=== PATIENT | male | born 1955 | race Caucasian/White ===

== ENCOUNTER 2018-02-17 09:56 | Emergency (ER) | payer MEDICARE, OTHER ==
[2018-02-17 10:10] VITALS: BP 116/62; PULSE 85; TEMP 98.3; BMI 26.7
--- NOTE | 2018-02-17 10:18 | PDOC ---
History of Present Illness - General Chief Complaint: Blurry Vision Stated Complaint: HEADACHE,BLURRY VISION Time Seen by Provider: 02/17/18 10:18 - History of Present Illness Initial Comments: 02/17/18 10:38 Pt is a 62 y/o Gentleman w/ a significant past medical history of CKD, renal transplant (Right,2014), IDDMII, HLD, and HTN who presents to [facility] c/o pain in the occipital region of his head radiating down toward both shoulders. Pt also endorses pain and decreased visual acuity in his right eye. Pt has taken tylenol which has partially mitigated his symptoms. Pt further states he is unable to walk straight as he is always trying to clutch on to his surroundings because he loses balance. Denies chest pain, shortness of breath, fever, chills , nausea, or vomiting. Past History - Past Medical History Allergies/Adverse Reactions: Allergies Allergy/AdvReac Type Severity Reaction Status Date / Time ciprofloxacin [From Cipro] Allergy "STOMACH Verified 04/01/16 07:02 BURNING" ciprofloxacin HCl Allergy Verified 04/01/16 07:02 [From Cipro] Home Medications: Ambulatory Orders Cinacalcet HCl [Sensipar] 60 mg PO DAILY 02/03/13 Amlodipine Besylate [Norvasc -] 5 mg PO DAILY 03/31/16 Fludrocortisone Acetate [Florinef -] 0.1 mg PO DAILY 03/31/16 Metoprolol Tartrate [Lopressor -] 50 mg PO BID 03/31/16 Mycophenolate Sodium [Myfortic -] 360 mg PO BID 03/31/16 Prednisone 5 mg PO DAILY 03/31/16 Tacrolimus [Prograf] 3 mg PO BID 03/31/16 Tamsulosin HCl [Flomax] 0.4 mg PO DAILY 03/31/16 Tramadol HCl [Ultram] 50 mg PO PRN PRN 03/31/16 Insulin Glargine,Hum.rec.anlog [Lantus] 25 unit SQ DAILY 02/17/18 Insulin Lispro [Humalog] 0 units SQ ASDIR 02/17/18 Anemia: No Asthma: No Cancer: No Cardiac Disorders: No CVA: No COPD: No CHF: No DVT: No Dementia: No Diabetes: Yes Dialysis: Yes GI Disorders: No Disorders: No HTN: Yes Hypercholesterolemia: No Liver Disease: No Seizures: No Thyroid Disease: No - Surgical History Abdominal Surgery: No Appendectomy: No Cardiac Surgery: No Cholecystectomy: No Lung Surgery: No Neurologic Surgery: No Orthopedic Surgery: No - Immunization History Immunization Up to Date: Yes - Suicide/Smoking/Psychosocial Hx Smoking Status: No Smoking History: Never smoked Have you smoked in the past 12 months: No Number of Cigarettes Smoked Daily: 0 Information on smoking cessation initiated: No Hx Alcohol Use: No Drug/Substance Use Hx: No Substance Use Type: None Hx Substance Use Treatment: No *Physical Exam - Vital Signs Last Vital Signs Temp Pulse Resp BP Pulse Ox 98.3 F 85 16 116/62 100 02/17/18 10:06 02/17/18 10:06 02/17/18 10:06 02/17/18 10:06 02/17/18 10:06 - Physical Exam Comments: GEN- AAOx3 RS- CTA B/L CVS- RRR, harsh holosystolic murmur heard throughout 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 ABD- NT, ND, No HSM EYES- EOMI, PERRLA . OS: 20/70 (without glasses) OD: 20/100 (without glasses). Pt reports increasing bluriness of the right eye. No tenderness at the temples. EXT- No CCE. Onychomycosis b/l. ED Treatment Course - LABORATORY CBC & Chemistry Diagram: 02/17/18 11:13 02/17/18 12:00 Medical Decision Making - Medical Decision Making 02/17/18 11:[address] W/O contrast, CBC, CMP, Troponin, EKG, Chest X-Ray, Ophth Consult 02/17/18 11:33 DDX- A Fugax, Intracranial lesion, Temporal arteritis, Stroke 02/17/18 13:15 Pt examined again in vertical area, headache resolved w/ I.V Tylenol, still endorses right eye pain and decreased acuity. -CT Head- No acute intracranial pathology. -Pt scheduled for Ophth Appoint later this month. Told to come back to our ED if pain persists or progresses. *DC/Admit/Observation/Transfer Diagnosis at time of Disposition: Eye pain Qualifiers: Laterality: right Qualified Code(s): H57.11 - Ocular pain, right eye - Discharge Dispostion Disposition: HOME Condition at time of disposition: Stable Decision to Admit order: No - Referrals Referrals: Sal Ortega MD [Primary Care Provider] - - Patient Instructions Printed Discharge Instructions: DI for Visual Field Disturbances Print Language: NEPALESE - Post Discharge Activity
[2018-02-17] MEDS ORDERED: ACETAMINOPHEN 325 MG TABLET (FP) PO PRN (10:48)
[2018-02-17] MEDS ORDERED: ACETAMINOPHEN 325 MG TABLET (FP) PO ONE (10:48)
[2018-02-17] MEDS ORDERED: ACETAMINOPHEN WITH CODEINE 300MG/30MG TABLET PO ONE (10:48)
[2018-02-17] MEDS ORDERED: ACETAMINOPHEN 1000 MG/100 ML VIAL (NON FORMULARY) IVPB ONE (11:11)
[2018-02-17] MEDS ORDERED: ACETAMINOPHEN INJECTION 100 ML IVPB ONE (11:27)
[2018-02-17 11:30] LABS: HEMATOCRIT 40.2 % (35.4-49); HEMOGLOBIN 13.3 GM/dL (11.7-16.9); MEAN CELL VOLUME 96.8 fl (80-96); MEAN PLT VOLUME 8.6 fl (7.5-11.1); PLATELET COUNT 104 K/MM3 (134-434); RBC 4.16 M/mm3 (4.00-5.60); WHITE BLOOD COUNT 4.8 K/mm3 (4.0-10.0)
--- NOTE | 2018-02-17 11:31 | PDOC ---
Attending Attestation - Resident Resident Name: Eliseo Ware Huong - ED Attending Attestation I have performed the following: I have examined & evaluated the patient, The case was reviewed & discussed with the resident, I agree w/resident's findings & plan, Exceptions are as noted - HPI HPI: 02/17/18 11:26 62-year-old male patient with history of chronic kidney disease, hyperlipidemia , diabetes, hypertension, kidney transplant on mycophenolate and tacrolimus presents with headache for 3 days. Patient reports of a squeezing like posterior headache that radiates down to his posterior shoulders. Has been also complaining about right ear pain radiating to his right eye. States that he's been endorsing revision of his right eye. Typically wears glasses but even reports with glasses he is unable to differentiate letters in his right eye. Denies prior headache history. Denies complete vision loss. No fevers or chills or neck stiffness. Patient has been endorsing feeling lightheaded and generally weak. Denies chest pain or shortness of breath. Denies pain at the temples. - Physicial Exam PE: 02/17/18 11:26 GENERAL: Awake, alert, and fully oriented, in no acute distress HEAD: No signs of trauma EYES: PERRLA, EOMI, sclera anicteric, conjunctiva clear. No field cut deficit. OS: 20/70 (without glasses) OD: 20/100 (without glasses). Pt reports increasing bluriness of the right eye. No tenderness at the temples. ENT: Auricles normal inspection, hearing grossly normal, nares patent, oropharynx clear without exudates. Moist mucosa. TMs bilaterally clear without erythema or drainage. NECK: Normal ROM, supple, no lymphadenopathy, JVD, or masses LUNGS: Breath sounds equal, clear to auscultation bilaterally. No wheezes, and no crackles HEART: Regular rate and rhythm, normal S1 and S2, no murmurs, rubs or gallops ABDOMEN: Soft, nontender, normoactive bowel sounds. No guarding, no rebound. No masses EXTREMITIES: Normal range of motion, no edema. No clubbing or cyanosis. No cords, erythema, or tenderness NEUROLOGICAL: Cranial nerves II through XII intact. Normal speech, normal gait. 5/5 strength upper and lower extremities. Sensation intact throughout. No pronator drift. SKIN: Warm, Dry, normal turgor, no rashes or lesions noted. - Medical Decision Making 02/17/18 11:31 Vital Signs Temp Pulse Resp BP Pulse Ox 98.3 F 85 16 116/62 100 02/17/18 10:06 02/17/18 10:06 02/17/18 10:06 02/17/18 10:02/17/18 10:06 Patient is having blurry vision in the right eye but no pain in the eye itself. Was initially complaints of right ear pain but no evidence of otitis media or an ear infection. Differential includes amaurosis fugax, tension headache, migraines, intracranial mass or lesion, stroke, less likely glaucoma. We'll obtain labs and CAT scan the head. We'll need to consult neurology and ophthalmology. 02/17/18 12:03 CBC, [facility] 02/17/18 11:13 Plts 104. Chest xray unremarkable. 02/17/18 12:58 CBC, [facility] 02/17/18 11:13 02/17/18 12:00 CT head reviewed. No acute findings. Case discussed with Dr. Corrigan. States that if neuro requests optho consult, she can see patient. Case discussed with Dr. Corrales. Patient's headache is now resolved with tylenol. Could this an ocular migraine? Head CT shows nothing acute. Given that the patient feels better, he will see patient as an outpatient. Will d/c patient home. Heart Score/ECG Review #1 ECG reviewed & interpreted by me at: 10:20 02/17/18 12:12 NSR 61, RBBB, Q wave avF, no std/tono, QTC 420 msec
[2018-02-17 12:17] LABS: ALBUMIN 3.9 g/dl (3.4-5.0); ALK PHOS 130 U/L (45-117); ANION GAP 7 MMOL/L (8-16); BILIRUBIN,TOTAL 0.9 mg/dL (0.2-1.0); BLOOD UREA NITROGEN 35 mg/dL (7-18); CALCIUM 9.9 mg/dL (8.5-10.1); CHLORIDE 102 mmol/L (98-107); CO2 27 mmol/L (21-32); CREATININE 1.3 mg/dL (0.7-1.3); GLUCOSE,RANDOM 123 mg/dL (74-106); POTASSIUM 4.6 mmol/L (3.5-5.1); SGOT/AST 16 U/L (15-37); SGPT/ALT 22 U/L (12-78); SODIUM 136 mmol/L (136-145); TOT PROT 6.9 g/dl (6.4-8.2)
--- NOTE | 2018-02-17 15:07 | CONSULT ---
Consult Consult Specialty:: Intwernal Medicine Referred by:: ED Reason for Consultation:: Rt sided Head ache Evaluation for Hospitalization - History of Present Illness Chief Complaint: Rt sided Head ache History of Present Illness: 62 yrs old man H/O HTN, T2DN, Diabetic Nephropathy CKD stage 5 s/p renal transplant in 2014, patient is doing well also H/O Occasional head ache, today present to Ed with C/O Rt eye blurring of vision with ongoing Rt sided head ache that 8/10 in intensity feels more in retro-ocular, dull, , no associated lacrimation, neck pain, photophobia, or phonophbia denies any aggravating or relieving factor, no c/o fever chills, nauseam, vomiting or Sick contact, on arrival to Ed hemodynamically stable, CBC, BMP are unremarkable , CT Head no acute changes, in the ED Neurology and Ophthalmology consuted. - History Source History Provided By: Patient - Past Medical History Cardio/Vascular: Yes: HTN, Hyperlipdemia Renal/: Yes: Hemodialysis Endocrine: Yes: Diabetes Mellitus (IDDM) Additional Medical History: s/p permacath - Past Surgical History Past Surgical History: Yes: Kidney Transplant - Alcohol/Substance Use Hx Alcohol Use: No - Smoking History Smoking history: Never smoked Have you smoked in the past 12 months: No Aproximately how many cigarettes per day: 0 - Social History Usual Living Arrangement: With Child ADL: Independent History of Recent Travel: No Home Medications - Allergies Allergies/Adverse Reactions: Allergies Allergy/AdvReac Type Severity Reaction Status Date / Time ciprofloxacin [From Cipro] Allergy "STOMACH Verified 04/01/16 07:02 BURNING" ciprofloxacin HCl Allergy Verified 04/01/16 07:02 [From Cipro] - Home Medications Home Medications: Ambulatory Orders Cinacalcet HCl [Sensipar] 60 mg PO DAILY 02/03/13 Amlodipine Besylate [Norvasc -] 5 mg PO DAILY 03/31/16 Fludrocortisone Acetate [Florinef -] 0.1 mg PO DAILY 03/31/16 Metoprolol Tartrate [Lopressor -] 50 mg PO BID 03/31/16 Mycophenolate Sodium [Myfortic -] 360 mg PO BID 03/31/16 Prednisone 5 mg PO DAILY 03/31/16 Tacrolimus [Prograf] 3 mg PO BID 03/31/16 Tamsulosin HCl [Flomax] 0.4 mg PO DAILY 03/31/16 Tramadol HCl [Ultram] 50 mg PO PRN PRN 03/31/16 Insulin Glargine,Hum.rec.anlog [Lantus] 25 unit SQ DAILY 02/17/18 Insulin Lispro [Humalog] 0 units SQ ASDIR 02/17/18 Family Disease History - Family Disease History Family Disease History: Diabetes: Father Review of Systems - Review of Systems Constitutional: reports: Chills, Diaphoresis. denies: Fever, Lethargy Eyes: reports: Blurred Vision, Recent Change in Vision. denies: Blind Spots, Double Vision, Eye Pain, Floaters, Photophobia HENT: denies: Difficult Swallowing, Ear Discharge Neck: denies: Decreased ROM, Lumps, Pain on Movement Cardiovascular: denies: Chest Pain, Edema, Palpitations, Shortness of Breath Respiratory: denies: Cough, Exercise Intolerance, Hemoptysis, Orthopnea Gastrointestinal: denies: Abdominal Pain, Bloating, Constipation, Diarrhea, Dysphagia Genitourinary: denies: Burning, Discharge, Dysuria Musculoskeletal: denies: Back Pain, Crepitus, Decreased ROM Integumentary: denies: Blister, Bruising, Change in Color, Eczema, Erythema Neurological: reports: Headache. denies: Change in LOC, Change in Speech, Confusion, Dizziness, Incoordination, Numbness, Parasthesia, Seizure, Syncope, Tremors, Unsteady Gait, Weakness Hematology/Lymphatic: denies: Easily Bruised, Excessive Bleeding Physical Exam Vital Signs: Vital Signs Temperature 98.3 F 02/17/18 10:06 Pulse Rate 85 02/17/18 10:06 Respiratory Rate 16 02/17/18 10:06 Blood Pressure 116/62 02/17/18 10:06 O2 Sat by Pulse Oximetry (%) 100 02/17/18 10:06 Middle aged man sitting comfortable denies any complaints Head ache resolved after Tylenol HEENT: MM moist no anemia, PEERLA, no conjuctival injection or eye ball tenderness denies any ocular globe tenderness or pain on movement NECK: supple, no JVd, No Bruit CHEST: Thrill radiating from Rt UE, CTA B/L CVS:S1S2 R no m/g/r ABD: No distention, non tender BS EXT: No robin afeet, no calf tenderness TELEPHONE ORDER SUPERVISOR: AOX3 non focal, no facial asymmetry, Speech: normal Cranial N 2-12 grossly normal Motor Exam normal Sensory Exam normal Grossly normal TELEPHONE ORDER SUPERVISOR examination. Labs: CBC, BMP 02/17/18 11:13 02/17/18 12:00 Imaging - Results Cat Scan: Report Reviewed (CT Head no acute intra cranial changes) EKG: Report Reviewed Problem List - Problems (1) Eye pain Assessment/Plan: Patient present with Rt sided reto orbital head ache with blurring of vision, head ache resolved still c/o mild blurring of vision in Rt eye, patient has no clinical sign of inflation , no tenderness or pain in Rt eye globe on movement, normal pupillary reaction, normal ESR and CRP , CT head normal, possibility of migraine or retro-bulbar optic neuritis, needs neurology and ophthalmology input for disposition from ED (discharge home or hospitalization as per ) if recommends Hospitalization will admit the patient for further management. Code(s): H57.10 - OCULAR PAIN, UNSPECIFIED EYE Qualifiers: Laterality: right Qualified Code(s): H57.11 - Ocular pain, right eye (2) HTN (hypertension) Assessment/Plan: Well controlled cont all home meds Code(s): I10 - ESSENTIAL (PRIMARY) HYPERTENSION (3) Renal transplant recipient Assessment/Plan: At present BUN Creat at base line cont all home meds for transplantation Code(s): Z94.0 - KIDNEY TRANSPLANT STATUS (4) Dyslipidemia Assessment/Plan: cont Home meds Code(s): E78.5 - HYPERLIPIDEMIA, UNSPECIFIED (5) T2DM (type 2 diabetes mellitus) Assessment/Plan: On Insulin cont Homwe meds Code(s): E11.9 - TYPE 2 DIABETES MELLITUS WITHOUT COMPLICATIONS Assessment/Plan Ed called back with neurology consult input , Neurology consult recommends out patient F/u for further evaluation. Visit type - Emergency Visit Emergency Visit: Yes Care time: The patient presented to the Emergency Department on the above date and was hospitalized for further evaluation of their emergent condition. - New Patient This patient is new to me today: Yes Date on this admission: 02/17/18 - Critical Care Critical Care patient: No
== END 2018-02-17 13:50 | disposition home or self-care (01) ==
LOC: JER 09:56
DX: H57.11 Ocular pain, right eye (principal); I12.0 Hypertensive chronic kidney disease with stage 5 chronic kidney disease or end stage renal disease; E11.22 Type 2 diabetes mellitus with diabetic chronic kidney disease; N18.5 Chronic kidney disease, stage 5; N17.8 Other acute kidney failure; Z99.2 Dependence on renal dialysis; Z79.4 Long term (current) use of insulin; Z94.0 Kidney transplant status; E78.00 Pure hypercholesterolemia, unspecified; Z88.1 Allergy status to other antibiotic agents
CPT/HCPCS: 36415; 70450-TC; 71045-TC-FY; 80053; 80197; 84484; 85027; 85651; 86140; 99282-25; J0131

== ENCOUNTER 2018-03-29 08:28 | Day surgery (SDC) | payer MEDICARE, OTHER ==
[2018-03-27 09:11] VITALS: BMI 29.7
[~2018-03-29 08:28] MED LIST: ACETAMINOPHEN 325 MG TABLET (FP) PO PRN; BSS (NA/CA/MG/K) BALANCED SALT SOLUTION OPHTH SOLN 15 ML BOTTLE OS ONE; CHONDROITIN SU A/HYALUR SOD 1 KIT IO ONE; CYCLOPENTOLATE HCL 1% OPHTH SOLN 2 ML BOTTLE OP SCH; KETOROLAC TROMETHAMINE 0.5% EYE DROP 1 DROP DROPS OP SCH; LIDOCAINE HCL 1% PRESERVATIVE FREE - 30ML VIAL IO ONE; OFLOXACIN 0.3% OPHTHALMIC SOLUTION 5 ML BOTTLE OP SCH; PHENYLEPHRINE 2.5% OPHTH SOLN 15 ML BOTTLE OP SCH; PHENYLEPHRINE/KETOROLAC 4 ML VIAL IO ONE; POVIDONE-IODINE 5% OPHTHALMIC PREP 30 ML SOLUTION OS ONE; TETRACAINE 0.5% OPHTH SOLN 2 ML BOTTLE OS ONE; TROPICAMIDE 1% OPHTH SOLN 15 ML BOTTLE OP SCH; TRYPAN BLUE 0.5 ML DISP.SYRIN IO ONE
[2018-03-29] MEDS ORDERED: TROPICAMIDE 1% OPHTH SOLN 15 ML BOTTLE ONE (08:41)
[2018-03-29] MEDS ORDERED: CYCLOPENTOLATE HCL 1% OPHTH SOLN 2 ML BOTTLE ONE (08:41)
[2018-03-29] MEDS ORDERED: OFLOXACIN 0.3% OPHTHALMIC SOLUTION 5 ML BOTTLE ONE (08:41)
[2018-03-29] MEDS ORDERED: PHENYLEPHRINE 2.5% OPHTH SOLN 15 ML BOTTLE ONE (08:41)
[2018-03-29] MEDS ORDERED: KETOROLAC TROMETHAMINE 0.5% EYE DROP 1 DROP DROPS ONE (08:41)
[2018-03-29] MEDS ORDERED: PHENYLEPHRINE 2.5% OPHTH SOLN 15 ML BOTTLE OS ONE ×3 (09:00→09:10)
[2018-03-29] MEDS ORDERED: KETOROLAC TROMETHAMINE 0.5% EYE DROP 1 DROP DROPS OS ONE ×3 (09:00→09:10)
[2018-03-29] MEDS ORDERED: TROPICAMIDE 1% OPHTH SOLN 15 ML BOTTLE OS ONE ×3 (09:00→09:10)
[2018-03-29] MEDS ORDERED: PHENYLEPHRINE/KETOROLAC 4 ML VIAL IO ONE ×2 (09:00→09:51)
[2018-03-29] MEDS ORDERED: CYCLOPENTOLATE HCL 1% OPHTH SOLN 2 ML BOTTLE OS ONE ×3 (09:00→09:10)
[2018-03-29] MEDS ORDERED: OFLOXACIN 0.3% OPHTHALMIC SOLUTION 5 ML BOTTLE OS ONE ×3 (09:00→09:10)
[2018-03-29] MEDS ORDERED: TETRACAINE 0.5% OPHTH SOLN 2 ML BOTTLE OS ONE (09:34)
[2018-03-29] MEDS ORDERED: MIDAZOLAM HCL 2 MG/2 ML SINGLE DOSE VIAL ONE (09:34)
[2018-03-29] MEDS ORDERED: POVIDONE-IODINE 5% OPHTHALMIC PREP 30 ML SOLUTION OS ONE (09:36)
[2018-03-29] MEDS ORDERED: TRYPAN BLUE 0.5 ML DISP.SYRIN IO ONE (09:43)
[2018-03-29] MEDS ORDERED: BSS (NA/CA/MG/K) BALANCED SALT SOLUTION OPHTH SOLN 15 ML BOTTLE OS ONE (09:43)
[2018-03-29] MEDS ORDERED: LIDOCAINE HCL 1% PRESERVATIVE FREE - 30ML VIAL IO ONE (09:43)
[2018-03-29] MEDS ORDERED: CHONDROITIN SU A/HYALUR SOD 1 KIT IO ONE (09:43)
[2018-03-29 10:40] VITALS: TEMP 97.9
--- NOTE | 2018-03-29 10:46 | SPEC ---
DATE OF SURGERY: 03/29/2018 OPERATION: Phacoemulsification of left cataract, capsular staining with Trypan blue and intraocular lens implantation, lens used [id number], 21.0 Diopter power, Serial No. [id number]. PREOPERATIVE DIAGNOSIS: Cataract left eye. POSTOPERATIVE DIAGNOSIS: Cataract left eye. SURGEON: Jt Whitaker M.D. ANESTHESIA: Topical MAC. COMPLICATIONS: None. PROCEDURE: The patient was brought to the operating room and correctly identified along with the operative site as well as correct intraocular lens chiu. The patient was then prepped and draped in the usual sterile fashion including 5% Betadine solution in the conjunctival sac and an eyelid drape. An eyelid speculum was then placed into the operative eye. The eye was inspected and a poor red reflex was noted. A paracentesis port was created and .5 mL of intracameral preservative-free Lidocaine 1% was given. Beneath an air bubble, the capsule was then stained with Trypan blue. The Trypan blue was then irrigated from the eye with balanced salt solution (BBS). Viscoelastic was injected to inflate the anterior chamber. A temporal clear corneal would was created. A continuous circular capsulorrhexis was performed. The nucleus was then hydro-dissected and hydro-delineated was BSS and removed with phacoemulsification via [id number] approach. The remaining cortical material was irrigated and aspirated from the eye. Viscoelastic was injected in the anterior chamber to inflate the capsular bag. The intraocular lens was then injected into the bag. The Viscoelastic was irrigated and aspirated from the eye. All wounds were tested and found to be watertight. No suture was placed. The intraocular lens was noted to be well centered and covered by the anterior capsular border. Topical Vancomycin was given. The eye was patched and shielded. The patient was discharged from the operating room in stable condition. Lyssa [id number]
[2018-03-29 11:10] VITALS: BP 149/71; PULSE 71
== END 2018-03-29 11:10 | disposition home or self-care (01) ==
LOC: JASU-SURG 08:28
PROVIDERS: ATTEND Ophthalmology
PROC: 08RK3JZ Replacement of Left Lens with Synthetic Substitute, Percutaneous Approach (ICD-10-PCS; principal; 2018-03-29 10:00)
DX: H26.9 Unspecified cataract (principal)
CPT/HCPCS: 82962; C9447

== ENCOUNTER 2018-07-29 14:13 | Emergency (ER) | payer MEDICARE, OTHER ==
[2018-07-29 14:20] VITALS: BP 150/66; PULSE 69; TEMP 97.5; BMI 26.5
--- NOTE | 2018-07-29 16:06 | PDOC ---
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 States that he has constipation and diarrhea on occasion and has been particularly constipated over the past week with occasional diarrhea once the constipation is relieved after straining over the toilet. Denies rectal bleeding. He saw Dr. Dawn and he gave him rectal hydrocortisone cream which has not helped his symptoms despite 4 days of use. Denies fevers, chills, nausea, vomiting, diarrhea, or other symptoms. 07/29/18 17:03 <Jonas Mendiola - Last Filed: 07/29/18 17:46> <Radha Mccloud - Last Filed: 07/29/18 18:01> - General Chief Complaint: Respiratory Stated Complaint: COLD SYMPTOMS Time Seen by Provider: 07/29/18 16:06 Past History - Past Medical History Anemia: No Asthma: No Cancer: No Cardiac Disorders: No CVA: No COPD: No CHF: No DVT: No Dementia: No Diabetes: Yes Dialysis: Yes GI Disorders: No Disorders: No HTN: Yes Hypercholesterolemia: Yes Liver Disease: No Seizures: No Thyroid Disease: No - Surgical History Abdominal Surgery: No Appendectomy: No Cardiac Surgery: No Cholecystectomy: No Lung Surgery: No Neurologic Surgery: No Orthopedic Surgery: Yes (FOOT SURGERY DARLINE) - Immunization History Immunization Up to Date: Yes - Suicide/Smoking/Psychosocial Hx Smoking Status: No Smoking History: Never smoked Have you smoked in the past 12 months: No Number of Cigarettes Smoked Daily: 0 Hx Alcohol Use: No Drug/Substance Use Hx: No Substance Use Type: None Hx Substance Use Treatment: No <Jonas Mendiola - Last Filed: 07/29/18 17:46> <Radha Mccloud - Last Filed: 07/29/18 18:01> - Past Medical History Allergies/Adverse Reactions: Allergies Allergy/AdvReac Type Severity Reaction Status Date / Time ciprofloxacin [From Cipro] Allergy "STOMACH Verified 07/29/18 14:20 BURNING" ciprofloxacin HCl Allergy Verified 07/29/18 14:20 [From Cipro] latex Allergy Verified 07/29/18 14:20 Home Medications: Ambulatory Orders Cinacalcet HCl [Sensipar] 60 mg PO DAILY 02/03/13 Amlodipine Besylate [Norvasc -] 5 mg PO DAILY 03/31/16 Fludrocortisone Acetate [Florinef -] 0.1 mg PO DAILY 03/31/16 Metoprolol Tartrate [Lopressor -] 50 mg PO BID 03/31/16 Mycophenolate Sodium [Myfortic -] 360 mg PO BID 03/31/16 Prednisone 5 mg PO DAILY 03/31/16 Tacrolimus [Prograf] 3 mg PO BID 03/31/16 Tamsulosin HCl [Flomax] 0.4 mg PO DAILY 03/31/16 Tramadol HCl [Ultram] 50 mg PO PRN PRN 03/31/16 Insulin Glargine,Hum.rec.anlog [Lantus] 25 unit SQ DAILY 02/17/18 Insulin Lispro [Humalog] 0 units SQ ASDIR 02/17/18 Phenylephrine HCl/[place] Butter [Preparation H Suppository] 1 each RC QID 10 Days #40 supp.rect 07/29/18 Review of Systems - Review of Systems Constitutional: No: Chills, Diaphoresis, Fever, Loss of Appetite HEENTM: No: Blurred Vision, Tearing Respiratory: No: Orthopnea, Shortness of Breath Cardiac (ROS): No: Chest Pain, Edema, Chest Tightness ABD/GI: Yes: Constipated, Diarrhea. No: Nausea, Poor Appetite, Rectal Bleeding , Vomiting : No: Dysuria, Discharge, Frequency Musculoskeletal: No: Back Pain, Joint Pain, Joint Swelling Integumentary: No: Bruising, Flushing, Lesions, Lumps Neurological: No: Headache, Numbness, Paresthesia Psychiatric: No: Anxiety, Depression Hematologic/Lymphatic: No: Anemia, Blood Clots, Easy Bleeding <Jonas Mendiola - Last Filed: 07/29/18 17:46> *Physical Exam - Vital Signs Last Vital Signs Temp Pulse Resp BP Pulse Ox 97.5 F L 69 18 150/66 100 07/29/18 14:16 07/29/18 14:16 07/29/18 14:16 07/29/18 14:16 07/29/18 14:16 - Physical Exam General Appearance: Yes: Nourished, Appropriately Dressed. No: Apparent Distress HEENT: positive: EOMI, JENNIFER, Normal ENT Inspection, Normal Voice Neck: positive: Trachea midline, Normal Thyroid, Supple. negative: Tender, Rigid Respiratory/Chest: positive: Lungs Clear, Normal Breath Sounds. negative: Chest Tender, Respiratory Distress, Accessory Muscle Use Cardiovascular: positive: Regular Rhythm, Regular Rate Gastrointestinal/Abdominal: positive: Normal Bowel Sounds, Flat, Soft. negative : Tender Rectal Exam: positive: normal rectal tone, hemorrhoids (large external and interal hemorrhoids (soft, nonthrombosed but slightly tender)). negative: normal exam Musculoskeletal: positive: Normal Inspection. negative: Decreased Range of Motion Extremity: positive: Normal Capillary Refill, Normal Inspection, Normal Range of Motion, Other (right bicep AVF). negative: Tender Integumentary: positive: Normal Color, Dry, Warm Neurologic: positive: Fully Oriented, Alert, Normal Mood/Affect, Normal Response , Motor Strength 5/5 <Jonas Mendiola - Last Filed: 07/29/18 17:46> - Vital Signs Last Vital Signs Temp Pulse Resp BP Pulse Ox 97.5 F L 69 18 150/66 100 07/29/18 14:16 07/29/18 14:16 07/29/18 14:16 07/29/18 14:16 07/29/18 14:16 <Radha Mccloud - Last Filed: 07/29/18 18:01> Moderate Sedation - Procedure Monitoring Vital Signs: Procedure Monitoring Vital Signs Temperature 97.5 F L 07/29/18 14:16 Pulse Rate 69 07/29/18 14:16 Respiratory Rate 18 07/29/18 14:16 Blood Pressure 150/66 07/29/18 14:16 O2 Sat by Pulse Oximetry (%) 100 07/29/18 14:16 <Jonas Mendiola - Last Filed: 07/29/18 17:46> - Procedure Monitoring Vital Signs: Procedure Monitoring Vital Signs Temperature 97.5 F L 07/29/18 14:16 Pulse Rate 69 07/29/18 14:16 Respiratory Rate 18 07/29/18 14:16 Blood Pressure 150/66 07/29/18 14:16 O2 Sat by Pulse Oximetry (%) 100 07/29/18 14:16 <Radha Mccloud - Last Filed: 07/29/18 18:01> Medical Decision Making - Medical Decision Making 62 year old male here for rectal pain with internal and external hemorrhoids. No bleeding on exam, no VS abnormality. No other complaints by the patient. It appears that the reason for his pain is from an external hemorrhoid that extends into the rectum itself but below the dentate line. HE is on hydrocortisone cream but we will give him a suppository and prescribe a high fiber diet along with general surgery follow up in case he no longer has issues. 07/29/18 17:46 <Jonas Mendiola - Last Filed: 07/29/18 17:46> *DC/Admit/Observation/Transfer - Discharge Dispostion Decision to Admit order: No <Jonas Mendiola - Last Filed: 07/29/18 17:46> <AmeRadha - Last Filed: 07/29/18 18:01> Diagnosis at time of Disposition: Hemorrhoidal skin tags, Hemorrhoid - Discharge Dispostion Disposition: HOME Condition at time of disposition: Improved - Prescriptions Prescriptions: Phenylephrine HCl/[place] Butter [Preparation H Suppository] 1 each RC QID 10 Days #40 supp.rect - Referrals Referrals: Wesley Rod MD [Staff Physician] - - Patient Instructions Printed Discharge Instructions: DI for Hemorrhoids Additional Instructions: Por favor, come muchas manzanas y otras frutas. Por favor, beber manuel agua. Evite la pasta, el arroz y el raines. Puedes comer pasta, arroz y raines, fabi no demasiado. Por favor, ponga la pldora en gant trasero 4 veces al da. Consulte al cirujano en esta hoja si gant dolor no mejora maddy la prxima semana. Regrese a la erasto de emergencias si tiene mucho sangrado, fiebre, escalofros u otros sntomas.
--- NOTE | 2018-07-29 18:01 | PDOC ---
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 The patient reports intermittent constipation this past week followed by diarrhea when he is able to have a bowel movement. Denies any rectal bleeding. Denies any hematochezia or melena. Denies fever, chills, chest pain, SOB, palpitation, dizziness, weakness, N, V, abdominal pain, bladder problems, leg swelling, No sick contacts or travel. No new changes in medications. Allergies: ciprofloxacin, ciprofloxacin HCL, latex - Physicial Exam PE: 07/29/18 17:59 agree with resident physical NAD, well appearing. of note, no abdominal tenderness, no rebound/guarding, Rectal exam with external skin tag; no thrombosed hemorrhoids or bleeding. small painful internal hemorrhoid palpated. no stool no bleed. - Medical Decision Making 07/29/18 18:00 hpi as documented VS wnl, reassuring rectal pain likely from internal hemorrhoids trial of anusol suppository for pain control outpatient followup with PMD/surgeon for management and control. stool softeners and high fiber diet. Pt to be discharged in stable condition. Patient and family made aware of impression and plan, return precautions discussed (including but not limited to worsening pain or symptoms), fevers, or signs of infection, chest pain, respiratory distress, inability to tolerate oral intake, dehydration, syncope, or neurologic changes). Follow up with PMD and/or specialist as recommended, follow up information provided, take medications as instructed for duration of time. continue with supportive care, avoid triggers and precipitants. Patient does not suffer from an acute life-threatening medical condition at this time she is safe for outpatient follow-up.
== END 2018-07-29 18:14 | disposition home or self-care (01) ==
LOC: JER 14:13
DX: K64.9 Unspecified hemorrhoids (principal); K64.4 Residual hemorrhoidal skin tags; I12.9 Hypertensive chronic kidney disease with stage 1 through stage 4 chronic kidney disease, or unspecified chronic kidney disease; N18.9 Chronic kidney disease, unspecified; Z94.0 Kidney transplant status; I10 Essential (primary) hypertension; E11.9 Type 2 diabetes mellitus without complications; E78.5 Hyperlipidemia, unspecified
CPT/HCPCS: 99282-25

== ENCOUNTER 2020-03-02 13:08 | Inpatient (IN) | payer OTHER ==
--- OUTSIDE RECORDS SUMMARY | 2020-03-02 13:29 | XMS ---
:1955 Author Organization [facility] Care Team Providers Name Role Phone VELIA GUIDO Unavailable Unavailable ZUNILDA PETER Unavailable Unavailable GONSALO, SEDEJAN Unavailable Unavailable SUSANA,DOROTHY Unavailable Unavailable DEIRDRE, NGUYỄN Unavailable Unavailable ALFREDO PETERDITA Unavailable Unavailable HILDA, ACE Unavailable Unavailable AMBER MORALES Unavailable Unavailable ED STAFF PHYSICIANWHITNEY Unavailable Unavailable Metz, Jia Unavailable Unavailable Metz, Jia Unavailable Unavailable Metz, Jia Unavailable Unavailable Metz, Jia Unavailable Unavailable CESAR CHRISTOPHER Unavailable Unavailable Menla, Sal Unavailable Unavailable Menla, Sal Unavailable Unavailable Menla, Sal Unavailable Unavailable Menla, Sal Unavailable Unavailable Menla, Sal Unavailable Unavailable Menla, Sal Unavailable Unavailable NATALIE BRIGGS Unavailable Unavailable ED STAFF PHYSICIAN Unavailable Unavailable SEAN, SANDHYA Unavailable Unavailable METZ, JIA Unavailable Unavailable JIMTSAERT, JIA Unavailable Unavailable Giorgio Coelho Unavailable [phone] PRISCILLA KUHN Unavailable Unavailable ED STAFF PHYSICIAN, STAFF Unavailable Unavailable JEAN PAUL PEDRAZA Unavailable Unavailable NEIL, MAYKEL Unavailable Unavailable MIRZA, AMMIR Unavailable Unavailable MARTHA LOPEZ Unavailable Unavailable SYNAGOGUE Unavailable Unavailable JOE MELVIN Unavailable Unavailable ELKIN Wyatt Unavailable Unavailable Re-disclosure Warning The records that you are about to access may contain information from federally- assisted alcohol or drug abuse programs. If such information is present, then the following federally mandated warning applies: This information has been disclosed to you from records protected by federal confidentiality rules (42 CFR part 2). The federal rules prohibit you from making any further disclosure of this information unless further disclosure is expressly permitted by the written consent of the person to whom it pertains or as otherwise permitted by 42 CFR part 2. A general authorization for the release of medical or other information is NOT sufficient for this purpose. The Federal rules restrict any use of the information to criminally investigate or prosecute any alcohol or drug abuse patient.The records that you are about to access may contain highly sensitive health information, the redisclosure of which is protected by Article 27-F of the [facility] Public Health law. If you continue you may haveaccess to information: Regarding HIV / AIDS; Provided by facilities licensed or operated by the [facility] Office of Mental Health; or Provided by the [facility] Office for People With Developmental Disabilities. If such information is present, then the following [facility] mandated warning applies: This information has been disclosed to you from confidential records which are protected by state law. State law prohibits you from making any further disclosure of this information without the specific written consent of the person to whom it pertains, or as otherwise permitted by law. Any unauthorized further disclosure in violation of state law may result in a fine or retirement sentence or both. A general authorization for the release of medical or other information is NOT sufficient authorization for further disclosure. Allergies and Adverse Reactions Type Description Substance Reaction Status Data Source(s ) Food allergy No Known Food No Known Food [facility] unruly Allergies Allergies [facility] on Drug allergy Ciprofloxacin Ciprofloxacin [facility] on Drug allergy No Known Drug No Known Drug [place] unruly Allergies Allergies [facility] on Drug allergy No Known Allergies No Known [facility]ergies [facility] Propensity to Propensity to Propensity to NEXTG EN ([facility] adverse adverse reactions adverse reactions [facility] reactions (disorder) (disorder) Center) (disorder) Encounters Encounter Providers Location Date Indications Data Source(s ) Outpatient 03/21/2020 [facility] 04:49:00 PM Medical Cente r EDT Outpatient 03/21/2020 [facility] 12:00:00 AM Medical Cente r EDT Attender: [facility] 02/22/2020 NEXTGEN (S aint [place] 04:01:00 PM [facility] Medic al EDT - Center) 02/22/2020 04:01:00 PM EDT Outpatient Attender: JIA Wyatt 02/22/2020 Psychiatric MEJIAAdmitter: 04:01:00 PM Medical C enter JIA EDT MERENATAAReferrer: JIA METZ Outpatient Attender: 01/28/2020 Z94.0 [facility] bob KUHN, 10:00:00 AM Health Care DANIELAdmitter: EDT Corporati on PRISCILLA KUHNReferrer: PRISCILLA KUHN Z94.0 Outpatient 01/24/2020 [facility] 05:02:00 PM EDT Medical C enter Outpatient Attender: JIA H 01/24/2020 Psychiatric MEJIAAttender: 03:45:00 PM EDT Medic al Center [facility] B[facility] HAdmitter: JIA Salazarferrer: JIA METZ OutpatientOFFICE/O Attender: Sal [facility] 01/24/2020 [place] XTGEN ([facility] VISIT, [place] 03:45:00 PM EDT - [facility] EST 01/24/2020 [place]) 03:45:00 PM EDT Outpatient 01/24/2020 [facility] 12:00:00 AM EDT Medical C enter Outpatient 01/16/2020 [facility] 06:26:00 PM EDT Medical C enter Outpatient Attender: 01/16/2020 Z94.0 [facility] bob PETER, 10:41:00 AM EDT Health Ca re ALFREDODITAAdmitter Corporati on : JOHNNY PETERReferrer : JOHNNY PETER Z94.0 Outpatient 01/16/2020 12:00:00 [facility] EDT Center Outpatient Attender: 01/15/2020 06:00:00 R74.8 [facility] BAM AM EDT Z94.0 Health Care DANIELAdmitter: Corporati on PRISCILLA KUHNReferrer: PRISCILLA KUHN R74.8 Z94.0 Attender: Giorgio Bonilla [facility] 01/10/2020 06:20:00 NEXTGEN ([facility] EDT - 01/10/2020 [facility] 06:20:00 PM EDT Center) Outpatient Attender: 01/09/2020 09:38:00 [facility] ISLAMAdmitter: AM EDT Health Car e ISLAMReferrer: Corporatio n DOROTHY MEZA Emergency Attender: ED STAFF H 01/02/2020 05:13:00 [facility] PHYSICIANAttender: PM EDT - 01/02/2020 Center STAFF ED STAFF 09:34:00 PM EDT PHYSICIANAdmitter: ED STAFF PHYSICIAN Patient discharged. Outpatient 01/02/2020 [facility] 04:11:00 PM EDT Medical C enter Outpatient Attender: JIA Wyatt 01/02/2020 [facility] eph MERENATAAAdmitter: 04:00:00 PM EDT Medic al Center JIA MERENATAAReferrer: JIA METZ OutpatientOFFICE/O Attender: Sal [facility] 01/02/2020 NE VERONICA ([facility] VISIT, [place] 04:00:00 PM EDT - J [facility] Medical EST 01/02/2020 [place]) 04:00:00 PM EDT Outpatient 01/02/2020 [facility] 12:00:00 AM EDT Medical C enter Outpatient Attender: 10/12/2019 [facility] bob LOPEZ, 06:00:00 AM EDT Health Ca re MARTHAAdmitter Corporati on : MARTHA LOPEZ Outpatient Attender: 08/03/2019 [facility] bob LOPEZ, 06:00:00 AM EST Health Sd re MARTHAAttender Corporati on : JIA ORELLANAAdmitter: MARTHA LOPEZ Outpatient Attender: 07/04/2019 [facility] bob LOPEZ, 06:00:00 AM EST Health Sd re MARTHAAdmitter Corporati on : MARTHA LOPEZ Attender: Sal [facility] 06/22/2019 NEXTGEN ([facility] [place] 10:26:00 AM [facility] 06/22/2019 [place]) 10:26:00 AM EST Outpatient Attender: 04/04/[address] [facility] ISLAMAdmitter: 06:00:00 AM EDT [facility] ISLAMReferrer: Corporatio PRISCILLA Cabral Z94.0 Outpatient Attender: NEIL, 03/19/2019 01:55:00 [facility]IL, PM EDT [facility] Outpatient Attender: ZUNILDA PETER 03/12/2019 06:00:00 [facility] KAdmitter: ZUNILDA PETER AM [facility] Outpatient 03/07/2019 10:41:00 [facility] EDT Center Outpatient 03/07/2019 12:00:00 [facility] EDT Center Emergency Attender: VELIA SEWELL H 02/20/2019 04:45:00 [facility] VELIA O PM EDT - 02/22/2019 Cente r 10:26:00 PM EDT Patient discharged. Outpatient Attender: JIA Wyatt 02/20/2019 Psychiatric MEJIAAdmitter: JIA 11:14:00 AM EDT Medical Center MERENATAAReferrer: JIA METZ OutpatientOFFICE/ Attender: [facility], 11:14:00 AM EDT [facility] - 02/20/2019 Center) 11:14:00 AM EDT Outpatient 02/20/2019 [facility] 11:13:00 AM EDT Medical C enter Outpatient 02/20/2019 [facility] 11:11:00 AM EDT Medical C enter Outpatient 02/20/2019 [facility] 12:00:00 AM EDT Medical C enter Attender: Sal Villarreal [facility] 02/14/2019 NEXT GEN ([facility] 11:37:00 AM EDT [facility] - 02/14/2019 [place]) 11:37:00 AM EDT Attender: [facility] 02/08/2019 NEXT GEN ([facility] 11:50:00 AM EDT [facility] - 02/08/2019 [place]) 11:50:00 AM EDT Outpatient 02/06/2019 [facility] 04:49:00 PM EDT Medical C enter Outpatient Attender: AMBARAK H 02/06/2019 Psychiatric RABADIAdmitter: AMMIR 09:27:00 AM EDT [facility] RABADIReferrer: CODY BLUE OutpatientOFFICE/ Attender: Sal Villarreal [facility] 02/06/2019 [facility] ([facility] OUTPATIENT VISIT, 09:27:00 AM EDT [facility] EST - 02/06/2019 Center) 09:27:00 AM EDT Outpatient 02/06/2019 [facility] 12:00:00 AM EDT Medical C enter Outpatient Attender: JOHN, 01/26/2019 [facility] MARTHAAdmitter: 12:00:00 AM EDT [facility] MARTHA LOPEZ [facility] Outpatient Attender: CESAR, 01/25/2019 [place] [facility]: [facility]00 AM EDT [facility] Outpatient Attender: AMBARAK Wyatt 01/22/2019 [facility] ephs RABADIAdmitter: 03:15:00 PM Medical Center AMMIR EDT RABADIReferrer: AMMIR MIRZA OutpatientOFFIC Attender: Sal [facility] 01/22/2019 NEXTG EN (Saint E/OUTPATIENT [place] 03:15:00 PM [facility] ical VISIT, EST EDT - Center) 01/22/2019 03:15:00 PM EDT Outpatient 01/22/2019 [facility] 12:00:00 AM Medical Cente r EDT Inpatient Attender: NATALIE BRIGGS 01/18/2019 [place]HYDRATION [place] GAttender: , 09:36:00 PM Critical access hospitalAAdmitter: EDT - Care [facility] 01/20/2019 [facility] 09:34:00 PM EDT DEHYDRATION Patient admitted. Emergency Attender: , 01/18/2019 01:20:00 [facility] , EDT [facility] KID ISSUE Outpatient Attender: JOHN, 01/17/2019 [facility] MARTHAAdmitter: 06:00:00 AM EDT [facility] MARTHA LOPEZ Corpora tion Outpatient Attender: DEIRDRE 12/18/2018 [facility] VENKATAttender: BRITTANI, 06:00:00 AM EDT [facility] ZUNILDA KAdmitter: Sanjiva NGUYỄN [facility] Outpatient 12/13/2018 [facility] 12:15:00 PM EDT Medical C enter Outpatient 12/13/2018 [facility] 12:00:00 AM EDT Medical C enter Outpatient Attender: CARMEN 12/05/2018 [facility] DEVONAdmitter: CARMEN 06:00:00 AM EDT Health Care DEVONReferrer: Mildred MORALES Outpatient Attender: CARMEN, 12/04/2018 [facility] DEVONAdmitter: CARMEN, 06:00:00 AM EDT Health Care DEVONReferrer: Mildred MORALES Emergency Attender: KEILA, 12/02/2018 [facility] KEILA, 08:51:00 AM EDT [facility] PAIN RIGHT LEG Outpatient Attender: AMBARAK Wyatt 11/29/2018 [facility] RABADIAdmitter: AMMIAbhishek 10:55:00 AM EDT Medical Center RABADIReferrer: CODY BLUE Attender: [facility] 11/29/2018 NEXT GEN ([facility] 10:55:00 AM EDT [facility] - 11/29/2018 [place]) 10:55:00 AM EDT Outpatient 11/29/2018 [facility] 10:52:00 AM EDT Medical C enter Outpatient 11/29/2018 [facility] 12:00:00 AM EDT Medical C enter Outpatient 10/24/2018 [facility] 04:15:00 PM EDT Medical C enter Outpatient 10/24/2018 [facility] 12:00:00 AM EDT Medical C enter Emergency Attender: WHITNEY POSADA H 10/11/2018 [facility] STAFF 10:10:00 AM EDT Medical C enter PHYSICIANAdmitter: WHITNEY ED STAFF PHYSICIAN Attender: [facility] 10/11/2018 NEXT GEN ([facility] 09:55:00 AM EDT [facility] - 10/11/2018 [place]) 09:55:00 AM EDT Outpatient Attender: AMBARAK Wyatt 10/10/2018 [facility] RABADIAdmitter: AMMIR 03:14:00 PM EDT Medical Center RABADIReferrer: CODY BLUE OutpatientOFFICE Attender: [facility] 10/10/2018 [place] ([facility] /OUTPATIENT 03:14:00 PM EDT [facility] Medical VISIT, EST - 10/10/2018 Center) 03:14:00 PM EDT Outpatient 10/10/2018 [facility] 10:25:00 AM EDT Medical C enter Outpatient 10/10/2018 [facility] 12:00:00 AM EDT Medical C enter Outpatient Attender: OLEGARIO 10/04/2018 Z94.0 [facility] HIROSHIAdmitter: 06:00:00 AM EDT [facility] HIROSHIReferrer: JOE MELVIN Z94.0 Outpatient Attender: GONSALO 09/21/2018 06:00:00 Z94.0 [facility] SEIGOAttender: RENALDO STEVENS EDT Health Care ZVIAdmitter: Curtis STEVENS ZVIReferrer: JOHNNY PETER Z94.0 Attender: Sal [address] [place] [address] [facility] [place] 01:39:00 PM EDT [facility] 09/12/2018 Center) 01:39:00 PM EDT Outpatient Attender: CODY Wyatt 08/25/2018 Psychiatric RABADIAdmitter: 11:27:00 AM EDT [facility] AMMIR RABADIReferrer: AMMIAbhishek MIRZA OutpatientOFFICE/OUTPA Attender: [address] 08/25/2018 [facility] (Saint TIENT VISIT, EST [place] 11:27:00 AM EDT - [facility] 08/25/2018 [place]) 11:27:00 AM EDT Outpatient 08/25/2018 [facility] 11:26:00 AM EDT Medical C enter Outpatient 08/25/2018 [facility] 12:00:00 AM EDT Medical C enter OutpatientOFFICE/OUTPA Attender: [address] [facility] TIENT VIS[facility], EST [place] 03:11:00 PM EST [facility] 07/17/2018 [place]) 03:11:00 PM EST OutpatientOFFICE/OUTPA Attender: Sal [address] [place] [address] 06/26/2018 [facility] (Saint TIENT VISIT, EST [place] 03:59:00 PM EST [facility] 06/26/2018 [place]) 03:59:00 PM EST OutpatientOFFICE/OUTPA Attender: Sal [address] [place] [address] 05/12/2018 [facility] TIENT VIS[facility], EST [place] 04:18:00 PM EST [facility] 05/12/2018 [place]) 04:18:00 PM EST OutpatientOFFICE/OUTPA Attender: Sal [address] [place] [address] 04/28/2018 [facility] TIENT VIS[facility], EST [place] 04:03:00 PM EST - [facility] 04/28/2018 [place]) 04:03:00 PM EST OutpatientOFFICE/OUTPA Attender: Jia [address] [facility]14/2018 [facility], EST [place] 10:49:00 AM EDT - [facility] 04/14/2018 [place]) 10:49:00 AM EDT OutpatientOFFICE/OUTPA Attender: Sal [address] [place] [address] 03/15/2018 [facility] TIENT VIS[facility], EST [place] 04:22:00 PM EDT - [facility] 03/15/2018 [place]) 04:22:00 PM EDT OutpatientOFFICE/OUTPA Attender: [address] 02/24/2018 [facility] TIENT VIS[facility], EST [place] 02:46:00 PM EDT [facility] 02/24/2018 [place]) 02:46:00 PM EDT OutpatientOFFICE/OUTPA Attender: [address] 02/15/2018 [facility] TIENT VIS[facility], EST [place] 10:12:00 AM EDT - [facility] 02/15/2018 [place]) 10:12:00 AM EDT OutpatientOFFICE/OUTPA Attender: [address] 01/17/2018 [facility] TIENT VIS[facility], EST [place] 04:30:00 PM EDT [facility] 01/17/2018 [place]) 04:30:00 PM EDT OutpatientOFFICE/OUTPA Attender: [address] 11/29/2017 [facility] TIENT VIS[facility], EST [place] 11:39:00 AM EDT [facility] 11/29/2017 [place]) 11:39:00 AM EDT OutpatientOFFICE/OUTPA Attender: [address] 11/16/2017 [facility] TI[facility], EST [place] 04:29:00 PM EDT [facility] 11/16/2017 [place]) 04:29:00 PM EDT OutpatientWell Visit, Attender: Sal [address] [place] [address] [facility]/10/2017 [facility] Est,40-64years [place] 03:26:00 PM EDT [facility] 11/10/2017 [place]) 03:26:00 PM EDT OutpatientOFFICE/OUTPA Attender: [facility] 10/06/2017 NEXTGEN (Saint TIENT VISIT, EST [place] 05:16:00 PM EDT - [facility] 10/06/2017 Center) 05:16:00 PM EDT OutpatientOFFICE/OUTPA Attender: [facility] 09/22/2017 NEXTGEN (Saint TIENT VISIT, EST [place] 04:08:00 PM EDT [facility] 09/22/2017 [place]) 04:08:00 PM EDT OutpatientOFFICE/OUTPA Attender: [facility]2017 [facility], EST [place] 04:27:00 PM EDT [facility] 08/22/2017 [place]) 04:27:00 PM EDT OutpatientOFFICE/OUTPA Attender: [facility], EST [place] 09:04:00 AM [facility] 07/20/2017 [place]) 09:04:00 AM EST OutpatientOFFICE/OUTPA Attender: Sal Villarreal [facility] 07/07/2017 NEXTGEN (Saint TIENT VISIT, NEW [place] 06:23:00 PM EST [facility] 07/07/2017 [place]) 06:23:00 PM [facility] 06/10/2010 [facility] 12:00:00 AM [facility] enter Immunizations Vaccine Date Status Description Data Source(s) New in 2011. IIV4 02/22/2019 completed [facility] 05:26:00 PM [facility] EDT pneumococcal 04/28/2018 completed Adult Pneumococcal NEXTGEN ( [facility] polysaccharide PPV23 12:00:00 AM [facility]) Source: New Immunization Record New in 2011. 04/01/2017 12:00:00 completed Influenza, injectable , NEXTGEN ([facility] IIV4 AM EDT quadrivalent, Minna [facility] l preservative free, 3 [place]) yrs or older Source: Other Provider Pneumococcal conjugate PCV 04/01/2017 12:00:00 AM completed PCV1 3 NEXTGEN ([facility] 13 [facility]) Source: Other Provider Medications Medication Brand Start Product Dose Route Administrative Pharmacy [facility] Indications Reaction Description Data Name Date Form Instructions Instructions Source(s) Ketoconazol ketoco 02/21/ TOPICA active apply by NEXTGEN e 20 MG/ML nazole 2020 L topical (Sarmad nt Topical 2 % 12:00: route every Lucille sephs Cream topica 00 AM day to the Medic al ketoconazol l EDT affected Cent er) e 2 % cream area(s) topical cream Fluoxetine fluoxe ORAL active take 1 N EXTGEN 20 MG Oral karime 2019 {caps capsule by (S aint Capsule 20 mg 12:00: ule} oral route [facility] ephs fluoxetine capsul 00 AM every day i n Medical 20 mg e EDT the morning Center) capsule Amoxicillin amoxic ORAL active take 1 NEXTGEN 500 MG Oral illin 2019 {caps capsule by (Saint Capsule 500 mg 12:00: ule} oral route Lucille sephs amoxicillin capsul 00 AM every 12 M edical 500 mg e EDT hours Center) capsule Amoxicillin amoxic ORAL complet take 1 NEXTGEN 500 MG Oral illin 2019 {caps ed capsule by (Saint Capsule 500 mg 12:00: ule} oral route Lucille sephs amoxicillin capsul 00 AM every 12 M edical 500 mg e EST hours Center) capsule Lidocaine lidoca 02/06/ active Apply to NEXTGEN 25 MG/ML / ine-pr 2018 affected (Sa int Prilocaine ilocai 12:00: area twice a Minna 25 MG/ML ne 2.5 00 AM day Medical Topical %-2.5 EDT Center) Cream % lidocaine-p topica rilocaine l 2.5 %-2.5 % cream topical cream Chlorthalid chlort ORAL active take 1 NEXTGEN one 25 MG halido 2018 {tabl tablet by (S aint Oral Tablet ne 25 12:00: et} oral route Minna chlorthalid mg 00 AM every day Me dical one 25 mg tablet EDT Center) tablet Hydrocortis Procto 01/22/ complet Hydroc ortiso NEXTGEN one 25 gustavo HC 2019 ed ne 25 MG/ML (Sarmad nt MG/ML 2.5 % 12:00: Topical Minna Topical topica 00 AM Cream Medical Cream l EDT [Proctosol] Center) [Proctosol] cream Proctosol perine HC 2.5 % al topical applic cream ator perineal applicator Magnesium magnes 01/22/ active 1 capsule by NEXTGEN Oxide 400 ium 2019 mouth twice (Sa int MG Oral oxide 12:00: daily Minna Capsule 400 mg 00 AM Medical magnesium capsul EDT Center) oxide 400 e mg capsule Metoprolol Metopr We stcheste Tartrate 50 olol 2019 [place] MG Oral Tartra 12:00: Health Tablet te [50 00 AM Care Metoprolol mg EDT Corporati o Tartrate Tablet n [50 mg ]: 1 Tablet]: 1 Tablet Tablet Oral Oral 2 2 TIMES A TIMES DAY A DAY Magnesium magnes complet 1 capsul e by NEXTGEN Oxide 400 ium 2018 ed mouth twice (Sa int MG Oral oxide 12:00: daily Minna Capsule 400 mg 00 AM Medical magnesium capsul EDT Center) oxide 400 e mg capsule Sodium sodium active 1 tab by NEX TGEN Bicarbonate bicarb 2018 mouth twice (Saint 650 MG Oral felipa 12:00: daily Ishmael phs Tablet 650 mg 00 AM Medical sodium tablet EDT Center) bicarbonate 650 mg tablet Lisinopril lisino ORAL active take 1 N EXTGEN 2.5 MG Oral pril 2018 {tabl tablet by (S aint Tablet 2.5 mg 12:00: et} oral route Damian ephs lisinopril tablet 00 AM every day M edical 2.5 mg EDT Center) tablet atorvastati atorva ORAL active take 1 NEXTGEN n 10 MG statin 2018 {tabl tablet by (Sarmad nt Oral Tablet 10 mg 12:00: et} oral route Minna atorvastati tablet 00 AM every day Medical n 10 mg EDT Center) tablet Aspirin 81 aspiri ORAL active take 1 N EXTGEN MG Delayed n 81 2018 {tabl tablet by (Sa int Release mg 12:00: et} oral route Ishmael phs Oral Tablet tablet 00 AM every day Medical aspirin 81 ,delay EDT Center) mg ed tablet,dena releas yed release e Basaglar 3 ML U SUBCUT active 3 ML insul in NEXTGEN KwikPen Insuli 2018 ANEOUS glargine 100 (Saint U-100 n 12:00: UNT/ML Pen Samuel s Insulin 100 Glargi 00 AM Injector M edical unit/mL (3 ne 100 EDT [Basaglar] C enter) mL) UNT/ML subcutaneou Pen s Inject or Amoxicillin amoxic 10/10/ 1.00 ORAL complet take 1 NEXTGEN 500 MG Oral illin 2019 {caps ed capsule by (Saint Capsule 500 mg 12:00: ule} oral route Lucille sephs amoxicillin capsul 00 AM every 12 M edical 500 mg e EDT hours Center) capsule Diclofenac Voltar 08/25/ active diclofen ac NEXTGEN Sodium 0.01 en 1 % 2019 sodium 0.01 (Saint MG/MG topica 12:00: MG/MG Minna Topical Gel l gel 00 AM Topical Gel Medical [Voltaren] EDT [Voltaren] Pily ter) Voltaren 1 % topical gel Hydrocortis Anusol 07/17/ complet Hydroc ortiso NEXTGEN one 25 -HC 2019 ed ne 25 MG/ML (Saint MG/ML 2.5 % 12:00: Topical Minna Topical topica 00 AM Cream Medical Cream l EST [Anusol HC] Center) [Anusol HC] cream Anusol-HC with 2.5 % perine topical al cream with applic perineal ator applicator Tresiba 3 ML 07/17/ complet 3 ML insulin NEXTGEN FlexTouch insuli 2019 ed degludec 100 (Saint U-100 n 12:00: UNT/ML Pen Samuel s insulin 100 deglud 00 AM Injector M edical unit/mL (3 ec 100 EST [Tresiba] Ce nter) mL) UNT/ML subcutaneou Pen s pen Inject or cinacalcet Sensip ORAL active cinacalc et NEXTGEN 60 MG Oral ar 60 2019 {tabl 60 MG Oral ( [facility] Tablet mg 12:00: et} Tablet [place] [Sensipar] tablet 00 AM [Sensipar] Medical Sensipar 60 EST Center) mg tablet Insulin Lantus 04/28/ active Insulin NEX TGEN Glargine U-100 2018 Glargine 100 (S aint 100 UNT/ML Insuli 12:00: UNT/ML Damian ephs Injectable n 100 00 AM Injectable M edical Solution unit/m EST Solution Cente r) [Lantus] L [Lantus] Lantus subcut U-100 aneous Insulin 100 soluti unit/mL on subcutaneou s solution BD Insulin syring 04/14/ active use twic e NEXTGEN Syringe e and 2018 daily ([facility] needle 12:00: Deuce hs 1 mL 29 ,insul 00 AM Medical gauge x in,1mL EDT Center) 1/2" Insulin Lantus 04/14/ complet Insulin NE XTGEN Glargine U-100 2018 ed Glargine 100 (S aint 100 UNT/ML Insuli 12:00: UNT/ML Damian ephs Injectable n 100 00 AM Injectable M edical Solution unit/m EDT Solution Cente r) [Lantus] L [Lantus] Lantus subcut U-100 aneous Insulin 100 soluti unit/mL on subcutaneou s solution Insulin Humalo 04/14/ active insulin NEX TGEN Lispro 100 g 2018 lispro 100 (Sa int UNT/ML U-100 12:00: UNT/ML [place]na Injectable Insuli 00 AM Injectable Medical Solution n 100 EDT Solution Center ) [Humalog] unit/m [Humalog] Humalog L U-100 subcut Insulin 100 aneous unit/mL soluti subcutaneou on s solution mycophenola mycoph 00 ORAL active take 6 NEXTGEN te mofetil enolat 2017 {caps capsule by (Saint 250 MG Oral e 12:00: ule} oral route 2 [place] Capsule mofeti 00 AM times every Me dical mycophenola l 250 EST day Center) te mofetil mg 250 mg capsul capsule e tramadol tramad ORAL complet take 1 NE XTGEN hydrochlori ol 50 2018 {tbl} ed tablet by ( [facility] de 50 MG mg 12:00: oral route Damian ephs Oral Tablet tablet 00 AM every 6 Me dical tramadol 50 EST hours as Cent er) mg tablet needed Tamsulosin Flomax ORAL active tamsulos in NEXTGEN hydrochlori 0.4 mg 2018 {caps hydrochlor id (Saint de 0.4 MG capsul 12:00: ule} e 0.4 MG Lucille sephs Oral e 00 AM Oral Capsule Medica l Capsule EST [Flomax] Center) [Flomax] Flomax 0.4 mg capsule Colchicine colchi ORAL active take 1 N EXTGEN 0.6 MG Oral cine 2017 {caps capsule by ( [facility] Capsule 0.6 mg 12:00: ule} oral route Lucille sephs colchicine capsul 00 AM every day M edical 0.6 mg e EST Center) capsule gabapentin gabape ORAL active take 1 N EXTGEN 100 MG Oral ntin 2018 {caps capsule by ( [facility] Capsule 100 mg 12:00: ule} oral route Lucille sephs gabapentin capsul 00 AM every day M edical 100 mg e EST Center) capsule Tacrolimus tacrol 07/07/ 0.037 ORAL active take NE XTGEN 1 MG Oral imus 1 2018 5 (0.0375MG/KG ([facility] Capsule mg 12:00: ) by oral Ishmael phs tacrolimus capsul 00 AM route ever y Medical 1 mg e EST 12 hours Center) capsule Prednisone predni ORAL complet take 1 NEXTGEN 5 MG Oral sone 5 2017 {tbl} ed tablet by (S aint Tablet mg 12:00: oral route Deuce hs prednisone tablet 00 AM every day M edical 5 mg tablet EST Center) mycophenola mycoph ORAL active take 3 NEXTGEN te mofetil enolat 2018 {tabl tablet by ( [facility] 500 MG Oral e 12:00: et} oral route 2 [place] Tablet mofeti 00 AM times every Med ical mycophenola l 500 EST day Center) te mofetil mg 500 mg tablet tablet Docusate docusa ORAL complet take 1 NE XTGEN Sodium 100 te 2018 {caps ed capsule by (S aint MG Oral sodium 12:00: ule} oral route Lucille sephs Capsule 100 mg 00 AM every day at M edical docusate capsul EST bedtime as [facility] ter) sodium 100 e needed mg capsule Metoprolol metopr ORAL active take 1 N EXTGEN Tartrate 50 olol 2018 {tabl tablet by (S aint MG Oral tartra 12:00: et} oral route 2 [place] Tablet te 50 00 AM times every Medi [place] metoprolol mg EST day with Cente r) tartrate 50 tablet meals mg tablet cinacalcet Sensip ORAL active cinacalc et NEXTGEN 30 MG Oral ar 30 2017 {tbl} 30 MG Oral ( [facility] Tablet mg 12:00: Tablet [place] [Sensipar] tablet 00 AM [Sensipar] Medical Sensipar 30 EST Center) mg tablet Mycophenoli Myfort complet Del tcheste c Acid 360 ic ed [facility] MG Delayed (Mycop Health Release henola Care Oral Tablet te) Corporat io Myfortic [360 n (Mycophenol mg ate) [[address]]: DR]: 720 MG 720 MG Oral 6A-6P Oral 6A-6P Docusate DOK complet [facility] te Sodium 100 (Docus ed r Count y MG Oral ate Health Capsule DOK Sodium Care (Docusate ) [100 Corporat io Sodium) mg n [100 mg Capsul Capsule]: 1 e]: 1 Capsule Capsul Oral 3 e Oral TIMES A DAY 3 TIMES A DAY Prednisone Predni complet [facility] 5 MG Oral sone ed [facility] Tablet [5 mg Health Prednisone Tablet Care [5 mg ]: 1 Corporatio Tablet]: 1 Tablet n Tablet Oral Oral DAILY DAILY gabapentin Gabape complet [facility] 100 MG Oral ntin ed [facility] Capsule [100 Health Gabapentin mg Care [100 mg Capsul Corporatio Capsule]: 1 e]: 1 n Capsule Capsul Oral 2 e Oral TIMES A DAY 2 TIMES A DAY Chlorthalid Chlort complet [facility] tcheste one 25 MG halido ed [facility] Oral Tablet ne [25 Health Chlorthalid mg Care one [25 mg Tablet Corpora tono Tablet]: 1 ]: 1 n Tablet Oral Tablet DAILY Oral DAILY Colchicine Colchi [facility] Oral cine ed [facility] Capsule [0.6 Health Colchicine mg Care [0.6 mg Capsul Corporatio Capsule]: e]: n 0.6 Capsule 0.6 Oral DAILY Capsul e Oral DAILY Flomax [id number] complet [facility] te (Tamsulosin 546 ed [facility] ) [0.4 mg Health Capsule]: 1 Care Tablet Oral Corporat io BEDTIME n tramadol Tramad complet [facility] yarelis hydrochlori ol [50 ed r Coun ty de 50 MG mg Health Oral Tablet Tablet Care Tramadol ]: 1 Corporatio [50 mg Tablet n Tablet]: 1 Oral Tablet Oral DIRECTED DIRECT PRN ED PRN painComment painCo : for pain mment: for pain Amlodipine Amlodi complet [facility] 10 MG Oral pine ed [facility] Tablet [10 mg Health Amlodipine Tablet Care [10 mg ]: 10 Corporatio Tablet]: 10 MG n MG Oral Oral Q10AM Q10AM cinacalcet [place] complet [place] 30 MG Oral lcet ed [facility] Tablet [30 mg Health Cinacalcet Tablet Care [30 mg ]: 1 Corporatio Tablet]: 1 Tablet n Tablet Oral Oral DAILY DAILY Tacrolimus Tacrol complet [place] 1 MG Oral imus ed r [facility] Capsule [1 mg Health Tacrolimus Capsul Care [1 mg e]: 2 Corporatio Capsule]: 2 Capsul n Capsule e Oral Oral 2 2 TIMES A DAY TIMES A DAY Insurance Providers Payer name Policy type Policy ID Covered Covered democrat's Policy P gabo / Coverage democrat ID relationship to Etienne Inf ormation type etienne KRISTIN [id number] SP [id number] HEALTH NON CAP KRISTIN W [id number] 01 [id number] 300 MEDICAID [id number] KRISTIN [id number] SP [id number] 200 MEDICARE ADV PLAN W [id number] 01 [id number] 300 MEDICARE [id number] SP [id number] T Problems, Conditions, and Diagnoses Code Display Name Description Problem Type Effective Data Sour ce(s) Dates Z94.0 Kidney transplant KIDNEY TRANSPLANT Diagnosis 01/28/2020 [place] status STATUS 10:00:00 AM [facility] 9DIAMOND E11.9 Type 2 diabetes TYPE 2 DIABETES Diagnosis 01/24/2020 Jacki Buitrago mellitus without MELLITUS WITHOUT 03:45:00 PM [facility] complications COMPLICATIONS EDT Z73.3 Stress, not STRESS, NOT Diagnosis 01/24/2020 [facility] elsewhere ELSEWHERE 03:45:00 PM Medical Cente r classified CLASSIFIED EDT F41.9 Anxiety disorder, ANXIETY DISORDER, Diagnosis 01/24/2020 [facility] [place] unspecified UNSPECIFIED 03:45:[address] EDT R74.8 Abnormal levels of ABNORMAL LEVELS OF Diagnosis 0 [place] other serum enzymes OTHER SERUM ENZYMES 06:00:0 0 AM [facility] 9DIAMOND I10 Essential (primary) ESSENTIAL (PRIMARY) Diagnosis 020 [facility] hypertension HYPERTENSION 05:13:00 PM Medical C enter EDT E11.65 Type 2 diabetes TYPE 2 DIABETES Diagnosis 01/02/2020 Jacki Buitrago mellitus with MELLITUS WITH 05:13:00 PM Medical Center hyperglycemia HYPERGLYCEMIA EDT R73.9 Hyperglycemia, HYPERGLYCEMIA, Diagnosis 01/02/2020 [facility] unspecified UNSPECIFIED 05:13:[address] EDT Z71.3 Dietary counseling DIETARY COUNSELING Diagnosis 0 [facility] and surveillance AND SURVEILLANCE 04:00:00 PM [facility] EDT Z68.24 Body mass index BODY MASS INDEX Diagnosis 01/02/2020 Jacki Buitrago (BMI) 24.0-24.9, (BMI) 24.0-24.9, 04:00:00 PM [facility] adult ADULT EDT 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 020 [facility] use of insulin USE OF INSULIN 04:00:00 PM [facility] EDT R53.1 Weakness WEAKNESS Diagnosis 01/02/2020 [facility] 04:00:00 PM Medical Cente r EDT E11.22 Type 2 diabetes TYPE 2 DIABETES Diagnosis 08/03/2019 [place] mellitus with MELLITUS W DIABETIC 06:00:00 AM [facility] diabetic chronic CHRONIC KIDNEY EST Care kidney disease DISEASE Corporatio n E11.40 Type 2 diabetes TYPE 2 DIABETES Diagnosis 08/03/2019 [place] mellitus with MELLITUS WITH 06:00:00 AM [facility] diabetic DIABETIC EST Care neuropathy, NEUROPATHY, UNSP Corpora tion unspecified Z88.3 Allergy status to ALLERGY STATUS TO Diagnosis 07/04/2019 [place] other OTHER 06:00:00 AM [facility] anti-infective ANTI-INFECTIVE EST Care agents status AGENTS STATUS Corporat ion Z79.4 FDC (current) [facility] (CURRENT) Diagnosis [place] use of insulin USE OF INSULIN 06:00:00 AM [facility] EST [place] Y99.8 Other external OTHER EXTERNAL Diagnosis 07/04/2019 [facility] unruly cause status CAUSE STATUS 06:00:00 AM [facility] EST [place] Y92.89 Other specified OTH PLACES THE Diagnosis 07/04/2019 [facility] the [facility] PLACE OF OCCURRENCE 06:00:0 0 AM [facility] of occurrence of OF THE EXTERNAL EST Car e the external cause CAUSE Corpor ation Y83.8 Other surgical OTH SURGICAL Diagnosis 07/04/2019 [facility] procedures as the PROCEDURES CAUSE 06:00:00 AM [facility] cause of abnormal ABN REACT/COMPL, EST C are reaction of the W/O MISADVNT Corpora tion patient, or of later complication, without mention of misadventure at the time of the procedure E89.1 Postprocedural POSTPROCEDURAL Diagnosis 07/04/2019 [place] hypoinsulinemia HYPOINSULINEMIA 06:00:00 AM [facility] EST Care Softricity I10 Essential (primary) ESSENTIAL (PRIMARY) Diagnosis 020 [place] hypertension HYPERTENSION 06:00:00 AM [facility] alth EST Care Softricity E11.65 Type 2 diabetes TYPE 2 DIABETES Diagnosis 07/04/2019 [place] mellitus with MELLITUS WITH 06:00:00 AM [facility] hyperglycemia HYPERGLYCEMIA EST Care Softricity M51.36 Other OTHER Diagnosis 03/19/2019 [place] intervertebral disc INTERVERTEBRAL DISC 01:55:0 0 PM [facility] degeneration, DEGENERATION, EDT Care lumbar region LUMBAR REGION Corporat ion M62.81 Muscle weakness MUSCLE WEAKNESS Diagnosis [facility] ([facility]) 01:55:00 PM [facility] EDT [employer] N40.0 Benign prostatic BENIGN PROSTATIC Diagnosis 02/20/2019 [place] lau[place]rago hyperplasia without HYPERPLASIA WITHOUT 04:45:0 0 PM Medical Center lower urinary tract LOWER URINRY TRACT EDT symptoms SYMP Z97.0 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[facility] artificial eye ARTIFICIAL EYE 04:45:00 PM [facility] al Center EDT E11.21 Type 2 diabetes TYPE 2 DIABETES Diagnosis 02/20/2019 Jacki Buitrago mellitus with MELLITUS WITH 04:45:00 PM Medical Center diabetic DIABETIC EDT nephropathy NEPHROPATHY I16.0 Hypertensive HYPERTENSIVE Diagnosis 02/20/2019 [facility] urgency URGENCY 04:45:00 PM Medical Cente r EDT E87.5 Hyperkalemia HYPERKALEMIA Diagnosis 02/20/2019 [facility] 04:45:00 PM Medical Cente r EDT Z71.82 Exercise counseling EXERCISE COUNSELING Diagnosis 019 [place] 11:14:00 AM Medical Cente r EDT Z68.25 Body mass index BODY MASS INDEX Diagnosis 02/20/2019 Jacki Buitrago (BMI) 25.0-25.9, (BMI) 25.0-25.9, 11:14:00 [facility] EDT J40 Bronchitis, not BRONCHITIS, NOT Diagnosis 02/20/2019 Jacki Buitrago specified as acute SPECIFIED ACUTE 11:14:00 AM Medical Center or chronic OR CHRONIC EDT M79.651 Pain in right thigh PAIN IN RIGHT THIGH Diagnosis 019 [facility] 09:27:00 AM Medical Cente r EDT Z94.0 Kidney transplant KIDNEY TRANSPLANT Diagnosis 01/22/2019 [facility] status STATUS 03:15:00 PM Medical Cente r EDT R19.7 Diarrhea, DIARRHEA, Diagnosis 01/22/2019 [facility] unspecified UNSPECIFIED 03:15:[address] EDT Z88.1 Allergy status to ALLERGY STATUS TO Diagnosis 01/20/2019 [place] other antibiotic OTHER ANTIBIOTIC 09:34:00 PM [employer] agents status AGENTS STATUS BIBA ApparelsT Care Softricity Z87.891 Personal history of PERSONAL HISTORY OF Diagnosis [place] nicotine dependence NICOTINE DEPENDENCE 09:34:0 0 PM [facility] BIBA ApparelsT Care Softricity 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 01/20/2019 [place] simone (current) drug (CURRENT) DRUG 09:34:00 PM [facility] therapy THERAPY EDT Care [employer] R33.8 Other retention of OTHER RETENTION OF Diagnosis [address] [place] [address] urine URINE 09:34:00 PM [facility] BIBA ApparelsT Care Softricity E87.1 Hypo-osmolality and HYPO-OSMOLALITY AND Diagnosis [address] [place] [address] hyponatremia HYPONATREMIA 09:34:00 PM [facility] EDT Care Softricity A04.4 Other intestinal OTHER INTESTINAL Diagnosis 01/20/2019 [facility] Escherichia coli ESCHERICHIA COLI 09:34:00 PM [employer] infections INFECTIONS EDT Care Softricity N17.9 Acute kidney ACUTE KIDNEY Diagnosis [facility]20[facility] failure, FAILURE, 09:34:00 PM [facility] unspecified UNSPECIFIED BIBA ApparelsT Care [employer] T86.19 Other complication OTHER COMPLICATION Diagnosis [address] [place] [address] of kidney OF KIDNEY 09:36:00 PM [facility] transplant TRANSPLANT EDT Care Softricity R20.0 Anesthesia of skin ANESTHESIA OF SKIN Diagnosis 9 [place] 06:00:00 AM [facility] BIBA ApparelsT Care Softricity H53.8 Other visual OTHER VISUAL Diagnosis 01/17/2019 [place] r disturbances DISTURBANCES 06:00:00 AM [facility] BIBA ApparelsT Care Softricity H35.00 Unspecified UNSPECIFIED Diagnosis 01/17/2019 [place] background BACKGROUND 06:00:00 AM [facility] retinopathy RETINOPATHY EDT [facility] R53.1 Weakness WEAKNESS Diagnosis 12/18/2018 [place] 06:00:00 AM [facility] EDT [facility] [employer] G57.21 Lesion of femoral LESION OF FEMORAL Diagnosis 12/18/2018 [place] nerve, right lower NERVE, RIGHT LOWER 06:00:00 AM [facility] limb LIMB EDT [facility] M79.651 Pain in right thigh PAIN IN RIGHT THIGH Diagnosis 019 [place] 08:51:00 AM [facility] EDT [employer] M79.604 Pain in right leg PAIN IN RIGHT LEG Diagnosis 12/02/2018 [place] 08:51:00 AM [facility] EDT [employer] R42 Dizziness and DIZZINESS AND Diagnosis 11/29/2018 [facility] sephs giddiness GIDDINESS 10:55:00 AM Medical Cente r EDT R51 Headache HEADACHE Diagnosis 11/29/2018 [facility] 10:55:00 AM Medical Cente r EDT H54.50 Low vision, one LOW VISION, ONE Diagnosis 08/25/2018 Jacki Buitrago eye, unspecified EYE, UNSPECIFIED 11:27:00 AM [facility] eye EYE EDT M54.5 Low back pain LOW BACK PAIN Diagnosis 08/25/2018 [facility] sephs 11:27:00 AM Medical Cente r EDT Diagnosis NEXTGEN ([facility]) Diagnosis NEXTGEN ([facility]) Diagnosis NEXTGEN ([facility]) Diagnosis NEXTGEN ([facility]) Diagnosis NEXTGEN ([facility] Diagnosis NEXTGEN ([facility] Diagnosis NEXTGEN ([facility] Diagnosis NEXTGEN ([facility]) Diagnosis NEXTGEN ([facility]) Diagnosis NEXTGEN ([facility]) Surgeries/Procedures Procedure Description Date Indications Data Source(s) OFFICE/OUTPATIENT VISIT, 01/24/2020 NEX TGEN ([facility] EST 12:00:00 AM EDT [facility] - 01/24/2020 [place]) 12:00:00 AM EDT OFFICE/OUTPATIENT VISIT, 01/02/2020 NEX TGEN ([facility] EST 12:00:00 AM EDT [facility] - 01/02/2020 [place]) 12:00:00 AM EDT OFFICE/OUTPATIENT VISIT, 02/20/2019 NEX TGEN ([facility] EST 12:00:00 AM EDT [facility] 02/20/2019 Center) 12:00:00 AM EDT OFFICE/OUTPATIENT VISIT, 02/06/2019 NEX TGEN ([facility] 12:00:00 AM EDT OFFICE/OUTPATIENT VISIT, 01/22/2019 NEX TGEN ([facility] 12:00:00 AM EDT OFFICE/OUTPATIENT VISIT, 10/10/2018 NEX TGEN ([facility] EST 12:00:00 AM EDT [facility] - 10/10/2018 Center) 12:00:00 AM EDT OFFICE/OUTPATIENT VISIT, 08/25/2018 NEX TGEN ([facility] 12:00:00 AM EDT OFFICE/OUTPATIENT VISIT, 07/17/2018 NEX TGEN ([facility] EST 12:00:00 AM EST [facility] - 07/17/2018 Center) 12:00:00 AM EST OFFICE/OUTPATIENT VISIT, 06/26/2018 NEX TGEN ([facility] EST 12:00:00 AM EST [facility] - 06/26/2018 Center) 12:00:00 AM EST OFFICE/OUTPATIENT VISIT, 05/12/2018 NEX TGEN ([facility] EST 12:00:00 AM EST [facility] - 05/12/2018 Center) 12:00:00 AM EST Pneumonia Vaccine 04/28/2018 NEXTGEN (S aint 12:00:00 AM EST [facility] - 04/28/2018 Center) 12:00:00 AM EST Immunization 04/28/2018 NEXTGEN ([facility] Administration 12:00:00 AM EST [facility] dical - 04/28/2018 Center) 12:00:00 AM EST OFFICE/OUTPATIENT VISIT, 04/28/2018 NEX TGEN ([facility] EST 12:00:00 AM EST [facility] - 04/28/2018 Center) 12:00:00 AM EST OFFICE/OUTPATIENT VISIT, 04/14/2018 NEX TGEN ([facility] 12:00:00 AM EDT OFFICE/OUTPATIENT VISIT, 03/15/2018 NEX TGEN ([facility] EST 12:00:00 AM EDT [facility] - 03/15/2018 Center) 12:00:00 AM EDT OFFICE/OUTPATIENT VISIT, 02/24/2018 NEX TGEN ([facility] EST 12:00:00 AM EDT [facility] - 02/24/2018 Center) 12:00:00 AM EDT OFFICE/OUTPATIENT VISIT, 02/15/2018 NEX TGEN ([facility] EST 12:00:00 AM EDT [facility] - 02/15/2018 Center) 12:00:00 AM EDT OFFICE/OUTPATIENT VISIT, 01/17/2018 NEX TGEN ([facility] EST 12:00:00 AM EDT [facility] - 01/17/2018 Center) 12:00:00 AM EDT OFFICE/OUTPATIENT VISIT, 11/29/2017 NEX TGEN ([facility] EST 12:00:00 AM EDT [facility] - 11/29/2017 Center) 12:00:00 AM EDT OFFICE/OUTPATIENT VISIT, 11/16/2017 NEX TGEN ([facility] EST 12:00:00 AM EDT [facility] - 11/16/2017 Center) 12:00:00 AM EDT Well Visit, Est,40-64years 11/10/2017 N EXTGEN (Saint 12:00:00 AM EDT [facility] - 11/10/2017 Center) 12:00:00 AM EDT OFFICE/OUTPATIENT VISIT, 10/06/2017 NEX TGEN ([facility] EST 12:00:00 AM EDT [facility] - 10/06/2017 Center) 12:00:00 AM EDT OFFICE/OUTPATIENT VISIT, 09/22/2017 NEX TGEN ([facility] EST 12:00:00 AM EDT [facility] - 09/22/2017 Center) 12:00:00 AM EDT OFFICE/OUTPATIENT VISIT, 08/22/2017 NEX TGEN ([facility] EST 12:00:00 AM EDT [facility] - 08/22/2017 Center) 12:00:00 AM EDT OFFICE/OUTPATIENT VISIT, 07/20/2017 NEX TGEN ([facility] EST 12:00:00 AM EST [facility] - 07/20/2017 Center) 12:00:00 AM EST OFFICE/OUTPATIENT VISIT, 07/07/2017 NEX TGEN (Saint NEW 12:00:00 AM EST [facility] - 07/07/2017 Center) 12:00:00 AM EST Results ID Date Data Source [id number] 01/02/2020 06:51:00 PM EDT [facility] 0 Name Value Range Interpretation Description Data Sup porting Code Source(s) Document(s ) Color of Urine YELLOW <content Saint styleCode="Marlo [place] d">Color, Medical Urine Center </content>YELL OW <content styleCode="Nata lics"> (YELLOW )</content> UNK CLEAR <content Saint styleCode="[place] d">Urine Medical Clarity Center </content>SRIRAM R <content styleCode="Nata lics"> (CLEAR )</content> Ketones NEGATIVE <content Saint [Mass/volume] styleCode="[place]lo [place] in Urine by d">Urine Medical Test strip Ketone Center </content>NEGA TIVE MG/DL<content styleCode="Nata lics"> (NEGATIVE MG/DL)</conten t> UNK NEGATIVE <content Saint styleCode="[place] d">Urine Medical Bilirubin Center </content>NEGA TIVE <content styleCode="Nata lics"> (NEGATIVE )</content> Glucose NEGATIVE <content Saint [Mass/volume] styleCode="[place] in Urine by d">Urine Medical Test strip Glucose Center </content>>=10 00 MG/DL<content styleCode="Nata lics"> (NEGATIVE MG/DL)</conten t> pH of Urine by 4.5-8.0 <content Saint Test strip styleCode="Marlo [place] d">Urine pH Medical </content>6.0 Center <content styleCode="Nata lics"> (4.5-8.0 )</content> Specific 1.015-1.02 <content Saint gravity of 5 styleCode="[place] Urine by Test d">Urine Medical strip Specific Center Hector </content>1.02 0 <content styleCode="Nata lics"> (1.015-1.025 )</content> Protein NEGATIVE <content Saint [Mass/volume] styleCode="[place] in Urine by d">Urine Medical Test strip Protein Center </content>TRAC E MG/DL<content styleCode="Nata lics"> (NEGATIVE MG/DL)</conten t> Hemoglobin NEGATIVE <content Saint [Presence] in styleCode="[place]lo [place] Urine by Test d">Urine Blood Medical strip </content>NEGA Center TIVE <content styleCode="Nata lics"> (NEGATIVE )</content> Leukocyte NEGATIVE <content Saint esterase styleCode="[place]lo [place] [Presence] in d">Urine Medical Urine by Test Leukocyte Center strip </content>NEGA TIVE <content styleCode="Nata lics"> (NEGATIVE )</content> Nitrite NEGATIVE <content Saint [Presence] in styleCode="[place] Urine by Test d">Urine Medical strip Nitrite Center </content>NEGA TIVE <content styleCode="Nata lics"> (NEGATIVE )</content> UNK NONE SEEN <content Saint styleCode="[place] d">Epithelial Medical Cell Center </content>5 - 10 HPF<content styleCode="Nata lics"> (NONE SEEN HPF)</content> Urobilinogen 0.2-1.0 <content Saint [Units/volume] styleCode="Marlo [place] in Urine by d">Urine Medical Test strip Urobilinogen Center </content>0.2 MG/DL<content styleCode="Nata lics"> (0.2-1.0 MG/DL)</conten t> ID Date Data Source [id number] 01/02/2020 06:45:00 PM EDT [facility] 0400 Name Value Range Interpretation Description Data Sup porting Code Source(s) Document(s ) Leukocytes 4.4-11.0 <content Saint [#/volume] in styleCode="Jatinder [facility] Blood by ">White Blood Medical Automated count Cell Count Center </content>5.47 KCUMM<content styleCode="Ital ics"> (4.4-11.0 KCUMM)</content > Hemoglobin 13.5-17. Below low normal <content Saint [Mass/volume] in 5 styleCode="Bold [place] Blood ">Hemoglobin Medical </content>12.7 Center G/DL L<content styleCode="Ital ics"> (13.5-17.5 G/DL)</content> Hematocrit 41.0-53. Below low normal <content Saint [Volume 0 styleCode="[place]old [place] Fraction] of ">Hematocrit Medical Blood by </content>38.7 Center Automated count % L<content styleCode="Ital ics"> (41.0-53.0 %)</content> Erythrocyte mean 80.0-100 <content Saint corpuscular .0 styleCode="Bold [place] volume [Entitic ">Mean Medical volume] by Corpuscular Center Automated count Volume </content>97.2 FL<content styleCode="Ital ics"> (80.0-100.0 FL)</content> Erythrocyte mean 26.0-34. <content Saint corpuscular 0 styleCode="Bold [place] hemoglobin ">Mean Medical [Entitic mass] Corposcular Center by Automated Hemoglobin count </content>31.9 PG<content styleCode="Ital ics"> (26.0-34.0 PG)</content> Erythrocytes 4.4-5.9 Below low normal <content [facility] [#/volume] in styleCode="Bold [place] Blood by ">Red Blood Medical Automated count Cell Count Center </content>3.98 MCUMM L<content styleCode="Ital ics"> (4.4-5.9 MCUMM)</content > Erythrocyte 11.5-14. <content [facility] distribution 5 styleCode="Bold [place] width [Ratio] by ">Red Cell Medical Automated count Distribution Center Width </content>12.1 %<content styleCode="Ital ics"> (11.5-14.5 %)</content> Erythrocyte mean 32.0-37. <content [facility] corpuscular 0 styleCode="Bold [place] hemoglobin ">Mean Corpus. Medical concentration Hgb Center [Mass/volume] by Concentration Automated count (MCHC) </content>32.8 G/DL<content styleCode="Ital ics"> (32.0-37.0 G/DL)</content> Platelets 130-400 Below low normal <content [facility] [#/volume] in styleCode="Bold [place] Blood by ">Platelet Medical Automated count Count Center </content>103 KCUMM L<content styleCode="Ital ics"> (130-400 KCUMM)</content > Platelet mean 8.0-11.0 Above high <content [facility] volume [Entitic normal styleCode="Bold [place] volume] in Blood ">Mean Platelet Medical by Automated Volume Center count </content>11.8 FL H<content styleCode="Ital ics"> (8.0-11.0 FL)</content> UNK 1.6-7.1 <content [facility] styleCode="Bold [place] ">Immature Medical Platelet Center Fraction </content>5.1 %<content styleCode="Ital ics"> (1.6-7.1 %)</content> UNK 0 <content [facility] styleCode="Bold [place] ">Nucleated Red Medical Blood Cell Center </content>0.0 /100<content styleCode="Ital ics"> (0 /100)</content> UNK 0.0 <content [facility] styleCode="[facility]old [place] ">Nucleated Red Medical Blood Cell Center Count </content>0.00 KCUMM<content styleCode="Ital ics"> (0.0 KCUMM)</content > ID Date Data Source GFR(Creatinine).[id number] 01/02/2020 06:45:00 PM EDT [facility] 0-0400 Name Value Range Interpretation Code Description Data Maral rce(s) Supporting Document(s ) UNK > 60 Below low normal <content [facility] styleCode="Bold"> Medical Cent er EGFR </content>54 GFR L<content styleCode="Italic s"> (> 60 GFR)</content> ID Date Data Source CHMROUTINECCDA.[id number] 01/02/2020 06:45:00 PM EDT [facility] -0400 Name Value Range Interpretation Code Description Data Maral rce(s) Supporting Document(s ) UNK NEGATIVE <content [facility] styleCode="Bold" Medical Cente r >Acetone </content>NEGATI VE <content styleCode="Itali cs"> (NEGATIVE )</content> ID Date Data Source [facility].[id number] 01/02/2020 06:45:00 PM EDT [facility] Name Value Range Interpretation Description Data Sup porting Code Source(s) Document(s ) Potassium 3.5-5.3 <content [facility] [Moles/volume] styleCode="Marlo [place] in Serum or d">Potassium Medical Plasma </content>5.3 Center MEQ/L<content styleCode="Nata lics"> (3.5-5.3 MEQ/L)</conten t> Sodium 137-145 Below low normal <content [facility] [Moles/volume] styleCode="Marlo [place] in Serum or d">Sodium Medical Plasma </content>132 Center MEQ/L L<content styleCode="Nata lics"> (137-145 MEQ/L)</conten t> UNK 9-20 Above high normal <content [facility] styleCode="Mar[place] d">BUN Medical </content>55 Center MG/DL H<content styleCode="Nata lics"> (9-20 MG/DL)</conten t> Carbon 22-30 Below low normal <content [facility] dioxide, total styleCode="Marlo [place] [Moles/volume] d">Carbon Medical in Serum or Dioxide Center Plasma </content>20 MEQ/L L<content styleCode="Nata lics"> (22-30 MEQ/L)</conten t> Creatinine 0.5-1.3 Above high normal <content [facility] [Mass/volume] styleCode="Marlo [place] in Serum or d">Creatinine Medical Plasma </content>1.4 Center MG/DL H<content styleCode="Nata lics"> (0.5-1.3 MG/DL)</conten t> Glucose 74-106 Above high normal <content [facility] [Mass/volume] styleCode="Marlo [place] in Serum or d">Glucose Medical Plasma </content>233 Center MG/DL H<content styleCode="Nata lics"> (74-106 MG/DL)</conten t> Chloride 98-107 <content [facility] [Moles/volume] styleCode="Marlo Bakers in Serum or d">Chloride Medical Plasma </content>104 Center MEQ/L<content styleCode="Nata lics"> (98-107 MEQ/L)</conten t> Calcium 8.4-10.2 Above high normal <content [facility] [Mass/volume] styleCode="Marlo Bakers in Serum or d">Calcium Medical Plasma </content>11.6 Center MG/DL H<content styleCode="Nata lics"> (8.4-10.2 MG/DL)</conten t> UNK > 60 Below low normal <content [facility] styleCode="Marlo Bakers d">EGFR Medical </content>54 Center GFR L<content styleCode="Nata lics"> (> 60 GFR)</content> ID Date Data Source Urinalysis.[id number] 02/22/2019 12:30:00 PM EDT [facility] 0 Name Value Range Interpretation Description Data Sup porting Code Source(s) Document(s ) UNK CLEAR <content [facility] styleCode="Marlo Bakers d">Urine Medical Clarity Center </content>SRIRAM R <content styleCode="Nata lics"> (CLEAR )</content> Glucose <content [facility] [Mass/volume] styleCode="Marlo Buitrago in Urine by d">Urine Medical Test strip Glucose Center </content>>= 1000 MG/DL (Reference Range: not available)<br/ > Color of Urine YELLOW <content [facility] styleCode="Marlo Minan d">Color, Medical Urine Center </content>YELL OW <content styleCode="Nata lics"> (YELLOW )</content> UNK NEGATIVE <content [facility] styleCode="Marlo [place] d">Urine Medical Bilirubin Center </content>NEGA TIVE <content styleCode="Nata lics"> (NEGATIVE )</content> Ketones NEGATIVE <content [facility] [Mass/volume] styleCode="Marlo Bakers in Urine by d">Urine Medical Test strip Ketone Center </content>TRAC E MG/DL<content styleCode="Nata lics"> (NEGATIVE MG/DL)</conten t> Specific 1.015-1.02 Below low normal <content [facility] gravity of 5 styleCode="Mar[place] Urine by Test d">Urine Medical strip Specific Center Hector </content>1.01 0 L<content styleCode="Nata lics"> (1.015-1.025 )</content> pH of Urine by 4.5-8.0 <content [facility] Test strip styleCode="Marlo [place]na d">Urine pH Medical </content>7.5 Center <content styleCode="Nata lics"> (4.5-8.0 )</content> Hemoglobin NEGATIVE <content [facility] [Presence] in styleCode="Mar[place] Urine by Test d">Urine Blood Medical strip </content>NEGA Center TIVE <content styleCode="Nata lics"> (NEGATIVE )</content> Protein <content [facility] [Mass/volume] styleCode="[place] in Urine by d">Urine Medical Test strip Protein Center </content>30 MG/DL (Reference Range: not available)<br/ > Urobilinogen 0.2-1.0 <content [facility] [Units/volume] styleCode="[place] in Urine by d">Urine Medical Test strip Urobilinogen Center </content>1.0 MG/DL<content styleCode="Nata lics"> (0.2-1.0 MG/DL)</conten t> Leukocyte NEGATIVE <content [facility] esterase styleCode="[place] [Presence] in d">Urine Medical Urine by Test Leukocyte Center strip </content>NEGA TIVE <content styleCode="Nata lics"> (NEGATIVE )</content> Nitrite NEGATIVE <content [facility] [Presence] in styleCode="[place] Urine by Test d">Urine Medical strip Nitrite Center </content>NEGA TIVE <content styleCode="Nata lics"> (NEGATIVE )</content> UNK 0-3 <content [facility] styleCode="Marlo [place] d">Urine White Medical Blood Cell Center </content>0-3 HPF<content styleCode="Nata lics"> (0-3 HPF)</content> UNK NEGATIVE <content styleCode="Marlo [place]na d">Urine Medical Bacteria Center </content>FEW HPF<content styleCode="Nata lics"> (NEGATIVE HPF)</content> UNK <content [facility] styleCode="Marlo [place]na d">Amorphous Medical Crystal Center </content>MODE RATE LPF (Reference Range: not available)<br/ > UNK 0-3 <content styleCode="Marlo [place]na d">Urine Red Medical Blood Cell Center </content>0-3 HPF<content styleCode="Nata lics"> (0-3 HPF)</content> UNK <content styleCode="Marlo Bakers d">Epithelial Medical Cell Center </content>10 - 20 LPF (Reference Range: not available)<br/ > ID Date Data Source GFR(Creatinine).[id number] 02/22/2019 11:50:00 AM EDT [facility] 0-0400 Name Value Range Interpretation Code Description Data Maral rce(s) Supporting Document(s ) UNK > 60 <content [facility] styleCode="Bold"> Medical Cent er EGFR </content>80 GFR<content styleCode="Italic s"> (> 60 GFR)</content> ID Date Data Source [facility].[id number] 02/22/2019 11:50:00 AM EDT [facility] Name Value Range Interpretation Description Data Sup porting Code Source(s) Document(s ) Potassium 3.5-5.3 <content [facility] [Moles/volume] styleCode="Marlo [place] in Serum or d">Potassium Medical Plasma </content>4.7 Center MEQ/L<content styleCode="Nata lics"> (3.5-5.3 MEQ/L)</conten t> Sodium 137-145 Below low normal <content [facility] [Moles/volume] styleCode="Marlo [place] in Serum or d">Sodium Medical Plasma </content>134 Center MEQ/L L<content styleCode="Nata lics"> (137-145 MEQ/L)</conten t> Creatinine 0.5-1.3 <content [facility] [Mass/volume] styleCode="Marlo [place] in Serum or d">Creatinine Medical Plasma </content>1.0 Center MG/DL<content styleCode="Nata lics"> (0.5-1.3 MG/DL)</conten t> UNK 9-20 Above high normal <content [facility] styleCode="Marlo [place] d">BUN Medical </content>30 Center MG/DL H<content styleCode="Nata lics"> (9-20 MG/DL)</conten t> Carbon 22-30 <content [facility] dioxide, total styleCode="Marlo [place] [Moles/volume] d">Carbon Medical in Serum or Dioxide Center Plasma </content>30 MEQ/L<content styleCode="Nata lics"> (22-30 MEQ/L)</conten t> Chloride 98-107 Below low normal <content [facility] [Moles/volume] styleCode="Marlo [place] in Serum or d">Chloride Medical Plasma </content>95 Center MEQ/L L<content styleCode="Nata lics"> (98-107 MEQ/L)</conten t> Calcium 8.4-10.2 <content [facility] [Mass/volume] styleCode="Marlo [place] in Serum or d">Calcium Medical Plasma </content>9.9 Center MG/DL<content styleCode="Nata lics"> (8.4-10.2 MG/DL)</conten t> Glucose 74-106 Above high normal <content [facility] [Mass/volume] styleCode="Marlo [place] in Serum or d">Glucose Medical Plasma </content>310 Center MG/DL H<content styleCode="Nata lics"> (74-106 MG/DL)</conten t> UNK > 60 <content [facility] styleCode="Marlo [place] d">EGFR Medical </content>80 Center GFR<content styleCode="Nata lics"> (> 60 GFR)</content> ID Date Data Source [facility].[id number] 02/21/2019 01:00:00 PM EDT [facility] Name Value Range Interpretation Description Data Sup porting Code Source(s) Document(s ) Potassium 3.5-5.3 <content [facility] [Moles/volume styleCode="Marlo Minna ] in Serum or d">Potassium Medical Plasma </content>5.2 Center MEQ/L<content styleCode="Nata lics"> (3.5-5.3 MEQ/L)</conten t> ID Date Data Source Liver 02/21/2019 05:20:[address] [facility] [place] Profile.[id number] Name Value Range Interpretation Description Data Sup porting Code Source(s) Document(s ) Aspartate 17-59 <content [facility] aminotransferase styleCode="Bold"> Deuce hs [Enzymatic Aspartate Medical activity/volume] Aminotransferase Center in Serum or Plasma (AST) </content>17 IU/L<content styleCode="Italic s"> (17-59 IU/L)</content> Bilirubin.total 0.2-1.3 <content [facility] [Mass/volume] in styleCode="Bold"> Deuce hs Serum or Plasma Bilirubin Total Medical </content>0.8 Center MG/DL<content styleCode="Italic s"> (0.2-1.3 MG/DL)</content> Albumin 3.5-5.0 <content [facility] [Mass/volume] in styleCode="Bold"> Deuce hs Serum or Plasma Albumin Medical </content>3.9 Center G/DL<content styleCode="Italic s"> (3.5-5.0 G/DL)</content> Alkaline 38-126 Above high <content [facility] phosphatase normal styleCode="Bold"> [place] [Enzymatic Alkaline Medical activity/volume] Phosphatase (ALP) Cente r in Serum or Plasma </content>151 IU/L H<content styleCode="Italic s"> (38-126 IU/L)</content> Alanine 7-50 <content [facility] aminotransferase styleCode="Bold"> Deuce hs [Enzymatic Alanine Medical activity/volume] Aminotransferase Center in Serum or Plasma (ALT) </content>17 IU/L<content styleCode="Italic s"> (7-50 IU/L)</content> ID Date Data Source HematologyRou.[id number] 02/21/2019 05:20:00 AM [facility] Name Value Range Interpretation Description Data Sup porting Code Source(s) Document(s ) Erythrocytes 4.4-5.9 Below low normal <content [facility] [#/volume] in styleCode="Bold [place] Blood by ">Red Blood Medical Automated count Cell Count Center </content>3.83 MCUMM L<content styleCode="Ital ics"> (4.4-5.9 MCUMM)</content > Leukocytes 4.4-11.0 <content [facility] [#/volume] in styleCode="Bold [place] Blood by ">White Blood Medical Automated count Cell Count Center </content>7.61 KCUMM<content styleCode="Ital ics"> (4.4-11.0 KCUMM)</content > Hemoglobin 13.5-17. Below low normal <content [facility] [Mass/volume] in 5 styleCode="Bold [place] Blood ">Hemoglobin Medical </content>12.2 Center G/DL L<content styleCode="Ital ics"> (13.5-17.5 G/DL)</content> Erythrocyte mean 26.0-34. <content [facility] corpuscular 0 styleCode="Bold [place] hemoglobin ">Mean Medical [Entitic mass] Corposcular Center by Automated Hemoglobin count </content>31.9 PG<content styleCode="Ital ics"> (26.0-34.0 PG)</content> Hematocrit 41.0-53. Below low normal <content [facility] [Volume 0 styleCode="Bold [place]na Fraction] of ">Hematocrit Medical Blood by </content>36.6 Center Automated count % L<content styleCode="Ital ics"> (41.0-53.0 %)</content> Erythrocyte mean 80.0-100 <content [facility] corpuscular .0 styleCode="Bold [place] volume [Entitic ">Mean Medical volume] by Corpuscular Center Automated count Volume </content>95.6 FL<content styleCode="Ital ics"> (80.0-100.0 FL)</content> Erythrocyte 11.5-14. <content [facility] distribution 5 styleCode="Jatinder Buitrago width [Ratio] by ">Red Cell Medical Automated count Distribution Center Width </content>12.6 %<content styleCode="Ital ics"> (11.5-14.5 %)</content> Platelet mean 8.0-11.0 Above high <content [facility] volume [Entitic normal styleCode="Bold Minna volume] in Blood ">Mean Platelet Medical by Automated Volume Center count </content>11.2 FL H<content styleCode="Ital ics"> (8.0-11.0 FL)</content> UNK 0 <content [facility] styleCode="Bold [place] ">Nucleated Red Medical Blood Cell Center </content>0.0 /100<content styleCode="Ital ics"> (0 /100)</content> Erythrocyte mean 32.0-37. <content [facility] corpuscular 0 styleCode="Jatinder [facility] hemoglobin ">Mean Corpus. Medical concentration Hgb Center [Mass/volume] by Concentration Automated count (MCHC) </content>33.3 G/DL<content styleCode="Ital ics"> (32.0-37.0 G/DL)</content> Platelets 130-400 Below low normal <content [facility] [#/volume] in styleCode="Bold [place] Blood by ">Platelet Medical Automated count Count Center </content>112 KCUMM L<content styleCode="Ital ics"> (130-400 KCUMM)</content > UNK 0.0 <content [facility] styleCode="Bold [place] ">Nucleated Red Medical Blood Cell Center Count </content>0.00 KCUMM<content styleCode="Ital ics"> (0.0 KCUMM)</content > ID Date Data Source GFR(Creatinine).[id number] 02/21/2019 05:20:00 AM EDT [facility] 0-0400 Name Value Range Interpretation Code Description Data Maral rce(s) Supporting Document(s ) UNK > 60 <content [facility] styleCode="Bold"> Medical Cent er EGFR </content>91 GFR<content styleCode="Italic s"> (> 60 GFR)</content> ID Date Data Source CHMROUTINECCDA.[id number] 02/21/2019 05:20:00 AM EDT [facility] -0400 Name Value Range Interpretation Description Data Sup porting Code Source(s) Document(s ) UNK >= 1.0 <content [facility] styleCode="Marlo [place] d">AG Ratio Medical </content>1.7 Center <content styleCode="Nata lics"> (>= 1.0 )</content> UNK 2.3-3.5 <content [facility] styleCode="Marlo [place]na d">Globulin Medical </content>2.3 Center G/DL<content styleCode="Nata lics"> (2.3-3.5 G/DL)</content > Magnesium 1.6-2.3 <content [facility] [Mass/volume] styleCode="Marlo [place] in Serum or d">Magnesium Medical Plasma </content>1.7 Center MG/DL<content styleCode="Nata lics"> (1.6-2.3 MG/DL)</conten t> Phosphate 2.5-4.5 <content [facility] [Mass/volume] styleCode="Marlo [place] in Serum or d">Phosphorus Medical Plasma </content>3.0 Center MG/DL<content styleCode="Nata lics"> (2.5-4.5 MG/DL)</conten t> Protein 6.3-8.2 Below low normal <content [facility] [Mass/volume] styleCode="Marlo [place] in Serum or d">Total Medical Plasma Protein Center </content>6.2 G/DL L<content styleCode="Nata lics"> (6.3-8.2 G/DL)</content > ID Date Data Source [facility].[id number] 02/21/2019 05:20:00 AM EDT [facility] Name Value Range Interpretation Description Data Sup porting Code Source(s) Document(s ) Sodium 137-145 Below low <content [facility] [Moles/volume] in normal styleCode="Bold"> [facility] phs Serum or Plasma Sodium Medical </content>134 Center MEQ/L L<content styleCode="Italic s"> (137-145 MEQ/L)</content> Chloride 98-107 <content [facility] [Moles/volume] in styleCode="Bold"> [facility]el phs Serum or Plasma Chloride Medical </content>99 Center MEQ/L<content styleCode="Italic s"> (98-107 MEQ/L)</content> Potassium 3.5-5.3 <content [facility] [Moles/volume] in styleCode="Bold"> [facility]el phs Serum or Plasma Potassium Medical </content>5.1 Center MEQ/L<content styleCode="Italic s"> (3.5-5.3 MEQ/L)</content> Creatinine 0.5-1.3 <content [facility] [Mass/volume] in styleCode="Bold"> Deuce hs Serum or Plasma Creatinine Medical </content>0.9 Center MG/DL<content styleCode="Italic s"> (0.5-1.3 MG/DL)</content> Carbon dioxide, 22-30 <content [facility] total styleCode="Bold"> [place] [Moles/volume] in Carbon Dioxide Medical Serum or Plasma </content>30 Center MEQ/L<content styleCode="Italic s"> (22-30 MEQ/L)</content> UNK 9-20 Above high <content [facility] normal styleCode="Bold"> [place] BUN </content>25 Medical MG/DL H<content Center styleCode="Italic s"> (9-20 MG/DL)</content> Glucose 74-106 Above high <content Saint [Mass/volume] in normal styleCode="Bold"> Deuce hs Serum or Plasma Glucose Medical </content>319 Center MG/DL H<content styleCode="Italic s"> (74-106 MG/DL)</content> Calcium 8.4-10. <content [facility] [Mass/volume] in 2 styleCode="Bold"> Deuce hs Serum or Plasma Calcium Medical </content>10.1 Center MG/DL<content styleCode="Italic s"> (8.4-10.2 MG/DL)</content> Alanine 7-50 <content [facility] aminotransferase styleCode="Bold"> Deuce hs [Enzymatic Alanine Medical activity/volume] Aminotransferase Center in Serum or Plasma (ALT) </content>17 IU/L<content styleCode="Italic s"> (7-50 IU/L)</content> Aspartate 17-59 <content [facility] aminotransferase styleCode="Bold"> Deuce hs [Enzymatic Aspartate Medical activity/volume] Aminotransferase Center in Serum or Plasma (AST) </content>17 IU/L<content styleCode="Italic s"> (17-59 IU/L)</content> UNK > 60 <content [facility] styleCode="Bold"> [place] EGFR </content>91 Medical GFR<content Center styleCode="Italic s"> (> 60 GFR)</content> Alkaline 38-126 Above high <content [facility] phosphatase normal styleCode="Bold"> [facility] [Enzymatic Alkaline Medical activity/volume] Phosphatase (ALP) Cente r in Serum or Plasma </content>151 IU/L H<content styleCode="Italic s"> (38-126 IU/L)</content> Bilirubin.total 0.2-1.3 <content [facility] [Mass/volume] in styleCode="Bold"> Deuce hs Serum or Plasma Bilirubin Total Medical </content>0.8 Center MG/DL<content styleCode="Italic s"> (0.2-1.3 MG/DL)</content> Albumin 3.5-5.0 <content [facility] [Mass/volume] in styleCode="Bold"> Deuce hs Serum or Plasma Albumin Medical </content>3.9 Center G/DL<content styleCode="Italic s"> (3.5-5.0 G/DL)</content> ID Date Data Source CHMROUTINECCDA.[id number] 02/21/2019 01:35:00 AM EDT [facility] -0400 Name Value Range Interpretation Code Description Data Maral rce(s) Supporting Document(s ) UNK 0.7-2.0 <content [facility] styleCode="Bold" Medical Cente r >Lactic Acid 4hr </content>0.7 MMOLL<content styleCode="Itali cs"> (0.7-2.0 MMOLL)</content> ID Date Data Source CHMROUTINECCDA.[id number] 02/20/2019 09:25:00 PM EDT [facility] -0400 Name Value Range Interpretation Description Data Sup porting Code Source(s) Document(s ) Lactate 0.7-2.0 <content [facility] [place] [Mass/volum styleCode="Bold Medical e] in Serum ">Lactic Acid Center or Plasma </content>1.0 MMOLL<content styleCode="Ital ics"> (0.7-2.0 MMOLL)</content > UNK 4.2-5.8 Above high normal <content [facility] styleCode="Bold Medical ">Hemoglobin Center A1C </content>10.1 % H<content styleCode="Ital ics"> (4.2-5.8 %)</content> ID Date Data Source Liver 02/20/2019 06:00:[address] [facility] [place] Profile.[id number] Name Value Range Interpretation Description Data Sup porting Code Source(s) Document(s ) Alkaline 38-126 Above high <content [facility] phosphatase normal styleCode="Bold"> [place] [Enzymatic Alkaline Medical activity/volume] Phosphatase (ALP) Cente r in Serum or Plasma </content>184 IU/L H<content styleCode="Italic s"> (38-126 IU/L)</content> Bilirubin.total 0.2-1.3 <content [facility] [Mass/volume] in styleCode="Bold"> Deuce hs Serum or Plasma Bilirubin Total Medical </content>0.4 Center MG/DL<content styleCode="Italic s"> (0.2-1.3 MG/DL)</content> Aspartate 17-59 <content [facility] aminotransferase styleCode="Bold"> Deuce hs [Enzymatic Aspartate Medical activity/volume] Aminotransferase Center in Serum or Plasma (AST) </content>18 IU/L<content styleCode="Italic s"> (17-59 IU/L)</content> Alanine 7-50 <content [facility] aminotransferase styleCode="Bold"> Deuce hs [Enzymatic Alanine Medical activity/volume] Aminotransferase Center in Serum or Plasma (ALT) </content>17 IU/L<content styleCode="Italic s"> (7-50 IU/L)</content> UNK 0.0-0.3 <content [facility] styleCode="Bold"> [place] Bilirubin, Direct Medical </content>< 0.2 Center MG/DL<content styleCode="Italic s"> (0.0-0.3 MG/DL)</content> Albumin 3.5-5.0 <content [facility] [Mass/volume] in styleCode="Bold"> Deuce hs Serum or Plasma Albumin Medical </content>3.9 Center G/DL<content styleCode="Italic s"> (3.5-5.0 G/DL)</content> ID Date Data Source HematologyRou.[id number] 02/20/2019 06:00:00 PM EDT [facility] 0400 Name Value Range Interpretation Description Data Sup porting Code Source(s) Document(s ) Hemoglobin 13.5-17. Below low normal <content [facility] [Mass/volume] in 5 styleCode="Bold [place] Blood ">Hemoglobin Medical </content>11.6 Center G/DL L<content styleCode="Ital ics"> (13.5-17.5 G/DL)</content> Leukocytes 4.4-11.0 <content [facility] [#/volume] in styleCode="Bold [place] Blood by ">White Blood Medical Automated count Cell Count Center </content>6.95 KCUMM<content styleCode="Ital ics"> (4.4-11.0 KCUMM)</content > Erythrocytes 4.4-5.9 Below low normal <content [facility] [#/volume] in styleCode="Bold [place] Blood by ">Red Blood Medical Automated count Cell Count Center </content>3.68 MCUMM L<content styleCode="Ital ics"> (4.4-5.9 MCUMM)</content > Erythrocyte mean 32.0-37. <content [facility] corpuscular 0 styleCode="Bold [place] hemoglobin ">Mean Corpus. Medical concentration Hgb Center [Mass/volume] by Concentration Automated count (MCHC) </content>33.1 G/DL<content styleCode="Ital ics"> (32.0-37.0 G/DL)</content> Erythrocyte mean 26.0-34. <content [facility] corpuscular 0 styleCode="Bold [place] hemoglobin ">Mean Medical [Entitic mass] Corposcular Center by Automated Hemoglobin count </content>31.5 PG<content styleCode="Ital ics"> (26.0-34.0 PG)</content> Hematocrit 41.0-53. Below low normal <content [facility] [Volume 0 styleCode="Bold [place] Fraction] of ">Hematocrit Medical Blood by </content>35.0 Center Automated count % L<content styleCode="Ital ics"> (41.0-53.0 %)</content> Erythrocyte mean 80.0-100 <content [facility] corpuscular .0 styleCode="Bold [place] volume [Entitic ">Mean Medical volume] by Corpuscular Center Automated count Volume </content>95.1 FL<content styleCode="Ital ics"> (80.0-100.0 FL)</content> Erythrocyte 11.5-14. <content [facility] distribution 5 styleCode="Bold [place] width [Ratio] by ">Red Cell Medical Automated count Distribution Center Width </content>12.7 %<content styleCode="Ital ics"> (11.5-14.5 %)</content> Platelet mean 8.0-11.0 Above high <content [facility] volume [Entitic normal styleCode="Bold [place] volume] in Blood ">Mean Platelet Medical by Automated Volume Center count </content>11.4 FL H<content styleCode="Ital ics"> (8.0-11.0 FL)</content> Platelets 130-400 Below low normal <content [facility] [#/volume] in styleCode="Bold [facility] Blood by ">Platelet Medical Automated count Count Center </content>109 KCUMM L<content styleCode="Ital ics"> (130-400 KCUMM)</content > UNK 0.0 <content [facility] styleCode="Bold [place] ">Nucleated Red Medical Blood Cell Center Count </content>0.00 KCUMM<content styleCode="Ital ics"> (0.0 KCUMM)</content > UNK 0 <content [facility] styleCode="Bold [place] ">Nucleated Red Medical Blood Cell Center </content>0.0 /100<content styleCode="Ital ics"> (0 /100)</content> ID Date Data Source GFR(Creatinine).[id number] 02/20/2019 06:00:00 PM EDT [facility] 0-0400 Name Value Range Interpretation Code Description Data Maral rce(s) Supporting Document(s ) UNK > 60 <content [facility] styleCode="Bold"> Medical Cent er EGFR </content>80 GFR<content styleCode="Italic s"> (> 60 GFR)</content> ID Date Data Source Coagulation 02/20/2019 06:00:00 PM [facility] Rout.[id number] EDT Name Value Range Interpretation Description Data Sup porting Code Source(s) Document(s ) UNK 9.0-13.0 <content [facility] styleCode="Bold" [place] >Protime Medical </content>11.6 Center SEC<content styleCode="Itali cs"> (9.0-13.0 SEC)</content> aPTT in 25.1-36. <content [facility] Platelet poor 5 styleCode="Bold" [place] plasma by >Partial Medical Coagulation Thromboplastin Center assay Time </content>32.0 SEC<content styleCode="Itali cs"> (25.1-36.5 SEC)</content> INR in 0.80-1.2 <content [facility] Platelet poor 0 styleCode="Bold" [place] plasma by >INR Medical Coagulation </content>1.05 Center assay #<content styleCode="Itali cs"> (0.80-1.20 #)</content> ID Date Data Source CHMROUTINECCDA.[id number] 02/20/2019 06:00:00 PM EDT [facility] -0400 Name Value Range Interpretation Description Data Sup porting Code Source(s) Document(s ) Natriuretic < 125 Above high normal <content [facility] peptide.B styleCode="Marlo [place] prohormone d">NT Pro BNP Medical N-Terminal </content>2150 Center [Mass/volume] PG/ML in Serum or H<content Plasma styleCode="Nata lics"> (< 125 PG/ML)</conten t> ID Date Data Source CardiacMarkers.[id number] 02/20/2019 06:00:00 PM EDT [facility] -0400 Name Value Range Interpretation Description Data Sup porting Code Source(s) Document(s ) Troponin < 0.034 <content [facility] I.cardiac styleCode="Bold [place] [Mass/volume ">Troponin I Medical ] in Serum </content>< Center or Plasma 0.012 NG/ML<content styleCode="Ital ics"> (< 0.034 NG/ML)</content > ID Date Data Source BloodBank.[id number] 02/20/2019 06:00:00 PM EDT [facility] Name Value Range Interpretation Code Description Data Maral rce(s) Supporting Document(s ) UNK <content [facility] styleCode="Bold"> Medical Cent er Antibody Screen </content>TNP (Reference Range: not available)
UNK <content [facility] styleCode="Bold"> Medical Cent er Blood Type </content>TNP (Reference Range: not available)
UNK <content [facility] styleCode="Bold"> Medical Cent er RH Type </content>TNP (Reference Range: not available)
ID Date Data Source [facility].[id number] 02/20/2019 06:00:00 PM EDT [facility] Name Value Range Interpretation Description Data Sup porting Code Source(s) Document(s ) Sodium 137-145 Below low <content [facility] [Moles/volume] in normal styleCode="Bold"> Ishmael phs Serum or Plasma Sodium Medical </content>131 Center MEQ/L L<content styleCode="Italic s"> (137-145 MEQ/L)</content> Potassium 3.5-5.3 Above upper <content [facility] [Moles/volume] in panic limits styleCode="Bold"> J osephs Serum or Plasma Potassium Medical </content><conten Center t styleCode="Bold"> 6.2 MEQ/L HH</content><cont ent styleCode="Italic s"> (3.5-5.3 MEQ/L)</content> Chloride 98-107 Below low <content [facility] [Moles/volume] in normal styleCode="Bold"> Ishmael phs Serum or Plasma Chloride Medical </content>97 Center MEQ/L L<content styleCode="Italic s"> (98-107 MEQ/L)</content> Carbon dioxide, 22-30 <content [facility] total styleCode="Bold"> [place] [Moles/volume] in Carbon Dioxide Medical Serum or Plasma </content>23 Center MEQ/L<content styleCode="Italic s"> (22-30 MEQ/L)</content> Creatinine 0.5-1.3 <content [facility] [Mass/volume] in styleCode="Bold"> Deuce hs Serum or Plasma Creatinine Medical </content>1.0 Center MG/DL<content styleCode="Italic s"> (0.5-1.3 MG/DL)</content> UNK 9-20 Above high <content [facility] normal styleCode="Bold"> [place] BUN </content>31 Medical MG/DL H<content Center styleCode="Italic s"> (9-20 MG/DL)</content> Calcium 8.4-10. <content [facility] [Mass/volume] in 2 styleCode="Bold"> Deuce hs Serum or Plasma Calcium Medical </content>9.4 Center MG/DL<content styleCode="Italic s"> (8.4-10.2 MG/DL)</content> Glucose 74-106 Above upper <content [facility] [Mass/volume] in panic limits styleCode="Bold"> Lucille sephs Serum or Plasma Glucose Medical </content><conten Center t styleCode="Bold"> 530 MG/DL HH</content><cont ent styleCode="Italic s"> (74-106 MG/DL)</content> Aspartate 17-59 <content [facility] aminotransferase styleCode="Bold"> Deuce hs [Enzymatic Aspartate Medical activity/volume] Aminotransferase Center in Serum or Plasma (AST) </content>18 IU/L<content styleCode="Italic s"> (17-59 IU/L)</content> UNK > 60 <content [facility] styleCode="Bold"> [place] EGFR </content>80 Medical GFR<content Center styleCode="Italic s"> (> 60 GFR)</content> Alanine 7-50 <content [facility] aminotransferase styleCode="Bold"> Deuce hs [Enzymatic Alanine Medical activity/volume] Aminotransferase Center in Serum or Plasma (ALT) </content>17 IU/L<content styleCode="Italic s"> (7-50 IU/L)</content> Albumin 3.5-5.0 <content [facility] [Mass/volume] in styleCode="Bold"> Deuce hs Serum or Plasma Albumin Medical </content>3.9 Center G/DL<content styleCode="Italic s"> (3.5-5.0 G/DL)</content> Bilirubin.total 0.2-1.3 <content [facility] [Mass/volume] in styleCode="Bold"> Deuce hs Serum or Plasma Bilirubin Total Medical </content>0.4 Center MG/DL<content styleCode="Italic s"> (0.2-1.3 MG/DL)</content> Alkaline 38-126 Above high <content [facility] phosphatase normal styleCode="Bold"> [place] [Enzymatic Alkaline Medical activity/volume] Phosphatase (ALP) Cente r in Serum or Plasma </content>184 IU/L H<content styleCode="Italic s"> (38-126 IU/L)</content> ID Date Data Source Liver 02/20/2019 12:42:[address] [facility] [place] Profile.[id number] Name Value Range Interpretation Description Data Sup porting Code Source(s) Document(s ) Aspartate 17-59 <content [facility] aminotransferase styleCode="Bold"> Deuce hs [Enzymatic Aspartate Medical activity/volume] Aminotransferase Center in Serum or Plasma (AST) </content>19 IU/L<content styleCode="Italic s"> (17-59 IU/L)</content> Alanine 7-50 <content [facility] aminotransferase styleCode="Bold"> Deuce hs [Enzymatic Alanine Medical activity/volume] Aminotransferase Center in Serum or Plasma (ALT) </content>18 IU/L<content styleCode="Italic s"> (7-50 IU/L)</content> Albumin 3.5-5.0 <content [facility] [Mass/volume] in styleCode="Bold"> Deuce hs Serum or Plasma Albumin Medical </content>4.2 Center G/DL<content styleCode="Italic s"> (3.5-5.0 G/DL)</content> Bilirubin.total 0.2-1.3 <content [facility] [Mass/volume] in styleCode="Bold"> Deuce hs Serum or Plasma Bilirubin Total Medical </content>0.5 Center MG/DL<content styleCode="Italic s"> (0.2-1.3 MG/DL)</content> Alkaline 38-126 Above high <content [facility] phosphatase normal styleCode="Bold"> [place] [Enzymatic Alkaline Medical activity/volume] Phosphatase (ALP) Cente r in Serum or Plasma </content>157 IU/L H<content styleCode="Italic s"> (38-126 IU/L)</content> ID Date Data Source GFR(Creatinine).[id number] 02/20/2019 12:42:00 PM EDT [facility] 0-0400 Name Value Range Interpretation Code Description Data Maral rce(s) Supporting Document(s ) UNK > 60 <content [facility] styleCode="Bold"> Medical Cent er EGFR </content>80 GFR<content styleCode="Italic s"> (> 60 GFR)</content> ID Date Data Source CHMROUTINECCDA.[id number] 02/20/2019 12:42:00 PM EDT [facility] -0400 Name Value Range Interpretation Description Data Sup porting Code Source(s) Document(s ) UNK 2.3-3.5 <content [facility] styleCode="Marlo [place] d">Globulin Medical </content>2.6 Center G/DL<content styleCode="Nata lics"> (2.3-3.5 G/DL)</content > UNK >= 1.0 <content [facility] styleCode="Marlo [place] d">AG Ratio Medical </content>1.6 Center <content styleCode="Nata lics"> (>= 1.0 )</content> Magnesium 1.6-2.3 Below low normal <content [facility] [Mass/volume] styleCode="Marlo [place] in Serum or d">Magnesium Medical Plasma </content>1.5 Center MG/DL L<content styleCode="Nata lics"> (1.6-2.3 MG/DL)</conten t> Protein 6.3-8.2 <content [facility] [Mass/volume] styleCode="Marlo [place] in Serum or d">Total Medical Plasma Protein Center </content>6.8 G/DL<content styleCode="Nata lics"> (6.3-8.2 G/DL)</content > ID Date Data Source [facility].[id number] 02/20/2019 12:42:00 PM EDT [facility] Name Value Range Interpretation Description Data Sup porting Code Source(s) Document(s ) Sodium 137-145 Below low <content [facility] [Moles/volume] in normal styleCode="Bold"> Ishmael [facility] Serum or Plasma Sodium Medical </content>133 Center MEQ/L L<content styleCode="Italic s"> (137-145 MEQ/L)</content> Carbon dioxide, 22-30 <content [facility] total styleCode="Bold"> [place] [Moles/volume] in Carbon Dioxide Medical Serum or Plasma </content>28 Center MEQ/L<content styleCode="Italic s"> (22-30 MEQ/L)</content> Potassium 3.5-5.3 Above upper <content [facility] [Moles/volume] in panic limits styleCode="Bold"> J osephs Serum or Plasma Potassium Medical </content><conten Center t styleCode="Bold"> 6.6 MEQ/L HH</content><cont ent styleCode="Italic s"> (3.5-5.3 MEQ/L)</content> Chloride 98-107 Below low <content [facility] [Moles/volume] in normal styleCode="Bold"> Ishmael phs Serum or Plasma Chloride Medical </content>97 Center MEQ/L L<content styleCode="Italic s"> (98-107 MEQ/L)</content> Creatinine 0.5-1.3 <content [facility] [Mass/volume] in styleCode="Bold"> Deuce hs Serum or Plasma Creatinine Medical </content>1.0 Center MG/DL<content styleCode="Italic s"> (0.5-1.3 MG/DL)</content> Glucose 74-106 Above high <content [facility] [Mass/volume] in normal styleCode="Bold"> Deuce hs Serum or Plasma Glucose Medical </content>198 Center MG/DL H<content styleCode="Italic s"> (74-106 MG/DL)</content> UNK 9-20 Above high <content [facility] normal styleCode="Bold"> [place] BUN </content>28 Medical MG/DL H<content Center styleCode="Italic s"> (9-20 MG/DL)</content> Calcium 8.4-10. <content [facility] [Mass/volume] in 2 styleCode="Bold"> Deuce hs Serum or Plasma Calcium Medical </content>9.6 Center MG/DL<content styleCode="Italic s"> (8.4-10.2 MG/DL)</content> Alkaline 38-126 Above high <content [facility] phosphatase normal styleCode="Bold"> [place] [Enzymatic Alkaline Medical activity/volume] Phosphatase (ALP) Cente r in Serum or Plasma </content>157 IU/L H<content styleCode="Italic s"> (38-126 IU/L)</content> Alanine 7-50 <content [facility] aminotransferase styleCode="Bold"> Deuce hs [Enzymatic Alanine Medical activity/volume] Aminotransferase Center in Serum or Plasma (ALT) </content>18 IU/L<content styleCode="Italic s"> (7-50 IU/L)</content> Aspartate 17-59 <content [facility] aminotransferase styleCode="Bold"> Deuce hs [Enzymatic Aspartate Medical activity/volume] Aminotransferase Center in Serum or Plasma (AST) </content>19 IU/L<content styleCode="Italic s"> (17-59 IU/L)</content> UNK > 60 <content [facility] styleCode="Bold"> [place] EGFR </content>80 Medical GFR<content Center styleCode="Italic s"> (> 60 GFR)</content> Albumin 3.5-5.0 <content [facility] [Mass/volume] in styleCode="Bold"> Deuce hs Serum or Plasma Albumin Medical </content>4.2 Center G/DL<content styleCode="Italic s"> (3.5-5.0 G/DL)</content> Bilirubin.total 0.2-1.3 <content [facility] [Mass/volume] in styleCode="Bold"> Deuce hs Serum or Plasma Bilirubin Total Medical </content>0.5 Center MG/DL<content styleCode="Italic s"> (0.2-1.3 MG/DL)</content> ID Date Data Source Liver 02/14/2019 11:45:[address] [facility] [place] Profile.[id number] Name Value Range Interpretation Description Data Sup porting Code Source(s) Document(s ) Alanine 7-50 <content [facility] aminotransferase styleCode="Bold"> Deuce hs [Enzymatic Alanine Medical activity/volume] Aminotransferase Center in Serum or Plasma (ALT) </content>17 IU/L<content styleCode="Italic s"> (7-50 IU/L)</content> Aspartate 17-59 <content [facility] aminotransferase styleCode="Bold"> Deuce hs [Enzymatic Aspartate Medical activity/volume] Aminotransferase Center in Serum or Plasma (AST) </content>17 IU/L<content styleCode="Italic s"> (17-59 IU/L)</content> Alkaline 38-126 Above high <content [facility] phosphatase normal styleCode="Bold"> [place] [Enzymatic Alkaline Medical activity/volume] Phosphatase (ALP) Cente r in Serum or Plasma </content>159 IU/L H<content styleCode="Italic s"> (38-126 IU/L)</content> Bilirubin.total 0.2-1.3 <content [facility] [Mass/volume] in styleCode="Bold"> Deuce hs Serum or Plasma Bilirubin Total Medical </content>0.8 Center MG/DL<content styleCode="Italic s"> (0.2-1.3 MG/DL)</content> Albumin 3.5-5.0 <content [facility] [Mass/volume] in styleCode="Bold"> Deuce hs Serum or Plasma Albumin Medical </content>4.1 Center G/DL<content styleCode="Italic s"> (3.5-5.0 G/DL)</content> ID Date Data Source GFR(Creatinine).[id number] 02/14/2019 11:45:00 AM EDT [facility] 0-0400 Name Value Range Interpretation Code Description Data Maral rce(s) Supporting Document(s ) UNK > 60 <content [facility] styleCode="Bold"> Medical Cent er EGFR </content>65 GFR<content styleCode="Italic s"> (> 60 GFR)</content> ID Date Data Source CHMROUTINECCDA.[id number] 02/14/2019 11:45:00 AM EDT [facility] -0400 Name Value Range Interpretation Description Data Sup porting Code Source(s) Document(s ) Protein 6.3-8.2 <content [facility] [Mass/volum styleCode="Bold Medical e] in Serum ">Total Protein Center or Plasma </content>6.6 G/DL<content styleCode="Ital ics"> (6.3-8.2 G/DL)</content> UNK >= 1.0 <content [facility] styleCode="Bold Medical ">AG Ratio Center </content>1.6 <content styleCode="Ital ics"> (>= 1.0 )</content> UNK 2.3-3.5 <content [facility] styleCode="Bold Medical ">Globulin Center </content>2.5 G/DL<content styleCode="Ital ics"> (2.3-3.5 G/DL)</content> ID Date Data Source [facility].[id number] 02/14/2019 11:45:00 AM EDT [facility] Name Value Range Interpretation Description Data Sup porting Code Source(s) Document(s ) Sodium 137-145 Below low <content [facility] [Moles/volume] in normal styleCode="Bold"> Ishmael phs Serum or Plasma Sodium Medical </content>132 Center MEQ/L L<content styleCode="Italic s"> (137-145 MEQ/L)</content> Potassium 3.5-5.3 Above upper <content [facility] [Moles/volume] in panic limits styleCode="Bold"> J osephs Serum or Plasma Potassium Medical </content><conten Center t styleCode="Bold"> 6.1 MEQ/L HH</content><cont ent styleCode="Italic s"> (3.5-5.3 MEQ/L)</content> Chloride 98-107 Below low <content [facility] [Moles/volume] in normal styleCode="Bold"> Ishmael phs Serum or Plasma Chloride Medical </content>97 Center MEQ/L L<content styleCode="Italic s"> (98-107 MEQ/L)</content> Creatinine 0.5-1.3 <content [facility] [Mass/volume] in styleCode="Bold"> Deuce hs Serum or Plasma Creatinine Medical </content>1.2 Center MG/DL<content styleCode="Italic s"> (0.5-1.3 MG/DL)</content> Carbon dioxide, 22-30 <content [facility] total styleCode="Bold"> [place] [Moles/volume] in Carbon Dioxide Medical Serum or Plasma </content>27 Center MEQ/L<content styleCode="Italic s"> (22-30 MEQ/L)</content> UNK 9-20 Above high <content [facility] normal styleCode="Bold"> [place] BUN </content>35 Medical MG/DL H<content Center styleCode="Italic s"> (9-20 MG/DL)</content> UNK > 60 <content [facility] styleCode="Bold"> [place] EGFR </content>65 Medical GFR<content Center styleCode="Italic s"> (> 60 GFR)</content> Alanine 7-50 <content [facility] aminotransferase styleCode="Bold"> Deuce hs [Enzymatic Alanine Medical activity/volume] Aminotransferase Center in Serum or Plasma (ALT) </content>17 IU/L<content styleCode="Italic s"> (7-50 IU/L)</content> Calcium 8.4-10. <content [facility] [Mass/volume] in 2 styleCode="Bold"> Deuce hs Serum or Plasma Calcium Medical </content>9.7 Center MG/DL<content styleCode="Italic s"> (8.4-10.2 MG/DL)</content> Aspartate 17-59 <content [facility] aminotransferase styleCode="Bold"> Deuce hs [Enzymatic Aspartate Medical activity/volume] Aminotransferase Center in Serum or Plasma (AST) </content>17 IU/L<content styleCode="Italic s"> (17-59 IU/L)</content> Glucose 74-106 Above high <content [facility] [Mass/volume] in normal styleCode="Bold"> Deuce hs Serum or Plasma Glucose Medical </content>240 Center MG/DL H<content styleCode="Italic s"> (74-106 MG/DL)</content> Alkaline 38-126 Above high <content [facility] phosphatase normal styleCode="Bold"> [place] [Enzymatic Alkaline Medical activity/volume] Phosphatase (ALP) Cente r in Serum or Plasma </content>159 IU/L H<content styleCode="Italic s"> (38-126 IU/L)</content> Albumin 3.5-5.0 <content [facility] [Mass/volume] in styleCode="Bold"> Deuce hs Serum or Plasma Albumin Medical </content>4.1 Center G/DL<content styleCode="Italic s"> (3.5-5.0 G/DL)</content> Bilirubin.total 0.2-1.3 <content [facility] [Mass/volume] in styleCode="Bold"> Deuce hs Serum or Plasma Bilirubin Total Medical </content>0.8 Center MG/DL<content styleCode="Italic s"> (0.2-1.3 MG/DL)</content> ID Date Data Source Liver 02/13/2019 09:47:[address] [facility] [place] Profile.[id number] Name Value Range Interpretation Description Data Sup porting Code Source(s) Document(s ) Aspartate 17-59 <content [facility] aminotransferase styleCode="Bold"> Deuce hs [Enzymatic Aspartate Medical activity/volume] Aminotransferase Center in Serum or Plasma (AST) </content>17 IU/L<content styleCode="Italic s"> (17-59 IU/L)</content> Alanine 7-50 <content [facility] aminotransferase styleCode="Bold"> Deuce hs [Enzymatic Alanine Medical activity/volume] Aminotransferase Center in Serum or Plasma (ALT) </content>17 IU/L<content styleCode="Italic s"> (7-50 IU/L)</content> Bilirubin.total 0.2-1.3 <content [facility] [Mass/volume] in styleCode="Bold"> Deuce hs Serum or Plasma Bilirubin Total Medical </content>0.9 Center MG/DL<content styleCode="Italic s"> (0.2-1.3 MG/DL)</content> Alkaline 38-126 Above high <content [facility] phosphatase normal styleCode="Bold"> [place] [Enzymatic Alkaline Medical activity/volume] Phosphatase (ALP) Cente r in Serum or Plasma </content>131 IU/L H<content styleCode="Italic s"> (38-126 IU/L)</content> Albumin 3.5-5.0 <content [facility] [Mass/volume] in styleCode="Bold"> Deuce hs Serum or Plasma Albumin Medical </content>4.0 Center G/DL<content styleCode="Italic s"> (3.5-5.0 G/DL)</content> ID Date Data Source HematologyRou.[id number] 02/13/2019 09:47:00 AM [facility] Name Value Range Interpretation Description Data Sup porting Code Source(s) Document(s ) Leukocytes 4.4-11.0 <content [facility] [#/volume] in styleCode="Bold [place] Blood by ">White Blood Medical Automated count Cell Count Center </content>4.98 KCUMM<content styleCode="Ital ics"> (4.4-11.0 KCUMM)</content > Hematocrit 41.0-53. Below low normal <content [facility] [Volume 0 styleCode="Bold [place] Fraction] of ">Hematocrit Medical Blood by </content>36.8 Center Automated count % L<content styleCode="Ital ics"> (41.0-53.0 %)</content> Erythrocytes 4.4-5.9 Below low normal <content [facility] [#/volume] in styleCode="Bold [place] Blood by ">Red Blood Medical Automated count Cell Count Center </content>3.93 MCUMM L<content styleCode="Ital ics"> (4.4-5.9 MCUMM)</content > Hemoglobin 13.5-17. Below low normal <content [facility] [Mass/volume] in 5 styleCode="Bold [place] Blood ">Hemoglobin Medical </content>12.6 Center G/DL L<content styleCode="Ital ics"> (13.5-17.5 G/DL)</content> Erythrocyte mean 80.0-100 <content [facility] corpuscular .0 styleCode="Bold [place] volume [Entitic ">Mean Medical volume] by Corpuscular Center Automated count Volume </content>93.6 FL<content styleCode="Ital ics"> (80.0-100.0 FL)</content> Erythrocyte mean 26.0-34. <content [facility] corpuscular 0 styleCode="Bold [place] hemoglobin ">Mean Medical [Entitic mass] Corposcular Center by Automated Hemoglobin count </content>32.1 PG<content styleCode="Ital ics"> (26.0-34.0 PG)</content> Erythrocyte mean 32.0-37. <content [facility] corpuscular 0 styleCode="Bold [place] hemoglobin ">Mean Corpus. Medical concentration Hgb Center [Mass/volume] by Concentration Automated count (MCHC) </content>34.2 G/DL<content styleCode="Ital ics"> (32.0-37.0 G/DL)</content> Erythrocyte 11.5-14. <content [facility] distribution 5 styleCode="Bold [place] width [Ratio] by ">Red Cell Medical Automated count Distribution Center Width </content>12.4 %<content styleCode="Ital ics"> (11.5-14.5 %)</content> Platelets 130-400 Below low normal <content [facility] [#/volume] in styleCode="Bold [place] Blood by ">Platelet Medical Automated count Count Center </content>127 KCUMM L<content styleCode="Ital ics"> (130-400 KCUMM)</content > Platelet mean 8.0-11.0 <content [facility] volume [Entitic styleCode="Bold [place] volume] in Blood ">Mean Platelet Medical by Automated Volume Center count </content>11.0 FL<content styleCode="Ital ics"> (8.0-11.0 FL)</content> Neutrophils 36-66 Above high <content [facility] [#/volume] in normal styleCode="Bold [place] Blood by ">Neutrophil Medical Automated count </content>70.5 Center % H<content styleCode="Ital ics"> (36-66 %)</content> Lymphocytes 24.0-44. Below low normal <content [facility] [#/volume] in 0 styleCode="Bold [place] Blood by ">Lymphocyte Medical Automated count </content>15.1 Center % L<content styleCode="Ital ics"> (24.0-44.0 %)</content> UNK 1.6-7.3 <content [facility] styleCode="Bold [place] ">Neutrophil Medical Count Center </content>3.51 KCUMM<content styleCode="Ital ics"> (1.6-7.3 KCUMM)</content > Monocytes 3.0-10.0 <content [facility] [#/volume] in styleCode="Bold [place] Blood by ">Monocyte Medical Automated count </content>8.6 Center %<content styleCode="Ital ics"> (3.0-10.0 %)</content> Eosinophils 0-5.0 <content [facility] [#/volume] in styleCode="Bold [place] Blood by ">Eosinophil Medical Automated count </content>4.6 Center %<content styleCode="Ital ics"> (0-5.0 %)</content> UNK 1.0-4.8 Below low normal <content [facility] styleCode="Bold [place] ">Lymphocyte Medical Count Center </content>0.75 KCUMM L<content styleCode="Ital ics"> (1.0-4.8 KCUMM)</content > UNK 0.2-0.9 <content [facility] styleCode="Bold [place] ">Monocyte Medical Count Center </content>0.43 KCUMM<content styleCode="Ital ics"> (0.2-0.9 KCUMM)</content > UNK 0.0-0.6 <content [facility] styleCode="Bold [place] ">Eosinophil Medical Count Center </content>0.23 KCUMM<content styleCode="Ital ics"> (0.0-0.6 KCUMM)</content > Basophils 0.0-1.0 <content [facility] [#/volume] in styleCode="Bold [place] Blood by ">Basophil Medical Automated count </content>0.4 Center %<content styleCode="Ital ics"> (0.0-1.0 %)</content> UNK 0.0-0.3 <content [facility] styleCode="Bold [place] ">Basophil Medical Count Center </content>0.02 KCUMM<content styleCode="Ital ics"> (0.0-0.3 KCUMM)</content > UNK 0 <content [facility] styleCode="Bold [place] ">Nucleated Red Medical Blood Cell Center </content>0.0 /100<content styleCode="Ital ics"> (0 /100)</content> UNK 0.0 <content [facility] styleCode="Bold [place] ">Nucleated Red Medical Blood Cell Center Count </content>0.00 KCUMM<content styleCode="Ital ics"> (0.0 KCUMM)</content > UNK 0-0.1 <content [facility] styleCode="Bold [place] ">Immature Medical Granulocyte Center Count </content>0.04 KCUMM<content styleCode="Ital ics"> (0-0.1 KCUMM)</content > UNK NONE <content Saint SEEN styleCode="Bold [place] ">Platelet Medical Clumping Center </content>NONE SEEN <content styleCode="Ital ics"> (NONE SEEN )</content> UNK < 1 <content [facility] styleCode="Bold [place] ">Immature Medical Granulocyte Center Ratio </content>0.8 %<content styleCode="Ital ics"> (< 1 %)</content> ID Date Data Source Coagulation 02/13/2019 09:47:00 AM [facility] Rout.[id number] EDT Name Value Range Interpretation Description Data Sup porting Code Source(s) Document(s ) UNK 9.0-13.0 <content [facility] styleCode="Bold" [place] >Protime Medical </content>12.1 Center SEC<content styleCode="Itali cs"> (9.0-13.0 SEC)</content> INR in 0.80-1.2 <content [facility] Platelet poor 0 styleCode="Bold" [place] plasma by >INR Medical Coagulation </content>1.09 Center assay #<content styleCode="Itali cs"> (0.80-1.20 #)</content> aPTT in 25.1-36. <content [facility] Platelet poor 5 styleCode="Bold" [place]na plasma by >Partial Medical Coagulation Thromboplastin Center assay Time </content>33.2 SEC<content styleCode="Itali cs"> (25.1-36.5 SEC)</content> ID Date Data Source BloodBank.[id number] 02/13/2019 09:47:00 AM EDT [facility] Name Value Range Interpretation Code Description Data Maral rce(s) Supporting Document(s ) UNK NEGATIVE <content [facility] styleCode="Bold" Medical Cente r >Antibody Screen </content>NEGATI VE <content styleCode="Itali cs"> (NEGATIVE )</content> UNK <content [facility] styleCode="Bold" Medical Cente r >RH Type </content>POSITI VE (Reference Range: not available)
UNK <content [facility] styleCode="Bold" Medical Cente r >Blood Type </content>GROUP O (Reference Range: not available)
ID Date Data Source GFR(Creatinine).[id number] 02/13/2019 09:47:00 AM EDT [facility] 0-0400 Name Value Range Interpretation Code Description Data Maral rce(s) Supporting Document(s ) UNK > 60 <content [facility] styleCode="Bold"> Medical Cent er EGFR </content>72 GFR<content styleCode="Italic s"> (> 60 GFR)</content> ID Date Data Source CHMROUTINECCDA.[id number] 02/13/2019 09:47:00 AM EDT [facility] -0400 Name Value Range Interpretation Description Data Sup porting Code Source(s) Document(s ) UNK >= 1.0 <content [facility] styleCode="Bold Medical ">AG Ratio Center </content>1.6 <content styleCode="Ital ics"> (>= 1.0 )</content> UNK 2.3-3.5 <content [facility] styleCode="Bold Medical ">Globulin Center </content>2.5 G/DL<content styleCode="Ital ics"> (2.3-3.5 G/DL)</content> Protein 6.3-8.2 <content [facility] [Mass/volum styleCode="Bold Medical e] in Serum ">Total Protein Center or Plasma </content>6.5 G/DL<content styleCode="Ital ics"> (6.3-8.2 G/DL)</content> ID Date Data Source [id number] 02/13/2019 09:47:00 AM EDT [facility] Name Value Range Interpretation Description Data Sup porting Code Source(s) Document(s ) Sodium 137-145 Below low <content [facility] [Moles/volume] in normal styleCode="Bold"> Ishmael phs Serum or Plasma Sodium Medical </content>133 Center MEQ/L L<content styleCode="Italic s"> (137-145 MEQ/L)</content> UNK 9-20 Above high <content [facility] normal styleCode="Bold"> [place] BUN </content>27 Medical MG/DL H<content Center styleCode="Italic s"> (9-20 MG/DL)</content> Carbon dioxide, 22-30 <content [facility] total styleCode="Bold"> [place] [Moles/volume] in Carbon Dioxide Medical Serum or Plasma </content>28 Center MEQ/L<content styleCode="Italic s"> (22-30 MEQ/L)</content> Potassium 3.5-5.3 Above high <content [facility] [Moles/volume] in normal styleCode="Bold"> Ishmael phs Serum or Plasma Potassium Medical </content>5.8 Center MEQ/L H<content styleCode="Italic s"> (3.5-5.3 MEQ/L)</content> Chloride 98-107 Below low <content [facility] [Moles/volume] in normal styleCode="Bold"> [facility] Serum or Plasma Chloride Medical </content>96 Center MEQ/L L<content styleCode="Italic s"> (98-107 MEQ/L)</content> Creatinine 0.5-1.3 <content [facility] [Mass/volume] in styleCode="Bold"> Deuce hs Serum or Plasma Creatinine Medical </content>1.1 Center MG/DL<content styleCode="Italic s"> (0.5-1.3 MG/DL)</content> Calcium 8.4-10. <content [facility] [Mass/volume] in 2 styleCode="Bold"> Deuce hs Serum or Plasma Calcium Medical </content>10.0 Center MG/DL<content styleCode="Italic s"> (8.4-10.2 MG/DL)</content> UNK > 60 <content [facility] styleCode="Bold"> [place] EGFR </content>72 Medical GFR<content Center styleCode="Italic s"> (> 60 GFR)</content> Glucose 74-106 Above high <content [facility] [Mass/volume] in normal styleCode="Bold"> Deuce hs Serum or Plasma Glucose Medical </content>128 Center MG/DL H<content styleCode="Italic s"> (74-106 MG/DL)</content> Aspartate 17-59 <content [facility] aminotransferase styleCode="Bold"> Deuce hs [Enzymatic Aspartate Medical activity/volume] Aminotransferase Center in Serum or Plasma (AST) </content>17 IU/L<content styleCode="Italic s"> (17-59 IU/L)</content> Alkaline 38-126 Above high <content [facility] phosphatase normal styleCode="Bold"> [place] [Enzymatic Alkaline Medical activity/volume] Phosphatase (ALP) Cente r in Serum or Plasma </content>131 IU/L H<content styleCode="Italic s"> (38-126 IU/L)</content> Alanine 7-50 <content [facility] aminotransferase styleCode="Bold"> Deuce hs [Enzymatic Alanine Medical activity/volume] Aminotransferase Center in Serum or Plasma (ALT) </content>17 IU/L<content styleCode="Italic s"> (7-50 IU/L)</content> Bilirubin.total 0.2-1.3 <content [facility] [Mass/volume] in styleCode="Bold"> Deuce hs Serum or Plasma Bilirubin Total Medical </content>0.9 Center MG/DL<content styleCode="Italic s"> (0.2-1.3 MG/DL)</content> Albumin 3.5-5.0 <content [facility] [Mass/volume] in styleCode="Bold"> Deuce hs Serum or Plasma Albumin Medical </content>4.0 Center G/DL<content styleCode="Italic s"> (3.5-5.0 G/DL)</content> ID Date Data Source [id number] 01/20/2019 09:39:50 PM EDT [facility] [id number] Corporation Name Value Range Interpretation Description Data Sup porting Code Source(s) Document(s ) [address] [id number] [facility] <td> 01/19/2019 [facility] M-Mode [id number] 12:00</td><td> [facility] [id number] Echo 2D M-Mode [facility] (TTE) Non-Invasive Complete (TTE) [facility] Cardiology </td><td> Laboratory [id number] Advanced
Physician [facility] Services,
[address] [id number] [place]
[address] Phone [phone] Non-Invasive Adult
Echocardiogram Cardiology Report Name:
Merlin SCOTT
Advanced Study Date:
01/19/2019 Physician 12:00 PM [facility],
BP: 147/65 [address] : [address] 1955
[place], [place] Gender:
Male Age: 63 [phone] yrs
Phone [phone] Height: 63 in
Account [phone] Fax Number:
[id number] Weight: 145 lb
BSA: 1.7 m2 Adult Patient Echocardiogram Location: 4SE Report Reason For
Study: Name: TYLER BALAJI POMPA Ordering Physician: ADORE, Study Date: 01/19/2019 Performed By: 12:00 PM Shabbir Lanza
Interpretation Summary The left ventricle BP: is normal in 147/65 mmHg size. There
is normal left : ventricular 1955 wall thickness. Left Gender: ventricular Male ejection
Age: fraction is 63 yrs 65%. The left ventricular Height: 63 wall motion is in normal. The
right Account Number: ventricular [id number] systolic function is Weight: 145 lb normal.
Indexed left BSA: 1.7 m2 atrial volume is mildly
increased. Patient Normal right Location: 4SE atrial size.
There is no Reason For atrial septal Study: defect or CARDIOMYOPATHY patent foramen ovale by color

Doppler. Ordering There is no Physician: CHO, aortic EUNNA, stenosis.
Trivial mitral Performed By: valve Li, Xiaobin regurgitation. Trivial

tricuspid valve Interpretation regurgitation. Summary The aortic
root is normal The left in size. ventricle is Estimated normal in size. pulmonary artery systolic
There pressure is 23 is normal left mmHg, within ventricular normal wall thickness. limits. The inferior vena
Left cava is normal ventricular in size and ejection collapses fraction is normally with 65%. respiration,
The suggestive of left normal right ventricular atrial pressure wall motion is (3 mmHg). normal. There is no
pericardial The right effusion. ventricular ICD-10 systolic CARDIOMYOPATHY function is - I42.8. normal. Procedure A
complete Indexed left two-dimensional atrial volume transthoracic is mildly echocardiogram increased. was performed
(2D, M-mode, Normal right spectral and atrial size. color flow
Doppler). There is no ([id number]). Study atrial septal quality is defect or good. Left patent foramen Ventricle The ovale by color left ventricle Doppler. is normal in
size. There is There is no normal left aortic ventricular stenosis. wall
thickness. The Trivial mitral left valve ventricular regurgitation. ejection
fraction is Trivial normal. Left tricuspid valve ventricular regurgitation. ejection
fraction is The aortic 65%. The left root is normal ventricular in size. wall motion is
normal. Grade Estimated I diastolic pulmonary dysfunction, artery systolic consistent with pressure is 23 abnormal LV mmHg, within relaxation. normal Right
Ventricle The limits. right ventricle
is normal in The inferior size. The right vena cava is ventricular normal in size systolic and collapses function is normally with normal.
Left Atrium respiration, Indexed left suggestive of atrial volume normal right is mildly atrial pressure increased. (3 mmHg). Right Atrium
Normal right There is no atrial size. pericardial Atrial Septum effusion. There is no

atrial septal ICD-10 defect or
patent foramen CARDIOMYOPATHY ovale by color - I42.8. Doppler.

Aortic Valve Procedure The aortic
valve is A complete trileaflet. two-dimensional There is mild transthoracic aortic valve echocardiogram calcification. was performed There is no (2D, aortic
stenosis. No M-mode, aortic spectral and regurgitation. color flow Mitral Doppler). Valve ([id number]). Study Structurally quality is normal mitral good. valve. There is

no mitral valve Left Ventricle stenosis.
Trivial mitral The left valve ventricle is regurgitation. normal in size. There is normal Tricuspid Valve left Structurally ventricular normal wall tricuspid
valve. There is thickness. The no tricuspid left stenosis. ventricular Trivial ejection tricuspid valve fraction is regurgitation. normal. Left Pulmonic
Valve ventricular Structurally ejection normal pulmonic fraction is valve. There is 65%. The left no pulmonic ventricular valve stenosis. wall motion is No pulmonic
valve normal. regurgitation. Grade I Aorta The diastolic aortic root is dysfunction, normal in size. consistent with The visualized abnormal LV area of
ascending aorta relaxation. is normal in size. The

visualized area Right of aortic arch Ventricle is normal in
size. The right Pulmonary ventricle is Artery normal in size. Estimated The right pulmonary ventricular artery systolic systolic pressure is 23
mmHg, within function is normal normal. limits.

Venous The Left Atrium inferior vena
cava is normal Indexed left in size and atrial volume collapses is mildly normally with increased. respiration, suggestive of

normal right Right Atrium atrial pressure
(3 mmHg). Normal right Pericardium atrial size. There is no pericardial

effusion. Atrial Septum MMode/2D
Measurements & There is no Calculations atrial septal IVSd: 1.1 cm defect or LVIDd: 5.1 cm patent foramen ovale by color Ao root diam: Doppler. 3.3 cm LVIDs:

3.0 cm Aortic Valve LA dimension: 4.4
The cm LVPWd: 1.2 aortic valve is cm trileaflet. There is mild aortic valve calcification.
_ Asc There is no Aorta diam: aortic LVOT diam: 2.0 stenosis. No cm aortic Left atrial regurgitation. volume (2c): 3.3 cm

LVOT area: 3.0 Mitral Valve cm2
60.6 ml Ao Structurally arch diam: normal mitral valve. There is Left no mitral valve atrial volume stenosis. (4c): 2.9 cm
Trivial mitral valve 59.2 ml regurgitation.

Tricuspid Valve _ TAPSE:
2.9 cm Left Structurally atrial volume normal index Left tricuspid atrial volume valve. There is index (2c): no tricuspid 35.9 ml/m2 stenosis. (4c):
35.1 ml/m2 Trivial Doppler tricuspid valve Measurements & regurgitation. Calculations MV E max martin:

MV dec Pulmonic Valve time: 0.38 sec
Lat E' martin: 84.2 Structurally cm/sec normal pulmonic valve. There is no pulmonic 4.8 cm/sec MV valve stenosis. A max martin: No 122.0 cm/sec
MV E/A: 0.69 pulmonic valve regurgitation.

Aorta
The _ Med E' martin: aortic root is E/E' normal in size. Lateral: 17.5 The visualized AV v area of max: 5.5 ascending aorta cm/sec E/E' Medial:
is 15.3 normal in size. 227.3 cm/sec The visualized AV max PG: area of aortic 20.7 mmHg AV arch is normal v mean: 135.2 in size. cm/sec AV

mean P.6 Pulmonary mmHg AV VTI: Artery 46.2 cm AV
area (VTI): Estimated 2.0 cm2 pulmonary artery systolic pressure is 23 mmHg, within normal _ LVOT max
P.6 mmHg limits. Stroke volume:

92.6 ml Venous PA v max:
LVOT mean PG: The inferior vena cava is normal in size 142.5 and collapses cm/sec 3.2 normally with mmHg
Stroke volume respiration, index: 54.9 suggestive of ml/m2PA max PG: normal right 8.1 mmHg LVOT atrial pressure v max: 146.1 (3 mmHg). cm/sec LVOT v mean: 79.9

cm/sec LVOT Pericardium VTI: 30.9 cm
There is no pericardial effusion.

_ TR v max: MMode/2D Right Measurements & atrial Calculations pressure: 3.0
mmHgRV A' martin: IVSd: 1.1 cm 221.3 cm/sec LVIDd: 5.1 cm Ao root diam: 18.0 3.3 cm cm/sec RV E'
martin: 12.1 LVIDs: 3.0 cm cm/sec RV S martin: 14.8 LA dimension: cm/sec 4.4 cm
LVPWd: 1.2 cm
_ E/E' Average: 16.4 Pulmonary Artery sys pressure: TR _ max gradient:

22.6 mmHg Asc Aorta diam: LVOT diam: 2.0 19.6 mmHg cm Left atrial volume (2c):
3.3 cm LVOT area: 3.0 cm2 _ 60.6 ml Reading
Physician: Eb rivera diam: Chelsea Rand MD 01/19/2019 01:12 PM Left atrial volume (4c):
2.9 cm 59.2 ml
_

TAPSE: 2.9 cm Left atrial volume index Left atrial volume index
(2c): 35.9 ml/m2 (4c): 35.1 ml/m2

Doppler Measurements & Calculations
MV E max martin: MV dec time: 0.38 sec Lat E' martin:
84.2 cm/sec 4.8 cm/sec
MV A max martin:
122.0 cm/sec
MV E/A: 0.69

_
Med E' martin: E/E' Lateral: 17.5 AV v max:
5.5 cm/sec E/E' Medial: 15.3 227.3 cm/sec
AV max P.7 mmHg
AV v mean:
135.2 cm/sec
AV mean P.6 mmHg
AV VTI: 46.2 cm
AV area (VTI):
2.0 cm2

_
LVOT max P.6 mmHg Stroke volume: 92.6 ml PA v max:
LVOT mean P.5 cm/sec
3.2 mmHg Stroke volume index: 54.9 ml/m2PA max P.1 mmHg
LVOT v max:
146.1 cm/sec
LVOT v mean:
79.9 cm/sec
LVOT VTI: 30.9 cm

_
TR v max: Right atrial pressure: 3.0 mmHgRV A' martin:
221.3 cm/sec 18.0 cm/sec
RV E' martin:
12.1 cm/sec
RV S martin: 14.8 cm/sec

_
E/E' Average: 16.4 Pulmonary Artery sys pressure: TR max gradient:
22.6 mmHg 19.6 mmHg

_

Reading Physician:
Chelsea Rand MD 01/19/2019 01:12 PM

</td> ID Date Data Source [id number] 01/20/2019 09:39:50 PM EDT [facility] [id number] Corporation Name Value Range Interpretation Description Data Sup porting Code Source(s) Document(s ) Dplx (PACSIMAGE <td> 01/18/2019 [place] Renal Txp 15:10</td><td> [facility] ) Final Dplx Renal [facility] w/Tim- Result [facility] RT w/[facility] Corporation Name: TYLER </td><td>jeremy partida styleCode="Itali Sex: M : cs">(PACSIMAGE 1955 Location: M Admitting )</paragraph><br Physician: />
Final EMERGENCY Result SERVICE

Requesting Name: TYLER Physician: PEÑA SHEARER
RANDA Exam: US DPLX Sex: M RENAL TXP KIDN
: RT W/BLAD 1955 01/18/2019 Location: M 15:48
INDICATION: Admitting Pain Physician: TECHNIQUE: EMERGENCY Duplex sonogram SERVICE of the right
quadrant renal Requesting allograft was Physician: performed JANKI utilizing RANDA grayscale,

color Doppler Exam: US DPLX and spectral RENAL TXP KIDN display. RT W/BLAD COMPARISON: 01/18/2019 15:48 09/21/2018 Findings:

Renal INDICATION: allograft: Pain The right lower

quadrant renal TECHNIQUE: allograft is Duplex sonogram sonographically of the right normal. The quadrant renal allograft allograft measures 12.6
cm. No was performed perinephric utilizing collections, grayscale, color collecting Doppler and system spectral dilatation or
shadowing display. calculi.

Urinary bladder COMPARISON: is minimally 09/21/2018 dilated. Mild

wall thickening Findings: of the

urinary bladder Renal measuring up to allograft: 5.4 mm.
Renal vessels: The right lower Iliac quadrant renal artery Inflow = allograft is 153 cm/sec sonographically Anastomosis = normal. 87.8 cm/sec
The Renal artery allograft post measures 12.6 anastomosis cm. No (proximal perinephric portion) = 63.1 collections, cm/ss Renal collecting artery post
anastomosis system (mid portion) = dilatation or 68.1 cm/sec shadowing Renal artery calculi. post

anastomosis Urinary bladder (distal is minimally portion) = 50.6 dilated. Mild cm/secc wall thickening Decreased of diastolic low
the in the renal urinary bladder artery measuring up to Resistive 5.4 mm. Indices Range =

0.89 Renal vessels: Intrarenal flow velocities

range between Iliac artery 70.8cm/s to Inflow = 153 25.5cm/s cm/sec resistive index

is between Anastomosis = 0.79 to 0.85. 87.8 cm/sec Renal Vein =

35.4 cm/sec Renal artery External iliac post anastomosis vein = 71.3 (proximal cm/sec portion) = 63.1 IMPRESSION: cm/ss Elevated
Renal resistive index artery post and decreased anastomosis (mid diastolic flow portion) = 68.1 suggest cm/sec delayed renal
Renal graft function, artery post correlate anastomosis clinically (distal portion) Resident = 50.6 cm/secc Radiologist:
Mekhi Mcclain MD Decreased Resident diastolic low in Radiologist the renal artery Attending
Radiologist: Resistive Elsy Marshall MD Indices Range = Finalizing 0.89 Radiologist:
Elsy Marshall MD Intrarenal flow Transcribed velocities range Date: between 70.8cm/s 01/18/2019 to 25.5cm/s 15:57
Finalized Date: resistive index 01/18/2019 is between 16:23
0.79 to 0.85.

Renal Vein = 35.4 cm/sec

External iliac vein = 71.3 cm/sec

< br/> IMPRESSION:

Elevated resistive index and decreased diastolic flow suggest
delayed renal graft function, correlate clinically

< br/> Resident Radiologist: Mekhi Mcclain MD Resident Radiologist
Attending Radiologist: Elsy Marshall MD
Finalizing Radiologist: Elsy Marshall MD
Transcribed Date: 01/18/2019 15:57
Finalized Date: 01/18/2019 16:23

</td> Chest (PACSIMAGE <td> 01/18/2019 [place] Portable 22:37</td><td> [facility] ) Final Chest Portable Health Care Result </td><td>[employer] Name: roberto carlos SCOTTTO styleCode="Eddi cs">(PACSIMAGE Sex: M : 1955 Location: )</paragraph><br Admitting />
Final Physician: Result SANDHYA CRUZHU

Requesting Name: TYLER, Physician: PEÑA AVITIA
Exam: CHEST PORTABLE Sex: M 01/18/2019
: 22:51 1955 Portable chest Location: M January 18, 2019
CLINICAL Admitting HISTORY: Renal Physician: transplant SANDHYA Comparison is
made with the Requesting previous Physician: NORMAN AVITIA showing the

heart and Exam: CHEST mediastinum are PORTABLE distorted on 01/18/2019 22:51 the portable AP projection

however stable Portable in appearance chest January 18, since prior 2019 study. The

costophrenic CLINICAL angles appear HISTORY: Renal clear. There is transplant calcification

and uncoiling Comparison is of the aorta made with the noted. There is previous a right-sided examination vascular stent showing the again noted
ejecting over heart and the region of mediastinum are the right distorted on the axillar as was portable AP seen on the projection prior study.
There is no however stable discernible in appearance pneumothorax since prior noted.. study. The IMPRESSION: No costophrenic new focal
consolidation angles appear or pleural clear. There is effusion is calcification noted. and uncoiling of Calcified
uncoiled aorta. the aorta noted. There is Resident a right-sided Radiologist: vascular stent Attending again Radiologist:
noted Seamus Jackson MD ejecting over Finalizing the region of Radiologist: the right Seamus Jackson MD axillar as was Transcribed seen Date:
on the 01/19/2019 prior study. 06:19 There is no Finalized Date: discernible 01/19/2019 pneumothorax 06:20 noted..

IMPRESSION: No new focal consolidation or pleural effusion is
noted. Calcified uncoiled aorta.

< br/> Resident Radiologist:
Attending Radiologist: Seamus Jackson MD
Finalizing Radiologist: Seamus Jackson MD
Transcribed Date: 01/19/2019 06:19
Finalized Date: 01/19/2019 06:20

</td> Carotid/V (PACSIMAGE <td> 01/19/2019 [place] ertebr 08:42</td><td> [facility] ) Final Carotid/Vertebrl [facility] Dpl-US Result Arteries [facility] Corporation Name: TYLER, </td><td><paragr PEÑA aph styleCode="Itali Sex: M : cs">(PACSIMAGE 1955 Location: Admitting )</paragraph><br Physician: />
Final SANDHYA ESTRADA Result Requesting

Physician: Name: NORMAN SCOTT Exam: US DPLX
CAROTID/VERT ART 01/19/2019 Sex: M 09:01
: CLINICAL 1955 INFORMATION: Location: Syncope
TECHNIQUE: Admitting Duplex sonogram Physician: of bilateral SANDHYA ESTRADA carotid
arteries was Requesting performed Physician: NORMAN utilizing CHO grayscale,

color Doppler Exam: US DPLX and spectral CAROTID/VERT ART display.. 01/19/2019 09:01 COMPARISON: None available

FINDINGS: CLINICAL Right: There INFORMATION: is scattered Syncope intimal

thickening and TECHNIQUE: heterogeneous Duplex sonogram plaque of bilateral formation carotid arteries within the was carotid artery.
Peak systolic performed velocities on utilizing the right: grayscale, color Right common Doppler and carotid artery: spectral proximal 139 display.. cm/s, mid 89

cm/s, distal COMPARISON: 102 cm/s. None available Right internal carotid artery:

proximal 65 FINDINGS: cm/s, mid 87

cm/s, distal Right: There 95 cm/s. is scattered Right external intimal carotid artery: thickening and 116 cm/s. heterogeneous Right ICA /CCA
ratio: 0.93 . plaque Right vertebral formation within artery: normal the carotid cephalad flow. artery. Left :
Peak There is systolic scattered velocities on intimal the right: thickening and
heterogeneous Right common plaque carotid artery: formation proximal 139 within the cm/s, mid 89 carotid artery. cm/s, Peak systolic
distal velocities on 102 cm/s. the left:
Left common Right internal carotid artery: carotid artery: proximal 123 proximal 65 cm/s, mid 102 cm/s, mid 87 cm/s, distal cm/s, 101 cm/s.
distal Left internal 95 cm/s. carotid artery:
proximal 78 Right external cm/s, mid 89 carotid artery: cm/s, distal 116 cm/s. 108 cm/s.
Left external Right ICA /CCA carotid artery: ratio: 0.93 . 130 cm/s.
Left ICA /CCA Right vertebral ratio: 1.07 . artery: normal Left vertebral cephalad flow. artery: normal cephalad flow.

IMPRESSION: Left : There is No scattered sonographic intimal evidence of thickening and hemodynamically heterogeneous significant
narrowing of plaque the above formation within arteries as per the carotid NASCET artery. criteria.
Peak Resident systolic Radiologist: velocities on Mekhi Mcclain MD the left: Resident
Radiologist Left common Attending carotid artery: Radiologist: proximal 123 Sonny Grimes cm/s, mid 102 Finalizing cm/s, Radiologist:
distal Sonny Grimes 101 cm/s. MD
Transcribed Left internal Date: carotid artery: 01/19/2019 proximal 78 09:24 cm/s, mid 89 Finalized Date: cm/s, 01/19/2019
distal 09:43 108 cm/s.
Left external carotid artery: 130 cm/s.
Left ICA /CCA ratio: 1.07 .
Left vertebral artery: normal cephalad flow.

IMPRESSION:

No sonographic evidence of hemodynamically significant narrowing
of the above arteries as per NASCET criteria.

< br/> Resident Radiologist: Mekhi Mcclain MD Resident Radiologist
Attending Radiologist: Sonny Grimes MD
Finalizing Radiologist: Sonny Grimes MD
Transcribed Date: 01/19/2019 09:24
Finalized Date: 01/19/2019 09:43

</td> ID Date Data Source [id number] 01/20/2019 09:39:50 PM EDT [facility] [id number] Corporation Name Value Range Interpretation Description Data Sup porting Code Source(s) Document(s ) Leukocytes 3.8 k/mm3 4.8-10 <td> 01/20/2019 [place] [#/volume] in .8 07:03</td><td> [facility] Blood by k/mm3 [facility] Automated </td><td><Fluther count ph styleCode="Bold"> 3.8 L </paragraph>
(4.8-10.8) k/mm3 </td> Erythrocytes 3.67 m/mm3 4.70-6 <td> 01/20/2019 [facility] r [#/volume] in .10 07:03</td><td> [facility] Blood m/mm3 [facility] </td><td><Fluther ph styleCode="Bold"> 3.67 L </paragraph>
(4.70-6.10) m/mm3 </td> Erythrocyte 95.9 fL 80.0-9 <td> 01/20/2019 [place] mean 4.0 fL 07:03</td><td> [facility] corpuscular [facility] volume </td><td><Fluther [Entitic ph volume] by styleCode="Bold"> Automated 95.9 count H </paragraph>
(80.0-94.0) fL </td> Hemoglobin 11.6 g/dL 14.0-1 <td> 01/20/2019 [place] [Mass/volume] 8.0 07:03</td><td> [facility] in Blood g/dL HGB [facility] </td><td><Fluther ph styleCode="Bold"> 11.6 L </paragraph>
(14.0-18.0) g/dL </td> Erythrocyte 31.6 pg 27.0-3 <td> 01/20/2019 [place] mean 1.5 pg 07:03</td><td> [facility] corpuscular [facility] hemoglobin </td><td><[employer] [Entitic ph mass] by styleCode="Bold"> Automated 31.6 count H </paragraph>
(27.0-31.5) pg </td> Hematocrit 35.2 % 40.8-4 <td> 01/20/2019 [place] [Volume 6.9 % 07:03</td><td> [facility] Fraction] of HCT Health Care Blood by </td><td><Fluther Automated ph count styleCode="Bold"> 35.2 L </paragraph>
(40.8-46.9) % </td> Erythrocyte 33.0 % 32.0-3 <td> 01/20/2019 [place] mean 6.0 % 07:03</td><td> [facility] corpuscular MCHC </td><td> Health Care hemoglobin Corporation concentration 33.0 [Mass/volume]
in Blood from (32.0-36.0) % Fetus by </td> Automated count Platelet mean 11.4 fL 9.8-12 <td> 01/20/2019 [facility] r volume .8 fL 07:03</td><td> County [Entitic MPV </td><td> Health Care volume] in Corporation Blood by 11.4 Automated
count (9.8-12.8) fL </td> Erythrocyte 12.2 % 11.5-1 <td> 01/20/2019 [place] distribution 4.5 % 07:03</td><td> County width RDW </td><td> Health Care [Entitic Corporation volume] by 12.2 Automated
count (11.5-14.5) % </td> Lymphocytes 7.0 % 16.0-5 <td> 01/18/2019 [place] [#/volume] in 0.0 % 14:33</td><td> [facility] Blood by Lymphocytes Health Care Automated </td><td><[employer] count ph styleCode="Bold"> 7.0 L </paragraph>
(16.0-50.0) % </td> Platelets 100 k/mm3 160-41 <td> 01/20/2019 [place] [#/volume] in 0 07:03</td><td> [facility] Blood by k/mm3 Platelet Count Health Care Automated </td><td><[employer] count ph styleCode="Bold"> 100 L </paragraph>
(160-410) k/mm3 </td> Monocytes/Shavon 6.5 % 0.0-11 <td> 01/18/2019 [facility] r kocytes [Pure .0 % 14:33</td><td> [facility] number Monocytes. Health Care fraction] in </td><td> [facility] Blood by Automated 6.5 count
(0.0-11.0) % </td> Basophils 0.2 % 0.0-2. <td> 01/18/2019 [place] [#/volume] in 0 % 14:33</td><td> [facility] Blood by Basophils Health Care Automated </td><td> Corporation count 0.2
(0.0-2.0) % </td> Basophils+Eos 0.8 % 0.0-5. <td> 01/18/2019 [facility] r inophils+Mercer 0 % 14:33</td><td> [facility] cytes Eosinophils Health Care [#/volume] in </td><td> [facility] Blood by Automated 0.8 count
(0.0-5.0) % </td> Neutrophils 85.0 % 34.0-7 <td> 01/18/2019 [place] [#] in Body 6.0 % 14:33</td><td> [facility] fluid by Neutrophils Health Care Manual count </td><td><[employer] ph styleCode="Bold"> 85.0 H </paragraph>
(34.0-76.0) % </td> Immature 0.5 % 0.0-0. <td> 01/18/2019 [facility] granulocytes/ 5 % 14:33</td><td> [facility] 100 IG% </td><td> Health Care leukocytes in [facility] Blood by 0.5 Automated
count (0.0-0.5) %
The IG fraction represents metamyelocytes, myelocytes and/or
promyelocytes and is only reported as part of the automated
differential when found at a percentage of less than 6.
If higher than 6%, a manual differential will be performed.

(0.0-0.5) % </td> Chloride 101 mEq/L 98-107 <td> 01/20/2019 [place] [Moles/volume mEq/L 17:43</td><td> [facility] ] in Serum or Chloride Health Care Plasma </td><td> [facility] 101
(98-107) mEq/L </td> Glucose 162 mg/dL 70-105 <td> 01/20/2019 [place] [Mass/volume] mg/dL 17:43</td><td> [facility] in Blood Glucose-Serum Health Care </td><td><Fluther ph styleCode="Bold"> 162 H </paragraph>
(70-105) mg/dL </td> Potassium 5.5 mEq/L 3.5-5. <td> 01/20/2019 [place] [Moles/volume 1 17:43</td><td> [facility] ] in Serum or mEq/L Potassium-Serum Health Car e Plasma </td><td><Fluther ph styleCode="Bold"> 5.5 H </paragraph>
(3.5-5.1) mEq/L </td> Sodium 133 mEq/L 135-14 <td> 01/20/2019 [place] [Moles/volume 5 17:43</td><td> [facility] ] in Serum or mEq/L Sodium-Serum Health Care Plasma </td><td><Fluther ph styleCode="Bold"> 133 L </paragraph>
(135-145) mEq/L </td> Creatinine 1.05 mg/dL 0.72-1 <td> 01/20/2019 [place] [Moles/volume .25 17:43</td><td> County ] in Serum or mg/dL Creatinine. Health Care Plasma </td><td> Softricity 1.05
(0.72-1.25) mg/dL </td> Urea nitrogen 23 mg/dL 6-22 <td> 01/20/2019 [facility] r [Mass/volume] mg/dL 17:43</td><td> [facility] in Blood BUN Health Care </td><td><Fluther ph styleCode="Bold"> 23 H </paragraph>
(6-22) mg/dL </td> Aspartate 12 U/L 4-35 <td> 01/18/2019 [facility] aminotransfer U/L 14:33</td><td> [facility] ase AST (SGOT) Health Care [Enzymatic </td><td> Softricity activity/volu 12 me] in Serum or Plasma
(4-35) U/L </td> Carbon 23 mEq/L 22-30 <td> 01/20/2019 [place] dioxide, mEq/L 17:43</td><td> [facility] total CO2 </td><td> Health Care [Moles/volume Corporation ] in Serum or 23 Plasma
(22-30) mEq/L </td> Bilirubin.tot 0.6 mg/dL 0.2-1. <td> 01/18/2019 [facility] r al 3 14:33</td><td> [facility] [Mass/volume] mg/dL Bilirubin - Total Health C are in Blood </td><td> Softricity 0.6
(0.2-1.3) mg/dL </td> Calcium 10.8 mg/dL 8.6-10 <td> 01/20/2019 [facility] [Mass/volume] .2 17:43</td><td> [facility] in Blood mg/dL Calcium Health Care </td><td><Fluther ph styleCode="Bold"> 10.8 H </paragraph>
(8.6-10.2) mg/dL </td> Albumin 3.8 g/dL 3.4-4. <td> 01/18/2019 [place] [Mass/volume] 8 g/dL 14:33</td><td> [facility] in Serum or Albumin Health Care Plasma </td><td> Softricity 3.8
(3.4-4.8) g/dL </td> Alanine 11 U/L 6-55 <td> 01/18/2019 [place] aminotransfer U/L 14:33</td><td> [facility] ase ALT (SGPT) Health Care [Enzymatic </td><td> Softricity activity/volu 11 me] in Serum or Plasma
(6-55) U/L </td> Proteins - 5.9 g/dL 6.4-8. <td> 01/18/2019 [place] Total 3 g/dL 14:33</td><td> [facility] Proteins - Total Health Care </td><td><Fluther ph styleCode="Bold"> 5.9 L </paragraph>
(6.4-8.3) g/dL </td> Hemolysis No <td> 01/20/2019 [facility] index of Hemolysis 17:43</td><td> [facility] Serum or Hemolysis Index Health Care Plasma </td><td> Softricity No Hemolysis
</td> Anion gap in 9 mEq/L 7-13 <td> 01/20/2019 [place] Serum or mEq/L 17:43</td><td> [facility] Plasma Anion Gap Health Care </td><td> Softricity 9
(7-13) mEq/L </td> Icteric index Not <td> 01/20/2019 [facility] r of Serum or Icteric 17:43</td><td> [facility] Plasma Icteric Index Health Care </td><td> Softricity Not Icteric
</td> Globulin 2.1 gm/dL 2.9-4. <td> 01/18/2019 [facility] [Mass/volume] 0 14:33</td><td> County in Serum gm/dL Globulin Health Care </td><td><[employer]agra Softricity ph styleCode="Bold"> 2.1 L </paragraph>
(2.9-4.0) gm/dL </td> Lipemic index No Lipemia <td> 01/20/2019 [facility] er of Serum or 17:43</td><td> [facility] Plasma Lipemia Index Health Care </td><td> Softricity No Lipemia
</td> aPTT panel - 27.1 secs 25.0-3 <td> 01/18/2019 [place] Platelet poor 2.0 14:33</td><td> [facility] plasma secs Partial [facility] Thromboplastin [facility] Time </td><td> 27.1
(25.0-32.0) secs </td> Phosphate 2.5 mg/dL 2.3-4. <td> 01/20/2019 [place] [Mass/volume] 7 07:03</td><td> County in Serum or mg/dL Inorganic [facility] Plasma Phosphorus [facility] </td><td> 2.5
(2.3-4.7) mg/dL </td> Prothrombin 10.5 secs 9.8-12 <td> 01/18/2019 [place] time (PT) .0 14:33</td><td> [facility] secs Prothrombin Time. Health [facility] </td><td> Softricity 10.5
(9.8-12.0) secs </td> Appearance of Clear <td> 01/19/2019 [facility] r Urine 09:50</td><td> [facility] Appearance [facility] Care </td><td> Softricity Clear
(CLEAR) </td> Glucose 1+ (50 <td> 01/19/2019 [place] [Presence] in MG/DL) 09:50</td><td> [facility] Urine by Test Glucose_ Health Care strip </td><td> Softricity 1+ (50 MG/DL)
(NEGATIVE) </td> Urobilinogen 0.2 mg/dL 0.0-2. <td> 01/19/2019 [place] [Presence] in 0 09:50</td><td> [facility] Urine by mg/dL Urobilinogen Health Care Automated </td><td> Softricity test strip 0.2
(0.0-2.0) mg/dL </td> Specific 1.008 {} 1.000- <td> 01/19/2019 [place] gravity of 1.035 09:50</td><td> [facility] Urine by Test Specific [facility] re strip </td><td> Corporation 1.008
(1.000-1.035) </td> Nitrite Negative <td> 01/19/2019 [place] [Presence] in 09:50</td><td> [facility] Urine by Test Nitrites Health Care strip </td><td> Corporation Negative
(NEGATIVE) </td> Protein Negative <td> 01/19/2019 [place] [Presence] in 09:50</td><td> [facility] Urine by Protein Health Care Automated [employer] Corporation test strip </td><td> Negative
(NEGATIVE) </td> Bacteria NONE SEEN <td> 01/19/2019 [place] [#/area] in 09:50</td><td> [facility] Urine Bacteria Health Care sediment by </td><td> Softricity Microscopy high power NONE SEEN field
(NONE SEEN) /HPF </td> Erythrocytes 1 /HPF 0-2 <td> 01/19/2019 [place] [#/area] in /HPF 09:50</td><td> [facility] Urine RBC </td><td> Health Care sediment by Softricity Automated 1 count
(0-2) /HPF </td> Leukocytes 1 /HPF 0-5 <td> 01/19/2019 [place] [Presence] in /HPF 09:50</td><td> [facility] Urine by WBC </td><td> Health Care Automated Softricity 1
(0-5) /HPF </td> Leukocyte Negative <td> 01/19/2019 [place] esterase 09:50</td><td> County [Presence] in Leukocytes Health Care Urine by Test Esterase Softricity strip </td><td> Negative
(NEGATIVE) </td> Magnesium 1.5 mg/dL 1.6-2. <td> 01/20/2019 [place] [Mass/volume] 6 07:03</td><td> County in Serum or mg/dL Magnesium Level Health Care Plasma </td><td><Fluther ph styleCode="Bold"> 1.5 L </paragraph>
(1.6-2.6) mg/dL </td> Epithelial RARE <td> 01/19/2019 [facility] cells FEW 09:50</td><td> County [#/area] in Epithelial Cells Health [facility] Urine </td><td> [facility] sediment by Automated RARE count
/LPF
FEW

/LPF </td> Glucose 126 mg/dL 70-105 <td> 01/20/2019 [place] [Mass/volume] mg/dL 15:54</td><td> County in Capillary Glucose - [facility] e blood by Stick Softricity Glucometer </td><td><[employer] styleCode="Bold"> 126 H </paragraph>
(70-105) mg/dL </td> Hemoglobin 10.8 % 4.0-5. <td> 01/19/2019 [place] A1C 6 % 01:29</td><td> [facility] Hemoglobin A1C Health Care </td><td><Fluther ph styleCode="Bold"> 10.8 H </paragraph>
(4.0-5.6) %
Increased risk for diabetes mellitus is seen in patients with HgA1C values
between 5.7-6.4%. Values > or = 6.5% are considered diagnostic of diabetes
mellitus.
Hemolytic anemias, hemoglobinopathie s, or recent transfusion may impact
HbA1c results. Clinical correlation is recommended.

ESTIMATED AVERAGE GLUCOSE (eAG)

RELATIONSHIP BETWEEN A1C AND eAG

A1C(%) eAG(mg/dL)
6 126
7 154
8 183
9 212
10 24 0
11 26 9
12 29 8
Source: Adapted from [place] [employer]. Standards of medical
care in diabetes-2014. Diabetes Care.2014;37(Supp 1):S14-S80, table 8.
===

(4.0-5.6) % </td> Tacrolimus 14.8 ng/mL ng/mL <td> 01/20/2019 [place] [Mass/volume] 07:03</td><td> [facility] in Serum or Tacrolimus Level Health Care Plasma </td><td> Corporation 14.8
ng/mL

THERAPEUTIC RANGES FOR TACROLIMUS

Kidney Transplant.....5- 15 ng/mL
Liver Transplant.....10 -20 ng/mL

*TESTING IS PERFORMED ON WHOLE BLOOD EDTA BY UAB FIMA I SYSTEM USING
CHEMILUMINESCENT MICROPARTICLE IMMUNOASSAY (CMIA). VALUES OBTAINED WITH
DIFFERENT ASSAY METHODS OR KITS CANNOT BE USED INTERCHANGEABLY.

ng/mL </td> ID Date Data Source LIPID.[id number] 11/29/2018 12:09:00 PM EDT [facility] Name Value Range Interpretation Description Data Sup porting Code Source(s) Document(s ) Triglyceride < 150 Above high normal <content [facility] [Mass/volume] in styleCode="Marlo Minna Serum or Plasma d">Triglycerid [facility] </content>151 MG/DL H<content styleCode="Nata lics"> (< 150 MG/DL)</conten t> UNK < 100 <content [facility] styleCode="Marlo Minna d">LDL-[facility] </content>76 MG/DL<content styleCode="Nata lics"> (< 100 MG/DL)</conten t> UNK > 60 Below low normal <content Saint styleCode="Marlo Minna d">HDL- Medical Cholesterol Center </content>38 MG/DL L<content styleCode="Nata lics"> (> 60 MG/DL)</conten t> Cholesterol -<200 <content [facility] [Mass/volume] in styleCode="Marlo Bakers Serum or Plasma d">Cholesterol Medical </content>144 Center MG/DL<content styleCode="Nata lics"> (-<200 MG/DL)</conten t> ID Date Data Source [id number] 11/29/2018 12:09:00 PM EDT [facility] Name Value Range Interpretation Description Data Sup porting Code Source(s) Document(s ) Thyrotropin 0.465-4. <content [facility] [Units/volume] 68 styleCode="Marlo Bakers in Serum or d">Thyroid Medical Plasma by Stimulating Center Detection Hormone limit <= 0.05 </content>2.79 mIU/L MIU/L<content styleCode="Nata lics"> (0.465-4.68 MIU/L)</conten t> Thyroxine (T4) 0.78-2.1 <content [facility] free 9 styleCode="Marlo Minna [Mass/volume] d">T4 Free Medical in Serum or </content>1.40 Center Plasma NG/DL<content styleCode="Nata lics"> (0.78-2.19 NG/DL)</conten t> ID Date Data Source HematologySpeci.[id number] 11/29/2018 12:09:00 PM EDT [facility] 0-0400 Name Value Range Interpretation Description Data Sup porting Code Source(s) Document(s ) Erythrocyte < 20 <content [facility] sedimentation styleCode="Bold" Minna rate by >Erythrocyte Medical [facility] method Rate (ESR) </content>5 MM/hr<content styleCode="Itali cs"> (< 20 MM/hr)</content> ID Date Data Source HematologyRou.[id number] 11/29/2018 12:09:00 PM EDT [facility] 0400 Name Value Range Interpretation Description Data Sup porting Code Source(s) Document(s ) Leukocytes 4.4-11.0 <content [facility] [#/volume] in styleCode="Bold Minna Blood by ">White Blood Medical Automated count Cell Count Center </content>5.27 KCUMM<content styleCode="Ital ics"> (4.4-11.0 KCUMM)</content > Erythrocytes 4.4-5.9 Below low normal <content [facility] [#/volume] in styleCode="Bold Minna Blood by ">Red Blood Medical Automated count Cell Count Center </content>3.88 MCUMM L<content styleCode="Ital ics"> (4.4-5.9 MCUMM)</content > Erythrocyte mean 80.0-100 <content [facility] corpuscular .0 styleCode="Bold Minna volume [Entitic ">Mean Medical volume] by Corpuscular Center Automated count Volume </content>96.6 FL<content styleCode="Ital ics"> (80.0-100.0 FL)</content> Hemoglobin 13.5-17. Below low normal <content [facility] [Mass/volume] in 5 styleCode="Bold Minna Blood ">Hemoglobin Medical </content>12.2 Center G/DL L<content styleCode="Ital ics"> (13.5-17.5 G/DL)</content> Hematocrit 41.0-53. Below low normal <content [facility] [Volume 0 styleCode="Bold Minna Fraction] of ">Hematocrit Medical Blood by </content>37.5 Center Automated count % L<content styleCode="Ital ics"> (41.0-53.0 %)</content> Erythrocyte mean 26.0-34. <content [facility] corpuscular 0 styleCode="Bold Minna hemoglobin ">Mean Medical [Entitic mass] Corposcular Center by Automated Hemoglobin count </content>31.4 PG<content styleCode="Ital ics"> (26.0-34.0 PG)</content> Erythrocyte mean 32.0-37. <content [facility] corpuscular 0 styleCode="Bold Minna hemoglobin ">Mean Corpus. Medical concentration Hgb Center [Mass/volume] by Concentration Automated count (MCHC) </content>32.5 G/DL<content styleCode="Ital ics"> (32.0-37.0 G/DL)</content> Erythrocyte 11.5-14. <content [facility] distribution 5 styleCode="Bold Minna width [Ratio] by ">Red Cell Medical Automated count Distribution Center Width </content>12.5 %<content styleCode="Ital ics"> (11.5-14.5 %)</content> Platelet mean 8.0-11.0 Above high <content [facility] volume [Entitic normal styleCode="Bold Minna volume] in Blood ">Mean Platelet Medical by Automated Volume Center count </content>12.0 FL H<content styleCode="Ital ics"> (8.0-11.0 FL)</content> Platelets 130-400 Below low normal <content [facility] [#/volume] in styleCode="Bold Minna Blood by ">Platelet Medical Automated count Count Center </content>112 KCUMM L<content styleCode="Ital ics"> (130-400 KCUMM)</content > UNK 1.6-7.3 <content [facility] styleCode="Bold Minna ">Neutrophil Medical Count Center </content>4.07 KCUMM<content styleCode="Ital ics"> (1.6-7.3 KCUMM)</content > Lymphocytes 24.0-44. Below low normal <content [facility] [#/volume] in 0 styleCode="Bold Minna Blood by ">Lymphocyte Medical Automated count </content>12.0 Center % L<content styleCode="Ital ics"> (24.0-44.0 %)</content> UNK 1.0-4.8 Below low normal <content Saint styleCode="Bold Minna ">Lymphocyte Medical Count Center </content>0.63 KCUMM L<content styleCode="Ital ics"> (1.0-4.8 KCUMM)</content > Neutrophils 36-66 Above high <content [facility] [#/volume] in normal styleCode="Bold Min[place] Blood by ">Neutrophil Medical Automated count </content>77.2 Center % H<content styleCode="Ital ics"> (36-66 %)</content> UNK 0.2-0.9 <content [facility] styleCode="Bold Minna ">Monocyte Medical Count Center </content>0.36 KCUMM<content styleCode="Ital ics"> (0.2-0.9 KCUMM)</content > Eosinophils 0-5.0 <content Saint [#/volume] in styleCode="Bold Minna Blood by ">Eosinophil Medical Automated count </content>3.4 Center %<content styleCode="Ital ics"> (0-5.0 %)</content> Monocytes 3.0-10.0 <content [facility] [#/volume] in styleCode="Bold Minna Blood by ">Monocyte Medical Automated count </content>6.8 Center %<content styleCode="Ital ics"> (3.0-10.0 %)</content> UNK 0.0-0.3 <content Saint styleCode="Bold Minna ">Basophil Medical Count Center </content>0.01 KCUMM<content styleCode="Ital ics"> (0.0-0.3 KCUMM)</content > Basophils 0.0-1.0 <content [facility] [#/volume] in styleCode="Bold Minna Blood by ">Basophil Medical Automated count </content>0.2 Center %<content styleCode="Ital ics"> (0.0-1.0 %)</content> UNK 0.0-0.6 <content Saint styleCode="Bold Minna ">Eosinophil Medical Count Center </content>0.18 KCUMM<content styleCode="Ital ics"> (0.0-0.6 KCUMM)</content > UNK 0 <content Saint styleCode="Bold Minna ">Nucleated Red Medical Blood Cell Center </content>0.0 /100<content styleCode="Ital ics"> (0 /100)</content> UNK 0.0 <content [facility] styleCode="Bold Minna ">Nucleated Red Medical Blood Cell Center Count </content>0.00 KCUMM<content styleCode="Ital ics"> (0.0 KCUMM)</content > UNK 0-0.1 <content Saint styleCode="Bold Minna ">Immature Medical Granulocyte Center Count </content>0.02 KCUMM<content styleCode="Ital ics"> (0-0.1 KCUMM)</content > UNK < 1 <content Saint styleCode="Bold Minna ">Immature Medical Granulocyte Center Ratio </content>0.4 %<content styleCode="Ital ics"> (< 1 %)</content> ID Date Data Source Liver 11/29/2018 12:09:[address] [facility] Profile.[id number] Name Value Range Interpretation Description Data Sup porting Code Source(s) Document(s ) Aspartate 17-59 <content [facility] aminotransferase styleCode="Bold"> Deuce hs [Enzymatic Aspartate Medical activity/volume] Aminotransferase Center in Serum or Plasma (AST) </content>19 IU/L<content styleCode="Italic s"> (17-59 IU/L)</content> Alanine 7-50 <content [facility] aminotransferase styleCode="Bold"> Deuce hs [Enzymatic Alanine Medical activity/volume] Aminotransferase Center in Serum or Plasma (ALT) </content>19 IU/L<content styleCode="Italic s"> (7-50 IU/L)</content> Alkaline 38-126 Above high <content [facility] phosphatase normal styleCode="Bold"> Minna [Enzymatic Alkaline Medical activity/volume] Phosphatase (ALP) Cente r in Serum or Plasma </content>141 IU/L H<content styleCode="Italic s"> (38-126 IU/L)</content> Bilirubin.total 0.2-1.3 <content [facility] [Mass/volume] in styleCode="Bold"> Deuce hs Serum or Plasma Bilirubin Total Medical </content>0.8 Center MG/DL<content styleCode="Italic s"> (0.2-1.3 MG/DL)</content> Albumin 3.5-5.0 <content [facility] [Mass/volume] in styleCode="Bold"> Deuce hs Serum or Plasma Albumin Medical </content>4.0 Center G/DL<content styleCode="Italic s"> (3.5-5.0 G/DL)</content> ID Date Data Source GFR(Creatinine).[id number] 11/29/2018 12:09:00 PM EDT [facility] 0-0400 Name Value Range Interpretation Code Description Data Maral rce(s) Supporting Document(s ) UNK > 60 <content [facility] styleCode="Bold"> Medical Cent er EGFR </content>72 GFR<content styleCode="Italic s"> (> 60 GFR)</content> ID Date Data Source KELSYOUTSHEA.[id number] 11/29/2018 12:09:00 PM EDT [facility] -0400 Name Value Range Interpretation Description Data Sup porting Code Source(s) Document(s ) UNK >= 1.0 <content [facility] styleCode="Marlo Minna d">AG Ratio Medical </content>1.8 Center <content styleCode="Nata lics"> (>= 1.0 )</content> UNK Not <content [facility] Established styleCode="Marlo Minna d">[facility] </content>8.8 mg/dL<content styleCode="Nata lics"> (Not Established mg/dL)</conten t> UNK 4.2-5.8 Above high normal <content Saint styleCode="Marlo Minna d">Hemoglobin Medical A1C Center </content>10.2 % H<content styleCode="Nata lics"> (4.2-5.8 %)</content> UNK 2.3-3.5 Below low normal <content [facility] styleCode="Marlo Minna d">Globulin Medical </content>2.2 Center G/DL L<content styleCode="Nata lics"> (2.3-3.5 G/DL)</content > Protein 6.3-8.2 Below low normal <content [facility] [Mass/volu styleCode="Marlo Minna me] in d">Total Medical Serum or Protein Center Plasma </content>6.2 G/DL L<content styleCode="Nata lics"> (6.3-8.2 G/DL)</content > ID Date Data Source [facility].[id number] 11/29/2018 12:09:00 PM EDT [facility] Name Value Range Interpretation Description Data Sup porting Code Source(s) Document(s ) UNK 9-20 Above high <content [facility] normal styleCode="Bold"> Minna BUN </content>40 Medical MG/DL H<content Center styleCode="Italic s"> (9-20 MG/DL)</content> Chloride 98-107 <content [facility] [Moles/volume] in styleCode="Bold"> Ishmael phs Serum or Plasma Chloride Medical </content>103 Center MEQ/L<content styleCode="Italic s"> (98-107 MEQ/L)</content> Potassium 3.5-5.3 Above high <content [facility] [Moles/volume] in normal styleCode="Bold"> Ishmael phs Serum or Plasma Potassium Medical </content>5.6 Center MEQ/L H<content styleCode="Italic s"> (3.5-5.3 MEQ/L)</content> Sodium 137-145 Below low <content [facility] [Moles/volume] in normal styleCode="Bold"> Ishmael phs Serum or Plasma Sodium Medical </content>136 Center MEQ/L L<content styleCode="Italic s"> (137-145 MEQ/L)</content> Carbon dioxide, 22-30 <content [facility] total styleCode="Bold"> [place] [Moles/volume] in Carbon Dioxide Medical Serum or Plasma </content>25 Center MEQ/L<content styleCode="Italic s"> (22-30 MEQ/L)</content> UNK > 60 <content [facility] styleCode="Bold"> [place] EGFR </content>72 Medical GFR<content Center styleCode="Italic s"> (> 60 GFR)</content> Calcium 8.4-10. <content [facility] [Mass/volume] in 2 styleCode="Bold"> Deuce hs Serum or Plasma Calcium Medical </content>9.9 Center MG/DL<content styleCode="Italic s"> (8.4-10.2 MG/DL)</content> Creatinine 0.5-1.3 <content [facility] [Mass/volume] in styleCode="Bold"> Deuce hs Serum or Plasma Creatinine Medical </content>1.1 Center MG/DL<content styleCode="Italic s"> (0.5-1.3 MG/DL)</content> Glucose 74-106 Above high <content [facility] [Mass/volume] in normal styleCode="Bold"> Deuce hs Serum or Plasma Glucose Medical </content>169 Center MG/DL H<content styleCode="Italic s"> (74-106 MG/DL)</content> Aspartate 17-59 <content [facility] aminotransferase styleCode="Bold"> Deuce hs [Enzymatic Aspartate Medical activity/volume] Aminotransferase Center in Serum or Plasma (AST) </content>19 IU/L<content styleCode="Italic s"> (17-59 IU/L)</content> Alkaline 38-126 Above high <content [facility] phosphatase normal styleCode="Bold"> [place] [Enzymatic Alkaline Medical activity/volume] Phosphatase (ALP) Cente r in Serum or Plasma </content>141 IU/L H<content styleCode="Italic s"> (38-126 IU/L)</content> Bilirubin.total 0.2-1.3 <content [facility] [Mass/volume] in styleCode="Bold"> Deuce hs Serum or Plasma Bilirubin Total Medical </content>0.8 Center MG/DL<content styleCode="Italic s"> (0.2-1.3 MG/DL)</content> Alanine 7-50 <content [facility] aminotransferase styleCode="Bold"> Deuce hs [Enzymatic Alanine Medical activity/volume] Aminotransferase Center in Serum or Plasma (ALT) </content>19 IU/L<content styleCode="Italic s"> (7-50 IU/L)</content> Albumin 3.5-5.0 <content [facility] [Mass/volume] in styleCode="Bold"> Deuce hs Serum or Plasma Albumin Medical </content>4.0 Center G/DL<content styleCode="Italic s"> (3.5-5.0 G/DL)</content> ID Date Data Source HematologyRou.[id number] 10/11/2018 11:30:00 AM EDT [facility] 0400 Name Value Range Interpretation Description Data Sup porting Code Source(s) Document(s ) Hemoglobin 13.5-17. Below low normal <content [facility] [Mass/volume] in 5 styleCode="Bold [place] Blood ">Hemoglobin Medical </content>12.9 Center G/DL L<content styleCode="Ital ics"> (13.5-17.5 G/DL)</content> Leukocytes 4.4-11.0 <content [facility] [#/volume] in styleCode="Bold [place] Blood by ">White Blood Medical Automated count Cell Count Center </content>6.19 KCUMM<content styleCode="Ital ics"> (4.4-11.0 KCUMM)</content > Erythrocytes 4.4-5.9 Below low normal <content [facility] [#/volume] in styleCode="Bold [place] Blood by ">Red Blood Medical Automated count Cell Count Center </content>4.07 MCUMM L<content styleCode="Ital ics"> (4.4-5.9 MCUMM)</content > Erythrocyte mean 26.0-34. <content [facility] corpuscular 0 styleCode="Bold [place] hemoglobin ">Mean Medical [Entitic mass] Corposcular Center by Automated Hemoglobin count </content>31.7 PG<content styleCode="Ital ics"> (26.0-34.0 PG)</content> Erythrocyte mean 80.0-100 <content [facility] corpuscular .0 styleCode="Bold [place] volume [Entitic ">Mean Medical volume] by Corpuscular Center Automated count Volume </content>94.6 FL<content styleCode="Ital ics"> (80.0-100.0 FL)</content> Hematocrit 41.0-53. Below low normal <content [facility] [Volume 0 styleCode="Bold [place] Fraction] of ">Hematocrit Medical Blood by </content>38.5 Center Automated count % L<content styleCode="Ital ics"> (41.0-53.0 %)</content> Platelets 130-400 Below low normal <content [facility] [#/volume] in styleCode="Bold [place] Blood by ">Platelet Medical Automated count Count Center </content>107 KCUMM L<content styleCode="Ital ics"> (130-400 KCUMM)</content > Erythrocyte 11.5-14. <content [facility] distribution 5 styleCode="Bold [place] width [Ratio] by ">Red Cell Medical Automated count Distribution Center Width </content>12.4 %<content styleCode="Ital ics"> (11.5-14.5 %)</content> Erythrocyte mean 32.0-37. <content [facility] corpuscular 0 styleCode="Bold [place] hemoglobin ">Mean Corpus. Medical concentration Hgb Center [Mass/volume] by Concentration Automated count (MCHC) </content>33.5 G/DL<content styleCode="Ital ics"> (32.0-37.0 G/DL)</content> Platelet mean 8.0-11.0 Above high <content [facility] volume [Entitic normal styleCode="Bold [place] volume] in Blood ">Mean Platelet Medical by Automated Volume Center count </content>11.4 FL H<content styleCode="Ital ics"> (8.0-11.0 FL)</content> Lymphocytes 24.0-44. Below low normal <content [facility] [#/volume] in 0 styleCode="Bold [place] Blood by ">Lymphocyte Medical Automated count </content>10.5 Center % L<content styleCode="Ital ics"> (24.0-44.0 %)</content> Neutrophils 36-66 Above high <content [facility] [#/volume] in normal styleCode="Bold [place] Blood by ">Neutrophil Medical Automated count </content>81.0 Center % H<content styleCode="Ital ics"> (36-66 %)</content> UNK 1.6-7.3 <content [facility] styleCode="Bold [place] ">Neutrophil Medical Count Center </content>5.02 KCUMM<content styleCode="Ital ics"> (1.6-7.3 KCUMM)</content > Eosinophils 0-5.0 <content [facility] [#/volume] in styleCode="Bold [place] Blood by ">Eosinophil Medical Automated count </content>2.4 Center %<content styleCode="Ital ics"> (0-5.0 %)</content> Monocytes 3.0-10.0 <content [facility] [#/volume] in styleCode="Bold [place] Blood by ">Monocyte Medical Automated count </content>5.7 Center %<content styleCode="Ital ics"> (3.0-10.0 %)</content> UNK 0.2-0.9 <content [facility] styleCode="Bold [place] ">Monocyte Medical Count Center </content>0.35 KCUMM<content styleCode="Ital ics"> (0.2-0.9 KCUMM)</content > UNK 1.0-4.8 Below low normal <content [facility] styleCode="Bold [place] ">Lymphocyte Medical Count Center </content>0.65 KCUMM L<content styleCode="Ital ics"> (1.0-4.8 KCUMM)</content > UNK 0.0-0.6 <content [facility] styleCode="Bold [place] ">Eosinophil Medical Count Center </content>0.15 KCUMM<content styleCode="Ital ics"> (0.0-0.6 KCUMM)</content > Basophils 0.0-1.0 <content [facility] [#/volume] in styleCode="Bold [place] Blood by ">Basophil Medical Automated count </content>0.2 Center %<content styleCode="Ital ics"> (0.0-1.0 %)</content> UNK 0 <content [facility] styleCode="Bold [place] ">Nucleated Red Medical Blood Cell Center </content>0.0 /100<content styleCode="Ital ics"> (0 /100)</content> UNK 0.0-0.3 <content [facility] styleCode="Bold [place] ">Basophil Medical Count Center </content>0.01 KCUMM<content styleCode="Ital ics"> (0.0-0.3 KCUMM)</content > UNK 0-0.1 <content [facility] styleCode="Bold [place] ">Immature Medical Granulocyte Center Count </content>0.01 KCUMM<content styleCode="Ital ics"> (0-0.1 KCUMM)</content > UNK < 1 <content [facility] styleCode="Bold [place] ">Immature Medical Granulocyte Center Ratio </content>0.2 %<content styleCode="Ital ics"> (< 1 %)</content> UNK 0.0 <content [facility] styleCode="Bold [place] ">Nucleated Red Medical Blood Cell Center Count </content>0.00 KCUMM<content styleCode="Ital ics"> (0.0 KCUMM)</content > ID Date Data Source Coagulation 10/11/2018 11:30:00 AM [facility] Rout.[id number] EDT Name Value Range Interpretation Description Data Sup porting Code Source(s) Document(s ) INR in 0.80-1.2 <content [facility] Platelet poor 0 styleCode="Bold" [place] plasma by >INR Medical Coagulation </content>1.06 Center assay #<content styleCode="Itali cs"> (0.80-1.20 #)</content> aPTT in 25.1-36. <content [facility] Platelet poor 5 styleCode="Bold" [place] plasma by >Partial Medical Coagulation Thromboplastin Center assay Time </content>32.7 SEC<content styleCode="Itali cs"> (25.1-36.5 SEC)</content> UNK 9.0-13.0 <content [facility] styleCode="Bold" [place] >Protime Medical </content>12.0 Center SEC<content styleCode="Itali cs"> (9.0-13.0 SEC)</content> ID Date Data Source [employer]iacMarkers.[id number] 10/11/2018 11:30:00 AM EDT [facility] -0400 Name Value Range Interpretation Description Data Sup porting Code Source(s) Document(s ) Troponin < 0.034 <content [facility] I.cardiac styleCode="Bold [place] [Mass/volume ">Troponin I Medical ] in Serum </content>< Center or Plasma 0.012 NG/ML<content styleCode="Ital ics"> (< 0.034 NG/ML)</content > ID Date Data Source Liver 10/11/2018 11:30:[address] [facility] [place] Profile.[id number] Name Value Range Interpretation Description Data Sup porting Code Source(s) Document(s ) Aspartate 17-59 Below low <content [facility] aminotransferase normal styleCode="Bold"> Deuce hs [Enzymatic Aspartate Medical activity/volume] Aminotransferase Center in Serum or Plasma (AST) </content>15 IU/L L<content styleCode="Italic s"> (17-59 IU/L)</content> Alanine 7-50 <content [facility] aminotransferase styleCode="Bold"> Deuce hs [Enzymatic Alanine Medical activity/volume] Aminotransferase Center in Serum or Plasma (ALT) </content>15 IU/L<content styleCode="Italic s"> (7-50 IU/L)</content> Alkaline 38-126 <content [facility] phosphatase styleCode="Bold"> [place] [Enzymatic Alkaline Medical activity/volume] Phosphatase (ALP) Cente r in Serum or Plasma </content>125 IU/L<content styleCode="Italic s"> (38-126 IU/L)</content> Bilirubin.total 0.2-1.3 <content [facility] [Mass/volume] in styleCode="Bold"> Deuce hs Serum or Plasma Bilirubin Total Medical </content>0.9 Center MG/DL<content styleCode="Italic s"> (0.2-1.3 MG/DL)</content> Albumin 3.5-5.0 <content [facility] [Mass/volume] in styleCode="Bold"> Deuce hs Serum or Plasma Albumin Medical </content>4.0 Center G/DL<content styleCode="Italic s"> (3.5-5.0 G/DL)</content> ID Date Data Source GFR(Creatinine).[id number] 10/11/2018 11:30:00 AM EDT [facility] 0-0400 Name Value Range Interpretation Code Description Data Maral rce(s) Supporting Document(s ) UNK > 60 <content [facility] styleCode="Bold"> Medical Cent er EGFR </content>81 GFR<content styleCode="Italic s"> (> 60 GFR)</content> ID Date Data Source [id number] 10/11/2018 11:30:00 AM EDT [facility] -0400 Name Value Range Interpretation Description Data Sup porting Code Source(s) Document(s ) Magnesium 1.6-2.3 Below low normal <content [facility] [Mass/volume] styleCode="Marlo Bakers in Serum or d">Magnesium Medical Plasma </content>1.3 Center MG/DL L<content styleCode="Nata lics"> (1.6-2.3 MG/DL)</conten t> UNK 2.3-3.5 <content [facility] styleCode="Marlo Bakers d">Globulin Medical </content>2.4 Center G/DL<content styleCode="Nata lics"> (2.3-3.5 G/DL)</content > UNK >= 1.0 <content [facility] styleCode="Marlo Bakers d">AG Ratio Medical </content>1.7 Center <content styleCode="Nata lics"> (>= 1.0 )</content> UNK NEGATIVE <content [facility] styleCode="Marlo Bakers d">Acetone Medical </content>NEGA Center TIVE <content styleCode="Nata lics"> (NEGATIVE )</content> Protein 6.3-8.2 <content [facility] [Mass/volume] styleCode="Marlo Bakers in Serum or d">Total Medical Plasma Protein Center </content>6.4 G/DL<content styleCode="Nata lics"> (6.3-8.2 G/DL)</content > Natriuretic < 125 Above high normal <content [facility] peptide.B styleCode="Marlo Bakers prohormone d">NT Pro BNP Medical N-Terminal </content>2210 Center [Mass/volume] PG/ML in Serum or H<content Plasma styleCode="Nata lics"> (< 125 PG/ML)</conten t> ID Date Data Source [facility].[id number] 10/11/2018 11:30:00 AM EDT [facility] Name Value Range Interpretation Description Data Sup porting Code Source(s) Document(s ) Chloride 98-107 Below low <content [facility] [Moles/volume] in normal styleCode="Bold"> Ishmael phs Serum or Plasma Chloride Medical </content>94 Center MEQ/L L<content styleCode="Italic s"> (98-107 MEQ/L)</content> Sodium 137-145 Below low <content [facility] [Moles/volume] in normal styleCode="Bold"> Ishmael phs Serum or Plasma Sodium Medical </content>131 Center MEQ/L L<content styleCode="Italic s"> (137-145 MEQ/L)</content> Carbon dioxide, 22-30 <content [facility] total styleCode="Bold"> [place] [Moles/volume] in Carbon Dioxide Medical Serum or Plasma </content>26 Center MEQ/L<content styleCode="Italic s"> (22-30 MEQ/L)</content> Potassium 3.5-5.3 Above high <content [facility] [Moles/volume] in normal styleCode="Bold"> Ishmael phs Serum or Plasma Potassium Medical </content>5.6 Center MEQ/L H<content styleCode="Italic s"> (3.5-5.3 MEQ/L)</content> Creatinine 0.5-1.3 <content [facility] [Mass/volume] in styleCode="Bold"> Deuce hs Serum or Plasma Creatinine Medical </content>1.0 Center MG/DL<content styleCode="Italic s"> (0.5-1.3 MG/DL)</content> UNK 9-20 Above high <content [facility] normal styleCode="Bold"> [place] BUN </content>25 Medical MG/DL H<content Center styleCode="Italic s"> (9-20 MG/DL)</content> Calcium 8.4-10. <content [facility] [Mass/volume] in 2 styleCode="Bold"> Deuce hs Serum or Plasma Calcium Medical </content>9.8 Center MG/DL<content styleCode="Italic s"> (8.4-10.2 MG/DL)</content> Glucose 74-106 Above high <content [facility] [Mass/volume] in normal styleCode="Bold"> Deuce hs Serum or Plasma Glucose Medical </content>378 Center MG/DL H<content styleCode="Italic s"> (74-106 MG/DL)</content> Bilirubin.total 0.2-1.3 <content [facility] [Mass/volume] in styleCode="Bold"> Deuce hs Serum or Plasma Bilirubin Total Medical </content>0.9 Center MG/DL<content styleCode="Italic s"> (0.2-1.3 MG/DL)</content> Alanine 7-50 <content [facility] aminotransferase styleCode="Bold"> Deuce hs [Enzymatic Alanine Medical activity/volume] Aminotransferase Center in Serum or Plasma (ALT) </content>15 IU/L<content styleCode="Italic s"> (7-50 IU/L)</content> Alkaline 38-126 <content [facility] phosphatase styleCode="Bold"> [place] [Enzymatic Alkaline Medical activity/volume] Phosphatase (ALP) Cente r in Serum or Plasma </content>125 IU/L<content styleCode="Italic s"> (38-126 IU/L)</content> UNK > 60 <content [facility] styleCode="Bold"> [place] EGFR </content>81 Medical GFR<content Center styleCode="Italic s"> (> 60 GFR)</content> Aspartate 17-59 Below low <content [facility] aminotransferase normal styleCode="Bold"> Deuce hs [Enzymatic Aspartate Medical activity/volume] Aminotransferase Center in Serum or Plasma (AST) </content>15 IU/L L<content styleCode="Italic s"> (17-59 IU/L)</content> Albumin 3.5-5.0 <content [facility] [Mass/volume] in styleCode="Bold"> Deuce hs Serum or Plasma Albumin Medical </content>4.0 Center G/DL<content styleCode="Italic s"> (3.5-5.0 G/DL)</content> ID Date Data Source Liver Profile 10/11/2018 11:30:[address] [facility] [place] Name Value Range Interpretation Description Data Sup porting Code Source(s) Document(s ) Alkaline 38-126 <content [facility] phosphatase styleCode="Bold"> [place] [Enzymatic Alkaline Medical activity/volume] Phosphatase (ALP) Cente r in Serum or Plasma </content>125 IU/L<content styleCode="Italic s"> (38-126 IU/L)</content> Bilirubin.total 0.2-1.3 <content [facility] [Mass/volume] in styleCode="Bold"> Deuce hs Serum or Plasma Bilirubin Total Medical </content>0.9 Center MG/DL<content styleCode="Italic s"> (0.2-1.3 MG/DL)</content> Alanine 7-50 <content [facility] aminotransferase styleCode="Bold"> Deuce hs [Enzymatic Alanine Medical activity/volume] Aminotransferase Center in Serum or Plasma (ALT) </content>15 IU/L<content styleCode="Italic s"> (7-50 IU/L)</content> Aspartate 17-59 Below low <content [facility] aminotransferase normal styleCode="Bold"> Deuce hs [Enzymatic Aspartate Medical activity/volume] Aminotransferase Center in Serum or Plasma (AST) </content>15 IU/L L<content styleCode="Italic s"> (17-59 IU/L)</content> Albumin 3.5-5.0 <content [facility] [Mass/volume] in styleCode="Bold"> Deuce hs Serum or Plasma Albumin Medical </content>4.0 Center G/DL<content styleCode="Italic s"> (3.5-5.0 G/DL)</content> ID Date Data Source HematologyRou 10/11/2018 11:30:[address] [facility] [place] Name Value Range Interpretation Description Data Sup porting Code Source(s) Document(s ) Hemoglobin 13.5-17. Below low normal <content [facility] [Mass/volume] in 5 styleCode="Bold [place] Blood ">Hemoglobin Medical </content>12.9 Center G/DL L<content styleCode="Ital ics"> (13.5-17.5 G/DL)</content> Leukocytes 4.4-11.0 <content [facility] [#/volume] in styleCode="Bold [place] Blood by ">White Blood Medical Automated count Cell Count Center </content>6.19 KCUMM<content styleCode="Ital ics"> (4.4-11.0 KCUMM)</content > Erythrocytes 4.4-5.9 Below low normal <content [facility] [#/volume] in styleCode="Bold [place] Blood by ">Red Blood Medical Automated count Cell Count Center </content>4.07 MCUMM L<content styleCode="Ital ics"> (4.4-5.9 MCUMM)</content > Erythrocyte mean 80.0-100 <content [facility] corpuscular .0 styleCode="Bold [place] volume [Entitic ">Mean Medical volume] by Corpuscular Center Automated count Volume </content>94.6 FL<content styleCode="Ital ics"> (80.0-100.0 FL)</content> Erythrocyte mean 32.0-37. <content [facility] corpuscular 0 styleCode="Bold [place] hemoglobin ">Mean Corpus. Medical concentration Hgb Center [Mass/volume] by Concentration Automated count (MCHC) </content>33.5 G/DL<content styleCode="Ital ics"> (32.0-37.0 G/DL)</content> Erythrocyte 11.5-14. <content [facility] distribution 5 styleCode="Bold [place] width [Ratio] by ">Red Cell Medical Automated count Distribution Center Width </content>12.4 %<content styleCode="Ital ics"> (11.5-14.5 %)</content> Hematocrit 41.0-53. Below low normal <content [facility] [Volume 0 styleCode="Bold [place] Fraction] of ">Hematocrit Medical Blood by </content>38.5 Center Automated count % L<content styleCode="Ital ics"> (41.0-53.0 %)</content> Erythrocyte mean 26.0-34. <content [facility] corpuscular 0 styleCode="Bold [place] hemoglobin ">Mean Medical [Entitic mass] Corposcular Center by Automated Hemoglobin count </content>31.7 PG<content styleCode="Ital ics"> (26.0-34.0 PG)</content> Neutrophils 36-66 Above high <content [facility] [#/volume] in normal styleCode="Bold [place] Blood by ">Neutrophil Medical Automated count </content>81.0 Center % H<content styleCode="Ital ics"> (36-66 %)</content> Lymphocytes 24.0-44. Below low normal <content [facility] [#/volume] in 0 styleCode="Bold [place] Blood by ">Lymphocyte Medical Automated count </content>10.5 Center % L<content styleCode="Ital ics"> (24.0-44.0 %)</content> Platelet mean 8.0-11.0 Above high <content [facility] volume [Entitic normal styleCode="Bold [place] volume] in Blood ">Mean Platelet Medical by Automated Volume Center count </content>11.4 FL H<content styleCode="Ital ics"> (8.0-11.0 FL)</content> UNK 1.6-7.3 <content [facility] styleCode="Bold [place] ">Neutrophil Medical Count Center </content>5.02 KCUMM<content styleCode="Ital ics"> (1.6-7.3 KCUMM)</content > Platelets 130-400 Below low normal <content [facility] [#/volume] in styleCode="Bold [place] Blood by ">Platelet Medical Automated count Count Center </content>107 KCUMM L<content styleCode="Ital ics"> (130-400 KCUMM)</content > UNK 1.0-4.8 Below low normal <content [facility] styleCode="Bold [place] ">Lymphocyte Medical Count Center </content>0.65 KCUMM L<content styleCode="Ital ics"> (1.0-4.8 KCUMM)</content > Eosinophils 0-5.0 <content [facility] [#/volume] in styleCode="Bold [place] Blood by ">Eosinophil Medical Automated count </content>2.4 Center %<content styleCode="Ital ics"> (0-5.0 %)</content> UNK 0.0-0.6 <content [facility] styleCode="Bold [place] ">Eosinophil Medical Count Center </content>0.15 KCUMM<content styleCode="Ital ics"> (0.0-0.6 KCUMM)</content > UNK 0.2-0.9 <content [facility] styleCode="Bold [place] ">Monocyte Medical Count Center </content>0.35 KCUMM<content styleCode="Ital ics"> (0.2-0.9 KCUMM)</content > Monocytes 3.0-10.0 <content [facility] [#/volume] in styleCode="Bold [place] Blood by ">Monocyte Medical Automated count </content>5.7 Center %<content styleCode="Ital ics"> (3.0-10.0 %)</content> UNK 0 <content [facility] styleCode="Bold [place] ">Nucleated Red Medical Blood Cell Center </content>0.0 /100<content styleCode="Ital ics"> (0 /100)</content> UNK 0.0-0.3 <content [facility] styleCode="Bold [place] ">Basophil Medical Count Center </content>0.01 KCUMM<content styleCode="Ital ics"> (0.0-0.3 KCUMM)</content > Basophils 0.0-1.0 <content [facility] [#/volume] in styleCode="Bold [place] Blood by ">Basophil Medical Automated count </content>0.2 Center %<content styleCode="Ital ics"> (0.0-1.0 %)</content> UNK < 1 <content [facility] styleCode="Bold [place] ">Immature Medical Granulocyte Center Ratio </content>0.2 %<content styleCode="Ital ics"> (< 1 %)</content> UNK 0-0.1 <content [facility] styleCode="Bold [place] ">Immature Medical Granulocyte Center Count </content>0.01 KCUMM<content styleCode="Ital ics"> (0-0.1 KCUMM)</content > UNK 0.0 <content [facility] styleCode="Bold [place] ">Nucleated Red Medical Blood Cell Center Count </content>0.00 KCUMM<content styleCode="Ital ics"> (0.0 KCUMM)</content > ID Date Data Source GFR(Creatinine) 10/11/2018 11:30:[address] [facility] [place] Name Value Range Interpretation Code Description Data Maral rce(s) Supporting Document(s ) UNK > 60 <content [facility] styleCode="Bold"> Medical Cent er EGFR </content>81 GFR<content styleCode="Italic s"> (> 60 GFR)</content> ID Date Data Source Coagulation Rout 10/11/2018 11:30:[address] [facility] [place] Name Value Range Interpretation Description Data Sup porting Code Source(s) Document(s ) aPTT in 25.1-36. <content [facility] Platelet poor 5 styleCode="Bold" [place] plasma by >Partial Medical Coagulation Thromboplastin Center assay Time </content>32.7 SEC<content styleCode="Itali cs"> (25.1-36.5 SEC)</content> UNK 9.0-13.0 <content [facility] styleCode="Bold" [place] >Protime Medical </content>12.0 Center SEC<content styleCode="Itali cs"> (9.0-13.0 SEC)</content> INR in 0.80-1.2 <content [facility] Platelet poor 0 styleCode="Bold" [place] plasma by >INR Medical Coagulation </content>1.06 Center assay #<content styleCode="Itali cs"> (0.80-1.20 #)</content> ID Date Data Source CHMROUTINECCDA 10/11/2018 11:30:[address] [facility] [place] Name Value Range Interpretation Description Data Sup porting Code Source(s) Document(s ) Natriuretic < 125 Above high normal <content [facility] peptide.B styleCode="Marlo Minna prohormone d">NT Pro BNP Medical N-Terminal </content>2210 Center [Mass/volume] PG/ML in Serum or H<content Plasma styleCode="Nata lics"> (< 125 PG/ML)</conten t> UNK 2.3-3.5 <content [facility] styleCode="Marlo [place]na d">Globulin Medical </content>2.4 Center G/DL<content styleCode="Nata lics"> (2.3-3.5 G/DL)</content > Magnesium 1.6-2.3 Below low normal <content [facility] [Mass/volume] styleCode="Marlo Minna in Serum or d">Magnesium Medical Plasma </content>1.3 Center MG/DL L<content styleCode="Nata lics"> (1.6-2.3 MG/DL)</conten t> UNK >= 1.0 <content [facility] styleCode="Marlo Minna d">AG Ratio Medical </content>1.7 Center <content styleCode="Nata lics"> (>= 1.0 )</content> UNK NEGATIVE <content [facility] styleCode="Marlo Minna d">Acetone Medical </content>NEGA Center TIVE <content styleCode="Nata lics"> (NEGATIVE )</content> Protein 6.3-8.2 <content [facility] [Mass/volume] styleCode="Marlo Minna in Serum or d">Total Medical Plasma Protein Center </content>6.4 G/DL<content styleCode="Nata lics"> (6.3-8.2 G/DL)</content > ID Date Data Source [employer] 10/11/2018 11:30:[address] [facility] [place] Name Value Range Interpretation Description Data Sup porting Code Source(s) Document(s ) Troponin < 0.034 <content [facility] I.cardiac styleCode="Bold Minna [Mass/volume ">Troponin I Medical ] in Serum </content>< Center or Plasma 0.012 NG/ML<content styleCode="Ital ics"> (< 0.034 NG/ML)</content > ID Date Data Source BMP 10/11/2018 11:30:00 AM [facility] Name Value Range Interpretation Description Data Sup porting Code Source(s) Document(s ) Sodium 137-145 Below low <content [facility] [Moles/volume] in normal styleCode="Bold"> Ishmael phs Serum or Plasma Sodium Medical </content>131 Center MEQ/L L<content styleCode="Italic s"> (137-145 MEQ/L)</content> Chloride 98-107 Below low <content [facility] [Moles/volume] in normal styleCode="Bold"> Ishmael phs Serum or Plasma Chloride Medical </content>94 Center MEQ/L L<content styleCode="Italic s"> (98-107 MEQ/L)</content> Potassium 3.5-5.3 Above high <content [facility] [Moles/volume] in normal styleCode="Bold"> Ishmael phs Serum or Plasma Potassium Medical </content>5.6 Center MEQ/L H<content styleCode="Italic s"> (3.5-5.3 MEQ/L)</content> Glucose 74-106 Above high <content [facility] [Mass/volume] in normal styleCode="Bold"> Deuce hs Serum or Plasma Glucose Medical </content>378 Center MG/DL H<content styleCode="Italic s"> (74-106 MG/DL)</content> Creatinine 0.5-1.3 <content [facility] [Mass/volume] in styleCode="Bold"> Deuce hs Serum or Plasma Creatinine Medical </content>1.0 Center MG/DL<content styleCode="Italic s"> (0.5-1.3 MG/DL)</content> UNK 9-20 Above high <content [facility] normal styleCode="Bold"> [place] BUN </content>25 Medical MG/DL H<content Center styleCode="Italic s"> (9-20 MG/DL)</content> Calcium 8.4-10. <content [facility] [Mass/volume] in 2 styleCode="Bold"> Deuce hs Serum or Plasma Calcium Medical </content>9.8 Center MG/DL<content styleCode="Italic s"> (8.4-10.2 MG/DL)</content> Carbon dioxide, 22-30 <content [facility] total styleCode="Bold"> [place] [Moles/volume] in Carbon Dioxide Medical Serum or Plasma </content>26 Center MEQ/L<content styleCode="Italic s"> (22-30 MEQ/L)</content> Alanine 7-50 <content [facility] aminotransferase styleCode="Bold"> Deuce hs [Enzymatic Alanine Medical activity/volume] Aminotransferase Center in Serum or Plasma (ALT) </content>15 IU/L<content styleCode="Italic s"> (7-50 IU/L)</content> Alkaline 38-126 <content [facility] phosphatase styleCode="Bold"> [place] [Enzymatic Alkaline Medical activity/volume] Phosphatase (ALP) Cente r in Serum or Plasma </content>125 IU/L<content styleCode="Italic s"> (38-126 IU/L)</content> UNK > 60 <content [facility] styleCode="Bold"> [place] EGFR </content>81 Medical GFR<content Center styleCode="Italic s"> (> 60 GFR)</content> Albumin 3.5-5.0 <content [facility] [Mass/volume] in styleCode="Bold"> Deuce hs Serum or Plasma Albumin Medical </content>4.0 Center G/DL<content styleCode="Italic s"> (3.5-5.0 G/DL)</content> Bilirubin.total 0.2-1.3 <content [facility] [Mass/volume] in styleCode="Bold"> Deuce hs Serum or Plasma Bilirubin Total Medical </content>0.9 Center MG/DL<content styleCode="Italic s"> (0.2-1.3 MG/DL)</content> Aspartate 17-59 Below low <content [facility] aminotransferase normal styleCode="Bold"> Deuce hs [Enzymatic Aspartate Medical activity/volume] Aminotransferase Center in Serum or Plasma (AST) </content>15 IU/L L<content styleCode="Italic s"> (17-59 IU/L)</content> ID Date Data Source Liver 10/10/2018 04:09:[address] [facility] [place] Profile.[id number] Name Value Range Interpretation Description Data Sup porting Code Source(s) Document(s ) Aspartate 17-59 Below low <content [facility] aminotransferase normal styleCode="Bold"> Deuce hs [Enzymatic Aspartate Medical activity/volume] Aminotransferase Center in Serum or Plasma (AST) </content>15 IU/L L<content styleCode="Italic s"> (17-59 IU/L)</content> Alkaline 38-126 Above high <content [facility] phosphatase normal styleCode="Bold"> [place] [Enzymatic Alkaline Medical activity/volume] Phosphatase (ALP) Cente r in Serum or Plasma </content>190 IU/L H<content styleCode="Italic s"> (38-126 IU/L)</content> Alanine 7-50 <content [facility] aminotransferase styleCode="Bold"> Deuce hs [Enzymatic Alanine Medical activity/volume] Aminotransferase Center in Serum or Plasma (ALT) </content>15 IU/L<content styleCode="Italic s"> (7-50 IU/L)</content> Albumin 3.5-5.0 <content [facility] [Mass/volume] in styleCode="Bold"> Deuce hs Serum or Plasma Albumin Medical </content>3.7 Center G/DL<content styleCode="Italic s"> (3.5-5.0 G/DL)</content> Bilirubin.total 0.2-1.3 <content [facility] [Mass/volume] in styleCode="Bold"> Deuce hs Serum or Plasma Bilirubin Total Medical </content>0.6 Center MG/DL<content styleCode="Italic s"> (0.2-1.3 MG/DL)</content> ID Date Data Source HematologyRou.[id number] 10/10/2018 04:09:00 PM EDT [facility] 0400 Name Value Range Interpretation Description Data Sup porting Code Source(s) Document(s ) Erythrocytes 4.4-5.9 Below low normal <content [facility] [#/volume] in styleCode="Bold [place] Blood by ">Red Blood Medical Automated count Cell Count Center </content>3.92 MCUMM L<content styleCode="Ital ics"> (4.4-5.9 MCUMM)</content > Leukocytes 4.4-11.0 <content [facility] [#/volume] in styleCode="Bold [place] Blood by ">White Blood Medical Automated count Cell Count Center </content>6.28 KCUMM<content styleCode="Ital ics"> (4.4-11.0 KCUMM)</content > Hematocrit 41.0-53. Below low normal <content [facility] [Volume 0 styleCode="Bold [place] Fraction] of ">Hematocrit Medical Blood by </content>37.2 Center Automated count % L<content styleCode="Ital ics"> (41.0-53.0 %)</content> Hemoglobin 13.5-17. Below low normal <content [facility] [Mass/volume] in 5 styleCode="Bold [place] Blood ">Hemoglobin Medical </content>12.3 Center G/DL L<content styleCode="Ital ics"> (13.5-17.5 G/DL)</content> Erythrocyte mean 26.0-34. <content [facility] corpuscular 0 styleCode="Bold [place] hemoglobin ">Mean Medical [Entitic mass] Corposcular Center by Automated Hemoglobin count </content>31.4 PG<content styleCode="Ital ics"> (26.0-34.0 PG)</content> Erythrocyte mean 80.0-100 <content [facility] corpuscular .0 styleCode="Bold [place] volume [Entitic ">Mean Medical volume] by Corpuscular Center Automated count Volume </content>94.9 FL<content styleCode="Ital ics"> (80.0-100.0 FL)</content> Erythrocyte mean 32.0-37. <content [facility] corpuscular 0 styleCode="Bold [place] hemoglobin ">Mean Corpus. Medical concentration Hgb Center [Mass/volume] by Concentration Automated count (MCHC) </content>33.1 G/DL<content styleCode="Ital ics"> (32.0-37.0 G/DL)</content> Erythrocyte 11.5-14. <content [facility] distribution 5 styleCode="Bold [place] width [Ratio] by ">Red Cell Medical Automated count Distribution Center Width </content>12.5 %<content styleCode="Ital ics"> (11.5-14.5 %)</content> Platelets 130-400 Below low normal <content Saint [#/volume] in styleCode="Bold [place] Blood by ">Platelet Medical Automated count Count Center </content>118 KCUMM L<content styleCode="Ital ics"> (130-400 KCUMM)</content > Platelet mean 8.0-11.0 Above high <content [facility] volume [Entitic normal styleCode="Bold [place] volume] in Blood ">Mean Platelet Medical by Automated Volume Center count </content>12.1 FL H<content styleCode="Ital ics"> (8.0-11.0 FL)</content> Neutrophils 36-66 Above high <content [facility] [#/volume] in normal styleCode="Bold [place] Blood by ">Neutrophil Medical Automated count </content>81.6 Center % H<content styleCode="Ital ics"> (36-66 %)</content> UNK 1.6-7.3 <content [facility] styleCode="Bold [place] ">Neutrophil Medical Count Center </content>5.13 KCUMM<content styleCode="Ital ics"> (1.6-7.3 KCUMM)</content > Lymphocytes 24.0-44. Below low normal <content Saint [#/volume] in 0 styleCode="Bold [place] Blood by ">Lymphocyte Medical Automated count </content>9.6 % Center L<content styleCode="Ital ics"> (24.0-44.0 %)</content> UNK 1.0-4.8 Below low normal <content [facility] styleCode="Bold [place] ">Lymphocyte Medical Count Center </content>0.60 KCUMM L<content styleCode="Ital ics"> (1.0-4.8 KCUMM)</content > UNK 0.2-0.9 <content [facility] styleCode="Bold [place] ">Monocyte Medical Count Center </content>0.37 KCUMM<content styleCode="Ital ics"> (0.2-0.9 KCUMM)</content > Monocytes 3.0-10.0 <content Saint [#/volume] in styleCode="Bold [place] Blood by ">Monocyte Medical Automated count </content>5.9 Center %<content styleCode="Ital ics"> (3.0-10.0 %)</content> UNK 0.0-0.6 <content [facility] styleCode="Bold [place] ">Eosinophil Medical Count Center </content>0.13 KCUMM<content styleCode="Ital ics"> (0.0-0.6 KCUMM)</content > Basophils 0.0-1.0 <content Saint [#/volume] in styleCode="Bold [place] Blood by ">Basophil Medical Automated count </content>0.3 Center %<content styleCode="Ital ics"> (0.0-1.0 %)</content> Eosinophils 0-5.0 <content Saint [#/volume] in styleCode="Bold [place] Blood by ">Eosinophil Medical Automated count </content>2.1 Center %<content styleCode="Ital ics"> (0-5.0 %)</content> UNK 0 <content Saint styleCode="Bold [place] ">Nucleated Red Medical Blood Cell Center </content>0.0 /100<content styleCode="Ital ics"> (0 /100)</content> UNK 0.0 <content Saint styleCode="Bold [place] ">Nucleated Red Medical Blood Cell Center Count </content>0.00 KCUMM<content styleCode="Ital ics"> (0.0 KCUMM)</content > UNK 0.0-0.3 <content Saint styleCode="Bold [place] ">Basophil Medical Count Center </content>0.02 KCUMM<content styleCode="Ital ics"> (0.0-0.3 KCUMM)</content > UNK < 1 <content Saint styleCode="Bold [place] ">Immature Medical Granulocyte Center Ratio </content>0.5 %<content styleCode="Ital ics"> (< 1 %)</content> UNK 0-0.1 <content Saint styleCode="Bold [place] ">Immature Medical Granulocyte Center Count </content>0.03 KCUMM<content styleCode="Ital ics"> (0-0.1 KCUMM)</content > ID Date Data Source GFR(Creatinine).[id number] 10/10/2018 04:09:00 PM EDT [facility] 0-0400 Name Value Range Interpretation Code Description Data Maral rce(s) Supporting Document(s ) UNK > 60 <content [facility] styleCode="Bold"> Medical Cent er EGFR </content>65 GFR<content styleCode="Italic s"> (> 60 GFR)</content> ID Date Data Source BOBBI.[id number] 10/10/2018 04:09:00 PM EDT [facility] -0400 Name Value Range Interpretation Description Data Sup porting Code Source(s) Document(s ) UNK 2.3-3.5 <content [facility] styleCode="Bold Medical ">Globulin Center </content>2.4 G/DL<content styleCode="Ital ics"> (2.3-3.5 G/DL)</content> UNK >= 1.0 <content [facility] styleCode="Bold Medical ">AG Ratio Center </content>1.5 <content styleCode="Ital ics"> (>= 1.0 )</content> Protein 6.3-8.2 Below low normal <content [facility] [Mass/volum styleCode="Bold Medical e] in Serum ">Total Protein Center or Plasma </content>6.1 G/DL L<content styleCode="Ital ics"> (6.3-8.2 G/DL)</content> UNK 4.2-5.8 Above high normal <content [facility] styleCode="Bold Medical ">Hemoglobin Center A1C </content>11.2 % H<content styleCode="Ital ics"> (4.2-5.8 %)</content> ID Date Data Source [facility].[id number] 10/10/2018 04:09:00 PM EDT [facility] Name Value Range Interpretation Description Data Sup porting Code Source(s) Document(s ) Potassium 3.5-5.3 Above upper <content [facility] [Moles/volume] in panic limits styleCode="Bold"> J osep Serum or Plasma Potassium Medical </content><conten Center t styleCode="Bold"> 7.3 MEQ/L HH</content><cont ent styleCode="Italic s"> (3.5-5.3 MEQ/L)</content> Sodium 137-145 Below low <content [facility] [Moles/volume] in normal styleCode="Bold"> Ishmael phs Serum or Plasma Sodium Medical </content>128 Center MEQ/L L<content styleCode="Italic s"> (137-145 MEQ/L)</content> Carbon dioxide, 22-30 <content [facility] total styleCode="Bold"> [place] [Moles/volume] in Carbon Dioxide Medical Serum or Plasma </content>25 Center MEQ/L<content styleCode="Italic s"> (22-30 MEQ/L)</content> Glucose 74-106 Above upper <content [facility] [Mass/volume] in panic limits styleCode="Bold"> Lucille sephs Serum or Plasma Glucose Medical </content><[facility] t styleCode="Bold"> 545 MG/DL HH</content><cont ent styleCode="Italic s"> (74-106 MG/DL)</content> Chloride 98-107 Below low <content [facility] [Moles/volume] in normal styleCode="Bold"> Ishmael phs Serum or Plasma Chloride Medical </content>93 Center MEQ/L L<content styleCode="Italic s"> (98-107 MEQ/L)</content> Creatinine 0.5-1.3 <content [facility] [Mass/volume] in styleCode="Bold"> Deuce hs Serum or Plasma Creatinine Medical </content>1.2 Center MG/DL<content styleCode="Italic s"> (0.5-1.3 MG/DL)</content> UNK 9-20 Above high <content [facility] normal styleCode="Bold"> [place] BUN </content>26 Medical MG/DL H<content Center styleCode="Italic s"> (9-20 MG/DL)</content> UNK > 60 <content [facility] styleCode="Bold"> [place] EGFR </content>65 Medical GFR<content Center styleCode="Italic s"> (> 60 GFR)</content> Calcium 8.4-10. <content [facility] [Mass/volume] in 2 styleCode="Bold"> Deuce hs Serum or Plasma Calcium Medical </content>9.2 Center MG/DL<content styleCode="Italic s"> (8.4-10.2 MG/DL)</content> Alanine 7-50 <content [facility] aminotransferase styleCode="Bold"> Deuce hs [Enzymatic Alanine Medical activity/volume] Aminotransferase Center in Serum or Plasma (ALT) </content>15 IU/L<content styleCode="Italic s"> (7-50 IU/L)</content> Aspartate 17-59 Below low <content [facility] aminotransferase normal styleCode="Bold"> Deuce hs [Enzymatic Aspartate Medical activity/volume] Aminotransferase Center in Serum or Plasma (AST) </content>15 IU/L L<content styleCode="Italic s"> (17-59 IU/L)</content> Alkaline 38-126 Above high <content [facility] phosphatase normal styleCode="Bold"> [facility] [Enzymatic Alkaline Medical activity/volume] Phosphatase (ALP) Cente r in Serum or Plasma </content>190 IU/L H<content styleCode="Italic s"> (38-126 IU/L)</content> Albumin 3.5-5.0 <content [facility] [Mass/volume] in styleCode="Bold"> Deuce hs Serum or Plasma Albumin Medical </content>3.7 Center G/DL<content styleCode="Italic s"> (3.5-5.0 G/DL)</content> Bilirubin.total 0.2-1.3 <content [facility] [Mass/volume] in styleCode="Bold"> Deuce hs Serum or Plasma Bilirubin Total Medical </content>0.6 Center MG/DL<content styleCode="Italic s"> (0.2-1.3 MG/DL)</content> ID Date Data Source Urinalysis.[id number] 08/25/2018 12:10:00 PM EDT [facility] 0 Name Value Range Interpretation Description Data Sup porting Code Source(s) Document(s ) Color of Urine YELLOW <content Saint styleCode="Marlo Bakers d">Color, Medical Urine Center </content>YELL OW <content styleCode="Nata lics"> (YELLOW )</content> UNK CLEAR <content Saint styleCode="Marlo [place] d">Urine Medical Clarity Center </content>SRIRAM R <content styleCode="Nata lics"> (CLEAR )</content> Glucose NEGATIVE <content [facility] [Mass/volume] styleCode="Marlo Buitrago in Urine by d">Urine Medical Test strip Glucose Center </content>100 MG/DL<content styleCode="Nata lics"> (NEGATIVE MG/DL)</conten t> UNK NEGATIVE <content Saint styleCode="Marlo Bakers d">Urine Medical Bilirubin Center </content>NEGA TIVE <content styleCode="Nata lics"> (NEGATIVE )</content> Ketones NEGATIVE <content [facility] [Mass/volume] styleCode="Marlo Bakers in Urine by d">Urine Medical Test strip Ketone Center </content>NEGA TIVE MG/DL<content styleCode="Nata lics"> (NEGATIVE MG/DL)</conten t> Specific 1.015-1.02 <content [facility] gravity of 5 styleCode="Marlo Buitrago Urine by Test d">Urine Medical strip Specific Center Hector </content>1.01 5 <content styleCode="Nata lics"> (1.015-1.025 )</content> Hemoglobin NEGATIVE <content [facility] [Presence] in styleCode="Marlo Buitrago Urine by Test d">Urine Blood Medical strip </content>NEGA Center TIVE <content styleCode="Nata lics"> (NEGATIVE )</content> pH of Urine by 4.5-8.0 <content [facility] Test strip styleCode="Marlo Bakers d">Urine pH Medical </content>6.0 Center <content styleCode="Nata lics"> (4.5-8.0 )</content> Protein NEGATIVE <content [facility] [Mass/volume] styleCode="Marlo Bakers in Urine by d">Urine Medical Test strip Protein Center </content>NEGA TIVE MG/DL<content styleCode="Nata lics"> (NEGATIVE MG/DL)</conten t> Urobilinogen 0.2-1.0 <content [facility] [Units/volume] styleCode="Marlo Buitrago in Urine by d">Urine Medical Test strip Urobilinogen Center </content>0.2 MG/DL<content styleCode="Nata lics"> (0.2-1.0 MG/DL)</conten t> Leukocyte NEGATIVE <content [facility] esterase styleCode="Marlo Bakers [Presence] in d">Urine Medical Urine by Test Leukocyte Center strip </content>NEGA TIVE <content styleCode="Nata lics"> (NEGATIVE )</content> Nitrite NEGATIVE <content [facility] [Presence] in styleCode="Marlo Buitargo Urine by Test d">Urine Medical strip Nitrite Center </content>NEGA TIVE <content styleCode="Nata lics"> (NEGATIVE )</content> ID Date Data Source Microbiology.[id number] 08/25/2018 12:10:00 PM EDT [facility] 400 Name Value Range Interpretation Code Description Data Maral rce(s) Supporting Document(s ) UNK <item><content [facility] B[place]ago styleCode="Bold"> Medical Cent er Culture Report </content>
<t able><tbody><tr>< td>Specimen Number:</td><td>[id number]</td></tr ><tr><td>Sample Collection Date/Time: </td><td> 9 12:10 PM</td></tr><tr>< td>Specimen Source:</td><td>U RINE BLADDER</td></tr> <tr><td>Urine Culture:</td><td> Collection Plate Date: 08/25/2018 14:51 </td></tr><tr><td >Culture Status:</td><td>F inal </td></tr><tr><td >Culture Report:</td><td>N O GROWTH </td></tr></tbody ></table></item> UNK <item><content [facility] styleCode="Bold"> Medical Cent er Culture Status </content>
<t able><tbody><tr>< td>Specimen Number:</td><td>[id number]</td></tr ><tr><td>Sample Collection Date/Time: </td><td> 12:10 PM</td></tr><tr>< td>Specimen Source:</td><td>U RINE BLADDER</td></tr> <tr><td>Culture Status:</td><td>F inal </td></tr><tr><td >Culture Report:</td><td>N O GROWTH </td></tr><tr><td >Urine Culture:</td><td> Collection Plate Date: 08/25/2018 14:51 </td></tr></tbody ></table></item> ID Date Data Source Urinalysis 08/25/2018 12:10:[address] [facility] [place] Name Value Range Interpretation Description Data Sup porting Code Source(s) Document(s ) Color of Urine YELLOW <content Saint styleCode="Marlo [place] d">Color, Medical Urine Center </content>YELL OW <content styleCode="Nata lics"> (YELLOW )</content> Glucose NEGATIVE <content [facility] [Mass/volume] styleCode="Marlo Buitrago in Urine by d">Urine Medical Test strip Glucose Center </content>100 MG/DL<content styleCode="Nata lics"> (NEGATIVE MG/DL)</conten t> UNK CLEAR <content Saint styleCode="Marlo [place] d">Urine Medical Clarity Center </content>SRIRAM R <content styleCode="Nata lics"> (CLEAR )</content> UNK NEGATIVE <content Saint styleCode="Marlo [place] d">Urine Medical Bilirubin Center </content>NEGA TIVE <content styleCode="Nata lics"> (NEGATIVE )</content> Ketones NEGATIVE <content [facility] [Mass/volume] styleCode="Marlo [place] in Urine by d">Urine Medical Test strip Ketone Center </content>NEGA TIVE MG/DL<content styleCode="Nata lics"> (NEGATIVE MG/DL)</conten t> Specific 1.015-1.02 <content [facility] gravity of 5 styleCode="Marlo [place] Urine by Test d">Urine Medical strip Specific Center Hector </content>1.01 5 <content styleCode="Nata lics"> (1.015-1.025 )</content> Hemoglobin NEGATIVE <content [facility] [Presence] in styleCode="Marlo [place] Urine by Test d">Urine Blood Medical strip </content>NEGA Center TIVE <content styleCode="Nata lics"> (NEGATIVE )</content> pH of Urine by 4.5-8.0 <content Saint Test strip styleCode="Marlo [place] d">Urine pH Medical </content>6.0 Center <content styleCode="Nata lics"> (4.5-8.0 )</content> Protein NEGATIVE <content [facility] [Mass/volume] styleCode="Marlo [place] in Urine by d">Urine Medical Test strip Protein Center </content>NEGA TIVE MG/DL<content styleCode="Nata lics"> (NEGATIVE MG/DL)</conten t> Urobilinogen 0.2-1.0 <content [facility] [Units/volume] styleCode="Marlo [place] in Urine by d">Urine Medical Test strip Urobilinogen Center </content>0.2 MG/DL<content styleCode="Nata lics"> (0.2-1.0 MG/DL)</conten t> Leukocyte NEGATIVE <content [facility] esterase styleCode="Marlo [place] [Presence] in d">Urine Medical Urine by Test Leukocyte Center strip </content>NEGA TIVE <content styleCode="Nata lics"> (NEGATIVE )</content> Nitrite NEGATIVE <content [facility] [Presence] in styleCode="Marlo [place] Urine by Test d">Urine Medical strip Nitrite Center </content>NEGA TIVE <content styleCode="Nata lics"> (NEGATIVE )</content> ID Date Data Source Microbiology 08/25/2018 12:10:[address] [facility] [place] Name Value Range Interpretation Code Description Data Maral rce(s) Supporting Document(s ) UNK <item><content [facility] styleCode="Bold"> Medical [facility] er Culture Report </content>
<t able><tbody><tr>< td>Specimen Number:</td><td>[id number]</td></tr ><tr><td>Sample Collection Date/Time: </td><td> 9 12:10 PM</td></tr><tr>< td>Specimen Source:</td><td>U RINE BLADDER</td></tr> <tr><td>Urine Culture:</td><td> Collection Plate Date: 08/25/2018 14:51 </td></tr><tr><td >Culture Status:</td><td>P reliminary </td></tr><tr><td >Culture Report:</td><td>C ulture in progress </td></tr></tbody ></table></item> UNK <item><content [facility] styleCode="Bold"> Medical [facility] er Culture Status </content>
<t able><tbody><tr>< td>Specimen Number:</td><td>[id number]</td></tr ><tr><td>Sample Collection Date/Time: </td><td> 9 12:10 PM</td></tr><tr>< td>Specimen Source:</td><td>U RINE BLADDER</td></tr> <tr><td>Culture Status:</td><td>P reliminary </td></tr><tr><td >Culture Report:</td><td>C ulture in progress </td></tr><tr><td >Urine Culture:</td><td> Collection Plate Date: 08/25/2018 14:51 </td></tr></tbody ></table></item> ID Date Data Source LIPID.[id number] 06/27/2018 09:29:00 AM EST [facility] Name Value Range Interpretation Description Data Sup porting Code Source(s) Document(s ) Triglyceride < 150 <content [facility] [Mass/volume] in styleCode="Marlo [facility] Serum or Plasma d">Triglycerid [facility] </content>112 MG/DL<content styleCode="Nata lics"> (< 150 MG/DL)</conten t> Cholesterol -<200 <content [facility] [Mass/volume] in styleCode="Marlo [place] Serum or Plasma d">Cholesterol Medical </content>141 Center MG/DL<content styleCode="Nata lics"> (-<200 MG/DL)</conten t> UNK > 60 Below low normal <content [facility] styleCode="Marlo [place] d">HDL- Medical Cholesterol Center </content>40 MG/DL L<content styleCode="Nata lics"> (> 60 MG/DL)</conten t> UNK < 100 <content Saint styleCode="Marlo [place]na d">LDL-Cholest [facility] [place] </content>79 MG/DL<content styleCode="Nata lics"> (< 100 MG/DL)</conten t> ID Date Data Source HematologySpeci.[id number] 06/27/2018 09:29:00 AM EST [facility] 0-0500 Name Value Range Interpretation Description Data Sup porting Code Source(s) Document(s ) Erythrocyte < 20 <content [facility] sedimentation styleCode="Bold" [place] rate by >Erythrocyte [facility] method Rate (ESR) </content>5 MM/hr<content styleCode="Itali cs"> (< 20 MM/hr)</content> ID Date Data Source HematologyRou.[id number] 06/27/2018 09:29:00 AM CHARISSE Ba[facility]uel[facility] 0500 Name Value Range Interpretation Description Data Sup porting Code Source(s) Document(s ) Leukocytes 4.4-11.0 <content [facility] [#/volume] in styleCode="Bold [place] Blood by ">White Blood Medical Automated count Cell Count Center </content>4.71 KCUMM<content styleCode="Ital ics"> (4.4-11.0 KCUMM)</content > Erythrocytes 4.4-5.9 Below low normal <content [facility] [#/volume] in styleCode="Bold [place] Blood by ">Red Blood Medical Automated count Cell Count Center </content>4.06 MCUMM L<content styleCode="Ital ics"> (4.4-5.9 MCUMM)</content > Hematocrit 41.0-53. Below low normal <content [facility] [Volume 0 styleCode="Bold [facility] Fraction] of ">Hematocrit Medical Blood by </content>38.8 Center Automated count % L<content styleCode="Ital ics"> (41.0-53.0 %)</content> Hemoglobin 13.5-17. Below low normal <content [facility] [Mass/volume] in 5 styleCode="Bold [place] Blood ">Hemoglobin Medical </content>12.8 Center G/DL L<content styleCode="Ital ics"> (13.5-17.5 G/DL)</content> Erythrocyte mean 80.0-100 <content [facility] corpuscular .0 styleCode="Bold [place] volume [Entitic ">Mean Medical volume] by Corpuscular Center Automated count Volume </content>95.6 FL<content styleCode="Ital ics"> (80.0-100.0 FL)</content> Erythrocyte mean 32.0-37. <content [facility] corpuscular 0 styleCode="Bold [place] hemoglobin ">Mean Corpus. Medical concentration Hgb Center [Mass/volume] by Concentration Automated count (MCHC) </content>33.0 G/DL<content styleCode="Ital ics"> (32.0-37.0 G/DL)</content> Erythrocyte 11.5-14. <content [facility] distribution 5 styleCode="Jatinder Buitrago width [Ratio] by ">Red Cell Medical Automated count Distribution Center Width </content>12.3 %<content styleCode="Ital ics"> (11.5-14.5 %)</content> Erythrocyte mean 26.0-34. <content [facility] corpuscular 0 styleCode="Bold [place] hemoglobin ">Mean Medical [Entitic mass] Corposcular Center by Automated Hemoglobin count </content>31.5 PG<content styleCode="Ital ics"> (26.0-34.0 PG)</content> UNK 0 <content [facility] styleCode="Bold [place] ">Nucleated Red Medical Blood Cell Center </content>0.0 /100<content styleCode="Ital ics"> (0 /100)</content> Platelet mean 8.0-11.0 Above high <content Saint volume [Entitic normal styleCode="Bold Min[place] volume] in Blood ">Mean Platelet Medical by Automated Volume Center count </content>11.4 FL H<content styleCode="Ital ics"> (8.0-11.0 FL)</content> Platelets 130-400 <content [facility] [#/volume] in styleCode="Bold [place] Blood by ">Platelet Medical Automated count Count Center </content>153 KCUMM<content styleCode="Ital ics"> (130-400 KCUMM)</content > UNK 0.0 <content [facility] styleCode="Bold [place] ">Nucleated Red Medical Blood Cell Center Count </content>0.00 KCUMM<content styleCode="Ital ics"> (0.0 KCUMM)</content > ID Date Data Source Liver 06/27/2018 09:29:[address] [facility] [place] Profile.[id number] Name Value Range Interpretation Description Data Sup porting Code Source(s) Document(s ) Aspartate 17-59 Below low <content [facility] aminotransferase normal styleCode="Bold"> Deuce hs [Enzymatic Aspartate Medical activity/volume] Aminotransferase Center in Serum or Plasma (AST) </content>16 IU/L L<content styleCode="Italic s"> (17-59 IU/L)</content> Alanine 7-50 <content [facility] aminotransferase styleCode="Bold"> Deuce hs [Enzymatic Alanine Medical activity/volume] Aminotransferase Center in Serum or Plasma (ALT) </content>12 IU/L<content styleCode="Italic s"> (7-50 IU/L)</content> Albumin 3.5-5.0 <content [facility] [Mass/volume] in styleCode="Bold"> Deuce hs Serum or Plasma Albumin Medical </content>3.8 Center G/DL<content styleCode="Italic s"> (3.5-5.0 G/DL)</content> Bilirubin.total 0.2-1.3 <content [facility] [Mass/volume] in styleCode="Bold"> Deuce hs Serum or Plasma Bilirubin Total Medical </content>0.7 Center MG/DL<content styleCode="Italic s"> (0.2-1.3 MG/DL)</content> Alkaline 38-126 Above high <content [facility] phosphatase normal styleCode="Bold"> [place] [Enzymatic Alkaline Medical activity/volume] Phosphatase (ALP) Cente r in Serum or Plasma </content>131 IU/L H<content styleCode="Italic s"> (38-126 IU/L)</content> ID Date Data Source GFR(Creatinine).[id number] 06/27/2018 09:29:00 AM [facility] 0-0500 Name Value Range Interpretation Code Description Data Maral rce(s) Supporting Document(s ) UNK > 60 <content [facility] styleCode="Bold"> Medical Cent er EGFR </content>72 GFR<content styleCode="Italic s"> (> 60 GFR)</content> ID Date Data Source CHMROUTINECCDA.[id number] 06/27/2018 09:29:00 AM [facility] -0500 Name Value Range Interpretation Description Data Sup porting Code Source(s) Document(s ) UNK >= 1.0 <content [facility] styleCode="Marlo Buitrago d">AG Ratio Medical </content>1.8 Center NM<content styleCode="Nata lics"> (>= 1.0 NM)</content> UNK 2.3-3.5 Below low normal <content [facility] styleCode="Marlo Minna d">Globulin Medical </content>2.1 Center G/DL L<content styleCode="Nata lics"> (2.3-3.5 G/DL)</content > Phosphate 2.5-4.5 <content [facility] [Mass/volume] styleCode="Marlo Minna in Serum or d">Phosphorus Medical Plasma </content>3.0 Center MG/DL<content styleCode="Nata lics"> (2.5-4.5 MG/DL)</conten t> UNK 4.2-5.8 Above high normal <content [facility] styleCode="Marlo Minna d">Hemoglobin Medical A1C Center </content>12.6 % H<content styleCode="Nata lics"> (4.2-5.8 %)</content> Protein 6.3-8.2 Below low normal <content [facility] [Mass/volume] styleCode="Marlo Minna in Serum or d">Total Medical Plasma Protein Center </content>5.9 G/DL L<content styleCode="Nata lics"> (6.3-8.2 G/DL)</content > Magnesium 1.6-2.3 Below low normal <content [facility] [Mass/volume] styleCode="Marlo Minna in Serum or d">Magnesium Medical Plasma </content>1.5 Center MG/DL L<content styleCode="Nata lics"> (1.6-2.3 MG/DL)</conten t> ID Date Data Source [facility].[id number] 06/27/2018 09:29:00 AM EST [facility] Name Value Range Interpretation Description Data Sup porting Code Source(s) Document(s ) Potassium 3.5-5.3 <content [facility] [Moles/volume] in styleCode="Bold"> Ishmael phs Serum or Plasma Potassium Medical </content>4.9 Center MEQ/L<content styleCode="Italic s"> (3.5-5.3 MEQ/L)</content> Sodium 137-145 Below low <content [facility] [Moles/volume] in normal styleCode="Bold"> Ishmael phs Serum or Plasma Sodium Medical </content>133 Center MEQ/L L<content styleCode="Italic s"> (137-145 MEQ/L)</content> Chloride 98-107 <content [facility] [Moles/volume] in styleCode="Bold"> Ishmael phs Serum or Plasma Chloride Medical </content>100 Center MEQ/L<content styleCode="Italic s"> (98-107 MEQ/L)</content> Carbon dioxide, 22-30 <content [facility] total styleCode="Bold"> [place] [Moles/volume] in Carbon Dioxide Medical Serum or Plasma </content>26 Center MEQ/L<content styleCode="Italic s"> (22-30 MEQ/L)</content> Creatinine 0.5-1.3 <content [facility] [Mass/volume] in styleCode="Bold"> Deuce hs Serum or Plasma Creatinine Medical </content>1.1 Center MG/DL<content styleCode="Italic s"> (0.5-1.3 MG/DL)</content> Glucose 74-106 Above high <content [facility] [Mass/volume] in normal styleCode="Bold"> Deuce hs Serum or Plasma Glucose Medical </content>132 Center MG/DL H<content styleCode="Italic s"> (74-106 MG/DL)</content> UNK 9-20 Above high <content [facility] normal styleCode="Bold"> [place] BUN </content>27 Medical MG/DL H<content Center styleCode="Italic s"> (9-20 MG/DL)</content> Aspartate 17-59 Below low <content [facility] aminotransferase normal styleCode="Bold"> Deuce hs [Enzymatic Aspartate Medical activity/volume] Aminotransferase Center in Serum or Plasma (AST) </content>16 IU/L L<content styleCode="Italic s"> (17-59 IU/L)</content> Calcium 8.4-10. <content [facility] [Mass/volume] in 2 styleCode="Bold"> Deuce hs Serum or Plasma Calcium Medical </content>10.1 Center MG/DL<content styleCode="Italic s"> (8.4-10.2 MG/DL)</content> UNK > 60 <content [facility] styleCode="Bold"> [place] EGFR </content>72 Medical GFR<content Center styleCode="Italic s"> (> 60 GFR)</content> Alanine 7-50 <content [facility] aminotransferase styleCode="Bold"> Deuce hs [Enzymatic Alanine Medical activity/volume] Aminotransferase Center in Serum or Plasma (ALT) </content>12 IU/L<content styleCode="Italic s"> (7-50 IU/L)</content> Albumin 3.5-5.0 <content [facility] [Mass/volume] in styleCode="Bold"> Deuce hs Serum or Plasma Albumin Medical </content>3.8 Center G/DL<content styleCode="Italic s"> (3.5-5.0 G/DL)</content> Alkaline 38-126 Above high <content [facility] phosphatase normal styleCode="Bold"> [facility] [Enzymatic Alkaline Medical activity/volume] Phosphatase (ALP) Cente r in Serum or Plasma </content>131 IU/L H<content styleCode="Italic s"> (38-126 IU/L)</content> Bilirubin.total 0.2-1.3 <content [facility] [Mass/volume] in styleCode="Bold"> Deuce hs Serum or Plasma Bilirubin Total Medical </content>0.7 Center MG/DL<content styleCode="Italic s"> (0.2-1.3 MG/DL)</content> ID Date Data Source Hormones.[id number] 04/14/2018 01:05:00 PM EDT Jacki chavira [facility] Name Value Range Interpretation Code Description Data Maral rce(s) Supporting Document(s ) UNK 14-64 <content [facility] styleCode="Bold"> Medical Cent er PTH </content>43 pg/mL<content styleCode="Italic s"> (14-64 pg/mL)</content> ID Date Data Source Liver 03/21/2018 02:35:[address] [facility] [place] Profile.[id number] Name Value Range Interpretation Description Data Sup porting Code Source(s) Document(s ) Alanine 7-50 <content [facility] aminotransferase styleCode="Bold"> Deuce hs [Enzymatic Alanine Medical activity/volume] Aminotransferase Center in Serum or Plasma (ALT) </content>15 IU/L<content styleCode="Italic s"> (7-50 IU/L)</content> Aspartate 17-59 <content [facility] aminotransferase styleCode="Bold"> Deuce hs [Enzymatic Aspartate Medical activity/volume] Aminotransferase Center in Serum or Plasma (AST) </content>24 IU/L<content styleCode="Italic s"> (17-59 IU/L)</content> Alkaline 38-126 <content [facility] phosphatase styleCode="Bold"> [facility] [Enzymatic Alkaline Medical activity/volume] Phosphatase (ALP) Cente r in Serum or Plasma </content>95 IU/L<content styleCode="Italic s"> (38-126 IU/L)</content> Albumin 3.5-5.0 <content [facility] [Mass/volume] in styleCode="Bold"> Deuce hs Serum or Plasma Albumin Medical </content>4.0 Center G/DL<content styleCode="Italic s"> (3.5-5.0 G/DL)</content> Bilirubin.total 0.2-1.3 <content [facility] [Mass/volume] in styleCode="Bold"> Deuce hs Serum or Plasma Bilirubin Total Medical </content>0.9 Center MG/DL<content styleCode="Italic s"> (0.2-1.3 MG/DL)</content> ID Date Data Source GFR(Creatinine).[id number] 03/21/2018 02:35:00 PM EDT [facility] 0-0400 Name Value Range Interpretation Code Description Data Maral rce(s) Supporting Document(s ) UNK > 60 <content [facility] styleCode="Bold"> Medical Cent er EGFR </content>72 GFR<content styleCode="Italic s"> (> 60 GFR)</content> ID Date Data Source CHMROUTINECCDA.[id number] 03/21/2018 02:35:00 PM EDT [facility] -0400 Name Value Range Interpretation Description Data Sup porting Code Source(s) Document(s ) UNK >= 1.0 <content [facility] styleCode="Marlo Minna d">AG Ratio Medical </content>1.7 Center NM<content styleCode="Nata lics"> (>= 1.0 NM)</content> UNK 2.3-3.5 <content [facility] styleCode="Marlo Minna d">Globulin Medical </content>2.4 Center G/DL<content styleCode="Nata lics"> (2.3-3.5 G/DL)</content > Phosphate 2.5-4.5 <content [facility] [Mass/volume] styleCode="Marlo Bakers in Serum or d">Phosphorus Medical Plasma </content>3.1 Center MG/DL<content styleCode="Nata lics"> (2.5-4.5 MG/DL)</conten t> Protein 6.3-8.2 <content [facility] [Mass/volume] styleCode="Marlo Bakers in Serum or d">Total Medical Plasma Protein Center </content>6.4 G/DL<content styleCode="Nata lics"> (6.3-8.2 G/DL)</content > ID Date Data Source [facility].[id number] 03/21/2018 02:35:00 PM EDT [facility] Name Value Range Interpretation Description Data Sup porting Code Source(s) Document(s ) Potassium 3.5-5.3 <content [facility] [Moles/volume] in styleCode="Bold"> Ishmael phs Serum or Plasma Potassium Medical </content>5.1 Center MEQ/L<content styleCode="Italic s"> (3.5-5.3 MEQ/L)</content> Sodium 137-145 Below low <content [facility] [Moles/volume] in normal styleCode="Bold"> Ishmael phs Serum or Plasma Sodium Medical </content>132 Center MEQ/L L<content styleCode="Italic s"> (137-145 MEQ/L)</content> Chloride 98-107 <content [facility] [Moles/volume] in styleCode="Bold"> Ishmael phs Serum or Plasma Chloride Medical </content>101 Center MEQ/L<content styleCode="Italic s"> (98-107 MEQ/L)</content> Carbon dioxide, 22-30 <content [facility] total styleCode="Bold"> [place] [Moles/volume] in Carbon Dioxide Medical Serum or Plasma </content>23 Center MEQ/L<content styleCode="Italic s"> (22-30 MEQ/L)</content> UNK 9-20 Above high <content [facility] normal styleCode="Bold"> [place] BUN </content>26 Medical MG/DL H<content Center styleCode="Italic s"> (9-20 MG/DL)</content> Creatinine 0.5-1.3 <content [facility] [Mass/volume] in styleCode="Bold"> Deuce hs Serum or Plasma Creatinine Medical </content>1.1 Center MG/DL<content styleCode="Italic s"> (0.5-1.3 MG/DL)</content> Glucose 74-106 Above high <content [facility] [Mass/volume] in normal styleCode="Bold"> Deuce hs Serum or Plasma Glucose Medical </content>118 Center MG/DL H<content styleCode="Italic s"> (74-106 MG/DL)</content> Calcium 8.4-10. <content [facility] [Mass/volume] in 2 styleCode="Bold"> Deuce hs Serum or Plasma Calcium Medical </content>10.2 Center MG/DL<content styleCode="Italic s"> (8.4-10.2 MG/DL)</content> Aspartate 17-59 <content [facility] aminotransferase styleCode="Bold"> Deuce hs [Enzymatic Aspartate Medical activity/volume] Aminotransferase Center in Serum or Plasma (AST) </content>24 IU/L<content styleCode="Italic s"> (17-59 IU/L)</content> Alanine 7-50 <content [facility] aminotransferase styleCode="Bold"> Deuce hs [Enzymatic Alanine Medical activity/volume] Aminotransferase Center in Serum or Plasma (ALT) </content>15 IU/L<content styleCode="Italic s"> (7-50 IU/L)</content> UNK > 60 <content [facility] styleCode="Bold"> [place] EGFR </content>72 Medical GFR<content Center styleCode="Italic s"> (> 60 GFR)</content> Alkaline 38-126 <content [facility] phosphatase styleCode="Bold"> [facility] [Enzymatic Alkaline Medical activity/volume] Phosphatase (ALP) Cente r in Serum or Plasma </content>95 IU/L<content styleCode="Italic s"> (38-126 IU/L)</content> Bilirubin.total 0.2-1.3 <content [facility] [Mass/volume] in styleCode="Bold"> Deuce hs Serum or Plasma Bilirubin Total Medical </content>0.9 Center MG/DL<content styleCode="Italic s"> (0.2-1.3 MG/DL)</content> Albumin 3.5-5.0 <content [facility] [Mass/volume] in styleCode="Bold"> Deuce hs Serum or Plasma Albumin Medical </content>4.0 Center G/DL<content styleCode="Italic s"> (3.5-5.0 G/DL)</content> ID Date Data Source HematologyRou.[id number] 03/15/2018 05:20:00 PM EDT [facility] 0400 Name Value Range Interpretation Description Data Sup porting Code Source(s) Document(s ) Leukocytes 4.4-11.0 Below low normal <content Saint [#/volume] in styleCode="Bold [facility] Blood by ">White Blood Medical Automated count Cell Count Center </content>4.10 KCUMM L<content styleCode="Ital ics"> (4.4-11.0 KCUMM)</content > Erythrocytes 4.4-5.9 Below low normal <content Saint [#/volume] in styleCode="Bold [facility] Blood by ">Red Blood Medical Automated count Cell Count Center </content>3.80 MCUMM L<content styleCode="Ital ics"> (4.4-5.9 MCUMM)</content > Erythrocyte mean 80.0-100 <content [facility] corpuscular .0 styleCode="Bold [place] volume [Entitic ">Mean Medical volume] by Corpuscular Center Automated count Volume </content>93.9 FL<content styleCode="Ital ics"> (80.0-100.0 FL)</content> Hematocrit 41.0-53. Below low normal <content Saint [Volume 0 styleCode="Bold [place] Fraction] of ">Hematocrit Medical Blood by </content>35.7 Center Automated count % L<content styleCode="Ital ics"> (41.0-53.0 %)</content> Hemoglobin 13.5-17. Below low normal <content [facility] [Mass/volume] in 5 styleCode="Bold [place] Blood ">Hemoglobin Medical </content>12.2 Center G/DL L<content styleCode="Ital ics"> (13.5-17.5 G/DL)</content> Erythrocyte mean 26.0-34. <content [facility] corpuscular 0 styleCode="Bold [place] hemoglobin ">Mean Medical [Entitic mass] Corposcular Center by Automated Hemoglobin count </content>32.1 PG<content styleCode="Ital ics"> (26.0-34.0 PG)</content> Platelets 130-400 Below low normal <content [facility] [#/volume] in styleCode="Bold [place] Blood by ">Platelet Medical Automated count Count Center </content>122 KCUMM L<content styleCode="Ital ics"> (130-400 KCUMM)</content > Erythrocyte 11.5-14. <content [facility] distribution 5 styleCode="Bold [place] width [Ratio] by ">Red Cell Medical Automated count Distribution Center Width </content>12.1 %<content styleCode="Ital ics"> (11.5-14.5 %)</content> Erythrocyte mean 32.0-37. <content [facility] corpuscular 0 styleCode="Bold [place] hemoglobin ">Mean Corpus. Medical concentration Hgb Center [Mass/volume] by Concentration Automated count (MCHC) </content>34.2 G/DL<content styleCode="Ital ics"> (32.0-37.0 G/DL)</content> UNK 0.0 <content Saint styleCode="Bold [place] ">Nucleated Red Medical Blood Cell Center Count </content>0.00 KCUMM<content styleCode="Ital ics"> (0.0 KCUMM)</content > UNK 0 <content [facility] styleCode="Bold [place]na ">Nucleated Red Medical Blood Cell Center </content>0.0 /100<content styleCode="Ital ics"> (0 /100)</content> Platelet mean 8.0-11.0 <content [facility] volume [Entitic styleCode="Bold Minna volume] in Blood ">Mean Platelet Medical by Automated Volume Center count </content>10.7 FL<content styleCode="Ital ics"> (8.0-11.0 FL)</content> ID Date Data Source Liver 03/15/2018 05:20:[address] [facility] [place] Profile.[id number] Name Value Range Interpretation Description Data Sup porting Code Source(s) Document(s ) Aspartate 17-59 Below low <content [facility] aminotransferase normal styleCode="Bold"> Deuce hs [Enzymatic Aspartate Medical activity/volume] Aminotransferase Center in Serum or Plasma (AST) </content>16 IU/L L<content styleCode="Italic s"> (17-59 IU/L)</content> Alanine 7-50 <content [facility] aminotransferase styleCode="Bold"> Deuce hs [Enzymatic Alanine Medical activity/volume] Aminotransferase Center in Serum or Plasma (ALT) </content>13 IU/L<content styleCode="Italic s"> (7-50 IU/L)</content> Bilirubin.total 0.2-1.3 <content [facility] [Mass/volume] in styleCode="Bold"> Deuce hs Serum or Plasma Bilirubin Total Medical </content>0.6 Center MG/DL<content styleCode="Italic s"> (0.2-1.3 MG/DL)</content> Alkaline 38-126 Above high <content [facility] phosphatase normal styleCode="Bold"> [place] [Enzymatic Alkaline Medical activity/volume] Phosphatase (ALP) Cente r in Serum or Plasma </content>131 IU/L H<content styleCode="Italic s"> (38-126 IU/L)</content> Albumin 3.5-5.0 <content [facility] [Mass/volume] in styleCode="Bold"> Deuce hs Serum or Plasma Albumin Medical </content>4.0 Center G/DL<content styleCode="Italic s"> (3.5-5.0 G/DL)</content> ID Date Data Source GFR(Creatinine).[id number] 03/15/2018 05:20:00 PM EDT [facility] 0-0400 Name Value Range Interpretation Code Description Data Maral rce(s) Supporting Document(s ) UNK > 60 <content [facility] B[facility] styleCode="Bold"> Medical Cent er EGFR </content>72 GFR<content styleCode="Italic s"> (> 60 GFR)</content> ID Date Data Source CHMROUTINECCDA.[id number] 03/15/2018 05:20:00 PM EDT [facility] -0400 Name Value Range Interpretation Description Data Sup porting Code Source(s) Document(s ) UNK >= 1.0 <content Saint styleCode="Marlo Minna d">AG Ratio Medical </content>1.7 Center NM<content styleCode="Nata lics"> (>= 1.0 NM)</content> UNK 2.3-3.5 <content Saint styleCode="Marlo Minna d">Globulin Medical </content>2.4 Center G/DL<content styleCode="Nata lics"> (2.3-3.5 G/DL)</content > Phosphate 2.5-4.5 <content [facility] [Mass/volume] styleCode="Marlo Minna in Serum or d">Phosphorus Medical Plasma </content>3.2 Center MG/DL<content styleCode="Nata lics"> (2.5-4.5 MG/DL)</conten t> Protein 6.3-8.2 <content [facility] [Mass/volume] styleCode="Marlo Minna in Serum or d">Total Medical Plasma Protein Center </content>6.4 G/DL<content styleCode="Nata lics"> (6.3-8.2 G/DL)</content > ID Date Data Source [facility].[id number] 03/15/2018 05:20:00 PM EDT [facility] Name Value Range Interpretation Description Data Sup porting Code Source(s) Document(s ) Potassium 3.5-5.3 Above high <content Saint [Moles/volume] in normal styleCode="Bold"> Ishmael phs Serum or Plasma Potassium Medical </content>5.5 Center MEQ/L H<content styleCode="Italic s"> (3.5-5.3 MEQ/L)</content> Sodium 137-145 Below low <content Saint [Moles/volume] in normal styleCode="Bold"> Ishmael [facility] Serum or Plasma Sodium Medical </content>130 Center MEQ/L L<content styleCode="Italic s"> (137-145 MEQ/L)</content> Chloride 98-107 <content [facility] [Moles/volume] in styleCode="Bold"> Ishmael [facility] Serum or Plasma Chloride Medical </content>98 Center MEQ/L<content styleCode="Italic s"> (98-107 MEQ/L)</content> Glucose 74-106 Above high <content [facility] [Mass/volume] in normal styleCode="Bold"> Deuce hs Serum or Plasma Glucose Medical </content>374 Center MG/DL H<content styleCode="Italic s"> (74-106 MG/DL)</content> Carbon dioxide, 22-30 <content [facility] total styleCode="Bold"> [place] [Moles/volume] in Carbon Dioxide Medical Serum or Plasma </content>26 Center MEQ/L<content styleCode="Italic s"> (22-30 MEQ/L)</content> Creatinine 0.5-1.3 <content [facility] [Mass/volume] in styleCode="Bold"> Deuce hs Serum or Plasma Creatinine Medical </content>1.1 Center MG/DL<content styleCode="Italic s"> (0.5-1.3 MG/DL)</content> UNK 9-20 Above high <content [facility] normal styleCode="Bold"> [place] BUN </content>23 Medical MG/DL H<content Center styleCode="Italic s"> (9-20 MG/DL)</content> Aspartate 17-59 Below low <content [facility] aminotransferase normal styleCode="Bold"> Deuce hs [Enzymatic Aspartate Medical activity/volume] Aminotransferase Center in Serum or Plasma (AST) </content>16 IU/L L<content styleCode="Italic s"> (17-59 IU/L)</content> Alanine 7-50 <content [facility] aminotransferase styleCode="Bold"> Deuce hs [Enzymatic Alanine Medical activity/volume] Aminotransferase Center in Serum or Plasma (ALT) </content>13 IU/L<content styleCode="Italic s"> (7-50 IU/L)</content> Alkaline 38-126 Above high <content [facility] phosphatase normal styleCode="Bold"> [place] [Enzymatic Alkaline Medical activity/volume] Phosphatase (ALP) Cente r in Serum or Plasma </content>131 IU/L H<content styleCode="Italic s"> (38-126 IU/L)</content> UNK > 60 <content Saint styleCode="Bold"> [place] EGFR </content>72 Medical GFR<content Center styleCode="Italic s"> (> 60 GFR)</content> Calcium 8.4-10. Above high <content Saint [Mass/volume] in 2 normal styleCode="Bold"> Deuce hs Serum or Plasma Calcium Medical </content>10.4 Center MG/DL H<content styleCode="Italic s"> (8.4-10.2 MG/DL)</content> Bilirubin.total 0.2-1.3 <content [facility] [Mass/volume] in styleCode="Bold"> Deuce hs Serum or Plasma Bilirubin Total Medical </content>0.6 Center MG/DL<content styleCode="Italic s"> (0.2-1.3 MG/DL)</content> Albumin 3.5-5.0 <content [facility] [Mass/volume] in styleCode="Bold"> Deuce hs Serum or Plasma Albumin Medical </content>4.0 Center G/DL<content styleCode="Italic s"> (3.5-5.0 G/DL)</content> ID Date Data Source LIPID.[id number] 02/24/2018 04:15:00 PM EDT [facility] Name Value Range Interpretation Description Data Sup porting Code Source(s) Document(s ) Triglyceride < 150 Above high normal <content Saint [Mass/volume] in styleCode="Marlo Minna Serum or Plasma d">Triglycerid Medical es Center </content>193 MG/DL H<content styleCode="Nata lics"> (< 150 MG/DL)</conten t> UNK < 100 <content Saint styleCode="Malro Bakers d">LDL-Cholest Medical jeff Center </content>59 MG/DL<content styleCode="Nata lics"> (< 100 MG/DL)</conten t> Cholesterol -<200 <content Saint [Mass/volume] in styleCode="Marlo Bakers Serum or Plasma d">Cholesterol Medical </content>139 Center MG/DL<content styleCode="Nata lics"> (-<200 MG/DL)</conten t> UNK > 60 Below low normal <content Saint styleCode="Marlo Minna d">HDL- Medical Cholesterol Center </content>41 MG/DL L<content styleCode="Nata lics"> (> 60 MG/DL)</conten t> ID Date Data Source Hormones.[id number] 02/24/2018 04:15:00 PM EDT [facility] Name Value Range Interpretation Code Description Data Maral rce(s) Supporting Document(s ) UNK 14-64 Above high normal <content [facility] styleCode="Bold"> Medical Cent er PTH </content>182 pg/mL H<content styleCode="Italic s"> (14-64 pg/mL)</content> ID Date Data Source Urinalysis.[id number] 02/15/2018 11:28:00 AM EDT [facility] 0 Name Value Range Interpretation Description Data Sup porting Code Source(s) Document(s ) Color of Urine YELLOW <content Saint styleCode="Marlo Bakers d">Color, Medical Urine Center </content>YELL OW <content styleCode="Nata lics"> (YELLOW )</content> UNK CLEAR <content Saint styleCode="[facility] d">Urine Medical Clarity Center </content>SRIRAM R <content styleCode="Nata lics"> (CLEAR )</content> Glucose NEGATIVE <content Saint [Mass/volume] styleCode="Marlo Buitrago in Urine by d">Urine Medical Test strip Glucose Center </content>>=10 00 MG/DL<content styleCode="Nata lics"> (NEGATIVE MG/DL)</conten t> Ketones NEGATIVE <content Saint [Mass/volume] styleCode="Marlo Bakers in Urine by d">Urine Medical Test strip Ketone Center </content>NEGA TIVE MG/DL<content styleCode="Nata lics"> (NEGATIVE MG/DL)</conten t> UNK NEGATIVE <content Saint styleCode="[facility] d">Urine Medical Bilirubin Center </content>NEGA TIVE <content styleCode="Nata lics"> (NEGATIVE )</content> pH of Urine by 4.5-8.0 <content Saint Test strip styleCode="[facility] d">Urine pH Medical </content>5.5 Center NM<content styleCode="Nata lics"> (4.5-8.0 NM)</content> Hemoglobin NEGATIVE <content Saint [Presence] in styleCode="Marlo Bakers Urine by Test d">Urine Blood Medical strip </content>NEGA Center TIVE <content styleCode="Nata lics"> (NEGATIVE )</content> Specific 1.015-1.02 <content Saint gravity of 5 styleCode="Marlo Buitrago Urine by Test d">Urine Medical strip Specific Center Hector </content>1.02 0 NM<content styleCode="Nata lics"> (1.015-1.025 NM)</content> Nitrite NEGATIVE <content Saint [Presence] in styleCode="Marlo Buitrago Urine by Test d">Urine Medical strip Nitrite Center </content>NEGA TIVE <content styleCode="Nata lics"> (NEGATIVE )</content> Protein NEGATIVE <content Saint [Mass/volume] styleCode="Marlo Buitrago in Urine by d">Urine Medical Test strip Protein Center </content>TRAC E MG/DL<content styleCode="Nata lics"> (NEGATIVE MG/DL)</conten t> Urobilinogen 0.2-1.0 <content [facility] [Units/volume] styleCode="Marlo Buitrago in Urine by d">Urine Medical Test strip Urobilinogen Center </content>0.2 MG/DL<content styleCode="Nata lics"> (0.2-1.0 MG/DL)</conten t> Leukocyte NEGATIVE <content Saint esterase styleCode="Marlo Buitrago [Presence] in d">Urine Medical Urine by Test Leukocyte Center strip </content>NEGA TIVE <content styleCode="Nata lics"> (NEGATIVE )</content> UNK <content Saint styleCode="Marlo Buitrago d">Epithelial Medical Cell Center </content>0-2 LPF (Reference Range: not available)<br/ > ID Date Data Source [id number] 02/15/2018 11:28:00 AM EDT [facility] 400 Name Value Range Interpretation Code Description Data Maral rce(s) Supporting Document(s ) UNK <item><content [facility] styleCode="Bold"> Medical Cent er Culture Status </content>
<t able><tbody><tr>< td>Specimen Number:</td><td>[id number]</td></tr ><tr><td>Sample Collection Date/Time: </td><td>02/15/2018 11:28 AM</td></tr><tr>< td>Specimen Source:</td><td>U RINE BLADDER</td></tr> <tr><td>Culture Status:</td><td>F inal </td></tr><tr><td >Culture Report:</td><td>N O GROWTH </td></tr><tr><td >Urine Culture:</td><td> Collection Plate Date: 02/15/2018 15:36 </td></tr></tbody ></table></item> UNK <item><content [facility] styleCode="Bold"> Medical [facility] er Culture Report </content>
<t able><tbody><tr>< td>Specimen Number:</td><td>[id number]</td></tr ><tr><td>Sample Collection Date/Time: </td><td>02/15/2018 11:28 AM</td></tr><tr>< td>Specimen Source:</td><td>U RINE BLADDER</td></tr> <tr><td>Culture Report:</td><td>N O GROWTH </td></tr><tr><td >Urine Culture:</td><td> Collection Plate Date: 02/15/2018 15:36 </td></tr><tr><td >Culture Status:</td><td>F inal </td></tr></tbody ></table></item> ID Date Data Source [id number] 02/15/2018 11:28:00 AM EDT [facility] Name Value Range Interpretation Description Data Sup porting Code Source(s) Document(s ) Thyrotropin 0.465-4. <content Saint [Units/volume] 68 styleCode="Marlo Minna in Serum or d">Thyroid Medical Plasma by Stimulating Center Detection Hormone limit <= 0.05 </content>2.95 mIU/L MIU/L<content styleCode="Nata lics"> (0.465-4.68 MIU/L)</conten t> ID Date Data Source HematologySpeci.[id number] 02/15/2018 11:28:00 AM EDT [facility] 0-0400 Name Value Range Interpretation Description Data Sup porting Code Source(s) Document(s ) Erythrocyte < 20 <content Saint sedimentation styleCode="Bold" Minna rate by >Erythrocyte Medical [facility] method Rate (ESR) </content>4 MM/hr<content styleCode="Itali cs"> (< 20 MM/hr)</content> ID Date Data Source HematologyRou.[id number] 02/15/2018 11:28:00 AM EDT [facility] 0400 Name Value Range Interpretation Description Data Sup porting Code Source(s) Document(s ) Leukocytes 4.4-11.0 <content Saint [#/volume] in styleCode="Bold Minna Blood by ">White Blood Medical Automated count Cell Count Center </content>4.80 KCUMM<content styleCode="Ital ics"> (4.4-11.0 KCUMM)</content > Erythrocytes 4.4-5.9 Below low normal <content Saint [#/volume] in styleCode="Bold Minna Blood by ">Red Blood Medical Automated count Cell Count Center </content>4.03 MCUMM L<content styleCode="Ital ics"> (4.4-5.9 MCUMM)</content > Hematocrit 41.0-53. Below low normal <content Saint [Volume 0 styleCode="Bold Minna Fraction] of ">Hematocrit Medical Blood by </content>38.8 Center Automated count % L<content styleCode="Ital ics"> (41.0-53.0 %)</content> Hemoglobin 13.5-17. Below low normal <content Saint [Mass/volume] in 5 styleCode="Bold Minna Blood ">Hemoglobin Medical </content>13.0 Center G/DL L<content styleCode="Ital ics"> (13.5-17.5 G/DL)</content> Erythrocyte mean 80.0-100 <content Saint corpuscular .0 styleCode="Bold Minna volume [Entitic ">Mean Medical volume] by Corpuscular Center Automated count Volume </content>96.3 FL<content styleCode="Ital ics"> (80.0-100.0 FL)</content> Erythrocyte 11.5-14. <content Saint distribution 5 styleCode="Bold Minna width [Ratio] by ">Red Cell Medical Automated count Distribution Center Width </content>12.4 %<content styleCode="Ital ics"> (11.5-14.5 %)</content> Erythrocyte mean 26.0-34. <content [facility] corpuscular 0 styleCode="Bold Minna hemoglobin ">Mean Medical [Entitic mass] Corposcular Center by Automated Hemoglobin count </content>32.3 PG<content styleCode="Ital ics"> (26.0-34.0 PG)</content> Erythrocyte mean 32.0-37. <content [facility] corpuscular 0 styleCode="Bold Minna hemoglobin ">Mean Corpus. Medical concentration Hgb Center [Mass/volume] by Concentration Automated count (MCHC) </content>33.5 G/DL<content styleCode="Ital ics"> (32.0-37.0 G/DL)</content> UNK 0 <content Saint styleCode="Bold Minna ">Nucleated Red Medical Blood Cell Center </content>0.0 /100<content styleCode="Ital ics"> (0 /100)</content> Platelets 130-400 Below low normal <content Saint [#/volume] in styleCode="Bold Minna Blood by ">Platelet Medical Automated count Count Center </content>105 KCUMM L<content styleCode="Ital ics"> (130-400 KCUMM)</content > Platelet mean 8.0-11.0 Above high <content Saint volume [Entitic normal styleCode="Bold Minna volume] in Blood ">Mean Platelet Medical by Automated Volume Center count </content>11.7 FL H<content styleCode="Ital ics"> (8.0-11.0 FL)</content> UNK 0.0 <content Saint styleCode="Bold Minna ">Nucleated Red Medical Blood Cell Center Count </content>0.00 KCUMM<content styleCode="Ital ics"> (0.0 KCUMM)</content > ID Date Data Source [id number] 11/29/2017 12:18:00 PM EDT [facility] Name Value Range Interpretation Description Data Sup porting Code Source(s) Document(s ) Thyrotropin 0.465-4. <content Saint [Units/volume] 68 styleCode="Marlo Minna in Serum or d">Thyroid Medical Plasma by Stimulating Center Detection Hormone limit <= 0.05 </content>2.37 mIU/L MIU/L<content styleCode="Nata lics"> (0.465-4.68 MIU/L)</conten t> ID Date Data Source [id number].[id number] 11/10/2017 05:07:00 PM EDT [facility] 0 Name Value Range Interpretation Description Data Sup porting Code Source(s) Document(s ) UNK CLEAR <content Saint styleCode="Marlo Minna d">Urine Medical Clarity Center </content>SRIRAM R <content styleCode="Nata lics"> (CLEAR )</content> Color of Urine YELLOW <content Saint styleCode="Marlo Minna d">Color, Medical Urine Center </content>YELL OW <content styleCode="Nata lics"> (YELLOW )</content> Glucose NEGATIVE <content Saint [Mass/volume] styleCode="Marlo Minna in Urine by d">Urine Medical Test strip Glucose Center </content>250 MG/DL<content styleCode="Nata lics"> (NEGATIVE MG/DL)</conten t> Ketones NEGATIVE <content Saint [Mass/volume] styleCode="Marlo Minna in Urine by d">Urine Medical Test strip Ketone Center </content>NEGA TIVE MG/DL<content styleCode="Nata lics"> (NEGATIVE MG/DL)</conten t> UNK NEGATIVE <content Saint styleCode="Marlo Minna d">Urine Medical Bilirubin Center </content>NEGA TIVE <content styleCode="Nata lics"> (NEGATIVE )</content> Specific 1.015-1.02 <content Saint gravity of 5 styleCode="Marlo Minna Urine by Test d">Urine Medical strip Specific Center Hector </content>1.02 5 NM<content styleCode="Nata lics"> (1.015-1.025 NM)</content> Hemoglobin NEGATIVE <content Saint [Presence] in styleCode="Marlo Bakers Urine by Test d">Urine Blood Medical strip </content>NEGA Center TIVE <content styleCode="Nata lics"> (NEGATIVE )</content> Protein NEGATIVE <content Saint [Mass/volume] styleCode="Marlo Bakers in Urine by d">Urine Medical Test strip Protein Center </content>TRAC E MG/DL<content styleCode="Nata lics"> (NEGATIVE MG/DL)</conten t> pH of Urine by 4.5-8.0 <content Saint Test strip styleCode="Marlo Minna d">Urine pH Medical </content>5.5 Center NM<content styleCode="Nata lics"> (4.5-8.0 NM)</content> Nitrite NEGATIVE <content Saint [Presence] in styleCode="Marlo Buitrago Urine by Test d">Urine Medical strip Nitrite Center </content>NEGA TIVE <content styleCode="Nata lics"> (NEGATIVE )</content> Leukocyte NEGATIVE <content Saint esterase styleCode="Marlo Bakers [Presence] in d">Urine Medical Urine by Test Leukocyte Center strip </content>NEGA TIVE <content styleCode="Nata lics"> (NEGATIVE )</content> Urobilinogen 0.2-1.0 <content Saint [Units/volume] styleCode="Marlo Bakers in Urine by d">Urine Medical Test strip Urobilinogen Center </content>0.2 MG/DL<content styleCode="Nata lics"> (0.2-1.0 MG/DL)</conten t> ID Date Data Source [id number].[id number] 11/10/2017 05:07:00 PM EDT [facility] 400 Name Value Range Interpretation Code Description Data Maral rce(s) Supporting Document(s ) UNK <item><content [facility] styleCode="Bold"> Medical [facility] er Culture Report </content>
<t able><tbody><tr>< td>Specimen Number:</td><td>[id number]</td></tr ><tr><td>Sample Collection Date/Time: </td><td> 8 5:07 PM</td></tr><tr>< td>Specimen Source:</td><td>U RINE BLADDER</td></tr> <tr><td>Culture Report:</td><td>N O GROWTH </td></tr><tr><td >Urine Culture:</td><td> Collection Plate Date: 11/10/2017 19:14 </td></tr><tr><td >Culture Status:</td><td>F inal </td></tr></tbody ></table></item> UNK <item><content [facility] styleCode="Bold"> Medical [facility] er Culture Status </content>
<t able><tbody><tr>< td>Specimen Number:</td><td>[id number]</td></tr ><tr><td>Sample Collection Date/Time: </td><td> 8 5:07 PM</td></tr><tr>< td>Specimen Source:</td><td>U RINE BLADDER</td></tr> <tr><td>Culture Status:</td><td>F inal </td></tr><tr><td >Culture Report:</td><td>N O GROWTH </td></tr><tr><td >Urine Culture:</td><td> Collection Plate Date: 11/10/2017 19:14 </td></tr></tbody ></table></item> Procedure Social History Code Duration Value Status Description Data Source(s ) Caffeine Use 02/22/2020 completed NEXTGEN ([facility] Details 12:00:00 AM [facility] EDT [place]) 02/22/2020 Current completed Current NEXTGEN ([facility] 12:00:00 AM non-smoker non-smoker [facility] EDT [place]) Smoking 02/22/2020 Unknown if completed Unknown if ever NEXTGEN ( [facility] 12:00:00 AM ever smoked smoked [facility] EDT [place]) Caffeine Use 01/10/2020 completed NEXTGEN ([facility] nt Details 12:00:00 AM [facility] EDT [place]) Smoking 01/02/2020 Denies Ever completed Denies Ever [facility] 07:[facility]:00 PM [facility] Smoking 01/02/2020 Denies Ever completed Denies Ever [facility] 05:49:00 PM Smoked Smoked [facility] EDT Smoking 01/02/2020 Denies Ever completed Denies Ever [facility] 05:24:00 PM Smoked Smoked [facility] EDT Smoking 02/21/2019 Denies Ever completed Denies Ever [facility] 01:55:00 AM Smoked Smoked [facility] EDT Smoking 02/21/2019 Denies Ever completed Denies Ever [facility] 12:27:00 AM Smoked Smoked [facility] EDT Smoking 02/20/2019 Denies Ever completed Denies Ever [facility] 06:09:00 PM Smoked Smoked [facility] EDT Smoking 02/20/2019 Denies Ever completed Denies Ever [facility] 05:19:00 PM Smoked Smoked [facility] EDT Smoking 02/20/2019 Denies Ever completed Denies Ever [facility] 04:45:00 PM Smoked Smoked [facility] EDT Smoking 10/11/2018 Denies Ever completed Denies Ever [facility] 11:18:00 AM Smoked Smoked [facility] EDT Smoking 10/11/2018 Denies Ever completed Denies Ever [facility] 10:50:00 AM Smoked Smoked [facility] EDT Smoking 10/11/2018 Denies Ever completed Denies Ever [facility] 10:43:00 AM Smoked Smoked [facility] Cent[facility] EDT Alcohol Use completed NEXTGEN ([facility]) Smoking Unknown if completed Unknown if ever [facility] ever smoked smoked Medical Cent[facility] r Smoking Former smoker completed Former smoker [facility] on Vital Signs ID Date Data Source UNK Name Value Range Interpretation Code Description Data Source(s) Diastolic blood 74 mm[Hg] 74 mm[Hg] NEXTGEN ( [facility] pressure [facility]) Systolic blood 154 mm[Hg] 154 mm[Hg] [facility] (S aint pressure [facility]) Oxygen saturation 100 % 100 % [facility] ([facility] in Arterial [facility] by Pulse oximetry Center) Body mass index 24.80 kg/m2 24.80 [facility] (BMI) [Ratio] [facility]) Respiratory rate 20 /min 20 /min [facility] ([facility]) Body temperature 36.67 Collette 36.67 Collette [facility] ([facility]) Heart rate 61 /min 61 /min [facility] ([facility]) Diastolic blood 65 mm[Hg] 65 mm[Hg] [facility] ( [facility] pressure [facility]) Systolic blood 171 mm[Hg] 171 mm[Hg] [facility] Body weight 63.503 kg 63.503 kg [facility] ([facility]) Body height 160.02 cm 160.02 cm [facility] ([facility]) Body temperature 36.135684 36.886239 Collette [facility] Respiratory rate 17 /min 17 /min [facility] Oxygen saturation 98 % 98 % [facility] in [facility] by Pulse oximetry Heart rate 65 /min 65 /min [facility] Diastolic blood 67 mm[Hg] 67 mm[Hg] [facility] Systolic blood 134 mm[Hg] 134 mm[Hg] [facility] Body weight 68.166367 68.032427 kg [facility] Measured kg Medical [place] Body temperature 36.770352 36.034852 Collette [facility] Respiratory rate 19 /min 19 /min [facility] Oxygen saturation 97 % 97 % [facility] J osephs in [facility] by Pulse oximetry Heart rate 68 /min 68 /min [facility] Body height 160.410698 160.703928 cm [facility] Diastolic blood 66 mm[Hg] 66 mm[Hg] [facility] Systolic blood 146 mm[Hg] 146 mm[Hg] [facility] Body mass index 26.5 kg/m2 26.5 kg/m2 Psychiatric (BMI) [Ratio] Medical [address] Oxygen saturation 98 % 98 % NEXTGEN ([facility] in Arterial blood [facility] by Pulse oximetry Center) Body mass index 24.84 kg/m2 24.84 kg/m2 NEXTGEN ([facility] (BMI) [Ratio] [facility]) Respiratory rate 18 /min 18 /min [facility] Body temperature 36.89 Collette 36.89 Collette [facility] ([facility]) Heart rate 69 /min 69 /min [facility] ([facility]) Diastolic blood 61 mm[Hg] 61 mm[Hg] [facility] ( [facility]) Systolic blood 130 mm[Hg] 130 mm[Hg] [facility] ([facility]) Body weight 63.594 kg 63.594 kg [facility] ([facility]) Body height 160.02 cm 160.02 cm [facility] ([facility]) Body temperature 36.907517 36.094742 Collette [facility] Respiratory rate 20 /min 20 /min [facility] Heart rate 75 /min 75 /min [facility] Diastolic blood 70 mm[Hg] 70 mm[Hg] [facility] Systolic blood 177 mm[Hg] 177 mm[Hg] [facility] Body temperature 36.675674 36.973008 Collette [facility] Respiratory rate 20 /min 20 /min [facility] Heart rate 77 /min 77 /min [facility] Diastolic blood 70 mm[Hg] 70 mm[Hg] [facility] Systolic blood 163 mm[Hg] 163 mm[Hg] [facility] Body weight 65.283385 65.433914 kg [facility] Measured kg [facility] Body temperature 37.062966 37.220862 Collette [facility] Respiratory rate 19 /min 19 /min [facility] Heart rate 73 /min 73 /min [facility] Diastolic blood 62 mm[Hg] 62 mm[Hg] [facility] Systolic blood 170 mm[Hg] 170 mm[Hg] [facility] Body temperature 36.711995 36.015901 Collette [facility] Respiratory rate 17 /min 17 /min [facility] Oxygen saturation 98 % 98 % [facility] in [facility] blood [facility] by Pulse oximetry Heart rate 64 /min 64 /min [facility] Diastolic blood 89 mm[Hg] 89 mm[Hg] [facility] Systolic blood 161 mm[Hg] 161 mm[Hg] [facility] Body temperature 36.066087 36.729599 Collette [facility] Respiratory rate 18 /min 18 /min [facility] Oxygen saturation 97 % 97 % [facility] in [facility] blood [facility] by Pulse oximetry Heart rate 74 /min 74 /min [facility] Diastolic blood 89 mm[Hg] 89 mm[Hg] [facility] Systolic blood 193 mm[Hg] 193 mm[Hg] [facility] Oxygen saturation 98 % 98 % [facility] in [facility] blood [facility] by Pulse oximetry Oxygen saturation 98 % 98 % NEXTGEN ([facility] in Arterial blood [facility] by Pulse oximetry Center) Body mass index 25.86 kg/m2 Overweight 25.86 kg/m2 NEXTGEN ([facility] (BMI) [Ratio] [facility]) Respiratory rate 17 /min 17 /min [facility] Body temperature 36.78 Collette 36.78 Collette [facility] Heart rate 62 /min 62 /min [facility]) Diastolic blood 60 mm[Hg] 60 mm[Hg] [facility] ( [facility]) Systolic blood 107 mm[Hg] 107 mm[Hg] [facility] ([facility] pressure [facility]) Body weight 66.224 kg 66.224 kg [facility] Body height 160.02 cm 160.02 cm [facility] ([facility]) Oxygen saturation 100 % 100 % NEXTGEN ([facility] in Arterial blood [facility] by Pulse oximetry Center) Body mass index 25.33 kg/m2 Overweight 25.33 kg/m2 NEXTGEN (Saint (BMI) [Ratio] [facility]) Respiratory rate 16 /min 16 /min [facility] Body temperature 36.61 Collette 36.61 Collette [facility]) Heart rate 57 /min 57 /min [facility] ([facility]) Diastolic blood 57 mm[Hg] 57 mm[Hg] NEXTGEN ( [facility]) Systolic blood 130 mm[Hg] 130 mm[Hg] [facility] pressure [facility]) Body weight 64.864 kg 64.864 kg [facility] Body height 160.02 cm 160.02 cm [facility] ([facility]) Body mass index 24.98 kg/m2 24.98 kg/m2 [facility] ([facility] (BMI) [Ratio] [facility]) Body temperature 36.67 Collette 36.67 Collette [facility]) Heart rate 62 /min 62 /min [facility] ([facility]) Diastolic blood 66 mm[Hg] 66 mm[Hg] NEXTGEN ( [facility]) Systolic blood 128 mm[Hg] 128 mm[Hg] [facility] pressure [facility]) Body weight 63.957 kg 63.957 kg [facility] ([facility]) Body height 160.02 cm 160.02 cm [facility] ([facility]) Diastolic blood 68 {} Normal (applies to 68 {} [place] pressure non-numeric results) [facility] Systolic blood 154 {} Normal (applies to 154 {} [place] pressure non-numeric results) [facility] ty [facility] First Respiration 18.0000 {} Normal (applies to 18.0000 {} [place] rate Set non-numeric results) [facility] ty [facility] Heart rate 69.0000 {} Normal (applies to 69.0000 {} [place] unruly non-numeric results) Coun ty [facility] Body temperature 97.6000 {} Normal (applies to 97.6000 {} [place] non-numeric results) Coun ty [facility] wt - obtain Normal (applies to {} [facility] jane non-numeric results) Coun [facility] Corpor[facility] on weight - kg 66.9000 {} Normal (applies to 66.9000 {} [facility] non-numeric results) Coun [facility] on Oxygen saturation 98 % 98 % [facility] ([facility] in Arterial blood [facility] by Pulse oximetry Center) Body mass index 25.51 kg/m2 Overweight 25.51 kg/m2 [facility] (BMI) [Ratio] [facility]) Respiratory rate 17 /min 17 /min [facility] ([facility]) Body temperature 36.67 Collette 36.67 Collette [facility] ([facility]) Heart rate 63 /min 63 /min [facility] ([facility]) Diastolic blood 62 mm[Hg] 62 mm[Hg] [facility] ( [facility] pressure [facility]) Systolic blood 116 mm[Hg] 116 mm[Hg] [facility] Body weight 65.317 kg 65.317 kg [facility] ([facility]) Body height 160.02 cm 160.02 cm [facility] ([facility]) Body temperature 36.295120 36.151838 Collette [facility] Respiratory rate 16 /min 16 /min [facility] Oxygen saturation 97 % 97 % [facility] in [facility] by Pulse oximetry Heart rate 65 /min 65 /min [facility] Diastolic blood 65 mm[Hg] 65 mm[Hg] [facility] Systolic blood 145 mm[Hg] 145 mm[Hg] [facility] Body temperature 36.259294 36.866436 Collette [facility] Respiratory rate 18 /min 18 /min [facility] Oxygen saturation 99 % 99 % [facility] J osephs in [facility] blood [facility] by Pulse oximetry Heart rate 62 /min 62 /min [facility] Diastolic blood 67 mm[Hg] 67 mm[Hg] [facility] Systolic blood 148 mm[Hg] 148 mm[Hg] [facility] Body weight 65.084629 65.879961 kg [facility] Measured kg Medical Center Body temperature 35.934271 35.069810 Collette [facility] Respiratory rate 16 /min 16 /min [facility] Oxygen saturation 98 % 98 % Saint [facility]ong tripathi in Arterial blood [facility] by Pulse oximetry Heart rate 59 /min 59 /min [facility] Body height 152.111677 152.505490 cm [facility] Medical Center Diastolic blood 63 mm[Hg] 63 mm[Hg] Psychiatric pressure Medical Center Systolic blood 134 mm[Hg] 134 mm[Hg] [facility] Body mass index 28.0 kg/m2 28.0 kg/m2 Psychiatric (BMI) [Ratio] Medical [facility] ter Oxygen saturation 99 % 99 % NEXTGEN ([facility] in [facility]ter[facility] Pulse [facility]) Body mass index 25.69 kg/m2 Overweight 25.69 kg/m2 NEXTGEN ([facility] (BMI) [Ratio] [facility]) [facility] rate 16 /min 16 /[facility] Body temperature 36.50 Collette 36.50 Collette [facility] ([facility]) Heart rate 67 /min 67 /min [facility] ([facility]) Diastolic blood 54 mm[Hg] 54 mm[Hg] [facility] ( [facility]) Systolic blood 114 mm[Hg] 114 mm[Hg] [facility] ([facility]) Body weight 65.771 kg 65.771 [facility] Body height 160.02 cm 160.02 cm [facility] ([facility]) Oxygen saturation 98 % 98 % NEXTGEN ([facility]ial [facility]ulse [facility]) Body mass index 25.69 kg/m2 Overweight 25.69 kg/m2 NEXTGEN ([facility] (BMI) [Ratio] [facility]) Respiratory rate 18 /min 18 /min [facility] ([facility]) Body temperature 36.39 Collette 36.39 Collette [facility] ([facility]) Heart rate 67 /min 67 /min [facility] ([facility]) Diastolic blood 73 mm[Hg] 73 mm[Hg] [facility] Systolic blood 135 mm[Hg] 135 mm[Hg] [facility]EXT[facility] ([facility]) Body weight 65.771 kg 65.771 [facility] Body height 160.02 cm 160.02 cm [facility] ([facility]) Oxygen saturation 98 % 98 % NEXTGEN ([facility] in [facility]) Body mass index 26.61 kg/m2 Overweight 26.61 kg/m2 NEXTGEN ([facility] (BMI) [Ratio] [facility]) Respiratory rate 18 /min 18 /min [facility] ([facility]) Body temperature 37.22 Collette 37.22 Collette [facility] Heart rate 75 /min 75 /min [facility] Diastolic blood 70 mm[Hg] 70 mm[Hg] [facility] Systolic blood 149 mm[Hg] 149 mm[Hg] [facility] Body weight 68.130 kg 68.130 kg [facility] Body height 160.02 cm 160.02 cm [facility] Oxygen saturation 99 % 99 % NEXTGEN ([facility] in [facility]) Body mass index 25.54 kg/m2 Overweight 25.54 kg/m2 [facility]EXT[facility] ([facility] (BMI) [Ratio] [facility]) Respiratory rate 16 /min 16 /min [facility] ([facility]) Body temperature 36.28 Collette 36.28 Collette [facility] Heart rate 63 /min 63 /min [facility] ([facility]) Diastolic blood 66 mm[Hg] 66 mm[Hg] [facility]EXT[facility] ( [facility]) Systolic blood 153 mm[Hg] 153 mm[Hg] [facility] Body weight 65.408 kg 65.408 kg [facility] Body height 160.02 cm 160.02 cm [facility] Oxygen saturation 95 % 95 % [facility]) Body mass index 25.97 kg/m2 Overweight 25.97 kg/m2 [facility]EXT[facility] ([facility] (BMI) [Ratio] [facility]) Respiratory rate 16 /min 16 /min [facility] ([facility]) Body temperature 36.28 Collette 36.28 Collette [facility] Heart rate 63 /min 63 /min [facility] Diastolic blood 64 mm[Hg] 64 mm[Hg] NEXTGEN ( [facility]) Systolic blood 129 mm[Hg] 129 mm[Hg] [facility] Body weight 66.497 kg 66.497 kg [facility] ([facility]) Body height 160.02 cm 160.02 cm [facility] ([facility]) Oxygen saturation 100 % 100 % [facility]) Body mass index 26.04 kg/m2 Overweight 26.04 kg/m2 [facility] (BMI) [Ratio] [facility]) Respiratory rate 18 /min 18 /min [facility] ([facility]) Body temperature 36.44 Collette 36.44 Collette [facility] ([facility]) Heart rate 60 /min 60 /min [facility] ([facility]) Diastolic blood 66 mm[Hg] 66 mm[Hg] [facility] ( [facility]) Systolic blood 169 mm[Hg] 169 mm[Hg] [facility] Body weight 66.678 kg 66.678 kg [facility] ([facility]) Body height 160.02 cm 160.02 cm [facility] ([facility]) Patient Treatment Plan of Care Planned Activity Planned Date Details Description Data Source (s) Ketoconazole 20 MG/ML 02/22/2020 12:00:00 NEXTGEN ([facility] Topical Cream [facility]) Amoxicillin 500 MG Oral 01/24/2020 12:00:00 NEXTGEN ([facility] Capsule [facility]) Fluoxetine 20 MG Oral 01/24/2020 12:00:00 NEXTGEN ([facility] Capsule [facility]) Amoxicillin 500 MG Oral 06/22/2019 12:00:00 NEXTGEN ([facility] Capsule [facility]) Lidocaine 25 MG/ML / 02/06/2019 12:00:00 NEXTGEN ([facility] Prilocaine 25 MG/ML [facility] Topical Cream [place]) Chlorthalidone 25 MG Oral 01/22/2019 12:00:00 NEXTGEN ([facility] Tablet [facility]) Magnesium Oxide 400 MG 01/22/2019 12:00:00 NEXTGEN ([facility] Oral Capsule [facility]) Hydrocortisone 25 MG/ML 01/22/2019 12:00:00 NEXTGEN ([facility] Topical Cream [Proctosol] [facility]) Sodium Bicarbonate 650 MG 11/29/2018 [facility] Oral Tablet [facility]) Magnesium Oxide 400 MG 11/29/2018 12:00:00 NEXTGEN ([facility] Oral Capsule [facility]) Basaglar KwikPen U-100 10/11/2018 12:00:00 NEXTGEN ([facility] Insulin 100 unit/mL (3 mL) [facility]) Lisinopril 2.5 MG Oral 10/11/2018 12:00:00 NEXTGEN ([facility] Tablet [facility]) atorvastatin 10 MG Oral 10/11/2018 12:00:00 [facility] ([facility] Tablet [facility]) Aspirin 81 MG Delayed 10/11/2018 12:00:00 NEXTGEN ([facility] Release Oral Tablet [facility]) Amoxicillin 500 MG Oral 10/10/2018 12:00:00 NEXTGEN ([facility] Capsule [facility]) Diclofenac Sodium 0.01 08/25/2018 12:00:00 NEXTGEN ([facility] MG/MG Topical Gel [facility] dical [Voltaren] [place]) Tresiba FlexTouch U-100 07/17/2018 12:00:00 NEXTGEN ([facility] insulin 100 unit/mL (3 mL) [facility] subcutaneous pen [place]) Hydrocortisone 25 MG/ML 07/17/2018 12:00:00 NEXTGEN ([facility] Topical Cream [Anusol HC] [facility]) cinacalcet 60 MG Oral 06/26/2018 12:00:00 NEXTGEN ([facility] Tablet [Sensipar] [facility] dical [place]) Insulin Glargine 100 04/28/2018 12:00:00 NEXTGEN ([facility] UNT/ML Injectable Solution [facility] [Lantus] [place]) BD Insulin Syringe 04/14/2018 12:00:00 NE XTGEN ([facility] Safety-[place]alia 1 mL 29 gauge x [facility] 06/14" Center) Insulin Lispro 100 UNT/ML 04/14/2018 12:00:00 NEXTGEN ([facility] Injectable Solution [facility] [Humalog] [place]) Insulin Glargine 100 04/14/2018 12:00:00 NEXTGEN ([facility] UNT/ML Injectable Solution [facility] [Lantus] [place]) Tamsulosin hydrochloride 07/07/2017 12:00:00 NEXTGEN ([facility] 0.[address] [facility] [Flomax] [place]) Tacrolimus 1 MG Oral 07/07/2017 12:00:00 NEXTGEN ([facility] Capsule [facility]) mycophenolate mofetil 250 07/07/2017 12:00:00 NEXTGEN ([facility] MG Oral Capsule [facility]) mycophenolate mofetil 500 07/07/2017 12:00:00 NEXTGEN ([facility] MG Oral Tablet [facility]) Metoprolol Tartrate 50 MG 07/07/2017 12:00:00 NEXTGEN ([facility] Oral Tablet [facility]) gabapentin 100 MG Oral 07/07/2017 12:00:00 NEXTGEN ([facility] Capsule [facility]) Colchicine 0.6 MG Oral 07/07/2017 12:00:00 NEXTGEN ([facility] Capsule [facility]) tramadol hydrochloride 50 07/07/2017 12:00:00 NEXTGEN ([facility] MG Oral Tablet [facility]) Docusate Sodium 100 MG 07/07/2017 12:00:00 NEXTGEN ([facility] Oral Capsule [facility]) Prednisone 5 MG Oral 07/07/2017 12:00:00 NEXTGEN ([facility] Tablet [facility]) cinacalcet 30 MG Oral 07/07/2017 12:00:00 CIERA ([facility] [place] [Sensipar] [facility])
--- NOTE | 2020-03-02 14:11 | PDOC ---
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 Here with at bedside. Patient has had chronic PIP joint ulcers 2/2 DM in his left foot at toes 2-4, sees podiatry at a [facility] at [address] [place] [address] but has been unable to get better care 2/2 coronavirus pandemic. Was trialled on cremes, one of which he put on today, wound has been worsening and growing in size. Able to walk with pain, pain present at baseline and says 03/22, has trialled Tylenol with limited success. Denies weakness or numbness, but pain radiates up the left leg. R foot no wounds but also has pain in the midsole with walking. Denies fever, chills, N/V, chest pain, SOB, coughing, urinary sx, abd pain. Allergy to cipro is abdominal pain. Denies alcohol/drugs/tobacco. Urologist is Dr. Martin at [facility] Meds: neurontin 100mg QD, Lantus 25U QAM, Humulog 4U Qmeal, mycophenolate 360mg BID, prednisone 2.5mg QD, tacrolimus 2mg BID Past History - Medical History Allergies/Adverse Reactions: Allergies Allergy/AdvReac Type Severity Reaction Status Date / Time ciprofloxacin [From Cipro] Allergy "STOMACH Verified 07/29/18 14:20 BURNING" ciprofloxacin HCl Allergy Verified 07/29/18 14:20 [From Cipro] latex Allergy Verified 07/29/18 14:20 Home Medications: Ambulatory Orders Cinacalcet HCl [Sensipar] 60 mg PO DAILY 02/03/13 Amlodipine Besylate [Norvasc -] 5 mg PO DAILY 03/31/16 Fludrocortisone Acetate [Florinef -] 0.1 mg PO DAILY 03/31/16 Metoprolol Tartrate [Lopressor -] 50 mg PO BID 03/31/16 Mycophenolate Sodium [Myfortic -] 360 mg PO BID 03/31/16 Prednisone 5 mg PO DAILY 03/31/16 Tacrolimus [Prograf] 3 mg PO BID 03/31/16 Tamsulosin HCl [Flomax] 0.4 mg PO DAILY 03/31/16 Tramadol HCl [Ultram] 50 mg PO PRN PRN 03/31/16 Insulin Glargine,Hum.rec.anlog [Lantus] 25 unit SQ DAILY 02/17/18 Insulin Lispro [Humalog] 0 units SQ ASDIR 02/17/18 Phenylephrine HCl/[place] [Preparation H Suppository] 1 each RC QID 10 Days #40 supp.rect 07/29/18 Anemia: No Asthma: No Cancer: No Cardiac Disorders: No CVA: No COPD: No CHF: No DVT: No Dementia: No Diabetes: Yes Dialysis: Yes GI Disorders: No Disorders: No HTN: Yes Hypercholesterolemia: Yes Liver Disease: No Seizures: No Thyroid Disease: No Other medical history: kidney transplant 2014 - Surgical History Abdominal Surgery: No Appendectomy: No Cardiac Surgery: No Cholecystectomy: No Lung Surgery: No Neurologic Surgery: No Orthopedic Surgery: Yes (FOOT SURGERY DARLINE) - Immunization History Immunization Up to Date: Yes - Psycho-Social/Smoking History Smoking Status: No Smoking History: Never smoked Have you smoked in the past 12 months: No Number of Cigarettes Smoked Daily: 0 - Substance Abuse Hx (Audit-C & DAST Scrn) How often the patient has a drink containing alcohol: Never Score: In Men: 4 or > Positive; In Women: 3 or > Positive: 0 Screen Result (Pos requires Nsg. Audit-10AR): Negative Review of Systems - Review of Systems Able to Perform ROS?: Yes Constitutional: No: Symptoms Reported HEENTM: No: Symptoms Reported Respiratory: No: Symptoms reported Cardiac (ROS): No: Symptoms Reported ABD/GI: No: Symptoms Reported : No: Symptoms Reported Musculoskeletal: Yes: Joint Pain Integumentary: Yes: Lesions Neurological: No: Symptoms reported Endocrine: No: Symptoms Reported Hematologic/Lymphatic: No: Symptoms Reported All Other Systems: Reviewed and Negative *Physical Exam - Vital Signs Last Vital Signs Temp Pulse Resp BP Pulse Ox 98.3 F 88 20 104/78 99 03/02/20 13:10 03/02/20 13:10 03/02/20 13:10 03/02/20 13:10 03/02/20 13:10 - Physical Exam General Appearance: Yes: Nourished, Appropriately Dressed, Other (resting in bed, in NAD, stoic). No: Apparent Distress HEENT: positive: EOMI, JENNIFER, Normal Voice, Symmetrical, Pharynx Normal, Hearing Grossly Normal. negative: Scleral Icterus (R), Scleral Icterus (L), Pharyngeal Erythema, Tonsillar Exudate, Tonsillar Erythema Neck: positive: Trachea midline, Normal Thyroid, Supple. negative: Tender, Rigid, Lymphadenopathy (R), Lymphadenopathy (L) Respiratory/Chest: positive: Lungs Clear, Normal Breath Sounds. negative: Chest Tender, Respiratory Distress, Accessory Muscle Use, Crackles, Rales, Rhonchi, Stridor, Wheezing Cardiovascular: positive: Regular Rhythm, Regular Rate. negative: Murmur Gastrointestinal/Abdominal: positive: Normal Bowel Sounds, Flat, Soft, Other (well-healed RLQ surgical incision, non-tender, palpable kidney). negative: Tender, Organomegaly, Pulsatile Mass, Guarding, Rebound Musculoskeletal: positive: Normal Inspection, Decreased Range of Motion. negative: CVA Tenderness Extremity: positive: Normal Capillary Refill, Normal Range of Motion, Tender, Pelvis Stable, Other (has bruises to BLE, streaks of pink skin discoloration said to be medicine creme). negative: Normal Inspection, Pedal Edema, Swelling, Calf Tenderness Integumentary: positive: Normal Color, Dry, Warm, Other (4mm non-bloody non- erythematous wounds in the creases of the PIP joints of the L toes 2-4. Healed surgical scars to big toe left foot and 5th toe of right foot.). negative: Cold, Clammy Neurologic: positive: Fully Oriented, Alert, Normal Mood/Affect, Normal Response, Motor Strength 5/5, Other (sensation intact to LT equally both BLE) ED Treatment Course - LABORATORY CBC & Chemistry Diagram: 03/02/20 14:59 03/02/20 14:59 Medical Decision Making - Medical Decision Making 03/02/20 14:10 Patient presents with worsening ulcers to the skin folds to the left toes, known history of renal transplant and ESRD/DM, no systemic sx including fevers, N/V, diarrhea, abd pain. Takes all transplant meds. Concern for osteo of the feet. CBC/CMP/CP/ECG/CXR/BC/WC/ESR/CRP with XR both feet. Starting on Ofirmev for pain, vanc/Zosyn for infection feet. Merits admission for worsening foot ulcers and podiatric care. 03/02/20 15:28 ECG has significant motion artifact, needs repeat. Sinus rhythm, RBBB, HR 99, Qtc 490, artifact prevents evaluation of true EMERITA/D or TWI. 03/02/20 15:46 Labs notable for: - Na 130 - K 5.7, elevated, ECG unclear, correcting with insulin and IVF - Cr 1.4, WNL for patient - trop WNL - CRP 1.4 - CBC WNL, no anemia or evidence of systemic infection 03/02/20 17:09 CXR unremarkable. L foot XR shows no free air. R foot XR degeneration to 4th metatarsal and calcification to vessel in foot, unclear what this is Will admit for eval wound and IV Abx. Discharge - Discharge Information Problems reviewed: Yes Clinical Impression/Diagnosis: Toe ulcer due to DM Qualifiers: Diabetes mellitus type: type 2 Laterality: left Non-pressure ulcer stage: unspecified non-pressure ulcer stage Qualified Code(s): E11.621 - Type 2 diabetes mellitus with foot ulcer Condition: Stable - Admission Yes - Follow up/Referral - Patient Discharge Instructions - Post Discharge Activity
[2020-03-02] MEDS ORDERED: PIPERACILLIN/TAZOB 3.375 GM 3.375 GM in DEXTROSE 5%-WATER - 50 ML IVPB ONE (14:34)
[2020-03-02] MEDS ORDERED: VANCOMYCIN 1 GM in D5W (PRE-DOCKED) 1,000 MG/250 ML IVPB ONE (14:34)
[2020-03-02] MEDS ORDERED: ACETAMINOPHEN 1000 MG/100 ML VIAL (NON FORMULARY) IVPB ONE (14:38)
--- NOTE | 2020-03-02 14:55 | PDOC ---
Documentation entered by Lexi Delgado SCRIBE, acting as scribe for Wesley Zuñiga MD. Wesley Zuñiga MD: This documentation has been prepared by the Danny william Ana, SCRIBE, under my direction and personally reviewed by me in its entirety. I confirm that the documentation accurately reflects all work, treatment, procedures, and medical decision making performed by me. Attending Attestation - Resident Resident Name: Thanh Murphy - ED Attending Attestation I have performed the following: I have examined & evaluated the patient, The case was reviewed & discussed with the resident, I agree w/resident's findings & plan, Exceptions are as noted - HPI HPI: 03/02/20 14:02 Patient is a 64 year old male with a significant past medical history of hypertension, hyperlipidemia, ESRD, diabetes, and renal transplant (2014), who presents to the ED with a worsening chronic left toe ulcer. Patient stated his pain level is a 10/10 and that it radiates up his left leg. Patient reports that he has attempted to self medicate with Tylenol and multiple creams but has experienced no relief. Patient disclosed that due to the Covid pandemic he has not been compliant with podiatry care. Patient endorses: pain in both feet when walking. Patient denies: weakness, numbness, fever, chills, nausea, vomiting, SOB, coughing, chest pain, abdominal pain, any urinary issues, or any other related symptoms. Allergies: see nurse's note - Physicial Exam PE: 03/02/20 14:03 See resident exam. - Medical Decision Making 03/02/20 14:55 64 M with infected toe ulcer. - labs, cultures - XR - IV abx - Admit Discharge - Discharge Information Problems reviewed: Yes Clinical Impression/Diagnosis: Toe ulcer due to DM Qualifiers: Diabetes mellitus type: type 2 Laterality: left Non-pressure ulcer stage: unspe cified non-pressure ulcer stage Qualified Code(s): E11.621 - Type 2 diabetes mellitus with foot ulcer Condition: Stable - Follow up/Referral - Patient Discharge Instructions - Post Discharge Activity
[2020-03-02] MEDS ORDERED: ACETAMINOPHEN INJECTION 100 ML IVPB ONE (15:11)
[2020-03-02] MEDS ORDERED: PIPERACILLIN/TAZOB 3.375 GM 3.375 GM/50 ML BAG IVPB ONE ×2 (15:11→22:47)
[2020-03-02] MEDS ORDERED: VANCOMYCIN 1 GRAM (PRE-DOCKED) 1,000 MG/250 ML BAG IVPB ONE (15:11)
[2020-03-02 15:32] LABS: BASO % 0.9 % (0-2.0); EOS % 0.8 % (0-4.5); HEMATOCRIT 40.3 % (35.4-49); HEMOGLOBIN 13.3 GM/dL (11.7-16.9); LYMPH % 5.5 % (8-40); MCH 32.3 pg (25.7-33.7); MCHC 33.1 g/dl (32.0-35.9); MEAN CELL VOLUME 97.5 fl (80-96); MEAN PLT VOLUME 9.1 fl (7.5-11.1); MONO % 4.9 % (3.8-10.2); NEUT % 87.9 % (42.8-82.8); PLATELET COUNT 118 K/MM3 (134-434); RBC 4.14 M/mm3 (4.00-5.60); RDW 13.3 % (11.9-15.9); WHITE BLOOD COUNT 9.3 K/mm3 (4.0-10.0)
[2020-03-02 15:35] LABS: ALBUMIN 4.1 g/dl (3.4-5.0); ANION GAP 5 MMOL/L (8-16); BLOOD UREA NITROGEN 24.6 mg/dL (7-18); CALCIUM 9.5 mg/dL (8.5-10.1); CHLORIDE 96 mmol/L (98-107); CO2 29 mmol/L (21-32); GLUCOSE,RANDOM 320 mg/dL (74-106); POTASSIUM 5.7 mmol/L (3.5-5.1); SODIUM 130 mmol/L (136-145)
[2020-03-02 15:36] LABS: CREATININE 1.4 mg/dL (0.55-1.3); SGOT/AST 8 U/L (15-37); SGPT/ALT 17 U/L (13-61)
[2020-03-02 15:40] LABS: ALK PHOS 169 U/L (45-117); BILIRUBIN,TOTAL 0.8 mg/dL (0.2-1); TOT PROT 7.3 g/dl (6.4-8.2)
[2020-03-02 16:34] LABS: INR 1.04 (0.83-1.09); PROTHROMBIN TIME (PATIENT) 12.3 SEC (9.7-13.0)
[2020-03-02 16:36] LABS: ACTIVATED PTT 31.7 SECONDS (25.2-36.5)
[2020-03-02 16:42] LABS: ERYTHROCYTE SEDIMENTATION RATE 15 mm/hr (0-20)
[2020-03-02] MEDS ORDERED: SODIUM CHLORIDE 0.9% 500 ML INFUS.BAG IV ONE (17:08)
[2020-03-02] MEDS ORDERED: INSULIN REGULAR HUMAN 100 UNITS/ML *VIAL IVPUSH ONE (17:08)
--- OUTSIDE RECORDS SUMMARY | 2020-03-02 17:43 | XMS ---
:1955 [facility] Organization [facility] Care Team Providers Name Role Phone VELIA GUIDO Unavailable Unavailable ZUNILDA PETER Unavailable Unavailable GONSALO SEDEJAN Unavailable Unavailable SUSANA,DOROTHY Unavailable Unavailable DEIRDRE, NGUYỄN Unavailable Unavailable ESPERANZA PETERTA Unavailable Unavailable HILDA, ACE Unavailable Unavailable AMBER MORALES Unavailable Unavailable ED STAFF PHYSICIANWHITNEY Unavailable Unavailable Metz, Jia Unavailable Unavailable Metz, Jia Unavailable Unavailable Metz, Jia Unavailable Unavailable Metz, Jia Unavailable Unavailable CESAR, CHRISTOPHER Unavailable Unavailable Menla, Sal Unavailable Unavailable Menla, Sal Unavailable Unavailable Menla, Sal Unavailable Unavailable Menla, Sal Unavailable Unavailable Menla, Sal Unavailable Unavailable Menla, Sal Unavailable Unavailable NATALIE BRIGGS Unavailable Unavailable ED STAFF PHYSICIAN Unavailable Unavailable SEAN, SANDHYA Unavailable Unavailable METZ, JIA Unavailable Unavailable JIMTSAERT, JIA Unavailable Unavailable Giorgio Coelho Unavailable [phone] PRISCILLA KUHN Unavailable Unavailable ED STAFF PHYSICIAN, STAFF Unavailable Unavailable JEAN PAUL PEDRAZA Unavailable Unavailable NEIL, MAYKEL Unavailable Unavailable MIRZA, AMMIR Unavailable Unavailable MARTHA LOPEZ Unavailable Unavailable RELIGIOUS Unavailable Unavailable JOE MELVIN Unavailable Unavailable ELKIN [...] is protected by Article 27-F of the [facility] Public Health law. If you continue you may haveaccess to information: Regarding HIV / AIDS; Provided by facilities licensed or operated by the [facility] Office of Mental Health; or Provided by the [facility] Office for People With Developmental Disabilities. If such information is present, then the following [facility] mandated warning applies: This information has been [...] law may result in a fine or snf sentence or both. A general authorization for the release of medical or other information is NOT sufficient authorization for further disclosure. Allergies and Adverse Reactions Type Description Substance Reaction Status Data Source(s ) Food allergy No Known Food No Known Food [place] unruly Allergies Allergies [facility] on Drug allergy Ciprofloxacin Ciprofloxacin [facility] on Drug allergy No Known Drug No Known Drug [place] unruly Allergies Allergies [facility] on Drug allergy No Known Allergies No Known [facility] Prop[facility] to Propensity to Propensity to NEXTG EN ([facility] adverse adverse reactions adverse reactions [facility] Medical reactions (disorder) (disorder) Center) (disorder) Encounters Encounter Providers Location Date Indications Data Source(s ) Outpatient 03/21/2020 [facility] 04:49:00 PM Medical Cente r EDT Outpatient 03/21/2020 [facility] 12:00:00 AM Medical Cente r EDT Attender[facility] 02/22/2020 [facility] ([facility] [place] 04:01:00 PM [facility] Medic al EDT - Center) 02/22/2020 04:01:00 PM EDT Outpatient Attender: JIA H 02/22/2020 [facility] MEJIAAdmitter: 04:01:00 PM Medical C enter JIA EDT LACEYAReferrer: JIA METZ Outpatient Attender: 01/28/2020 Z94.0 [facility] bob KUHN, 10:00:00 AM Health Care DANIELAdmitter: EDT Corporati on PRISCILLA KUHNReferrer: PRISCILLA KUHN Z94.0 Outpatient 01/24/2020 [facility] 05:02:00 PM EDT Medical C enter Outpatient Attender: JIA H 01/24/2020 [facility] MEJIAAttender: 03:45:00 PM EDT Medic al Center ELKIN CONTRERAS HAdmitter: JIA Fonsecarer: JIA METZ OutpatientOFFICE/O Attender: Sal [facility] 01/24/2020 [place] XTGEN ([facility] VISIT, [place] 03:45:00 PM EDT - [facility] Medical EST 01/24/2020 [facility]) 03:45:00 PM EDT Outpatient 01/24/2020 [facility] 12:00:00 AM EDT Medical C enter Outpatient 01/16/2020 [facility] 06:26:00 PM EDT Medical C enter Outpatient Attender: 01/16/2020 Z94.0 [facility] bob PETER, 10:41:00 AM EDT Health Ca re ESPERANZATAAdmitter Corporati on : JOHNNY PETERReferrer : JOHNNY PETER Z94.0 Outpatient 01/16/2020 12:00:00 [facility] AM EDT Center Outpatient Attender: 01/15/2020 06:00:00 R74.8 [facility] BAM AM EDT Z94.0 [facility] Care MICHELLEELAdmitter: Corporati on PRISCILLA KUHNReferrer: PRISCILLA KUHN R74.8 Z94.0 Attender: Giorgio [facility] 01/10/2020 06:20:00 NEXTGEN ([facility] EDT - 01/10/2020 [facility] Medical 06:20:00 PM EDT Center) Outpatient Attender: 01/09/2020 09:38:00 [facility] ISLAMAdmitter: AM EDT Health Car e ISLAMReferrer: Corporatio n DOROTHY MEZA Emergency Attender: ED STAFF H 01/02/2020 05:13:00 [facility] Medical PHYSICIANAttender: PM EDT - 01/02/2020 Center STAFF ED STAFF 09:34:00 PM EDT PHYSICIANAdmitter: ED STAFF PHYSICIAN Patient discharged. Outpatient 01/02/2020 [facility] 04:11:00 PM EDT Medical C enter Outpatient Attender: JIA Wyatt 01/02/2020 [facility] eph MEJIAAdmitter: 04:00:00 PM EDT Medic al Center JIA LACEYAReferrer: JIA METZ OutpatientOFFICE/O Attender: [facility] 01/02/2020 [place] VERONICA ([facility] VISIT, [place] 04:00:00 PM EDT - [facility] Medical EST 01/02/2020 [facility]) 04:00:00 PM EDT Outpatient 01/02/2020 [facility] 12:00:00 AM EDT Medical C enter Outpatient Attender: 10/12/2019 [facility] bob LOPEZ, 06:00:00 AM EDT Health Ca re MICHAELAdmitter Corporati on : MARTHA LOPEZ Outpatient Attender: 08/03/2019 [facility] bob LOPEZ, 06:00:00 AM EST Health Ca re MARTHAAttender Corporati on : JIA ORELLANAAdmitter: MARTHA LOPEZ Outpatient Attender: 07/04/2019 [facility] bob LOPEZ, 06:00:00 AM EST Health Ca re MARTHAAdmitter Corporati on : MARTHA LOPEZ Attender: [facility] 06/22/2019 [facility] ([facility] [place] 10:26:00 AM [facility] 06/22/2019 [facility]) 10:26:00 AM EST Outpatient Attender: 04/04/2019 [facility]94.0 [facility] 06[facility]00 AM EDT [facility] ISLAMReferrer: Corporatio PRISCILLA Cabral Z94.0 Outpatient Attender: NEIL, 03/19/2019 01:55:00 [facility] PM EDT [facility] Outpatient Attender: ZUNILDA PETER 03/12/2019 06:00:00 [facility] KAdmitter: ZUNILDA PETER AM [facility] Outpatient 03/07/2019 10:41:00 [facility] EDT Center Outpatient 03/07/2019 12:00:00 [facility] EDT Center Emergency Attender: VELIA SEWELL H 02/20/2019 04:45:00 [facility] VELIA O PM EDT - 02/22/2019 Cente r 10:26:00 PM EDT Patient discharged. Outpatient Attender: JIA H 02/20/2019 [facility] MEJIAAdmitter: JIA 11:14:00 AM EDT Medical Center Martinferrer: JIA METZ OutpatientOFFICE/ Attender: [facility] 02/20/2019 [facility] ([facility] OUTPATIENT VISIT, 11:14:00 AM EDT [facility] - 02/20/2019 Center) 11:14:00 AM EDT Outpatient 02/20/2019 [facility] 11:13:00 AM EDT Medical C enter Outpatient 02/20/2019 [facility] 11:11:00 AM EDT Medical C enter Outpatient 02/20/2019 [facility] 12:00:00 AM EDT Medical C enter Attender: [facility] 02/14/2019 NEXT GEN ([facility] 11:37:00 AM EDT [facility] - 02/14/2019 Center) 11:37:00 AM EDT Attender: [facility] 02/08/2019 NEXT GEN ([facility] 11:50:00 [facility] 11:50:00 AM EDT Outpatient 02/06/2019 [facility] 04:49:00 PM EDT Medical C enter Outpatient Attender: AMMIR H 02/06/2019 [facility] RABADIAdmitter: AMMIR 09:27:00 AM EDT [facility] RABADIReferrer: CODY BLUE OutpatientOFFICE/ Attender: [facility]06[facility]2019 [facility] OUTPATIENT VISIT, 09:27:[address] [facility] EST - 02/06/2019 Center) 09:27:00 AM EDT Outpatient 02/06/2019 [facility] 12:00:00 AM EDT Medical C enter Outpatient Attender: JOHN, 01/26/2019 [facility] MARTHAAdmitter: 12:00:00 AM EDT [facility] JOHN [facility] Outpatient Attender: CESAR, 01/25/2019 [facility]: 06:00:00 AM EDT [facility] Outpatient Attender: AMBARAK Wyatt 01/22/2019 [facility] ephs RABADIAdmitter: 03:15:00 PM Medical Center AMMIR EDT RABADIReferrer: AMMIR MIRZA OutpatientOFFIC Attender: Sal [facility] 01/22/2019 RIKY BRADEN ([facility]/OUTPATIENT [place] 03:15:00 PM [facility] Med ical VISIT, EST EDT - Center) 01/22/2019 03:15:00 PM EDT Outpatient 01/22/2019 [facility] 12:00:00 AM Medical Cente r EDT Inpatient Attender: NATALIE BRIGGS 01/18/2019 [place]HYDRATION [place] GAttender: , 09:36:00 [facility] - Care [facility] 01/20/2019 [facility] 09:34:00 PM EDT DEHYDRATION Patient admitted. Emergency Attender: , 01/18/2019 01:20:00 [facility]UE [facility] , EDT [facility] KID ISSUE Outpatient Attender: JOHN 01/17/2019 [facility] MARTHAAdmitter: 06:00:00 AM EDT [facility] MARTHA LOPEZ Corpora tion Outpatient Attender: DEIRDRE [facility]18[facility]2018 [facility], 06:00:00 AM EDT Health Care ZUNILDA KAdmitter: Sanjiva NGUYỄN [facility] Outpatient 12/13/2018 [facility] 12:15:00 PM EDT Medical C enter Outpatient 12/13/2018 [facility] 12:00:00 AM EDT Medical C enter Outpatient Attender: CARMEN 12/05/2018 [facility] CORRINEONAdmitter: CARMEN 06:00:00 AM EDT Health Care DEVONReferrer: Mildred MORALES Outpatient Attender: CARMEN, 12/04/2018 [facility] DEVONAdmitter: CARMEN, 06:00:00 AM EDT Health Care DEVONReferrer: Mildred MORALES Emergency Attender: KEILA, 12/02/2018 [facility]ILA, 08:51:00 AM EDT LEG Health Care [facility] PAIN RIGHT LEG Outpatient Attender: CODY Wyatt 11/29/2018 [facility] COHENADIAdmitter: AMMIAbhishek 10:55:00 AM EDT Medical Center RABADIReferrer: CODY BLUE Attender: [facility] 11/29/2018 NEXT [facility] ([facility] 10:55:00 AM EDT [facility] - 11/29/2018 [facility]) 10:55:00 AM EDT Outpatient 11/29/2018 [facility] 10:52:00 AM EDT Medical C enter Outpatient 11/29/2018 [facility] 12:00:00 AM EDT Medical C enter Outpatient 10/24/2018 [facility] 04:15:00 PM EDT Medical C enter Outpatient 10/24/2018 [facility] 12:00:00 AM EDT Medical C enter Emergency Attender: WHITNEY POSADA H 10/11/2018 [facility] STAFF 10:10:00 AM EDT Medical C enter PHYSICIANAdmitter: WHITNEY ED STAFF PHYSICIAN Attender: [facility] 10/11/2018 NEXT [facility] ([facility] 09:55:00 AM [facility] 09:55:00 AM EDT Outpatient Attender: AMBARAK Wyatt 10/10/2018 [facility] RABADIAdmitter: AMMIR 03:14:00 PM EDT Medical Center RABADIReferrer: CODY BLUE OutpatientOFFICE Attender: [facility] 10/10/2018 [facility] /OUTPATIENT 03:14:00 PM EDT [facility] Medical VISIT, EST - 10/10/2018 Center) 03:14:00 PM EDT Outpatient 10/10/2018 [facility] 10:25:00 AM EDT Medical C enter Outpatient 10/10/2018 [facility] 12:00:00 AM EDT Medical C enter Outpatient Attender: OLEGARIO 10/04/2018 Z94.0 [facility] HIROSHIAdmitter: 06:00:00 AM EDT [facility] on HIROSHIReferrer: JOE MELVIN Z94.0 Outpatient Attender: GONSALO, 09/21/2018 06:00:00 Z94.0 [facility] SEIGOAttender: RENALDO STEVENS EDT Health Care ZVIAdmitter: Curtis STEVENS ZVIReferrer: JOHNNY PEETR Z94.0 Attender: Sal [address] [place] [address] 09/12/2018 [facility] [place] 01:39:00 PM EDT [facility] 09/12/2018 Center) 01:39:00 PM EDT Outpatient Attender: CODY Wyatt 08/25/2018 [facility] RABADIAdmitter: 11:27:00 AM EDT [facility] AMMIR RABADIReferrer: CODY BLUE OutpatientOFFICE/OUTPA Attender: Sal [address] [place] [address] 08/25/2018 [facility] (Saint TIENT VISIT, EST [place] 11:27:00 AM EDT - [facility] 08/25/2018 [facility]) 11:27:00 AM EDT Outpatient 08/25/2018 [facility] 11:26:00 AM EDT Medical C enter Outpatient 08/25/2018 [facility] 12:00:00 AM EDT Medical C enter OutpatientOFFICE/OUTPA Attender: Sal [address] [place] [address] 07/17/2018 [facility] TI[facility], EST [place] 03:11:00 PM EST - J [facility] 07/17/2018 [facility]) 03:11:00 PM EST OutpatientOFFICE/OUTPA Attender: Sal [facility] 06/26/2018 [facility] (Saint TIENT VISIT, EST [place] 03:59:00 PM EST - [facility] 06/26/2018 [facility]) 03:59:00 PM EST OutpatientOFFICE/OUTPA Attender: Sal [facility] 05/12/2018 [facility] TI[facility], EST [place] 04:18:00 PM EST - [facility] 05/12/2018 [facility]) 04:18:00 PM EST OutpatientOFFICE/OUTPA Attender: Sal [address] [place] [address] 04/28/2018 [facility] (Saint TIENT VISIT, EST [place] 04:03:00 PM EST - [facility] 04/28/2018 [facility]) 04:03:00 PM EST OutpatientOFFICE/OUTPA Attender: Jia [address] [facility] 04/14/2018 [facility] (Saint TIENT VISIT, EST Metz 10:49:00 AM EDT - [facility] 04/14/2018 [facility]) 10:49:00 AM EDT OutpatientOFFICE/OUTPA Attender: Sal [address] [place] [address] 03/15/2018 [facility] (Saint TIENT VISIT, EST [place] 04:22:00 PM EDT - [facility] 03/15/2018 [facility]) 04:22:00 PM EDT OutpatientOFFICE/OUTPA Attender: Sal [address] [place] [address] 02/24/2018 [facility] (Saint TIENT VISIT, EST [place] 02:46:00 PM EDT [facility] 02/24/2018 [facility]) 02:46:00 PM EDT OutpatientOFFICE/OUTPA Attender: Sal [address] [place] [address] 02/15/2018 [facility] TIENT VISIT, EST [place] 10:12:00 AM EDT - [facility] 02/15/2018 [facility]) 10:12:00 AM EDT OutpatientOFFICE/OUTPA Attender: Sal [address] [place] [address] 01/17/2018 [facility] ([facility] TIENT VISIT, EST [place] 04:30:00 PM EDT - [facility] 01/17/2018 [facility]) 04:30:00 PM EDT OutpatientOFFICE/OUTPA Attender: Sal [address] [place] [address] 11/29/2017 [facility] (Saint TIENT VISIT, EST [place] 11:39:00 AM EDT - [facility] 11/29/2017 [facility]) 11:39:00 AM EDT OutpatientOFFICE/OUTPA Attender: Sal [address] [place] [address] 11/16/2017 [facility] (Saint TIENT VISIT, EST [place] 04:29:00 PM EDT [facility] 11/16/2017 [facility]) 04:29:00 PM EDT OutpatientWell Visit, Attender: Sal [address] [place] [address] 11/10/2017 [facility] (Saint Est,40-64years [place] 03:26:00 PM EDT [facility] 11/10/2017 [facility]) 03:26:00 PM EDT OutpatientOFFICE/OUTPA Attender: Sal [address] [facility] 10/06/2017 [facility] ([facility] TIENT VISIT, EST [place] 05:16:00 PM EDT - [facility] 10/06/2017 [facility]) 05:16:00 PM EDT OutpatientOFFICE/OUTPA Attender: [facility] 09/22/2017 [facility] ([facility] TIENT VISIT, EST [place] 04:08:00 PM EDT [facility] 09/22/2017 [facility]) 04:08:00 PM EDT OutpatientOFFICE/OUTPA Attender: Sla [address] [facility] 08/22/2017 [facility] ([facility] TIENT VISIT, EST [place] 04:27:00 PM EDT [facility] 08/22/2017 [facility]) 04:27:00 PM EDT OutpatientOFFICE/OUTPA Attender: Sal [address] [facility] 07/20/2017 [facility] ([facility] TIENT VISIT, EST [place] 09:04:00 AM [facility] 07/20/2017 [facility]) 09:04:00 AM EST OutpatientOFFICE/OUTPA Attender: Sal Villarreal [facility] 07/07/2017 [facility]EXT[facility] (Saint TIENT VISIT, NEW [place] 06:23:00 PM EST [facility] 07/07/2017 [facility]) 06:23:00 PM [facility] 06/10/2010 [facility] 12:00:00 AM [facility] enter Immunizations Vaccine Date Status Description Data Source(s) New in 2011. IIV4 02/22/2019 completed [facility] 05:26:00 PM Medical Center EDT pneumococcal 04/28/2018 completed Adult Pneumococcal NEXTGEN ( [facility] polysaccharide PPV23 12:00:00 AM [facility]) Source: New Immunization Record New in 2011. 04/01/2017 12:00:00 completed Influenza, injectable , NEXTGEN ([facility] IIV4 AM EDT quadrivalent, Minna [facility] l preservative free, 3 Center) yrs or older Source: Other Provider Pneumococcal conjugate PCV 04/01/2017 12:00:00 AM completed PCV1 3 NEXTGEN ([facility] 13 [facility]) Source: Other Provider Medications Medication Brand Start Product Dose Route Administrative Pharmacy [facility] Indications Reaction Description Data Name Date Form [...] Apply to NEXTGEN 25 MG/ML / ine-pr 2019 affected (Sa int Prilocaine ilocai 12:00: area [...] applic cream ator perineal applicator Magnesium magnes 08/12/ active 1 capsule by NEXTGEN Oxide 400 [...] oxide 400 e mg capsule Sodium sodium 1 tab by NEX TGEN Bicarbonate bicarb [...] 3 ML insul in NEXTGEN KwikPen Insuli 2019 ANEOUS glargine 100 (Saint U-100 n 12:00: UNT/ML Pen Samuel s Insulin 100 Glargi 00 AM Injector M edical unit/mL (3 ne 100 EDT [Basaglar] C enter) mL) UNT/ML subcutaneou Pen s Inject or Amoxicillin amoxic 10/10/ 1.00 ORAL complet take 1 NEXTGEN 500 MG Oral illin 2018 {caps ed capsule by (Saint Capsule 500 [...] et NEXTGEN 60 MG Oral ar 60 2018 {tabl 60 MG Oral ( Saint Tablet [...] on subcutaneou s solution BD Insulin syring 11/02/ active use twic e NEXTGEN Syringe e and 2018 daily ([facility] Safety-Thalia needle 12:00: Deuce hs 1 mL 29 ,insul 00 AM Medical gauge x in,1mL EDT Center) 1/" Insulin Lantus 04/14/ complet Insulin NE XTGEN [...] soluti subcutaneou on s solution mycophenola mycoph .00 ORAL active take 6 NEXTGEN te mofetil [...] active tamsulos in NEXTGEN hydrochlori 0.4 mg 2017 {caps hydrochlor id (Saint de 0.4 MG capsul 12:00: ule} e 0.4 MG Lucille sephs Oral e 00 AM Oral Capsule Medica l Capsule EST [Flomax] Center) [Flomax] Flomax 0.4 mg capsule Colchicine colchi ORAL active take 1 N EXTGEN 0.6 MG Oral cine 2018 {caps capsule by ( [facility] Capsule 0.6 [...] NE XTGEN 1 MG Oral imus 1 2017 5 (0.0375MG/KG (Saint Capsule mg 12:00: ) [...] Del tcheste c Acid [address] [facility] MG Delayed (Mycop Health Release henola Care Oral Tablet te) Corporat io Myfortic [360 n (Mycophenol mg ate) [[address]]: DR]: 720 MG 720 MG Oral 6A-6P Oral 6A-6P Docusate DOK complet [facility] te Sodium 100 (Docus ed r Count y MG Oral ate Health Capsule DOK Sodium Care (Docusate ) [100 Corporat io Sodium) mg n [100 mg Capsul Capsule]: 1 e]: 1 Capsule Capsul Oral 3 e Oral TIMES A DAY 3 TIMES A DAY Prednisone Predni complet [facility] 5 MG Oral sone [facility] Tablet [5 mg Health Prednisone Tablet Care [5 mg ]: 1 Corporatio Tablet]: 1 Tablet n Tablet Oral Oral DAILY DAILY gabapentin Gabape complet [facility] 100 MG Oral ntin [facility] Capsule [100 Health Gabapentin mg Care [100 mg Capsul Corporatio Capsule]: 1 e]: 1 n Capsule Capsul Oral 2 e Oral TIMES A DAY 2 TIMES A DAY Chlorthalid Chlort complet [place] one 25 MG halido ed [facility] Oral Tablet ne [25 Health Chlorthalid mg Care one [25 mg Tablet Corpora tono Tablet]: 1 ]: 1 n Tablet Oral Tablet DAILY Oral DAILY Colchicine Colchi complet [facility] 0.6 MG Oral cine ed [facility] Capsule [0.6 Health Colchicine mg Care [0.6 mg Capsul Corporatio Capsule]: e]: n 0.6 Capsule 0.6 Oral DAILY Capsul e Oral DAILY Flomax [id number] complet [facility] te (Tamsulosin 546 ed r [facility] ) [0.4 mg Health Capsule]: 1 Care Tablet Oral Corporat io BEDTIME n tramadol Tramad complet [facility] yarelis hydrochlori ol [50 ed r Coun ty de 50 MG mg Health Oral Tablet Tablet Care Tramadol ]: 1 Corporatio [50 mg Tablet n Tablet]: 1 Oral Tablet Oral DIRECTED DIRECT PRN ED PRN painComment painCo : for pain mment: for pain Amlodipine [facility]odi [facility] Oral pine [facility] Tablet [10 mg Health Amlodipine Tablet Care [10 mg ]: 10 Corporatio Tablet]: 10 MG n MG Oral Oral Q10AM Q10AM cinacalcet [place] complet [place] 30 MG Oral lcet ed [facility] Tablet [30 mg Health Cinacalcet Tablet Care [30 mg ]: 1 Corporatio Tablet]: 1 Tablet n Tablet Oral Oral DAILY DAILY Tacrolimus Tacrol complet [place] [facility] 1 MG Oral imus ed r [facility] Capsule [1 mg Health Tacrolimus Capsul Care [1 mg e]: 2 Corporatio Capsule]: 2 Capsul n Capsule e Oral Oral 2 2 TIMES A DAY TIMES A DAY Insurance Providers Payer name Policy type Policy ID Covered Covered constitution party's Policy P gabo / Coverage constitution party ID relationship to Etienne Inf ormation type etienne KRISTIN [id number] SP [id number] 300 HEALTH NON CAP KRISTIN W [id number] 01 [id number] MEDICAID [id number] KRISTIN [id number] SP [id number] MEDICARE ADV PLAN W [id number] 01 [id number] MEDICARE [id number] SP [id number] T Problems, Conditions, and Diagnoses Code Display Name Description Problem Type Effective Data Sour ce(s) Dates Z94.0 Kidney transplant KIDNEY TRANSPLANT Diagnosis 01/28/2020 [place] status STATUS 10:00:00 AM [facility] WeFi E11.9 Type 2 diabetes TYPE 2 DIABETES Diagnosis 01/24/2020 Jacki [facility] mellitus without MELLITUS WITHOUT 03:45:00 PM [facility] complications COMPLICATIONS EDT Z73.3 Stress, not STRESS, NOT Diagnosis 01/24/2020 [facility] elsewhere ELSEWHERE 03:45:00 PM Medical Cente r classified CLASSIFIED EDT F41.9 Anxiety disorder, ANXIETY DISORDER, Diagnosis 01/24/2020 [facility] unspecified UNSPECIFIED 03:45:[address] EDT R74.8 Abnormal levels of ABNORMAL LEVELS OF Diagnosis 0 [place] other serum enzymes OTHER SERUM ENZYMES 06:00:0 0 AM [facility] WeFi I10 Essential (primary) ESSENTIAL (PRIMARY) Diagnosis 020 [facility] hypertension HYPERTENSION 05:13:00 PM Medical C enter EDT E11.65 Type 2 diabetes TYPE 2 DIABETES Diagnosis 01/02/2020 Jacki Buitrago mellitus with MELLITUS WITH 05:13:00 PM Medical Center hyperglycemia HYPERGLYCEMIA EDT R73.9 Hyperglycemia, HYPERGLYCEMIA, Diagnosis 01/02/2020 [facility] unspecified UNSPECIFIED 05:13:[address] EDT Z71.3 Dietary counseling DIETARY COUNSELING Diagnosis 0 [facility] and surveillance AND SURVEILLANCE 04:00:00 PM [facility] EDT Z68.24 Body mass index BODY MASS INDEX Diagnosis 01/02/2020 Jacki Buitrago (BMI) 24.0-24.9, (BMI) 24.0-24.9, 04:00:00 PM [facility] adult ADULT EDT Z79.4 residential (current) [facility] (CURRENT) Diagnosis 020 [facility] use of insulin USE OF INSULIN 04:00:00 PM [facility] EDT R53.1 Weakness WEAKNESS Diagnosis 01/02/2020 [place] 04:00:00 PM [facility] EDT E11.22 Type 2 diabetes TYPE 2 DIABETES Diagnosis 08/03/2019 [place] mellitus with MELLITUS W DIABETIC 06:00:00 [email or web address] chronic CHRONIC KIDNEY EST Care kidney disease DISEASE Corporatio n E11.40 Type 2 diabetes TYPE 2 DIABETES Diagnosis 08/03/2019 [place] mellitus with MELLITUS WITH 06:00:00 AM [facility] diabetic DIABETIC EST Care neuropathy, NEUROPATHY, UNSP Corpora tion unspecified Z88.3 Allergy status to ALLERGY STATUS TO Diagnosis 07/04/2019 [place] other OTHER 06:00:00 AM [facility] anti-infective ANTI-INFECTIVE EST Care agents status AGENTS STATUS Corporat ion 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) Diagnosis [place] use of insulin USE OF INSULIN 06:00:00 AM [facility] EST Care [facility] Y99.8 Other external OTHER EXTERNAL Diagnosis 07/04/2019 [facility] unruly cause status CAUSE STATUS 06:00:00 AM [facility] EST Care [facility] Y92.89 Other specified OTH PLACES THE Diagnosis 07/04/[facility]CCURRENCE 06:00:0 0 AM [facility] of occurrence of OF THE EXTERNAL EST Car e the external cause CAUSE Corpor ation Y83.8 Other surgical OTH SURGICAL Diagnosis 07/04/2019 [facility] procedures as the PROCEDURES CAUSE 06:00:00 AM [facility] cause of abnormal ABN REACT/COMPL, EST C are reaction of the W/O MISADVNT Corpora tion patient, or of later complication, without mention of misadventure at the time of the procedure E89.1 Postprocedural POSTPROCEDURAL Diagnosis 07/04/2019 [place] hypoinsulinemia HYPOINSULINEMIA 06:00:00 AM [facility] EST Care [facility] I10 Essential (primary) ESSENTIAL (PRIMARY) Diagnosis 020 [place] hypertension HYPERTENSION 06:00:00 AM [facility] EST Care [facility] E11.65 Type 2 diabetes TYPE 2 DIABETES Diagnosis 07/04/2019 [place] mellitus with MELLITUS WITH 06:00:00 AM [facility] hyperglycemia HYPERGLYCEMIA EST Care [facility] M51.36 Other OTHER Diagnosis 03/19/2019 [place] 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, DEGENERATION, EDT Care lumbar region LUMBAR REGION Corporat ion M62.81 Muscle weakness MUSCLE WEAKNESS Diagnosis 03/19/2019 [place] simone (generalized) (GENERALIZED) 01:55:00 PM [facility] EDT Care [facility] N40.0 Benign prostatic BENIGN PROSTATIC Diagnosis 02/20/2019 [place] hyperplasia without HYPERPLASIA WITHOUT 04:45:0 0 PM Medical Center lower urinary tract LOWER URINRY TRACT EDT symptoms SYMP Z97.0 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[facility] artificial eye ARTIFICIAL EYE 04:45:00 PM [facility] EDT E11.21 Type 2 diabetes TYPE 2 DIABETES Diagnosis 02/20/2019 [place] mellitus with MELLITUS WITH 04:45:00 PM Medical Center diabetic DIABETIC EDT nephropathy NEPHROPATHY I16.0 Hypertensive HYPERTENSIVE Diagnosis 02/20/2019 [place] [facility] urgency URGENCY 04:45:00 PM Medical Cente r EDT E87.5 Hyperkalemia HYPERKALEMIA Diagnosis 02/20/2019 [place] [facility] 04:45:00 PM Medical Cente r EDT Z71.82 Exercise counseling EXERCISE COUNSELING Diagnosis 019 [place] 11:14:00 AM Medical Cente r EDT Z68.25 Body mass index BODY MASS INDEX Diagnosis 02/20/2019 [place] (BMI) 25.0-25.9, (BMI) 25.0-25.9, 11:14:00 AM [facility] EDT J40 Bronchitis, not [...] status to ALLERGY STATUS TO Diagnosis 01/20/2019 [place] other antibiotic OTHER ANTIBIOTIC 09:34:00 PM [employer] agents status AGENTS STATUS [employer] Z87.891 Personal history of PERSONAL HISTORY OF Diagnosis [address] [place] [address] nicotine dependence NICOTINE DEPENDENCE 09:34:0 0 PM [facility] [employer] Care [facility] Z79.899 Other senior care OTHER [facility] Diagnosis 01/20/2019 [place] simone (current) drug (CURRENT) DRUG 09:34:00 PM [facility] therapy THERAPY EDT Care [facility] R33.8 Other retention of OTHER RETENTION OF Diagnosis [address] [place] [address] urine URINE 09:34:00 PM [facility] [employer] E87.1 Hypo-osmolality and HYPO-OSMOLALITY AND Diagnosis [address] [place] [address] hyponatremia HYPONATREMIA 09:34:00 PM [facility] [employer] Care [facility] A04.4 Other intestinal OTHER INTESTINAL Diagnosis 01/20/2019 [facility] Escherichia coli ESCHERICHIA COLI 09:34:00 PM [employer] infections INFECTIONS EDT Care [facility] N17.9 Acute kidney ACUTE KIDNEY Diagnosis [facility], FAILURE, 09:34:00 PM [facility] unspecified UNSPECIFIED [employer] 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 09:36:00 PM [facility] transplant TRANSPLANT EDT Care [facility] R20.0 Anesthesia of skin ANESTHESIA OF SKIN Diagnosis 9 [place] 06:00:00 AM [facility] [employer] H53.8 Other visual OTHER VISUAL [facility] disturbances DISTURBANCES 06:00:00 AM [facility] [employer] H35.00 Unspecified UNSPECIFIED Diagnosis 01/17/2019 [place] background BACKGROUND 06:00:00 AM [facility] retinopathy RETINOPATHY EDT [facility] [employer] R53.1 Weakness WEAKNESS Diagnosis 12/18/2018 [place] 06:00:00 AM [facility] EDT [facility] [employer] G57.21 Lesion of femoral LESION OF FEMORAL Diagnosis 12/18/2018 [place] nerve, right lower NERVE, RIGHT LOWER 06:00:00 AM [facility] limb LIMB EDT [employer] M79.651 Pain in right thigh PAIN IN RIGHT THIGH Diagnosis 019 [place] 08:51:00 AM [facility] EDT [employer] M79.604 Pain in right leg PAIN IN RIGHT LEG Diagnosis 12/02/2018 [place] 08:51:00 AM [facility] EDT [employer] R42 Dizziness and DIZZINESS AND Diagnosis 11/29/2018 [place] sephs giddiness GIDDINESS 10:55:00 AM Medical Cente r EDT R51 Headache HEADACHE Diagnosis 11/29/2018 [place] 10:55:00 AM Medical Cente r EDT H54.50 Low vision, one LOW VISION, ONE Diagnosis 08/25/2018 [place] eye, unspecified EYE, UNSPECIFIED 11:27:00 AM [facility] eye EYE EDT M54.5 Low back pain LOW BACK PAIN Diagnosis 08/25/2018 [place] sephs 11:27:00 AM Medical Cente r EDT Diagnosis NEXTGEN ([facility]) Diagnosis NEXTGEN ([facility]) Diagnosis NEXTGEN ([facility]) Diagnosis NEXTGEN ([facility]) Diagnosis NEXTGEN ([facility]) Diagnosis NEXTGEN ([facility]) Diagnosis NEXTGEN ([facility]) Diagnosis NEXTGEN ([facility]) Diagnosis [facility] ([facility]) Diagnosis [facility] ([facility]) Surgeries/Procedures Procedure Description Date Indications Data Source(s) OFFICE/OUTPATIENT VISIT, 01/24/2020 [facility] 12:00:00 AM EDT OFFICE/OUTPATIENT VISIT, 01/02/2020 NEX TGEN ([facility] 12:00:00 AM EDT OFFICE/OUTPATIENT VISIT, 02/20/2019 NEX TGEN ([facility] EST 12:00:00 AM EDT [facility] - 02/20/2019 Center) 12:00:00 AM EDT OFFICE/OUTPATIENT VISIT, 02/06/2019 NEX TGEN ([facility] EST 12:00:00 AM EDT [facility] - 02/06/2019 Center) 12:00:00 AM EDT OFFICE/OUTPATIENT VISIT, 01/22/2019 NEX TGEN ([facility] EST 12:00:00 AM EDT [facility] - 01/22/2019 Center) 12:00:00 AM EDT OFFICE/OUTPATIENT VISIT, 10/10/2018 NEX TGEN ([facility] EST 12:00:00 AM EDT [facility] - 10/10/2018 Center) 12:00:00 AM EDT OFFICE/OUTPATIENT VISIT, 08/25/2018 NEX TGEN ([facility] EST 12:00:00 AM EDT [facility] - 08/25/2018 Center) 12:00:00 AM EDT OFFICE/OUTPATIENT VISIT, 07/17/2018 NEX TGEN ([facility] EST 12:00:00 AM EST [facility] - 07/17/2018 Center) 12:00:00 AM EST OFFICE/OUTPATIENT VISIT, 06/26/2018 NEX TGEN ([facility] EST 12:00:00 AM EST [facility] - 06/26/2018 Center) 12:00:00 AM EST OFFICE/OUTPATIENT VISIT, 05/12/2018 NEX TGEN ([facility] EST 12:00:00 AM EST [facility] - 05/12/2018 Center) 12:00:00 AM EST Pneumonia Vaccine 04/28/2018 NEXTGEN (S aint 12:00:00 AM EST [facility] - 04/28/2018 Center) 12:00:00 AM EST Immunization 04/28/2018 NEXTGEN ([facility] Administration 12:00:00 AM EST [facility] dical - 04/28/2018 Center) 12:00:00 AM EST OFFICE/OUTPATIENT VISIT, 04/28/2018 NEX TGEN ([facility] EST 12:00:00 AM EST [facility] - 04/28/2018 Center) 12:00:00 AM EST OFFICE/OUTPATIENT VISIT, 04/14/2018 NEX TGEN ([facility] 12:00:00 AM EDT OFFICE/OUTPATIENT VISIT, 03/15/2018 NEX TGEN ([facility] EST 12:00:00 AM EDT [facility] - 03/15/2018 Center) 12:00:00 AM EDT OFFICE/OUTPATIENT VISIT, 02/24/2018 NEX TGEN ([facility] EST 12:00:00 AM EDT [facility] - 02/24/2018 Center) 12:00:00 AM EDT OFFICE/OUTPATIENT VISIT, 02/15/2018 NEX TGEN ([facility] EST 12:00:00 AM EDT [facility] - 02/15/2018 Center) 12:00:00 AM EDT OFFICE/OUTPATIENT VISIT, 01/17/2018 NEX TGEN ([facility] EST 12:00:00 AM EDT [facility] - 01/17/2018 Center) 12:00:00 AM EDT OFFICE/OUTPATIENT VISIT, 11/29/2017 NEX TGEN ([facility] EST 12:00:00 AM EDT [facility] - 11/29/2017 Center) 12:00:00 AM EDT OFFICE/OUTPATIENT VISIT, 11/16/2017 NEX TGEN ([facility] EST 12:00:00 AM EDT [facility] - 11/16/2017 Center) 12:00:00 AM EDT Well Visit, Est,40-64years 11/10/2017 N EXTGEN (Saint 12:00:00 AM EDT [facility] - 11/10/2017 Center) 12:00:00 AM EDT OFFICE/OUTPATIENT VISIT, 10/06/2017 NEX TGEN ([facility] EST 12:00:00 AM EDT [facility] - 10/06/2017 Center) 12:00:00 AM EDT OFFICE/OUTPATIENT VISIT, 09/22/2017 NEX TGEN ([facility] EST 12:00:00 AM EDT [facility] - 09/22/2017 Center) 12:00:00 AM EDT OFFICE/OUTPATIENT VISIT, 08/22/2017 NEX TGEN ([facility] EST 12:00:00 AM EDT [facility] - 08/22/2017 Center) 12:00:00 AM EDT OFFICE/OUTPATIENT VISIT, 07/20/2017 NEX TGEN ([facility] EST 12:00:00 AM EST [facility] - 07/20/2017 Center) 12:00:00 AM EST OFFICE/OUTPATIENT VISIT, 07/07/2017 NEX TGEN ([facility] NEW 12:00:00 AM EST [facility] - 07/07/2017 Center) 12:00:00 AM EST Results ID Date Data Source Urinalysis.[id number] 01/02/2020 06:51:00 PM EDT [facility] 0 Name Value Range Interpretation Description Data Sup porting Code Source(s) Document(s ) Color of Urine YELLOW <content [facility] styleCode="[facility] d">Color, Medical Urine Center </content>YELL OW <content [...] )</content> Glucose NEGATIVE <content [facility] [Mass/volume] styleCode="[facility]lo Bakers in Urine by d">Urine Medical Test strip Glucose Center </content>>=10 00 MG/DL<content styleCode="Nata lics"> (NEGATIVE MG/DL)</conten t> pH of Urine by 4.5-8.0 <content [facility] Test strip styleCode="[facility] d">Urine pH Medical </content>6.0 Center <content styleCode="Nata lics"> (4.5-8.0 )</content> Specific 1.015-1.02 <content [facility] gravity of 5 styleCode="Marlo Bakers Urine by Test d">Urine Medical strip Specific Center [place] </content>1.02 0 <content styleCode="Nata lics"> (1.015-1.025 )</content> [...] (0.2-1.0 MG/DL)</conten t> ID Date Data Source HematologyRou.[id number] 01/02/2020 06:45:00 PM EDT [facility] 0400 Name Value Range Interpretation Description Data Sup porting Code Source(s) Document(s ) Leukocytes 4.4-11.0 <content [facility] [#/volume] in styleCode="Jatinder [place] Blood by ">White Blood Medical Automated count [...] (0.0 KCUMM)</content > ID Date Data Source GFR(Creatinine).[id number] 01/02/2020 06:45:00 PM EDT [facility] 0-0400 Name Value Range Interpretation Code Description Data Maral rce(s) Supporting Document(s ) UNK > 60 Below low normal <content [facility] styleCode="Bold"> Medical Cent er EGFR </content>54 GFR L<content styleCode="Italic s"> (> 60 GFR)</content> ID Date Data Source CHMROUTINECCDA.[id number] 01/02/2020 06:45:00 PM EDT [facility] -0400 Name Value Range Interpretation Code Description Data Maral rce(s) Supporting Document(s ) UNK NEGATIVE <content [facility] styleCode="Bold" Medical Cente r >Acetone </content>NEGATI VE <content styleCode="Itali cs"> (NEGATIVE )</content> ID Date Data Source [facility].[id number] 01/02/2020 06:45:00 PM EDT [facility] Name Value Range Interpretation [...] Minna in Serum or d">Calcium Medical Plasma </content>11.6 Center MG/DL H<content styleCode="Nata lics"> (8.4-10.2 MG/DL)</conten t> UNK > 60 Below low normal <content Saint styleCode="Marlo Bakers d">EGFR Medical </content>54 Center GFR L<content styleCode="Nata lics"> (> 60 GFR)</content> ID Date Data Source Urinalysis.[id number] 02/22/2019 12:30:00 PM EDT [facility] 0 Name Value Range Interpretation Description Data [...] (YELLOW )</content> UNK NEGATIVE <content [facility] styleCode="Marlo Bakers d">Urine Medical Bilirubin Center </content>NEGA TIVE <content styleCode="Nata lics"> (NEGATIVE )</content> Ketones NEGATIVE <content [facility] [Mass/volume] styleCode="[place] in Urine by d">Urine Medical Test strip Ketone Center </content>TRAC E MG/DL<content styleCode="Nata lics"> (NEGATIVE MG/DL)</conten t> Specific 1.015-1.02 Below low normal <content [facility] gravity of 5 styleCode="Marlo [place]na Urine by Test d">Urine Medical strip Specific Center [place] </content>1.01 0 L<content styleCode="Nata lics"> (1.015-1.025 )</content> [...] lics"> (0-3 HPF)</content> UNK NEGATIVE <content styleCode="Marlo Bakers d">Urine Medical Bacteria Center </content>FEW HPF<content styleCode="Nata [...] not available)<br/ > ID Date Data Source GFR(Creatinine).[id number] 02/22/2019 11:50:00 AM EDT [facility] 0-0400 Name Value Range Interpretation Code Description Data Maral rce(s) Supporting Document(s ) UNK > 60 <content [facility] styleCode="Bold"> Medical Cent er EGFR </content>80 GFR<content styleCode="Italic s"> (> 60 GFR)</content> ID Date Data Source [facility].[id number] 02/22/2019 11:50:00 AM EDT [facility] Name Value Range Interpretation Description [...] (> 60 GFR)</content> ID Date Data Source [facility].[id number] 02/21/2019 01:00:00 PM EDT [facility] Name Value Range Interpretation Description Data Sup porting Code Source(s) Document(s ) Potassium 3.5-5.3 <content [facility] [Moles/volume styleCode="Marlo [place]na ] in Serum or d">Potassium Medical Plasma </content>5.2 Center MEQ/L<content styleCode="Nata lics"> (3.5-5.3 MEQ/L)</conten t> ID Date Data Source Liver 02/21/2019 05:20:00 AM EDT [facility] Profile.[id number] Name Value Range Interpretation Description Data Sup [...] s"> (7-50 IU/L)</content> ID Date Data Source HematologyRou.[id number] 02/21/2019 05:20:00 AM EDT [facility] 0400 Name Value Range Interpretation Description [...] mean 32.0-37. <content [facility] corpuscular 0 styleCode="Jatinder [facility] hemoglobin ">Mean Corpus. Medical concentration Hgb Center [...] (0.0 KCUMM)</content > ID Date Data Source GFR(Creatinine).[id number] 02/21/2019 05:20:00 AM EDT [facility] 0-0400 Name Value Range Interpretation Code Description Data Maral rce(s) Supporting Document(s ) UNK > 60 <content [facility] styleCode="Bold"> Medical Cent er EGFR </content>91 GFR<content styleCode="Italic s"> (> 60 GFR)</content> ID Date Data Source CHMROUTINECCDA.[id number] 02/21/2019 05:20:00 AM EDT [facility] -0400 Name Value Range Interpretation Description Data Sup porting Code Source(s) Document(s ) UNK >= 1.0 <content [facility] styleCode="[facility] [place] d">AG Ratio Medical </content>1.7 Center <content styleCode="Nata lics"> (>= 1.0 )</content> UNK 2.3-3.5 <content [facility] styleCode="[facility] [place] d">Globulin Medical </content>2.3 Center G/DL<content styleCode="Nata lics"> (2.3-3.5 G/DL)</content > Magnesium 1.6-2.3 <content [facility] [Mass/volume] styleCode="Marlo Bakers in Serum or d">Magnesium Medical Plasma </content>1.7 [...] (6.3-8.2 G/DL)</content > ID Date Data Source [facility].[id number] 02/21/2019 05:20:00 AM EDT [facility] Name Value Range Interpretation Description Data Sup porting Code Source(s) Document(s ) Sodium 137-145 Below low <content [facility] [Moles/volume] in normal styleCode="Bold"> [facility] phs Serum or Plasma Sodium Medical </content>134 Center MEQ/L L<content styleCode="Italic s"> (137-145 MEQ/L)</content> Chloride 98-107 <content [facility] [Moles/volume] in styleCode="Bold"> [facility] Serum or Plasma Chloride Medical </content>99 Center MEQ/L<content styleCode="Italic s"> (98-107 MEQ/L)</content> Potassium 3.5-5.3 <content [facility] [Moles/volume] in styleCode="Bold"> [facility] Serum or Plasma Potassium Medical </content>5.1 Center [...] 9-20 Above high <content Saint normal styleCode="Bold"> Imnna BUN </content>25 Medical MG/DL H<content Center styleCode="Italic [...] Above high <content Saint phosphatase normal styleCode="Bold"> [facility] [Enzymatic Alkaline Medical activity/volume] Phosphatase (ALP) Cente [...] s"> (3.5-5.0 G/DL)</content> ID Date Data Source CHMROUTINECCDA.[id number] 02/21/2019 01:35:00 AM SWETHAT [facility] -0400 Name Value Range Interpretation Code Description Data Maral rce(s) Supporting Document(s ) UNK 0.7-2.0 <content [facility] styleCode="Bold" Medical Cente r >Lactic Acid 4hr </content>0.7 MMOLL<content styleCode="Itali cs"> (0.7-2.0 MMOLL)</content> ID Date Data Source CHMROUTINECCDA.[id number] 02/20/2019 09:25:00 PM EDT [facility] -0400 Name Value Range Interpretation Description Data Sup porting Code Source(s) Document(s ) Lactate 0.7-2.0 <content [facility] [Mass/volum styleCode="Bold Medical e] in Serum ">Lactic Acid Center or Plasma </content>1.0 MMOLL<content styleCode="Ital ics"> (0.7-2.0 MMOLL)</content > UNK 4.2-5.8 Above high normal <content [place] s styleCode="Bold Medical ">Hemoglobin Center A1C </content>10.1 % H<content styleCode="Ital ics"> (4.2-5.8 %)</content> ID Date Data Source Liver 02/20/2019 06:00:00 PM EDT [facility] Profile.[id number] Name Value Range Interpretation Description Data Sup [...] s"> (3.5-5.0 G/DL)</content> ID Date Data Source HematologyRou.[id number] 02/20/2019 06:00:00 PM [facility] Name Value Range Interpretation Description Data [...] ics"> (0 /100)</content> ID Date Data Source GFR(Creatinine).[id number] 02/20/2019 06:00:00 PM EDT [facility] 0-0400 Name Value Range Interpretation Code Description Data Maral rce(s) Supporting Document(s ) UNK > 60 <content [facility] styleCode="Bold"> Medical Cent er EGFR </content>80 GFR<content styleCode="Italic s"> (> 60 GFR)</content> ID Date Data Source Coagulation 02/20/2019 06:00:00 PM [facility] ical Center Rout.[id number] EDT Name Value Range Interpretation Description Data [...] cs"> (0.80-1.20 #)</content> ID Date Data Source CHMROUTINECCDA.[id number] 02/20/2019 06:00:00 PM EDT [facility] -0400 Name Value Range Interpretation Description Data Sup porting Code Source(s) Document(s ) Natriuretic < 125 Above high normal <content [facility] peptide.B styleCode="Marlo Minna prohormone d">NT Pro BNP Medical N-Terminal </content>2150 Center [Mass/volume] PG/ML in Serum or H<content Plasma styleCode="Nata lics"> (< 125 PG/ML)</conten t> ID Date Data Source [employer]Markers.[id number] 02/20/2019 06:00:00 PM EDT [facility] -0400 Name Value Range Interpretation Description Data Sup porting Code Source(s) Document(s ) Troponin < 0.034 <content [facility] I.cardiac styleCode="Bold [place] [Mass/volume ">Troponin I Medical ] in Serum </content>< Center or Plasma 0.012 NG/ML<content styleCode="Ital ics"> (< 0.034 NG/ML)</content > ID Date Data Source BloodBank.[id number] 02/20/2019 06:00:00 PM EDT [facility] Name Value Range Interpretation Code Description Data Maral rce(s) Supporting Document(s ) UNK <content [facility] styleCode="Bold"> Medical Cent er Antibody Screen </content>TNP (Reference Range: not available)
UNK <content [facility] styleCode="Bold"> Medical Cent er Blood Type </content>TNP (Reference Range: not available)
UNK <content [facility] styleCode="Bold"> Medical Cent er RH Type </content>TNP (Reference Range: not available)
ID Date Data Source [facility].[id number] 02/20/2019 06:00:00 PM EDT [facility] Name Value Range Interpretation Description [...] Data Source Liver 02/20/2019 12:42:00 PM EDT [facility] Profile.[id number] Name Value Range Interpretation Description Data Sup [...] s"> (38-126 IU/L)</content> ID Date Data Source GFR(Creatinine).[id number] 02/20/2019 12:42:00 PM EDT [facility] 0-0400 Name Value Range Interpretation Code Description Data Maral rce(s) Supporting Document(s ) UNK > 60 <content [facility] styleCode="Bold"> Medical Cent er EGFR </content>80 GFR<content styleCode="Italic s"> (> 60 GFR)</content> ID Date Data Source DOMINGADA.[id number] 02/20/2019 12:42:00 PM EDT [facility] -0400 Name Value Range Interpretation Description Data Sup porting Code Source(s) Document(s ) UNK 2.3-3.5 <content [facility] styleCode="Marlo [place] d">Globulin Medical </content>2.6 Center G/DL<content styleCode="Nata lics"> [...] (6.3-8.2 G/DL)</content > ID Date Data Source [facility].[id number] 02/20/2019 12:42:00 PM EDT [facility] Name Value Range Interpretation Description [...] Data Source Liver 02/14/2019 11:45:00 AM EDT [facility] Profile.[id number] Name Value Range Interpretation Description Data Sup [...] s"> (3.5-5.0 G/DL)</content> ID Date Data Source GFR(Creatinine).[id number] 02/14/2019 11:45:00 AM EDT [facility] 0-0400 Name Value Range Interpretation Code Description Data Maral rce(s) Supporting Document(s ) UNK > 60 <content [facility] styleCode="Bold"> Medical Cent er EGFR </content>65 GFR<content styleCode="Italic s"> (> 60 GFR)</content> ID Date Data Source CHMROUTINECCDA.[id number] 02/14/2019 11:45:00 AM EDT [facility] -0400 Name Value Range Interpretation Description Data Sup porting Code Source(s) Document(s ) Protein 6.3-8.2 <content [facility] [Mass/volum styleCode="Bold Medical e] in Serum ">Total Protein Center or Plasma </content>6.6 G/DL<content styleCode="Ital ics"> (6.3-8.2 G/DL)</content> UNK >= 1.0 <content [facility] styleCode="Bold Medical ">AG Ratio Center </content>1.6 <content styleCode="Ital ics"> (>= 1.0 )</content> UNK 2.3-3.5 <content [facility] styleCode="Bold Medical ">Globulin Center </content>2.5 G/DL<content styleCode="Ital ics"> (2.3-3.5 G/DL)</content> ID Date Data Source [facility].[id number] 02/14/2019 11:45:00 AM EDT [facility] Name Value Range Interpretation [...] Data Source Liver 02/13/2019 09:47:00 AM EDT [facility] Profile.[id number] Name Value Range Interpretation Description Data Sup [...] s"> (3.5-5.0 G/DL)</content> ID Date Data Source HematologyRou.[id number] 02/13/2019 09:47:00 AM EDT [facility] 0400 Name Value Range Interpretation Description [...] Date Data Source Coagulation 02/13/2019 09:47:00 AM [facility] Rout.[id number] EDT Name Value Range Interpretation Description Data [...] cs"> (25.1-36.5 SEC)</content> ID Date Data Source BloodBank.[id number] 02/13/2019 09:47:00 AM EDT [facility] Name Value Range Interpretation Code Description Data Maral rce(s) Supporting Document(s ) UNK NEGATIVE <content [facility] styleCode="Bold" Medical Cente r >Antibody Screen </content>NEGATI VE <content styleCode="Itali cs"> (NEGATIVE )</content> UNK <content [facility] styleCode="Bold" Medical Cente r >RH Type </content>POSITI VE (Reference Range: not available)
UNK <content [facility] styleCode="Bold" Medical Cente r >Blood Type </content>GROUP O (Reference Range: not available)
ID Date Data Source GFR(Creatinine).[id number] 02/13/2019 09:47:00 AM EDT [facility] 0-0400 Name Value Range Interpretation Code Description Data Maral rce(s) Supporting Document(s ) UNK > 60 <content [facility] styleCode="Bold"> Medical Cent er EGFR </content>72 GFR<content styleCode="Italic s"> (> 60 GFR)</content> ID Date Data Source CHMROUTINECCDA.[id number] 02/13/2019 09:47:00 AM EDT [facility] -0400 Name Value Range Interpretation Description Data Sup porting Code Source(s) Document(s ) UNK >= 1.0 <content [facility] styleCode="Bold Medical ">AG Ratio Center </content>1.6 <content styleCode="Ital ics"> (>= 1.0 )</content> UNK 2.3-3.5 <content [facility] styleCode="Bold Medical ">Globulin Center </content>2.5 G/DL<content styleCode="Ital ics"> (2.3-3.5 G/DL)</content> Protein 6.3-8.2 <content [facility] [Mass/volum styleCode="Bold Medical e] in Serum ">Total Protein Center or Plasma </content>6.5 G/DL<content styleCode="Ital ics"> (6.3-8.2 G/DL)</content> ID Date Data Source [id number] 02/13/2019 09:47:00 AM EDT [facility] Name Value Range Interpretation Description [...] <content [facility] [Moles/volume] in normal styleCode="Bold"> [facility] Serum or Plasma Potassium Medical </content>5.8 Center MEQ/L H<content styleCode="Italic s"> (3.5-5.3 MEQ/L)</content> Chloride 98-107 Below low <content [facility] [Moles/volume] in normal styleCode="Bold"> [facility] Serum or Plasma Chloride Medical </content>96 Center [...] s"> (3.5-5.0 G/DL)</content> ID Date Data Source [id number] 01/20/2019 09:39:50 PM EDT [facility] [id number] Corporation Name Value Range Interpretation Description Data Sup porting Code Source(s) Document(s ) [address] [id number] [facility] <td> 01/19/2019 [facility] M-Mode [id number] 12:00</td><td> [facility] [id number] Echo 2D M-Mode Health Care (TTE) Non-Invasive Complete (TTE) [facility] Cardiology </td><td> Laboratory [id number] Advanced
Physician [facility] Services,
[address] [id number] [place]
[address] Phone [phone] Non-Invasive Adult
Echocardiogram Cardiology Report Name:
Merlin SCOTT
Advanced Study Date:
01/19/2019 Physician 12:00 PM [facility],
BP: 147/65 [address] : [address] 1955
[place], [place] Gender:
Male Age: 63 [address] yrs
Phone [phone] Height: 63 in
Account [phone] Fax Number:
[phone] Weight: 145 lb
BSA: 1.7 m2 Adult Patient Echocardiogram Location: 4SE Report Reason For
Study: Name: TYLER BALAJI POMPA Ordering Physician: ADORE, Study Date: [facility] Performed By: 12:00 PM Shabbir Lanza
Interpretation Summary The left ventricle BP: is normal in 147/65 mmHg size. There
is normal left : ventricular 1955 wall thickness. Left Gender: ventricular Male ejection
Age: fraction is 63 yrs 65%. The left ventricular Height: 63 wall motion is in normal. The
right Account Number: ventricular [id number] systolic function is Weight: 145 lb normal.
[...] size. color flow
Doppler). There is no ([id number]). Study atrial septal quality is defect or [...] and regurgitation. color flow Mitral Doppler). Valve ([id number]). Study Structurally quality is normal mitral good. [...] 01:12 PM

</td> ID Date Data Source [id number] 01/20/2019 09:39:50 PM EDT [facility] [id number] Corporation Name Value Range Interpretation Description Data Sup porting Code Source(s) Document(s ) Dplx (PACSIMAGE <td> 01/18/2019 [place] Renal Txp 15:10</td><td> [facility] ) Final Dplx Renal [facility] w/Tim- Result [facility] RT w/Tim- Corporation Name: TYLER </td><td><jac partida styleCode="Itali Sex: M : cs">(PACSIMAGE 1955 [...] 01/18/2019 16:23

</td> Chest (PACSIMAGE <td> 01/18/2019 [place] Portable 22:37</td><td> [facility] ) Final Chest Portable Health Care Result </td><td>[facility] Name: roberto carlos SCOTT styleCode="Eddi cs">(PACSIMAGE Sex: M : 1955 Location: M )</paragraph><br Admitting />
Final Physician: Result SANDHYA ESTRADA

Requesting Name: TYLER, Physician: PEÑA AVITIA
Exam: CHEST PORTABLE Sex: M 01/18/2019
: 22:51 1955 Portable chest Location: M January 18, 2019
CLINICAL Admitting HISTORY: Renal Physician: transplant SANDHYA ESTRADA Comparison is
made with the Requesting previous [...] 01/19/2019 06:20

</td> Carotid/V (PACSIMAGE <td> 01/19/2019 [place] ertebr 08:42</td><td> [facility] Arteries ) Final Carotid/Vertebrl [...] 01/19/2019 09:43

</td> ID Date Data Source [id number] 01/20/2019 09:39:50 PM EDT [facility] [id number] Corporation Name Value Range Interpretation Description Data Sup porting Code Source(s) Document(s ) Leukocytes 3.8 k/mm3 4.8-10 <td> 01/20/2019 [place] [#/volume] in .8 07:03</td><td> [facility] Blood by k/mm3 WBC Health Care Automated </td><td><[employer] count ph styleCode="Bold"> 3.8 L </paragraph>
(4.8-10.8) k/mm3 </td> Erythrocytes 3.67 m/mm3 4.70-6 <td> 01/20/2019 [facility] [#/volume] in .10 07:03</td><td> [facility] Blood m/mm3 RBC Health Care </td><td><[employer] ph styleCode="Bold"> 3.67 L </paragraph>
(4.70-6.10) m/mm3 </td> Erythrocyte 95.9 fL 80.0-9 <td> 01/20/2019 [place] mean 4.0 fL 07:03</td><td> [facility] corpuscular MCV Health Care volume </td><td><[employer] [Entitic ph volume] by styleCode="Bold"> Automated 95.9 count H </paragraph>
(80.0-94.0) fL </td> Hemoglobin 11.6 g/dL 14.0-1 <td> 01/20/2019 [facility] [Mass/volume] 8.0 07:03</td><td> County in Blood g/dL HGB Health Care </td><td><[employer] ph styleCode="Bold"> 11.6 L </paragraph>
(14.0-18.0) g/dL </td> Erythrocyte 31.6 pg 27.0-3 <td> 01/20/2019 [facility] mean 1.5 pg 07:03</td><td> County corpuscular MCH Health Care hemoglobin </td><td><[facility] [Entitic ph mass] by styleCode="Bold"> Automated 31.6 count H </paragraph>
(27.0-31.5) pg </td> Hematocrit 35.2 % 40.8-4 <td> 01/20/2019 [facility] [Volume 6.9 % 07:03</td><td> County Fraction] of HCT Health Care Blood by </td><td><[employer] Automated ph count styleCode="Bold"> 35.2 L </paragraph>
(40.8-46.9) % </td> Erythrocyte 33.0 % 32.0-3 <td> 01/20/2019 [place] mean 6.0 % 07:03</td><td> [facility] corpuscular MCHC </td><td> Health Care hemoglobin Corporation concentration 33.0 [Mass/volume]
in Blood from (32.0-36.0) % Fetus by </td> Automated count Platelet mean 11.4 fL 9.8-12 <td> 01/20/2019 [facility] r volume .8 fL 07:03</td><td> County [Entitic MPV </td><td> Health Care volume] in Corporation Blood by 11.4 Automated
count (9.8-12.8) fL </td> Erythrocyte 12.2 % 11.5-1 <td> 01/20/2019 [facility] distribution 4.5 % 07:03</td><td> County width RDW </td><td> Health Care [Entitic Corporation volume] by 12.2 Automated
count (11.5-14.5) % </td> Lymphocytes 7.0 % 16.0-5 <td> 01/18/2019 [facility] [#/volume] in 0.0 % 14:33</td><td> [facility] Blood by Lymphocytes Health Care Automated </td><td><[employer] count ph styleCode="Bold"> 7.0 L </paragraph>
(16.0-50.0) % </td> Platelets 100 k/mm3 160-41 <td> 01/20/2019 [place] [#/volume] in 0 07:03</td><td> [facility] Blood by k/mm3 Platelet Count Health Care Automated </td><td><[employer] count ph styleCode="Bold"> 100 L </paragraph>
(160-410) k/mm3 </td> Monocytes/Shavon 6.5 % 0.0-11 <td> [facility] [Pure .0 % 14:33</td><td> County number Monocytes. Health Care fraction] in </td><td> [facility] Blood by Automated 6.5 count
(0.0-11.0) % </td> Basophils 0.2 % 0.0-2. <td> 01/18/2019 [facility] [#/volume] in 0 % 14:33</td><td> [facility] Blood by Basophils Health Care Automated </td><td> Corporation count 0.2
(0.0-2.0) % </td> Basophils+Eos 0.8 % 0.0-5. <td> [facility]/18/2019 [facility] inophils+[place] 0 % 14:33</td><td> [facility] cytes Eosinophils Health Care [#/volume] in </td><td> [facility] Blood by Automated 0.8 count
(0.0-5.0) % </td> Neutrophils 85.0 % 34.0-7 <td> 01/18/2019 [facility] [#] in Body 6.0 % 14:33</td><td> [facility] fluid by Neutrophils Health Care Manual count </td><td><[employer] on ph styleCode="Bold"> 85.0 H </paragraph>
(34.0-76.0) % </td> Immature 0.5 % 0.0-0. <td> 01/18/2019 [place] granulocytes/ 5 % 14:33</td><td> [facility] 100 IG% </td><td> Health Care leukocytes in [facility] Blood by 0.5 Automated
count (0.0-0.5) %
The IG fraction represents metamyelocytes, myelocytes and/or
promyelocytes and is only reported as part of the automated
differential when found at a percentage of less than 6.
If higher than 6%, a manual differential will be performed.

(0.0-0.5) % </td> Chloride 101 mEq/L 98-107 <td> 01/20/2019 [place] [Moles/volume mEq/L 17:43</td><td> [facility] ] in Serum or Chloride Health Care Plasma </td><td> [facility] 101
(98-107) mEq/L </td> Glucose 162 mg/dL 70-105 <td> 01/20/2019 [facility] [Mass/volume] mg/dL 17:43</td><td> [facility] in Blood Glucose-Serum Health Care </td><td><[employer] ph styleCode="Bold"> 162 H </paragraph>
(70-105) mg/dL </td> Potassium 5.5 mEq/L 3.5-5. <td> 01/20/2019 [place] [Moles/volume 1 17:43</td><td> [facility] ] in Serum or mEq/L Potassium-Serum Health Car e Plasma </td><td><[employer] ph styleCode="Bold"> 5.5 H </paragraph>
(3.5-5.1) mEq/L </td> Sodium 133 mEq/L 135-14 <td> 01/20/2019 [place] [Moles/volume 5 17:43</td><td> [facility] ] in Serum or mEq/L Sodium-Serum Health Care Plasma </td><td><[employer] ph styleCode="Bold"> 133 L </paragraph>
(135-145) mEq/L </td> Creatinine 1.05 mg/dL 0.72-1 <td> 01/20/2019 [facility] [Moles/volume .25 17:43</td><td> County ] in Serum or mg/dL Creatinine. Health Care Plasma </td><td> [facility] 1.05
(0.72-1.25) mg/dL </td> Urea nitrogen 23 mg/dL 6-22 <td> 01/20/2019 [facility] r [Mass/volume] mg/dL 17:43</td><td> [facility] in Blood BUN Health Care </td><td><[employer] ph styleCode="Bold"> 23 H </paragraph>
(6-22) mg/dL </td> Aspartate 12 U/L 4-35 <td> 01/18/2019 [place] aminotransfer U/L 14:33</td><td> [facility] ase AST (SGOT) Health Care [Enzymatic </td><td> Corporation activity/volu 12 me] in Serum or Plasma
(4-35) U/L </td> Carbon 23 mEq/L 22-30 <td> 01/20/2019 [place] dioxide, mEq/L 17:43</td><td> [facility] total CO2 </td><td> Health Care [Moles/volume Corporation ] in Serum or 23 Plasma
(22-30) mEq/L </td> Bilirubin.tot 0.6 mg/dL 0.2-1. <td> 01/18/2019 [facility] r al 3 14:33</td><td> [facility] [Mass/volume] mg/dL Bilirubin - Total Health C are in Blood </td><td> [facility] 0.6
(0.2-1.3) mg/dL </td> Calcium 10.8 mg/dL 8.6-10 <td> 01/20/2019 [facility] [Mass/volume] .2 17:43</td><td> County in Blood mg/dL Calcium Health Care </td><td><[employer] ph styleCode="Bold"> 10.8 H </paragraph>
(8.6-10.2) mg/dL </td> Albumin 3.8 g/dL 3.4-4. <td> 01/18/2019 [facility] [Mass/volume] 8 g/dL 14:33</td><td> [facility] in Serum or Albumin Health Care Plasma </td><td> [facility] 3.8
(3.4-4.8) g/dL </td> Alanine 11 U/L 6-55 <td> 01/18/2019 [place] aminotransfer U/L 14:33</td><td> [facility] ase ALT (SGPT) Health Care [Enzymatic </td><td> [facility] activity/volu 11 me] in Serum or Plasma
(6-55) U/L </td> Proteins - 5.9 g/dL 6.4-8. <td> 01/18/2019 [place] Total 3 g/dL 14:33</td><td> [facility] Proteins - Total Health Care </td><td><[employer] ph styleCode="Bold"> 5.9 L </paragraph>
(6.4-8.3) g/dL </td> Hemolysis No <td> 01/20/2019 [facility] index of Hemolysis 17:43</td><td> [facility] Serum or Hemolysis Index Health Care Plasma </td><td> [facility] No Hemolysis
</td> Anion gap in 9 mEq/L 7-13 <td> 01/20/2019 [facility] Serum or mEq/L 17:43</td><td> [facility] Plasma Anion Gap Health Care </td><td> [facility] 9
(7-13) mEq/L </td> Icteric index Not <td> 01/20/2019 [facility] r of Serum or Icteric 17:43</td><td> [facility] Plasma Icteric Index Health Care </td><td> [facility] Not Icteric
</td> Globulin 2.1 gm/dL 2.9-4. <td> 01/18/2019 [facility] [Mass/volume] 0 14:33</td><td> County in Serum gm/dL Globulin Health Care </td><td><[employer] ph styleCode="Bold"> 2.1 L </paragraph>
(2.9-4.0) gm/dL </td> Lipemic index No Lipemia <td> 01/20/2019 [facility] er of Serum or 17:43</td><td> [facility] Plasma Lipemia Index Health Care </td><td> [facility] No Lipemia
</td> aPTT panel - 27.1 secs 25.0-3 <td> 01/18/2019 [place] Platelet poor 2.0 14:33</td><td> [facility] plasma secs Partial [facility] Thromboplastin [facility] Time </td><td> 27.1
(25.0-32.0) secs </td> Phosphate 2.5 mg/dL 2.3-4. <td> 01/20/2019 [facility] [Mass/volume] 7 07:03</td><td> County in Serum or mg/dL Inorganic [facility] Care Plasma Phosphorus Corporation </td><td> 2.5
(2.3-4.7) mg/dL </td> Prothrombin 10.5 secs 9.8-12 <td> 01/18/2019 [place] time (PT) .0 14:33</td><td> [facility] secs Prothrombin Time. Health [facility] </td><td> [facility] 10.5
(9.8-12.0) secs </td> Appearance of Clear <td> 01/19/2019 [facility] r Urine 09:50</td><td> [facility] Appearance Health Care </td><td> [facility] Clear
(CLEAR) </td> Glucose 1+ (50 <td> 01/19/2019 [place] [Presence] in MG/DL) 09:50</td><td> [facility] Urine by Test Glucose_ Health Care strip </td><td> [facility] 1+ (50 MG/DL)
(NEGATIVE) </td> Urobilinogen 0.2 mg/dL 0.0-2. <td> 01/19/2019 [place] [Presence] in 0 09:50</td><td> [facility] Urine by mg/dL Urobilinogen Health Care Automated </td><td> [facility] test strip 0.2
(0.0-2.0) mg/dL </td> Specific 1.008 {} 1.000- <td> 01/19/2019 [place] gravity of 1.035 09:50</td><td> [facility] Urine by Test Specific [facility] re strip </td><td> [facility] 1.008
(1.000-1.035) </td> Nitrite Negative <td> 01/19/2019 [place] [Presence] in 09:50</td><td> [facility] Urine by Test Nitrites Health Care strip </td><td> Corporation Negative
(NEGATIVE) </td> Protein Negative <td> 01/19/2019 [place] [Presence] in 09:50</td><td> [facility] Urine by Protein Health Care Automated Qualitative [facility] test strip </td><td> Negative
(NEGATIVE) </td> Bacteria NONE SEEN <td> 01/19/2019 [place] [#/area] in 09:50</td><td> [facility] Urine Bacteria Health Care sediment by </td><td> [facility] Microscopy high power NONE SEEN field
(NONE SEEN) /HPF </td> Erythrocytes 1 /HPF 0-2 <td> 01/19/2019 [place] [#/area] in /HPF 09:50</td><td> [facility] Urine RBC </td><td> Health Care sediment by [facility] Automated 1 count
(0-2) /HPF </td> Leukocytes 1 /HPF 0-5 <td> 01/19/2019 [place] [Presence] in /HPF 09:50</td><td> [facility] Urine by WBC </td><td> Health Care Automated [facility] 1
(0-5) /HPF </td> Leukocyte Negative <td> 01/19/2019 [place] esterase 09:50</td><td> County [Presence] in Leukocytes Health Care Urine by Test Esterase [facility] strip </td><td> Negative
(NEGATIVE) </td> Magnesium 1.5 mg/dL 1.6-2. <td> 01/20/2019 [place] [Mass/volume] 6 07:03</td><td> County in Serum or mg/dL Magnesium Level Health Care Plasma </td><td><[employer] ph styleCode="Bold"> 1.5 L </paragraph>
(1.6-2.6) mg/dL </td> Epithelial RARE <td> 01/19/2019 [place] cells FEW 09:50</td><td> [facility] [#/area] in Epithelial Cells Health [facility] Urine </td><td> [facility] sediment by Automated RARE count
/LPF
FEW

/LPF </td> Glucose 126 mg/dL 70-105 <td> 01/20/2019 [place] [Mass/volume] mg/dL 15:54</td><td> County in Capillary Glucose - Finger [facility] e blood by Stick [facility] Glucometer </td><td><[employer] ph styleCode="Bold"> 126 H </paragraph>
(70-105) mg/dL </td> Hemoglobin 10.8 % 4.0-5. <td> 01/19/2019 [place] A1C 6 % 01:29</td><td> [facility] Hemoglobin A1C Health Care </td><td><[employer] ph styleCode="Bold"> 10.8 H </paragraph>
(4.0-5.6) %
[...] 9
12 29 8
Source: Adapted from [employer]. Standards of medical
care in diabetes-2014. Diabetes Care.2014;37(Supp 1):S14-S80, table 8.
===

(4.0-5.6) % </td> Tacrolimus 14.8 ng/mL ng/mL <td> 01/20/2019 [place] [Mass/volume] 07:03</td><td> [facility] in Serum or Tacrolimus Level Health Care Plasma </td><td> Corporation 14.8
ng/mL

THERAPEUTIC RANGES FOR TACROLIMUS

Kidney Transplant.....5- 15 ng/mL
Liver Transplant.....10 -20 ng/mL

*TESTING IS PERFORMED ON WHOLE BLOOD EDTA BY [employer] SYSTEM USING
CHEMILUMINESCENT MICROPARTICLE IMMUNOASSAY (CMIA). VALUES OBTAINED WITH
DIFFERENT ASSAY METHODS OR KITS CANNOT BE USED INTERCHANGEABLY.

ng/mL </td> ID Date Data Source LIPID.[id number] 11/29/2018 12:09:00 PM EDT [facility] Name Value Range Interpretation Description Data Sup porting Code Source(s) Document(s ) Triglyceride < 150 Above high normal <content [facility] [Mass/volume] in styleCode="Marlo Minna Serum or Plasma d">Triglycerid [facility] </content>151 MG/DL H<content styleCode="Nata lics"> (< 150 MG/DL)</conten t> UNK < 100 <content [facility] styleCode="Marlo Minna d">LDL-Cholest [facility] </content>76 MG/DL<content styleCode="Nata lics"> (< 100 MG/DL)</conten t> UNK > 60 Below low normal <content [facility] styleCode="Marlo [place] d">HDL- Medical Cholesterol Center </content>38 MG/DL L<content styleCode="Nata lics"> (> 60 MG/DL)</conten t> Cholesterol -<200 <content [facility] [Mass/volume] in styleCode="Marlo Bakers Serum or Plasma d">Cholesterol Medical </content>144 Center MG/DL<content styleCode="Nata lics"> (-<200 MG/DL)</conten t> ID Date Data Source Hormones.[id number] 11/29/2018 12:09:00 PM EDT [facility] Name Value Range Interpretation Description Data Sup porting Code Source(s) Document(s ) Thyrotropin 0.465-4. <content [facility] [Units/volume] 68 styleCode="Marlo Minna in Serum or d">Thyroid Medical Plasma by Stimulating Center Detection Hormone limit <= 0.05 </content>2.79 mIU/L MIU/L<content styleCode="Nata lics"> (0.465-4.68 MIU/L)</conten t> Thyroxine (T4) 0.78-2.1 <content [facility] free 9 styleCode="Marlo Bakers [Mass/volume] d">T4 Free Medical in Serum or </content>1.40 Center Plasma NG/DL<content styleCode="Nata lics"> (0.78-2.19 NG/DL)</conten t> ID Date Data Source HematologySpeci.[id number] 11/29/2018 12:09:00 PM EDT [facility] 0-0400 Name Value Range Interpretation Description Data Sup porting Code Source(s) Document(s ) Erythrocyte < 20 <content [facility] sedimentation styleCode="Bold" [place]na rate by >[facility] method Rate (ESR) </content>5 MM/hr<content styleCode="Itali cs"> (< 20 MM/hr)</content> ID Date Data Source HematologyRou.[id number] 11/29/2018 12:09:00 PM EDT [facility] 0400 Name Value Range Interpretation Description Data [...] Data Source Liver 11/29/2018 12:09:00 PM EDT [facility] Profile.[id number] Name Value Range Interpretation Description Data Sup [...] Bilirubin.total 0.2-1.3 <content [facility] [Mass/volume] in styleCode="Bold"> Educe hs Serum or Plasma Bilirubin Total Medical </content>0.8 Center MG/DL<content styleCode="Italic s"> (0.2-1.3 MG/DL)</content> Albumin 3.5-5.0 <content [facility] [Mass/volume] in styleCode="Bold"> Deuce hs Serum or Plasma Albumin Medical </content>4.0 Center G/DL<content styleCode="Italic s"> (3.5-5.0 G/DL)</content> ID Date Data Source GFR(Creatinine).[id number] 11/29/2018 12:09:00 PM EDT [facility] 0-0400 Name Value Range Interpretation Code Description Data Maral rce(s) Supporting Document(s ) UNK > 60 <content [facility] styleCode="Bold"> Medical Cent er EGFR </content>72 GFR<content styleCode="Italic s"> (> 60 GFR)</content> ID Date Data Source DESTINMROUTINECCULISES.[id number] 11/29/2018 12:09:00 PM EDT [facility] -0400 Name Value Range Interpretation Description Data Sup porting Code Source(s) Document(s ) UNK >= 1.0 <content [facility] styleCode="Marlo Minna d">AG Ratio Medical </content>1.8 Center <content styleCode="Nata lics"> (>= 1.0 )</content> UNK Not <content [facility] Established styleCode="Marlo Minna d">[facility] </content>8.8 mg/dL<content styleCode="Nata lics"> (Not Established mg/dL)</conten t> UNK 4.2-5.8 Above high normal <content [facility] styleCode="Marlo Minna d">Hemoglobin Medical A1C Center </content>10.2 % H<content styleCode="Nata lics"> (4.2-5.8 %)</content> UNK 2.3-3.5 Below low normal <content Saint styleCode="Marlo Minna d">Globulin Medical </content>2.2 Center G/DL L<content styleCode="Nata lics"> (2.3-3.5 G/DL)</content > Protein 6.3-8.2 Below low normal <content [facility] [Mass/volu styleCode="Marlo Bakers me] in d">Total Medical Serum or Protein Center Plasma </content>6.2 G/DL L<content styleCode="Nata lics"> (6.3-8.2 G/DL)</content > ID Date Data Source [facility].[id number] 11/29/2018 12:09:00 PM EDT [facility] Name Value Range Interpretation Description [...] s"> (3.5-5.0 G/DL)</content> ID Date Data Source HematologyRou.[id number] 10/11/2018 11:30:00 AM EDT [facility] 0400 Name Value Range Interpretation Description [...] high <content [facility] volume [Entitic normal styleCode="Bold [place] volume] in Blood ">Mean Platelet Medical by [...] Date Data Source Coagulation 10/11/2018 11:30:00 AM [facility] Rout.[id number] EDT Name Value Range Interpretation Description Data [...] cs"> (9.0-13.0 SEC)</content> ID Date Data Source CardiacMarkers.[id number] 10/11/2018 11:30:00 AM EDT [facility] -0400 Name Value Range Interpretation Description Data Sup porting Code Source(s) Document(s ) Troponin < 0.034 <content [facility] I.cardiac styleCode="Bold [place] [Mass/volume ">Troponin I Medical ] in Serum </content>< Center or Plasma 0.012 NG/ML<content styleCode="Ital ics"> (< 0.034 NG/ML)</content > ID Date Data Source Liver 10/11/2018 11:30:00 AM EDT [facility] Profile.[id number] Name Value Range Interpretation Description Data Sup [...] s"> (3.5-5.0 G/DL)</content> ID Date Data Source GFR(Creatinine).[id number] 10/11/2018 11:30:00 AM EDT [facility] 0-0400 Name Value Range Interpretation Code Description Data Maral rce(s) Supporting Document(s ) UNK > 60 <content [facility] styleCode="Bold"> Medical Cent er EGFR </content>81 GFR<content styleCode="Italic s"> (> 60 GFR)</content> ID Date Data Source DESTINMROUTNAHUMCCULISES.[id number] 10/11/2018 11:30:00 AM EDT [facility] -0400 Name Value Range Interpretation Description Data Sup porting Code Source(s) Document(s ) Magnesium 1.6-2.3 Below low normal <content [facility] [Mass/volume] styleCode="Marlo Minna in Serum or d">Magnesium Medical Plasma </content>1.3 Center MG/DL L<content styleCode="Nata lics"> (1.6-2.3 MG/DL)</conten t> UNK 2.3-3.5 <content [facility] styleCode="Marlo Minna [...] 125 PG/ML)</conten t> ID Date Data Source [facility].[id number] 10/11/2018 11:30:00 AM EDT [facility] Name Value Range Interpretation [...] Source Liver Profile 10/11/2018 11:30:00 AM EDT [facility] Name Value Range [...] Data Source HematologyRou 10/11/2018 11:30:00 AM T [facility] Name Value Range Interpretation [...] Data Source GFR(Creatinine) 10/11/2018 11:30:00 AM EDT [facility] Name Value Range Interpretation Code Description Data Maral rce(s) Supporting Document(s ) UNK > 60 <content [facility] styleCode="Bold"> Medical Cent er EGFR </content>81 GFR<content styleCode="Italic s"> (> 60 GFR)</content> ID Date Data Source Coagulation Rout 10/11/2018 11:30:00 AM EDT [facility] Name Value Range [...] Data Source CHMROUTINECCDA 10/11/2018 11:30:00 AM EDT [facility] Name Value Range [...] Date Data Source CardiacMarkers 10/11/2018 11:30:00 AM EDT [facility] Name Value Range Interpretation Description Data Sup porting Code Source(s) Document(s ) Troponin < 0.034 <content [facility].cardiac styleCode="Bold [place] [Mass/volume ">Troponin I Medical ] in Serum </content>< Center or Plasma 0.012 NG/ML<content styleCode="Ital ics"> (< 0.034 NG/ML)</content > ID Date Data Source BMP 10/11/2018 11:30:00 AM T [facility] Name Value Range Interpretation [...] high <content [facility] [Moles/volume] in normal styleCode="Bold"> [place] phs Serum or Plasma Potassium Medical </content>5.6 [...] Data Source Liver 10/10/2018 04:09:00 PM EDT [facility] Profile.[id number] Name Value Range Interpretation Description Data Sup porting Code Source(s) Document(s ) Aspartate 17-59 Below low <content [facility] aminotransferase normal styleCode="Bold"> [facility] [Enzymatic Aspartate Medical activity/volume] Aminotransferase Center in Serum or Plasma (AST) </content>15 IU/L L<content styleCode="Italic s"> (17-59 IU/L)</content> Alkaline 38-126 Above high <content [facility] phosphatase normal styleCode="Bold"> [facility] [Enzymatic Alkaline Medical activity/volume] Phosphatase (ALP) Cente [...] s"> (0.2-1.3 MG/DL)</content> ID Date Data Source HematologyRou.[id number] 10/10/2018 04:09:00 PM EDT [facility] 0400 Name Value Range Interpretation Description [...] (0-0.1 KCUMM)</content > ID Date Data Source GFR(Creatinine).[id number] 10/10/2018 04:09:00 PM EDT [facility] 0-0400 Name Value Range Interpretation Code Description Data Maral rce(s) Supporting Document(s ) UNK > 60 <content [facility] styleCode="Bold"> Medical Cent er EGFR </content>65 GFR<content styleCode="Italic s"> (> 60 GFR)</content> ID Date Data Source BOBBI.[id number] 10/10/2018 04:09:00 PM EDT [facility] -0400 Name Value Range Interpretation Description Data Sup porting Code Source(s) Document(s ) UNK 2.3-3.5 <content [facility] styleCode="Bold Medical ">Globulin Center </content>2.4 G/DL<content styleCode="Ital ics"> (2.3-3.5 G/DL)</content> UNK >= 1.0 <content [facility] styleCode="Bold Medical ">AG Ratio Center </content>1.5 <content styleCode="Ital ics"> (>= 1.0 )</content> Protein 6.3-8.2 Below low normal <content [facility] [Mass/volum styleCode="Bold Medical e] in Serum ">Total Protein Center or Plasma </content>6.1 G/DL L<content styleCode="Ital ics"> (6.3-8.2 G/DL)</content> UNK 4.2-5.8 Above high normal <content [place] s styleCode="Bold Medical ">Hemoglobin Center A1C </content>11.2 % H<content styleCode="Ital ics"> (4.2-5.8 %)</content> ID Date Data Source [facility].[id number] 10/10/2018 04:09:00 PM EDT [facility] Name Value Range Interpretation Description Data Sup porting Code Source(s) Document(s ) Potassium 3.5-5.3 Above upper <content [facility] [Moles/volume] in panic limits styleCode="Bold"> [facility] Serum or Plasma Potassium Medical </content><[facility] t styleCode="Bold"> 7.3 MEQ/L HH</content><cont ent styleCode="Italic [...] Lucille sephs Serum or Plasma Glucose Medical </content><[facility] t styleCode="Bold"> 545 MG/DL HH</content><cont ent [...] Above high <content [facility] phosphatase normal styleCode="Bold"> [facility] [Enzymatic Alkaline Medical activity/volume] Phosphatase (ALP) Cente [...] s"> (0.2-1.3 MG/DL)</content> ID Date Data Source Urinalysis.[id number] 08/25/2018 12:10:00 PM EDT [facility] 0 Name Value Range Interpretation Description Data Sup porting Code Source(s) Document(s ) Color of Urine YELLOW <content [facility] styleCode="Marlo Minna d">Color, Medical Urine Center </content>YELL OW <content styleCode="Nata lics"> (YELLOW )</content> UNK CLEAR <content [facility] styleCode="Marlo Minna d">Urine Medical Clarity Center </content>SRIRAM R <content styleCode="Nata lics"> (CLEAR )</content> Glucose NEGATIVE <content [facility] [Mass/volume] styleCode="Marlo Bakers in [...] 1.015-1.02 <content [facility] gravity of 5 styleCode="Marlo Bakers Urine by Test d">Urine Medical strip Specific Center [place] </content>1.01 5 <content styleCode="Nata lics"> (1.015-1.025 )</content> [...] t> Urobilinogen 0.2-1.0 <content [facility] [Units/volume] styleCode="Marlo Bakers [...] lics"> (NEGATIVE )</content> ID Date Data Source Microbiology.[id number] 08/25/2018 12:10:00 PM EDT [facility] 400 Name Value Range Interpretation Code Description Data Maral rce(s) Supporting Document(s ) UNK <item><content Minna styleCode="Bold"> Medical Cent er Culture Report </content>
<t able><tbody><tr>< td>Specimen Number:</td><td>[id number]</td></tr ><tr><td>Sample Collection Date/Time: </td><td> 9 12:10 PM</td></tr><tr>< td>Specimen Source:</td><td>U RINE BLADDER</td></tr> <tr><td>Urine Culture:</td><td> Collection Plate Date: 08/25/2018 14:51 </td></tr><tr><td >Culture Status:</td><td>F inal </td></tr><tr><td >Culture Report:</td><td>N O GROWTH </td></tr></tbody ></table></item> UNK <item><content [facility] styleCode="Bold"> Medical [facility] er Culture Status </content>
<t able><tbody><tr>< td>Specimen Number:</td><td>[id number]</td></tr ><tr><td>Sample Collection Date/Time: </td><td> 9 12:10 PM</td></tr><tr>< td>Specimen Source:</td><td>U RINE BLADDER</td></tr> <tr><td>Culture Status:</td><td>F inal </td></tr><tr><td >Culture Report:</td><td>N O GROWTH </td></tr><tr><td >Urine Culture:</td><td> Collection Plate Date: 08/25/2018 14:51 </td></tr></tbody ></table></item> ID Date Data Source Urinalysis 08/25/2018 12:10:00 PM EDT [facility] Name Value Range Interpretation Description Data Sup porting Code Source(s) Document(s ) Color of Urine YELLOW <content styleCode="Marlo Bakers d">Color, Medical Urine Center </content>YELL OW <content styleCode="Nata lics"> (YELLOW )</content> Glucose NEGATIVE <content [facility] [Mass/volume] styleCode="Marlo Buitrago in Urine by d">Urine Medical Test strip Glucose Center </content>100 MG/DL<content styleCode="Nata lics"> (NEGATIVE MG/DL)</conten t> UNK CLEAR <content [facility] styleCode="Marlo Minna d">Urine Medical Clarity Center </content>SRIRAM R <content styleCode="Nata lics"> (CLEAR )</content> UNK NEGATIVE <content [facility] styleCode="Marlo Bakers d">Urine Medical Bilirubin Center </content>NEGA TIVE <content styleCode="Nata lics"> (NEGATIVE )</content> Ketones NEGATIVE <content [facility] [Mass/volume] styleCode="Marlo Minna in Urine by d">Urine Medical Test strip Ketone Center </content>NEGA TIVE MG/DL<content styleCode="Nata lics"> (NEGATIVE MG/DL)</conten t> Specific 1.015-1.02 <content [facility] gravity of 5 styleCode="Marlo Minna Urine by Test d">Urine Medical strip Specific Center [place] </content>1.01 5 <content styleCode="Nata lics"> (1.015-1.025 )</content> [...] Nitrite NEGATIVE <content [facility] [Presence] in styleCode="Marlo Bakers Urine by Test d">Urine Medical strip Nitrite Center </content>NEGA TIVE <content styleCode="Nata lics"> (NEGATIVE )</content> ID Date Data Source Microbiology 08/25/2018 12:10:00 PM EDT [facility] Name Value Range Interpretation Code Description Data Maral rce(s) Supporting Document(s ) UNK <item><content [facility] styleCode="Bold"> Medical [facility] er Culture Report </content>
<t able><tbody><tr>< td>Specimen Number:</td><td>[id number]</td></tr ><tr><td>Sample Collection Date/Time: </td><td> 9 12:10 PM</td></tr><tr>< td>Specimen Source:</td><td>U RINE BLADDER</td></tr> <tr><td>Urine Culture:</td><td> Collection Plate Date: 08/25/2018 14:51 </td></tr><tr><td >Culture Status:</td><td>P reliminary </td></tr><tr><td >Culture Report:</td><td>C ulture in progress </td></tr></tbody ></table></item> UNK <item><content [facility] styleCode="Bold"> Medical [facility] er Culture Status </content>
<t able><tbody><tr>< td>Specimen Number:</td><td>[id number]</td></tr ><tr><td>Sample Collection Date/Time: </td><td> 9 12:10 PM</td></tr><tr>< td>Specimen Source:</td><td>U RINE BLADDER</td></tr> <tr><td>Culture Status:</td><td>P reliminary </td></tr><tr><td >Culture Report:</td><td>C ulture in progress </td></tr><tr><td >Urine Culture:</td><td> Collection Plate Date: 08/25/2018 14:51 </td></tr></tbody ></table></item> ID Date Data Source LIPID.[id number] 06/27/2018 09:29:00 AM EST [facility] Name Value Range Interpretation Description Data Sup porting Code Source(s) Document(s ) Triglyceride < 150 <content [facility] [Mass/volume] in styleCode="Marlo Minna Serum or Plasma d">Triglycerid [facility] </content>112 MG/DL<content styleCode="Ntaa lics"> (< 150 MG/DL)</conten t> Cholesterol -<200 <content [facility] [Mass/volume] in styleCode="Marlo Minna Serum or Plasma d">Cholesterol Medical </content>141 Center MG/DL<content styleCode="Nata lics"> (-<200 MG/DL)</conten t> UNK > 60 Below low normal <content [facility] styleCode="Marlo Minna d">HDL- Medical Cholesterol Center </content>40 MG/DL L<content styleCode="Nata lics"> (> 60 MG/DL)</conten t> UNK < 100 <content [facility] styleCode="Marlo Minna d">[facility] </content>79 MG/DL<content styleCode="Nata lics"> (< 100 MG/DL)</conten t> ID Date Data Source HematologySpeci.[id number] 06/27/2018 09:29:00 AM EST [facility] 0-0500 Name Value Range Interpretation Description Data Sup porting Code Source(s) Document(s ) Erythrocyte < 20 <content [facility] sedimentation styleCode="Bold" [facility] rate by >Erythrocyte [facility] method Rate (ESR) </content>5 MM/hr<content styleCode="Itali cs"> (< 20 MM/hr)</content> ID Date Data Source HematologyRou.[id number] 06/27/2018 09:29:00 AM [facility]ISSE [facility] 0500 Name Value Range Interpretation Description Data [...] Data Source Liver 06/27/2018 09:29:00 AM EST [facility] Profile.[id number] Name Value Range Interpretation Description Data Sup [...] s"> (38-126 IU/L)</content> ID Date Data Source GFR(Creatinine).[id number] 06/27/2018 09:29:00 AM [facility] 0-0500 Name Value Range Interpretation Code Description Data Maral rce(s) Supporting Document(s ) UNK > 60 <content [facility] styleCode="Bold"> Medical Cent er EGFR </content>72 GFR<content styleCode="Italic s"> (> 60 GFR)</content> ID Date Data Source DESTINMROUTINECCDA.[id number] 06/27/2018 09:29:00 AM [facility] -0500 Name Value Range Interpretation Description Data Sup porting Code Source(s) Document(s ) UNK >= 1.0 <content [facility] styleCode="Marlo Minna d">AG Ratio Medical </content>1.8 Center NM<content styleCode="Nata [...] (1.6-2.3 MG/DL)</conten t> ID Date Data Source [facility].[id number] 06/27/2018 09:29:00 AM EST [facility] Name Value Range Interpretation [...] Above high <content [facility] phosphatase normal styleCode="Bold"> [facility] [Enzymatic Alkaline Medical activity/volume] Phosphatase (ALP) Cente r in Serum or Plasma </content>131 IU/L H<content styleCode="Italic s"> (38-126 IU/L)</content> Bilirubin.total 0.2-1.3 <content [facility] [Mass/volume] in styleCode="Bold"> Deuce hs Serum or Plasma Bilirubin Total Medical </content>0.7 Center MG/DL<content styleCode="Italic s"> (0.2-1.3 MG/DL)</content> ID Date Data Source Hormones.[id number] 04/14/2018 01:05:00 PM EDT [facility]i [facility] Name Value Range Interpretation Code Description Data Maral rce(s) Supporting Document(s ) UNK 14-64 <content [facility] styleCode="Bold"> Medical Cent er PTH </content>43 pg/mL<content styleCode="Italic s"> (14-64 pg/mL)</content> ID Date Data Source Liver 03/21/2018 02:35:00 PM EDT [facility] Profile.[id number] Name Value Range Interpretation Description Data Sup porting Code Source(s) Document(s ) Alanine 7-50 <content [facility] aminotransferase styleCode="Bold"> Deuce hs [Enzymatic Alanine Medical [...] s"> (0.2-1.3 MG/DL)</content> ID Date Data Source GFR(Creatinine).[id number] 03/21/2018 02:35:00 PM EDT [facility] 0-0400 Name Value Range Interpretation Code Description Data Maral rce(s) Supporting Document(s ) UNK > 60 <content [facility] styleCode="Bold"> Medical Cent er EGFR </content>72 GFR<content styleCode="Italic s"> (> 60 GFR)</content> ID Date Data Source CHMROUTINECCDA.[id number] 03/21/2018 02:35:00 PM EDT [facility] -0400 Name Value Range Interpretation Description Data Sup porting Code Source(s) Document(s ) UNK >= 1.0 <content [facility] styleCode="Marlo Minna d">AG Ratio Medical </content>1.7 Center NM<content styleCode="Nata lics"> (>= 1.0 NM)</content> UNK 2.3-3.5 <content [facility] styleCode="Marlo Minna d">Globulin Medical </content>2.4 Center G/DL<content styleCode="Nata lics"> (2.3-3.5 G/DL)</content > Phosphate 2.5-4.5 <content [facility] [Mass/volume] styleCode="Marlo Minna in Serum or d">Phosphorus Medical Plasma </content>3.1 Center MG/DL<content styleCode="Nata lics"> (2.5-4.5 MG/DL)</conten t> Protein 6.3-8.2 <content [facility] [Mass/volume] styleCode="Marlo Minna in Serum or d">Total Medical Plasma Protein Center </content>6.4 G/DL<content styleCode="Nata lics"> (6.3-8.2 G/DL)</content > ID Date Data Source [facility].[id number] 03/21/2018 02:35:00 PM EDT [facility] Name Value Range Interpretation Description Data Sup porting Code Source(s) Document(s ) Potassium 3.5-5.3 <content [facility] [Moles/volume] in styleCode="Bold"> [facility] Serum or Plasma Potassium Medical </content>5.1 Center MEQ/L<content styleCode="Italic s"> (3.5-5.3 MEQ/L)</content> Sodium 137-145 Below low <content [facility] [Moles/volume] in normal styleCode="Bold"> [facility] Serum or Plasma Sodium Medical </content>132 Center [...] GFR)</content> Alkaline 38-126 <content [facility] phosphatase styleCode="Bold"> [facility] [Enzymatic Alkaline Medical activity/volume] Phosphatase (ALP) Cente [...] s"> (3.5-5.0 G/DL)</content> ID Date Data Source HematologyRou.[id number] 03/15/2018 05:20:00 PM EDT [facility] 0400 Name Value Range Interpretation Description Data Sup porting Code Source(s) Document(s ) Leukocytes 4.4-11.0 Below low normal <content [facility] [#/volume] in styleCode="Bold [facility] Blood by ">White Blood Medical Automated count Cell Count Center </content>4.10 KCUMM L<content styleCode="Ital ics"> (4.4-11.0 KCUMM)</content > Erythrocytes 4.4-5.9 Below low normal <content [facility] [#/volume] in styleCode="Bold [facility] Blood by ">Red Blood Medical Automated count [...] Data Source Liver 03/15/2018 05:20:00 PM EDT [facility] Profile.[id number] Name Value Range Interpretation Description Data Sup [...] s"> (3.5-5.0 G/DL)</content> ID Date Data Source GFR(Creatinine).[id number] 03/15/2018 05:20:00 PM EDT [facility] 0-0400 Name Value Range Interpretation Code Description Data Maral rce(s) Supporting Document(s ) UNK > 60 <content [facility] styleCode="Bold"> Medical Cent er EGFR </content>72 GFR<content styleCode="Italic s"> (> 60 GFR)</content> ID Date Data Source CHMROUTINECCDA.[id number] 03/15/2018 05:20:00 PM EDT [facility] -0400 Name Value Range Interpretation Description Data [...] (6.3-8.2 G/DL)</content > ID Date Data Source [facility].[id number] 03/15/2018 05:20:00 PM EDT [facility] Name Value Range Interpretation Description Data Sup porting Code Source(s) Document(s ) Potassium 3.5-5.3 Above high <content [facility] [Moles/volume] in normal styleCode="Bold"> [facility] phs Serum or Plasma Potassium Medical </content>5.5 Center MEQ/L H<content styleCode="Italic s"> (3.5-5.3 MEQ/L)</content> Sodium 137-145 Below low <content [facility] [Moles/volume] in normal styleCode="Bold"> [facility] Serum or Plasma Sodium Medical </content>130 Center MEQ/L L<content styleCode="Italic s"> (137-145 MEQ/L)</content> Chloride 98-107 <content [facility] [Moles/volume] in styleCode="Bold"> [facility] Serum or Plasma Chloride Medical </content>98 Center [...] s"> (3.5-5.0 G/DL)</content> ID Date Data Source LIPID.[id number] 02/24/2018 04:15:00 PM EDT [facility] Name Value Range Interpretation Description Data Sup porting Code Source(s) Document(s ) Triglyceride < 150 Above high normal <content [facility] [Mass/volume] in styleCode="Marlo Minna Serum or Plasma d">Triglycerid Medical es Center </content>193 MG/DL H<content styleCode="Nata lics"> (< 150 MG/DL)</conten t> UNK < 100 <content [facility] styleCode="Marlo Minna d">LDL-Cholest Medical jeff Center </content>59 MG/DL<content styleCode="Naat lics"> (< 100 MG/DL)</conten t> Cholesterol -<200 <content [facility] [Mass/volume] in styleCode="Marlo Minna Serum or Plasma d">Cholesterol Medical </content>139 Center MG/DL<content styleCode="Nata lics"> (-<200 MG/DL)</conten t> UNK > 60 Below low normal <content [facility] styleCode="Marlo Minna d">HDL- Medical Cholesterol Center </content>41 MG/DL L<content styleCode="Nata lics"> (> 60 MG/DL)</conten t> ID Date Data Source Hormones.[id number] 02/24/2018 04:15:00 PM EDT Jacki [facility] Name Value Range Interpretation Code Description Data Maral rce(s) Supporting Document(s ) UNK 14-64 Above high normal <content [place] s styleCode="Bold"> Medical Cent er PTH </content>182 pg/mL H<content styleCode="Italic s"> (14-64 pg/mL)</content> ID Date Data Source Urinalysis.[id number] 02/15/2018 11:28:00 AM EDT [facility] 0 Name Value Range Interpretation Description Data Sup porting Code Source(s) Document(s ) Color of Urine YELLOW <content [facility] styleCode="Marlo Bakers d">Color, Medical Urine Center </content>YELL OW <content styleCode="Nata lics"> (YELLOW )</content> UNK CLEAR <content [facility] styleCode="Marlo Minna d">Urine Medical Clarity Center </content>SRIRAM R <content styleCode="Nata lics"> (CLEAR )</content> Glucose NEGATIVE <content [facility] [Mass/volume] styleCode="Marlo Bakres in Urine by d">Urine Medical Test strip [...] Test strip styleCode="Marlo Bakers d">Urine pH Medical </content>5.5 Center NM<content styleCode="Nata lics"> (4.5-8.0 NM)</content> Hemoglobin NEGATIVE <content [facility] [Presence] in styleCode="Marlo Bakers Urine by Test d">Urine Blood Medical strip </content>NEGA Center TIVE <content styleCode="Nata lics"> (NEGATIVE )</content> Specific 1.015-1.02 <content [facility] gravity of 5 styleCode="Marlo Bakers Urine by Test d">Urine Medical strip Specific Center [place] </content>1.02 0 NM<content styleCode="Nata lics"> (1.015-1.025 NM)</content> Nitrite NEGATIVE <content [facility] [Presence] in styleCode="Marlo Buitrago Urine by Test d">Urine Medical strip Nitrite Center </content>NEGA TIVE <content styleCode="Nata lics"> (NEGATIVE )</content> Protein NEGATIVE <content [facility] [Mass/volume] styleCode="Marlo Bakers in Urine by d">Urine Medical Test strip Protein Center </content>TRAC E MG/DL<content styleCode="Nata lics"> (NEGATIVE MG/DL)</conten t> Urobilinogen 0.2-1.0 <content [facility] [Units/volume] styleCode="Marlo Bakers in Urine by d">Urine Medical Test strip Urobilinogen Center </content>0.2 MG/DL<content styleCode="Nata lics"> (0.2-1.0 MG/DL)</conten t> Leukocyte NEGATIVE <content [facility] esterase styleCode="Marlo Buitrago [Presence] in d">Urine Medical Urine by Test Leukocyte Center strip </content>NEGA TIVE <content styleCode="Nata lics"> (NEGATIVE )</content> UNK <content [facility] styleCode="Marlo Bakers d">Epithelial Medical Cell Center </content>0-2 LPF (Reference Range: not available)<br/ > ID Date Data Source Microbiology.[id number] 02/15/2018 11:28:00 AM EDT [facility] 400 Name Value Range Interpretation Code Description Data Maral rce(s) Supporting Document(s ) UNK <item><content Minna styleCode="Bold"> Medical Cent er Culture Status </content>
<t able><tbody><tr>< td>Specimen Number:</td><td>[id number]</td></tr ><tr><td>Sample Collection Date/Time: </td><td>02/15/2018 11:28 AM</td></tr><tr>< td>Specimen Source:</td><td>U RINE BLADDER</td></tr> <tr><td>Culture Status:</td><td>F inal </td></tr><tr><td >Culture Report:</td><td>N O GROWTH </td></tr><tr><td >Urine Culture:</td><td> Collection Plate Date: 02/15/2018 15:36 </td></tr></tbody ></table></item> UNK <item><content [facility] styleCode="Bold"> Medical Cent er Culture Report </content>
<t able><tbody><tr>< td>Specimen Number:</td><td>[id number]</td></tr ><tr><td>Sample Collection Date/Time: </td><td>02/15/2018 11:28 AM</td></tr><tr>< td>Specimen Source:</td><td>U RINE BLADDER</td></tr> <tr><td>Culture Report:</td><td>N O GROWTH </td></tr><tr><td >Urine Culture:</td><td> Collection Plate Date: 02/15/2018 15:36 </td></tr><tr><td >Culture Status:</td><td>F inal </td></tr></tbody ></table></item> ID Date Data Source Hormones.[id number] 02/15/2018 11:28:00 AM EDT [facility] Name Value Range Interpretation Description Data Sup porting Code Source(s) Document(s ) Thyrotropin 0.465-4. <content Saint [Units/volume] 68 styleCode="Marlo Minna in Serum or d">Thyroid Medical Plasma by Stimulating Center Detection Hormone limit <= 0.05 </content>2.95 mIU/L MIU/L<content styleCode="Nata lics"> (0.465-4.68 MIU/L)</conten t> ID Date Data Source HematologySpeci.[id number] 02/15/2018 11:28:00 AM EDT [facility] 0-0400 Name Value Range Interpretation Description Data Sup porting Code Source(s) Document(s ) Erythrocyte < 20 <content Saint sedimentation styleCode="Bold" Minna rate by >Erythrocyte Medical [facility] method Rate (ESR) </content>4 MM/hr<content styleCode="Itali cs"> (< 20 MM/hr)</content> ID Date Data Source HematologyRou.[id number] 02/15/2018 11:28:00 AM EDT [facility] 0400 Name Value Range Interpretation Description Data [...] (0.0 KCUMM)</content > ID Date Data Source [id number] 11/29/2017 12:18:00 PM EDT [facility] Name Value Range Interpretation Description Data Sup porting Code Source(s) Document(s ) Thyrotropin 0.465-4. <content Saint [Units/volume] 68 styleCode="Marlo Minna in Serum or d">Thyroid Medical Plasma by Stimulating Center Detection Hormone limit <= 0.05 </content>2.37 mIU/L MIU/L<content styleCode="Nata lics"> (0.465-4.68 MIU/L)</conten t> ID Date Data Source [id number].[id number] 11/10/2017 05:07:00 PM EDT [facility] 0 Name Value Range Interpretation Description Data [...] 1.015-1.02 <content Saint gravity of 5 styleCode="Marlo Bakers Urine by Test d">Urine Medical strip Specific Center [place] </content>1.02 5 NM<content styleCode="Nata lics"> (1.015-1.025 NM)</content> [...] Nitrite NEGATIVE <content Saint [Presence] in styleCode="Marlo Bakers Urine by Test d">Urine Medical strip Nitrite Center </content>NEGA TIVE <content styleCode="Nata lics"> (NEGATIVE )</content> Leukocyte NEGATIVE <content Saint esterase styleCode="Marlo Minna [Presence] in d">Urine Medical Urine by Test Leukocyte Center strip </content>NEGA TIVE <content styleCode="Nata lics"> (NEGATIVE )</content> Urobilinogen 0.2-1.0 <content [facility] [Units/volume] styleCode="Marlo Minna in Urine by d">Urine Medical Test strip Urobilinogen Center </content>0.2 MG/DL<content styleCode="Nata lics"> (0.2-1.0 MG/DL)</conten t> ID Date Data Source [id number].[id number] 11/10/2017 05:07:00 PM EDT [facility] 400 Name Value Range Interpretation Code Description Data Maral rce(s) Supporting Document(s ) UNK <item><content [facility] styleCode="Bold"> Medical [facility] er Culture Report </content>
<t able><tbody><tr>< td>Specimen Number:</td><td>[id number]</td></tr ><tr><td>Sample Collection Date/Time: </td><td> 8 5:07 PM</td></tr><tr>< td>Specimen Source:</td><td>U RINE BLADDER</td></tr> <tr><td>Culture Report:</td><td>N O GROWTH </td></tr><tr><td >Urine Culture:</td><td> Collection Plate Date: 11/10/2017 19:14 </td></tr><tr><td >Culture Status:</td><td>F inal </td></tr></tbody ></table></item> UNK <item[facility] Culture Status </content>
<t able><tbody><tr>< td>Specimen Number:</td><td>[id number]</td></tr ><tr><td>Sample Collection Date/Time: </td><td> 8 5:07 PM</td></tr><tr>< td>Specimen Source:</td><td>U RINE BLADDER</td></tr> <tr><td>Culture Status:</td><td>F inal </td></tr><tr><td >Culture Report:</td><td>N O GROWTH </td></tr><tr><td >Urine Culture:</td><td> Collection Plate Date: 11/10/2017 19:14 </td></tr></tbody ></table></item> Procedure Social History Code Duration Value Status Description Data Source(s ) Caffeine Use 02/22/2020 completed NEXTGEN ([facility] nt Details 12:00:00 AM [facility] EDT [place]) 02/22/2020 Current completed Current NEXTGEN ([facility] 12:00:00 AM non-smoker non-smoker [facility] EDT [place]) Smoking 02/22/2020 Unknown if completed Unknown if ever NEXTGEN ( [facility] 12:00:00 AM ever smoked smoked [facility]) Caffeine Use 01/10/2020 completed NEXTGEN ([facility] nt Details 12:00:00 AM [facility] EDT [place]) Smoking 01/02/2020 Denies Ever completed Denies Ever [place] [facility] 07:00:00 [facility] Smoking 01/02/2020 Denies Ever completed Denies Ever [place] [facility] 05:49:00 PM [facility]T Smoking 01/02/2020 Denies Ever completed Denies Ever [place] [facility] 05:24:00 PM [facility]oked [facility]T Smoking 02/21/2019 Denies Ever completed Denies Ever [place] [facility] 01:55:00 AM Smoked Smoked [facility] EDT Smoking 02/21/2019 Denies Ever completed Denies Ever [place] [facility] 12:27:00 AM Smoked Smoked [facility]T Smoking 02/20/2019 Denies Ever completed Denies Ever [place] [facility] 06:09:00 PM Smoked Smoked [facility]T Smoking 02/20/2019 Denies Ever completed Denies Ever [place] [facility] 05:19:00 PM Smoked Smoked [facility]T Smoking 02/20/2019 Denies Ever completed Denies Ever [place] [facility] 04:45:00 PM Smoked Smoked [facility] EDT Smoking 10/11/2018 Denies Ever completed Denies Ever [place] [facility] 11:18:00 AM Smoked Smoked [facility] EDT Smoking 10/11/2018 Denies Ever completed Denies Ever [place] [facility] 10:50:00 AM Smoked Smoked [facility] EDT Smoking 10/11/2018 Denies Ever completed Denies Ever [place] [facility] 10:43:00 AM Smoked Smoked [facility] EDT Alcohol Use completed NEXTGEN ([facility]) Smoking Unknown if completed Unknown if ever [facility] Damian kearns ever smoked smoked [facility] Smoking Former smoker completed Former smoker [facility] Corpor[facility] on Vital Signs ID Date Data Source UNK Name Value Range Interpretation Code Description Data Source(s) Diastolic blood 74 mm[Hg] 74 mm[Hg] NEXTGEN ( [facility] pressure [facility] [place]) Systolic blood 154 mm[Hg] 154 mm[Hg] [facility]) Oxygen saturation 100 % 100 % [facility] ([facility] in Arterial blood [facility] by Pulse oximetry Center) Body mass index 24.80 kg/m2 24.80 kg/m2 NEXTGEN ([facility] (BMI) [Ratio] [facility]) Respiratory rate 20 /min 20 /min [facility] ([facility]) Body temperature 36.67 Collette 36.67 Collette [facility] Heart rate 61 /min 61 /min [facility] ([facility]) Diastolic blood 65 mm[Hg] 65 mm[Hg] [facility] ( [facility] pressure [facility] [place]) Systolic blood 171 mm[Hg] 171 mm[Hg] [facility] (S aint pressure [facility]) Body weight 63.503 kg 63.503 kg [facility] ([facility] t [facility]) Body height 160.02 cm 160.02 cm [facility] ([facility] t [facility]) Body temperature 36.973134 36.232414 [facility] Respiratory rate 17 /min 17 /min [facility] Oxygen saturation 98 % 98 % [facility] osephs in [facility] by Pulse oximetry Heart rate 65 /min 65 /min [facility] Diastolic blood 67 mm[Hg] 67 mm[Hg] [facility] Systolic blood 134 mm[Hg] 134 mm[Hg] [facility] [place] Body weight 68.842850 68.038888 kg [facility] hs Measured kg Medical Center Body temperature 36.976557 36.791301 [facility] Respiratory rate 19 /min 19 /min [facility] Oxygen saturation 97 % 97 % [facility] J osephs in [facility] by Pulse oximetry Heart rate 68 /min 68 /min [facility] Body height 160.322298 160.875498 cm [facility] Diastolic blood 66 mm[Hg] 66 mm[Hg] [facility] Systolic blood 146 mm[Hg] 146 mm[Hg] [facility] Body mass index 26.5 kg/m2 26.5 kg/m2 [facility] (BMI) [Ratio] Medical [address] Oxygen saturation 98 % 98 % NEXTGEN ([facility] in Arterial blood [facility] by Pulse oximetry Center) Body mass index 24.84 kg/m2 24.84 kg/m2 NEXTGEN ([facility] (BMI) [Ratio] [facility]) Respiratory rate 18 /min 18 /min NEXTGEN ([facility]) Body temperature 36.89 Collette 36.89 Collette [facility] ([facility]) Heart rate 69 /min 69 /min [facility] ([facility]) Diastolic blood 61 mm[Hg] 61 mm[Hg] [facility] ( [facility]) Systolic blood 130 mm[Hg] 130 mm[Hg] [facility] ([facility]) Body weight 63.594 kg 63.594 kg [facility] ([facility]) Body height 160.02 cm 160.02 cm [facility] ([facility]) Body temperature 36.639135 36.429528 [facility] Respiratory rate 20 /min 20 /min [facility] Heart rate 75 /min 75 /min [facility] Diastolic blood 70 mm[Hg] 70 mm[Hg] [facility] Systolic blood 177 mm[Hg] 177 mm[Hg] [facility] Body temperature 36.380997 36.283677 [facility] Respiratory rate 20 /min 20 /min [facility] Heart rate 77 /min 77 /min [facility] Diastolic blood 70 mm[Hg] 70 mm[Hg] [facility] Systolic blood 163 mm[Hg] 163 mm[Hg] [facility] Body weight 65.953509 65.623956 kg [facility] Measured kg [facility] Body temperature 37.286717 37.650961 [facility] Respiratory rate 19 /min 19 /min [facility] Heart rate 73 /min 73 /min [facility] Diastolic blood 62 mm[Hg] 62 mm[Hg] [facility] Systolic blood 170 mm[Hg] 170 mm[Hg] [facility] Body temperature 36.106901 36.603145 [facility] Respiratory rate 17 /min 17 /min [facility] Oxygen saturation 98 % 98 % Saint J osephs in [facility] blood [facility] by Pulse oximetry Heart rate 64 /min 64 /min [facility] Diastolic blood 89 mm[Hg] 89 mm[Hg] [facility] Systolic blood 161 mm[Hg] 161 mm[Hg] [facility] Body temperature 36.725204 36.816903 [facility] Respiratory rate 18 /min 18 /min [facility] Oxygen saturation 97 % 97 % Saint J osephs in [facility] by Pulse oximetry Heart rate 74 /min 74 /min [facility] Diastolic blood 89 mm[Hg] 89 mm[Hg] [facility] Systolic blood 193 mm[Hg] 193 mm[Hg] [facility] Oxygen saturation 98 % 98 % Saint J osephs in [facility] by Pulse oximetry Oxygen saturation 98 % 98 % NEXTGEN ([facility] by Pulse oximetry Center) Body mass index 25.86 kg/m2 Overweight 25.86 kg/m2 NEXTGEN ([facility] (BMI) [Ratio] [facility]) Respiratory rate 17 /min 17 /min [facility] ([facility]) Body temperature 36.78 Collette 36.78 Collette [facility] ([facility]) Heart rate 62 /min 62 /min [facility] ([facility]) Diastolic blood 60 mm[Hg] 60 mm[Hg] [facility] ( [facility]) Systolic blood 107 mm[Hg] 107 mm[Hg] [facility] (S aint [facility]) Body weight 66.224 kg 66.224 kg [facility] ([facility]) Body height 160.02 cm 160.02 cm [facility] ([facility]) Oxygen saturation 100 % 100 % [facility] ([facility] in Arterial [facility] by Pulse oximetry Center) Body mass index 25.33 kg/m2 Overweight 25.33 kg/m2 NEXTGEN ([facility] (BMI) [Ratio] [facility]) Respiratory rate 16 /min 16 /min NEXTGEN ([facility]) Body temperature 36.61 Collette 36.61 Collette [facility] ([facility]) Heart rate 57 /min 57 /min NEXTGEN ([facility]) Diastolic blood 57 mm[Hg] 57 mm[Hg] NEXTGEN ( [facility]) Systolic blood 130 mm[Hg] 130 mm[Hg] NEXTGEN ([facility]) Body weight 64.864 kg 64.864 kg [facility] ([facility]) Body height 160.02 cm 160.02 cm [facility] ([facility]) Body mass index 24.98 kg/m2 24.98 kg/m2 [facility] ([facility] (BMI) [Ratio] [facility]) Body temperature 36.67 Collette 36.67 Collette [facility] ([facility]) Heart rate 62 /min 62 /min [facility] ([facility]) Diastolic blood 66 mm[Hg] 66 mm[Hg] [facility] ( [facility]) Systolic blood 128 mm[Hg] 128 mm[Hg] [facility] (S aint pressure [facility]) Body weight 63.957 kg 63.957 kg [facility] ([facility]) Body height 160.02 cm 160.02 cm [facility] ([facility]) Diastolic blood 68 {} Normal (applies to 68 {} [place] pressure non-numeric results) [facility] Systolic blood 154 {} Normal (applies to 154 {} [place] pressure non-numeric results) [facility] First Respiration 18.0000 {} Normal (applies to 18.0000 {} [place] rate Set non-numeric results) [facility] Heart rate 69.0000 {} Normal (applies to 69.0000 {} [place] unruly non-numeric results) [facility] Body temperature 97.6000 {} Normal (applies to 97.6000 {} [place] non-numeric results) [facility] wt - obtain Normal (applies to {} [facility] jane non-numeric results) Coun [facility] weight - kg 66.9000 {} Normal (applies to 66.9000 {} [facility] jane non-numeric results) Coun [facility] Oxygen saturation 98 % 98 % NEXTGEN ([facility] in Arterial blood [facility] by Pulse oximetry Center) Body mass index 25.51 kg/m2 Overweight 25.51 kg/m2 [facility] ([facility] (BMI) [Ratio] [facility]) Respiratory rate 17 /min 17 /min [facility] ([facility]) Body temperature 36.67 Collette 36.67 Collette [facility] ([facility]) Heart rate 63 /min 63 /min [facility] ([facility]) Diastolic blood 62 mm[Hg] 62 mm[Hg] [facility] ( [facility] pressure [facility]) Systolic blood 116 mm[Hg] 116 mm[Hg] [facility] Body weight 65.317 kg 65.317 kg [facility] ([facility]) Body height 160.02 cm 160.02 cm [facility] ([facility]) Body temperature 36.494460 36.081118 [facility] Respiratory rate 16 /min 16 /min [facility] Oxygen saturation 97 % 97 % [facility] osephs in [facility] blood [facility] by Pulse oximetry Heart rate 65 /min 65 /min [facility] Diastolic blood 65 mm[Hg] 65 mm[Hg] [facility] Systolic blood 145 mm[Hg] 145 mm[Hg] [facility] Body temperature 36.559846 36.118848 [facility] Respiratory rate 18 /min 18 /min [facility] Oxygen saturation 99 % 99 % [facility] J osephs in [facility] blood [facility] by Pulse oximetry Heart rate 62 /min 62 /min [facility] Diastolic blood 67 mm[Hg] 67 mm[Hg] [facility] Systolic blood 148 mm[Hg] 148 mm[Hg] [facility] Body weight 65.054048 65.113896 kg [facility] hs Measured kg Medical Center Body temperature 35.918948 35.556587 [facility] Respiratory rate 16 /min 16 /min [facility] Oxygen saturation 98 % 98 % [facility] osephs in Arterial blood [facility] by Pulse oximetry Heart rate 59 /min 59 /min [facility] Body height 152.542300 152.186146 cm [facility] Diastolic blood 63 mm[Hg] 63 mm[Hg] [facility] pressure [facility] Systolic blood 134 mm[Hg] 134 mm[Hg] [facility] Body mass index 28.0 kg/m2 28.0 kg/m2 [facility] (BMI) [Ratio] Medical [facility] ter Oxygen saturation 99 % 99 % NEXTGEN ([facility] in Arterial blood [facility] by Pulse oximetry Center) Body mass index 25.69 kg/m2 Overweight 25.69 kg/m2 NEXTGEN ([facility] (BMI) [Ratio] [facility]) Respiratory rate 16 /min 16 /min [facility] ([facility]) Body temperature 36.50 Collette 36.50 Collette [facility] ([facility]) Heart rate 67 /min 67 /min [facility] ([facility]) Diastolic blood 54 mm[Hg] 54 mm[Hg] [facility] ( [facility]) Systolic blood 114 mm[Hg] 114 mm[Hg] [facility] ([facility]) Body weight 65.771 kg 65.771 kg [facility] ([facility]) Body height 160.02 cm 160.02 cm [facility] ([facility]) Oxygen saturation 98 % 98 % NEXTGEN ([facility] in Arterial [facility] by Pulse oximetry Center) Body mass index 25.69 kg/m2 Overweight 25.69 kg/m2 [facility] ([facility] (BMI) [Ratio] [facility]) Respiratory rate 18 /min 18 /min [facility] ([facility]) Body temperature 36.39 Collette 36.39 Collette [facility] ([facility]) Heart rate 67 /min 67 /min [facility] ([facility]) Diastolic blood 73 mm[Hg] 73 mm[Hg] [facility] ( [facility]) Systolic blood 135 mm[Hg] 135 mm[Hg] NEXTGEN ([facility] pressure [facility]) Body weight 65.771 kg 65.771 kg [facility] ([facility]) Body height 160.02 cm 160.02 cm [facility] ([facility]) Oxygen saturation 98 % 98 % NEXTGEN ([facility] in Arterial blood [facility] by Pulse oximetry Center) Body mass index 26.61 kg/m2 Overweight 26.61 kg/m2 NEXTGEN ([facility] (BMI) [Ratio] [facility]) Respiratory rate 18 /min 18 /min [facility] ([facility]) Body temperature 37.22 Collette 37.22 Collette [facility] ([facility]) Heart rate 75 /min 75 /min [facility] ([facility]) Diastolic blood 70 mm[Hg] 70 mm[Hg] [facility] ( [facility]) Systolic blood 149 mm[Hg] 149 mm[Hg] NEXTGEN ([facility]) Body weight 68.130 kg 68.130 kg [facility] ([facility]) Body height 160.02 cm 160.02 cm [facility] ([facility]) Oxygen saturation 99 % 99 % NEXTGEN ([facility] in Arterial [facility] by Pulse oximetry Center) Body mass index 25.54 kg/m2 Overweight 25.54 kg/m2 NEXTGEN ([facility] (BMI) [Ratio] [facility]) Respiratory rate 16 /min 16 /min [facility] ([facility]) Body temperature 36.28 Collette 36.28 Collette [facility] ([facility]) Heart rate 63 /min 63 /min NEXTGEN ([facility]) Diastolic blood 66 mm[Hg] 66 mm[Hg] NEXTGEN ( [facility]) Systolic blood 153 mm[Hg] 153 mm[Hg] [facility] (S nt [facility]) Body weight 65.408 kg 65.408 kg [facility] ([facility]) Body height 160.02 cm 160.02 cm [facility] ([facility]) Oxygen saturation 95 % 95 % NEXTGEN ([facility] in Arterial [facility] by Pulse oximetry Center) Body mass index 25.97 kg/m2 Overweight 25.97 kg/m2 [facility] ([facility] (BMI) [Ratio] [facility]) Respiratory rate 16 /min 16 /min [facility] ([facility]) Body temperature 36.28 Collette 36.28 Collette [facility] ([facility]) Heart rate 63 /min 63 /min [facility] ([facility]) Diastolic blood 64 mm[Hg] 64 mm[Hg] [facility] ( [facility]) Systolic blood 129 mm[Hg] 129 mm[Hg] [facility] ([facility]) Body weight 66.497 kg 66.497 kg [facility] ([facility]) Body height 160.02 cm 160.02 cm [facility] ([facility]) Oxygen saturation 100 % 100 % [facility] ([facility] Arterial blood [facility] by Pulse oximetry Center) Body mass index 26.04 kg/m2 Overweight 26.04 kg/m2 [facility] ([facility] (BMI) [Ratio] [facility]) Respiratory rate 18 /min 18 /min [facility] ([facility]) Body temperature 36.44 Collette 36.44 Collette [facility] ([facility]) Heart rate 60 /min 60 /min [facility] ([facility]) Diastolic blood 66 mm[Hg] 66 mm[Hg] [facility] ( [facility]) Systolic blood 169 mm[Hg] 169 mm[Hg] [facility] ([facility]) Body weight 66.678 kg 66.678 kg [facility] ([facility]) Body height 160.02 cm 160.02 cm [facility] ([facility]) Patient Treatment Plan of Care Planned Activity Planned Date Details Description Data Source (s) Ketoconazole 20 MG/ML 02/22/2020 12:00:00 NEXTGEN ([facility] Topical Cream [facility]) Amoxicillin 500 MG Oral 01/24/2020 12:00:00 NEXTGEN ([facility] Capsule [facility]) Fluoxetine 20 MG Oral 01/24/2020 12:00:00 NEXTGEN ([facility] Capsule [facility]) Amoxicillin 500 MG Oral 06/22/2019 12:00:00 NEXTGEN ([facility] Capsule [facility]) Lidocaine 25 MG/ML / 02/06/2019 12:00:00 NEXTGEN ([facility] Prilocaine 25 MG/ML [facility] Topical Cream [place]) Chlorthalidone 25 MG Oral 01/22/2019 12:00:00 NEXTGEN ([facility] Tablet [facility]) Magnesium Oxide 400 MG 01/22/2019 12:00:00 NEXTGEN ([facility] Oral Capsule [facility]) Hydrocortisone 25 MG/ML 01/22/2019 12:00:00 NEXTGEN ([facility] Topical Cream [Proctosol] [facility]) Sodium Bicarbonate 650 MG 11/29/2018 12:00:00 NEXTGEN ([facility] Oral Tablet [facility]) Magnesium Oxide 400 MG 11/29/2018 12:00:00 NEXTGEN ([facility] Oral Capsule [facility]) Basaglar KwikPen U-100 10/11/2018 12:00:00 NEXTGEN ([facility] Insulin 100 unit/mL (3 mL) [facility]) Lisinopril 2.5 MG Oral 10/11/2018 12:00:00 NEXTGEN ([facility] Tablet [facility]) atorvastatin 10 MG Oral 10/11/2018 12:00:00 NEXTGEN ([facility] Tablet [facility]) Aspirin 81 MG Delayed 10/11/2018 12:00:00 NEXTGEN ([facility] Release Oral Tablet [facility]) Amoxicillin 500 MG Oral 10/10/2018 12:00:00 NEXTGEN ([facility] Capsule [facility]) Diclofenac Sodium 0.01 08/25/2018 12:00:00 NEXTGEN ([facility] MG/MG Topical Gel [facility] [Voltaren] [facility]) Tresiba FlexTouch U-100 07/17/2018 12:00:00 NEXTGEN ([facility] insulin 100 unit/mL (3 mL) [facility] subcutaneous pen [facility]) Hydrocortisone 25 MG/ML 07/17/2018 12:00:00 NEXTGEN ([facility] Topical Cream [Anusol HC] [facility]) cinacalcet 60 MG Oral 06/26/2018 12:00:00 NEXTGEN ([facility] Tablet [Sensipar] [facility]) Insulin Glargine 100 04/28/2018 12:00:00 NEXTGEN ([facility] UNT/ML Injectable Solution [facility] [Lantus] [facility]) BD Insulin Syringe 04/14/2018 12:00:00 NE XTGEN ([facility] 1 mL 29 gauge x [facility] /" Center) Insulin Lispro 100 UNT/ML 04/14/2018 12:00:00 NEXTGEN ([facility] Injectable Solution [facility] [Humalog] [facility]) Insulin Glargine 100 04/14/2018 12:00:00 NEXTGEN ([facility] UNT/ML Injectable Solution [facility] [Lantus] [facility]) Tamsulosin hydrochloride 07/07/2017 12:00:00 NEXTGEN ([facility] 0.4 MG Oral Capsule [facility] [Flomax] [facility]) Tacrolimus 1 MG Oral 07/07/2017 12:00:00 NEXTGEN ([facility] Capsule [facility]) mycophenolate mofetil 250 07/07/2017 12:00:00 NEXTGEN ([facility] MG Oral Capsule [facility]) mycophenolate mofetil 500 07/07/2017 12:00:00 NEXTGEN ([facility] MG Oral Tablet [facility]) Metoprolol Tartrate 50 MG 07/07/2017 12:00:00 NEXTGEN ([facility] Oral Tablet [facility]) gabapentin 100 MG Oral 07/07/2017 12:00:00 NEXTGEN ([facility] Capsule [facility]) Colchicine 0.6 MG Oral 07/07/2017 12:00:00 NEXTGEN ([facility] Capsule [facility]) tramadol hydrochloride 50 07/07/2017 12:00:00 NEXTGEN ([facility] MG Oral Tablet [facility]) Docusate Sodium 100 MG 07/07/2017 12:00:00 NEXTGEN ([facility] Oral Capsule [facility]) Prednisone 5 MG Oral 07/07/2017 12:00:00 NEXTGEN ([facility] Tablet [facility]) cinacalcet 30 MG Oral 07/07/2017 12:00:00 CIERA ([facility] Tablet [Sensipar] AM [facility])
[2020-03-02] MEDS ORDERED: INSULIN (LEVEMIR) 100 UNITS/ML UNITS SQ SCH ×2 (17:45→22:00)
--- NOTE | 2020-03-02 17:58 | HP ---
CHIEF COMPLAINT: Foot pain PCP: HISTORY OF PRESENT ILLNESS: 64yo M with h/o HTN, T2DN, Diabetic Nephropathy CKD stage 5 s/p renal transplant in 2014 who presents today with R foot pain. Patient reports he's been having toe/foot pain for about a month with wounds, however he has not been able to seek care due to the COVID pandemic. Patient withint he past week noticed worsening pain which is constant, throbbing and impacting how he is walking. He has been using his same shoes with support. Patient's notes that his L foot has been progressively hotter comparatively as well. Patient denies any fever/chills, SOB, CP/discomfort, n/v/d/c, abdominal pain, dysuria, polyuria. Endorses bilateral temporal headache which he occasionally has per his baseline. PAST MEDICAL HISTORY: As above PAST SURGICAL HISTORY: Renal transplantation 2014 Social History: Smoking: None Alcohol: None Drugs: None Allergies ciprofloxacin [From Cipro] Allergy (Verified 07/29/18 14:20) "STOMACH BURNING" ciprofloxacin HCl [From Cipro] Allergy (Verified 07/29/18 14:20) latex Allergy (Verified 07/29/18 14:20) HOME MEDICATIONS: Home Medications Medication Instructions Recorded Cinacalcet HCl [Sensipar] 60 mg PO DAILY 02/03/13 Amlodipine Besylate [Norvasc -] 5 mg PO DAILY 03/31/16 Fludrocortisone Acetate [Florinef 0.1 mg PO DAILY 03/31/16 -] Metoprolol Tartrate [Lopressor -] 50 mg PO BID 03/31/16 Mycophenolate Sodium [Myfortic -] 360 mg PO BID 03/31/16 Prednisone 5 mg PO DAILY 03/31/16 Tacrolimus [Prograf] 3 mg PO BID 03/31/16 Tamsulosin HCl [Flomax] 0.4 mg PO DAILY 03/31/16 Tramadol HCl [Ultram] 50 mg PO PRN PRN 03/31/16 Insulin Glargine,Hum.rec.anlog 25 unit SQ DAILY 02/17/18 [Lantus] Insulin Lispro [Humalog] 0 units SQ ASDIR 02/17/18 Phenylephrine HCl/Ulysses Butter 1 each RC QID 10 Days #40 supp.rect 07/29/18 [Preparation H Suppository] REVIEW OF SYSTEMS As per HPI PHYSICAL EXAMINATION Vital Signs - 24 hr 03/02/20 13:10 Temperature 98.3 F Pulse Rate 88 Respiratory 20 Rate Blood Pressure 104/78 O2 Sat by Pulse 99 Oximetry (%) GENERAL: Awake, alert, and fully oriented, in no acute distress. HEENT: NC/AT, MELLY, MMM LUNGS: CTA bilaterally. No wheezes, and no crackles. No accessory muscle use. HEART: RRR, normal S1 and S2 without murmur ABDOMEN: Soft, NT/ND, normoactive bowel sounds, no guarding EXTREMITIES: 2+ pulses, No calf tenderness. b/l nonpitting foot edema L>R. 2nd and 3rd DIP plantar aspect wounds noted with purulence and masceration. R foot warmth > L foot, DP and PT pulses intact b/l PSYCHIATRIC: Cooperative. Good eye contact. Appropriate mood and affect. SKIN: Warm, dry, see ext exam Laboratory Results - last 24 hr 03/02/20 03/02/20 03/02/20 14:59 14:59 14:59 WBC 9.3 RBC 4.14 Hgb 13.3 Hct 40.3 MCV 97.5 H MCH 32.3 MCHC 33.1 RDW 13.3 Plt Count 118 L MPV 9.1 Absolute Neuts (auto) 8.1 H Neutrophils % 87.9 H Lymphocytes % 5.5 L D Monocytes % 4.9 D Eosinophils % 0.8 Basophils % 0.9 D Nucleated RBC % 0 ESR 15 PT with INR 12.30 INR 1.04 PTT (Actin FS) 31.7 Sodium 130 L Potassium 5.7 H Chloride 96 L Carbon Dioxide 29 Anion Gap 5 L BUN 24.6 H Creatinine 1.4 H Est GFR (CKD-EPI)AfAm 61.53 Est GFR (CKD-EPI)NonAf 53.09 Random Glucose 320 H Calcium 9.5 Total Bilirubin 0.8 AST 8 L ALT 17 Alkaline Phosphatase 169 H Creatine Kinase 52 Troponin I < 0.02 C-Reactive Protein 1.4 H Total Protein 7.3 Albumin 4.1 ASSESSMENT/PLAN: Acute worsening of chronic L foot wound Diabetic nephropathy s/p transplantation Hyperkalemia Hyponatremia T2DM History of HTN --ESR and CRP low (low suspicion for osteomyelitis, however possibly immunosuppressed patient not amounting a response) --Podiatry consulted --Given Vanc/Zosyn in ED; will continue coverage until consultation given macerated/purulent wound and immunosuppressed pt --BCx to be followed --Will defer further imaging (triple phase bone) to podiatry judgement -- Doubt PAD or PVD is contributing to acute worsening --Continue transplantation medications --Cr at baseline --Monitor with vancomycin use and monitor vanco trough levels --Continue home antihypertensives --Hyperkalemia treat in ER; monitor BMP --Hyponatremia to be monitored; no mental changes yet (possible adrenal insuff iciency?) Dispo: M/S Wil Carvajal DO - Family Medical History Family History: As Documented Visit type - Emergency Visit Emergency Visit: Yes ED Registration Date: 03/02/20 Care time: The patient presented to the Emergency Department on the above date and was hospitalized for further evaluation of their emergent condition. - New Patient This patient is new to me today: Yes Date on this admission: 03/02/20 - Critical Care Critical Care patient: No
[2020-03-02] MEDS ORDERED: SODIUM CHLORIDE 1,000 ML IV SCH (19:00)
[2020-03-02] MEDS: ACETAMINOPHEN 325 MG TABLET (FP) PO PRN (20:40)
[2020-03-02] MEDS ORDERED: ACETAMINOPHEN 325 MG TABLET (FP) ONE (20:40)
[2020-03-02] MEDS ORDERED: METOPROLOL TARTRATE 50 MG TABLET (FP) ONE (20:45)
[2020-03-02] MEDS ORDERED: morphine SULFATE 4 MG/ML VIAL IVPUSH PRN (20:56)
[2020-03-02] MEDS ORDERED: amLODIPine BESYLATE 5 MG TABLET (FP) PO ONE (20:59)
[2020-03-02] MEDS: METOPROLOL TARTRATE 50 MG TABLET (FP) PO SCH (21:23)
[2020-03-02] MEDS ORDERED: MYCOPHENOLATE SODIUM 360 MG TABLET.DR PO SCH (22:00)
[2020-03-02] MEDS ORDERED: PIPERACILLIN/TAZOB 3.375 GM 3.375 GM in DEXTROSE 5%-WATER - 50 ML IVPB SCH (22:00)
[2020-03-02] MEDS ORDERED: morphine SULFATE 4 MG/ML VIAL ONE (23:01)
[2020-03-02] MEDS ORDERED: amLODIPine BESYLATE 5 MG TABLET (FP) ONE (23:06)
[2020-03-02] MEDS: INSULIN SLIDING SCALE (NOVOLOG) 1 VIAL SQ SCH (23:08)
[2020-03-02] MEDS: TACROLIMUS ANHYDROUS 1 MG CAPSULE PO SCH (23:09)
[2020-03-02] MEDS: PIPERACILLIN/TAZOB 3.375 GM 3.375 GM in DEXTROSE 5%-WATER - 50 ML IVPB SCH (23:09)
[2020-03-03 06:07] LABS: HEMATOCRIT 33.6 % (35.4-49); HEMOGLOBIN 11.2 GM/dL (11.7-16.9); MCH 32.2 pg (25.7-33.7); MCHC 33.4 g/dl (32.0-35.9); MEAN CELL VOLUME 96.3 fl (80-96); PLATELET COUNT 89 K/MM3 (134-434); RBC 3.49 M/mm3 (4.00-5.60); RDW 13.2 % (11.9-15.9); WHITE BLOOD COUNT 12.4 K/mm3 (4.0-10.0)
[2020-03-03] MEDS ORDERED: PIPERACILLIN/TAZOB 3.375 GM 3.375 GM/50 ML BAG IVPB ONE ×3 (06:33→21:11)
[2020-03-03] MEDS: PIPERACILLIN/TAZOB 3.375 GM 3.375 GM in DEXTROSE 5%-WATER - 50 ML IVPB SCH ×3 (06:45→21:00)
[2020-03-03] MEDS ORDERED: ACETAMINOPHEN 325 MG TABLET (FP) ONE ×2 (06:53→15:08)
[2020-03-03] MEDS: ACETAMINOPHEN 325 MG TABLET (FP) PO PRN ×2 (06:59→15:07)
[2020-03-03] MEDS: INSULIN SLIDING SCALE (NOVOLOG) 1 VIAL SQ SCH ×3 (07:58→17:21)
[2020-03-03] MEDS ORDERED: DEXTROSE 50%-WATER - 25 GM/50 ML VIAL IVPUSH ONE (08:17)
[2020-03-03] MEDS ORDERED: TAMSULOSIN HCL 0.4 MG CAP ONE (08:31)
[2020-03-03] MEDS ORDERED: DEXTROSE 50%-WATER 25 GM/50 ML DISP.SYRIN ONE (08:32)
[2020-03-03] MEDS: TAMSULOSIN HCL 0.4 MG CAP PO SCH (08:32)
[2020-03-03 08:37] LABS: BLOOD UREA NITROGEN 22.2 mg/dL (7-18); CALCIUM 8.6 mg/dL (8.5-10.1); CREATININE 1.2 mg/dL (0.55-1.3); POTASSIUM 4.2 mmol/L (3.5-5.1)
--- NOTE | 2020-03-03 08:39 | CONSULT ---
Consult - text type - Consultation Consultation Note: Podiatry Consultation: 64 year old poorly controlled diabetic male presents to the ED for management of bilateral foot pain, left worse than right. Patient's noted increased warmth and swelling to the left foot which prompted visit to ED. He is seen today with chills and blood sugars of 53. His blood sugars were in the 300s overnight. States that he has been unable to seek treatment due to COVID pandemic. Patient does not recall any direct trauma to the left foot. Currently with temp to 101F. PMHx: IDDM, HTN, CKD 5 s/p renal transplant 2014 Meds: noted in chart ALL: cipro, latex ELKE: L foot: pedal pulses 1/4, TG warm-warm, CFT brisk to all digits. There are plantar digital lacerations of digits 2,3,4. There is significant maceration to the webspaces. There is serous drainage present. There is no purulent drainage, no fluctuance, no soft tissue crepitus, no streaking ascending cellulitis, no signs of active infection. Mild tenderness to palpation. There is significant forefoot pedal edema R foot: pedal pulses 1/4, TG wnl, CFT brisk to all digits. There is prior surgical resection fourth/fifth MTPJs with intact scarring. There is no open wounds, no drainage, no erythema, no streaking cellulitis, no signs of active infection. Minimal tenderness to palpation. B/L Foot XR: prior lateral MT resection on the right foot. Blunting of second metatarsal left foot ?old trauma, AVN versus chronic osteomyelitis. No soft ti ssue air. Imp: 64 year old diabetic male with left 2,3,4 digital ulcerations, cellulitis 1. IV abx, ID consultation 2. Monitor temps, WBCs 3. Needs MRI left foot to evaluate for abscess or osteomyelitis 4. THEA, PVRs 5. Will follow. Thank you for the courtesy of this consultation.
[2020-03-03] MEDS ORDERED: SODIUM CHLORIDE 1,000 ML IV SCH ×2 (09:30→09:31)
[2020-03-03] MEDS ORDERED: GABAPENTIN 100 MG CAPSULE ONE (09:42)
[2020-03-03] MEDS ORDERED: METOPROLOL TARTRATE 50 MG TABLET (FP) ONE ×2 (09:42→23:35)
[2020-03-03] MEDS ORDERED: amLODIPine BESYLATE 5 MG TABLET (FP) ONE (09:42)
[2020-03-03] MEDS: amLODIPine BESYLATE 5 MG TABLET (FP) PO SCH (10:15)
[2020-03-03] MEDS: TACROLIMUS ANHYDROUS 1 MG CAPSULE PO SCH (10:15)
[2020-03-03] MEDS: predniSONE 5 MG TABLET (UD) PO SCH (10:15)
[2020-03-03] MEDS: GABAPENTIN 100 MG CAPSULE PO SCH (10:15)
[2020-03-03] MEDS: METOPROLOL TARTRATE 50 MG TABLET (FP) PO SCH (10:15)
--- NOTE | 2020-03-03 10:19 | EKG ---
Test Reason : Blood Pressure : / mmHG Vent. Rate : 099 BPM Atrial Rate : 099 BPM P-R Int : 168 ms QRS Dur : 130 ms QT Int : 382 ms P-R-T Axes : 050 071 024 degrees QTc Int : 490 ms SINUS RHYTHM BASELINE ARTIFACT RIGHT BUNDLE BRANCH BLOCK T WAVE ABNORMALITY, CONSIDER INFERIOR ISCHEMIA ABNORMAL ECG WHEN COMPARED WITH ECG OF 17-FEB-2018 10:19, VENT. RATE HAS INCREASED Confirmed by PIERO PATRICIA MD ([id number]) on 03/03/2020 10:19:36 AM Referred By: Confirmed By:PIERO PATRICIA MD
--- NOTE | 2020-03-03 12:20 | CON.NEP ---
Consult Consult Specialty:: Nephrology Referred by:: Dr. Harrison Reason for Consultation:: Renal transplant - History of Present Illness Chief Complaint: Left foot pain History of Present Illness: This is a 64 year old male with history of ESRD s/p renal transplant in 2014, insulin dependent DM, secondary hyperparathyrodism who presented with left foot pain and found to have digital ulcerations and cellulitis. Seen and examined in the ED. Was febrile overnight. Reports pain is better. Denies any sob or chest pain. No N/V/D. Making urine. Denies any pain over renal transplant site. No leg swelling. On IV antibiotics. - History Source History Provided By: Patient Limitations to Obtaining History: No Limitations - Past Medical History Cardio/Vascular: Yes: HTN, Hyperlipdemia Renal/: Yes: Hemodialysis Endocrine: Yes: Diabetes Mellitus (IDDM) Additional Medical History: s/p permacath - Past Surgical History Past Surgical History: Yes: Kidney Transplant - Alcohol/Substance Use Hx Alcohol Use: No - Smoking History Smoking history: Never smoked Have you smoked in the past 12 months: No Aproximately how many cigarettes per day: 0 - Social History Usual Living Arrangement: With Child ADL: Independent History of Recent Travel: No Home Medications - Allergies Allergies/Adverse Reactions: Allergies Allergy/AdvReac Type Severity Reaction Status Date / Time ciprofloxacin [From Cipro] Allergy "STOMACH Verified 07/29/18 14:20 BURNING" ciprofloxacin HCl Allergy Verified 07/29/18 14:20 [From Cipro] latex Allergy Verified 07/29/18 14:20 - Home Medications Home Medications: Ambulatory Orders Cinacalcet HCl [Sensipar] 60 mg PO DAILY 02/03/13 Amlodipine Besylate [Norvasc -] 5 mg PO DAILY 03/31/16 Fludrocortisone Acetate [Florinef -] 0.1 mg PO DAILY 03/31/16 Metoprolol Tartrate [Lopressor -] 50 mg PO BID 03/31/16 Mycophenolate Sodium [Myfortic -] 360 mg PO BID 03/31/16 Prednisone 5 mg PO DAILY 03/31/16 Tacrolimus [Prograf] 3 mg PO BID 03/31/16 Tamsulosin HCl [Flomax] 0.4 mg PO DAILY 03/31/16 Tramadol HCl [Ultram] 50 mg PO PRN PRN 03/31/16 Insulin Glargine,Hum.rec.anlog [Lantus] 25 unit SQ DAILY 02/17/18 Insulin Lispro [Humalog] 0 units SQ ASDIR 02/17/18 Phenylephrine HCl/[place]ott Butter [Preparation H Suppository] 1 each RC QID 10 Days #40 supp.rect 07/29/18 Family Medical History Family History: Unremarkable Review of Systems - Review of Systems Constitutional: reports: Fever Eyes: reports: No Symptoms HENT: reports: No Symptoms Neck: reports: No Symptoms Cardiovascular: reports: No Symptoms Respiratory: reports: No Symptoms Gastrointestinal: reports: No Symptoms Genitourinary: reports: No Symptoms Musculoskeletal: reports: Extremity Pain, Joint Pain, Joint Swelling Neurological: reports: No Symptoms Endocrine: reports: No Symptoms Nephrology Consult - Height Height: 5 ft 3 in - Weight Weight: 64.41 kg - BMI Body Mass Index (BMI): 25.1 - Lab Results CBC,BMP: CBC, BMP 03/03/20 05:38 03/03/20 05:38 Anion Gap: Anion Gap Anion Gap 8 MMOL/L (8-16) 03/03/20 05:38 - Imaging Chest X-ray: Report Reviewed - Physical Examination Vital Signs: Vital Signs Temperature 99.8 F H 03/03/20 11:30 Pulse Rate 75 03/03/20 11:30 Respiratory Rate 18 03/03/20 11:30 Blood Pressure 130/60 03/03/20 11:30 O2 Sat by Pulse Oximetry (%) 98 03/03/20 11:30 Constitutional: Yes: No Distress, Calm Eyes: Yes: Conjunctiva Clear HENT: Yes: Atraumatic Neck: Yes: Supple Cardiovascular: Yes: Regular Rate and Rhythm Respiratory: Yes: Regular, CTA Bilaterally Gastrointestinal: Yes: Soft. No: Tenderness Extremities: Yes: Erythema, Other (pain and swellng left foot). No: Cyanosis Neurological: Yes: Alert, Oriented Assessment/Plan 64 year old male with history of ESRD s/p renal transplant in 2014, insulin dependent DM, secondary hyperparathyrodism who presented with left foot pain and found to have digital ulcerations and cellulitis. 1. ESRD s/p renal transplant with preserved graft function 2. Cellulitis/Ulcerations of lower extremity 3. IDDM 4. Secondary hyperparathyrodism 5. Anemia 6. Hyponatremia Renal function preserved. Will contact [facility] transplant center [phone] to obtain baseline labs and meds. Agree with holding MMF for now Continue tacrolimus and Prednisone Check tacrolimus level in AM Continue Abx as per ID/primary team follow up cultures Podiatry follow up Start moderate IVF hydration with isotonic fluids Hyponatremia improving. Trend renal function daily Thank you Waylon Gaona DO
--- NOTE | 2020-03-03 12:26 | CON.ID ---
Consult Consult Specialty:: infectious diseases Referred by:: Reason for Consultation:: cellulitis of the left leg ,swelling of left foot - History of Present Illness Chief Complaint: swelling of the left foot/cellulitis of the left foot,pain left foot History of Present Illness: 64yo M with h/o HTN, T2DN, Diabetic Nephropathy CKD stage 5 s/p renal transplant in 2014 who presents today with R foot pain. Patient reports he's been having toe/foot pain for about a month with wounds, however he has not been able to seek care due to the COVID pandemic. Patient withint he past week noticed worsening pain which is constant, throbbing and impacting how he is walking. He has been using his same shoes with support. Patient's notes that his L foot has been progressively hotter comparatively as well. Patient denies any fever/chills, SOB, CP/discomfort, n/v/d/c, abdominal pain, dysuria, polyuria. Endorses bilateral temporal headache which he occasionally has per his baseline. patient mentions that his pain was quite severe also patient mentions that he has been spiking fevers - History Source History Provided By: Patient, Medical Record Limitations to Obtaining History: Language Barrier - Past Medical History Cardio/Vascular: Yes: HTN, Hyperlipdemia Renal/: Yes: Hemodialysis Endocrine: Yes: Diabetes Mellitus (IDDM) Additional Medical History: s/p permacath - Past Surgical History Past Surgical History: Yes: Kidney Transplant - Alcohol/Substance Use Hx Alcohol Use: No - Smoking History Smoking history: Never smoked Have you smoked in the past 12 months: No Aproximately how many cigarettes per day: 0 - Social History Usual Living Arrangement: With Child ADL: Independent History of Recent Travel: No Home Medications - Allergies Allergies/Adverse Reactions: Allergies Allergy/AdvReac Type Severity Reaction Status Date / Time ciprofloxacin [From Cipro] Allergy "STOMACH Verified 07/29/18 14:20 BURNING" ciprofloxacin HCl Allergy Verified 07/29/18 14:20 [From Cipro] latex Allergy Verified 07/29/18 14:20 - Home Medications Home Medications: Ambulatory Orders Cinacalcet HCl [Sensipar] 60 mg PO DAILY 02/03/13 Amlodipine Besylate [Norvasc -] 5 mg PO DAILY 03/31/16 Fludrocortisone Acetate [Florinef -] 0.1 mg PO DAILY 03/31/16 Metoprolol Tartrate [Lopressor -] 50 mg PO BID 03/31/16 Mycophenolate Sodium [Myfortic -] 360 mg PO BID 03/31/16 Prednisone 5 mg PO DAILY 03/31/16 Tacrolimus [Prograf] 3 mg PO BID 03/31/16 Tamsulosin HCl [Flomax] 0.4 mg PO DAILY 03/31/16 Tramadol HCl [Ultram] 50 mg PO PRN PRN 03/31/16 Insulin Glargine,Hum.rec.anlog [Lantus] 25 unit SQ DAILY 02/17/18 Insulin Lispro [Humalog] 0 units SQ ASDIR 02/17/18 Phenylephrine HCl/[place] Butter [Preparation H Suppository] 1 each RC QID 10 Days #40 supp.rect 07/29/18 Review of Systems - Review of Systems Constitutional: reports: Fever, Other Eyes: reports: No Symptoms HENT: reports: No Symptoms Neck: reports: No Symptoms Cardiovascular: reports: No Symptoms Respiratory: reports: No Symptoms Gastrointestinal: reports: No Symptoms Genitourinary: reports: No Symptoms Musculoskeletal: reports: Muscle Pain, Other (swelling of the left foot) Integumentary: reports: Erythema, Other Neurological: reports: No Symptoms Endocrine: reports: No Symptoms Hematology/Lymphatic: reports: No Symptoms Psychiatric: reports: No Symptoms Physical Exam Vital Signs: Vital Signs Temperature 99.8 F H 03/03/20 11:30 Pulse Rate 75 03/03/20 11:30 Respiratory Rate 18 03/03/20 11:30 Blood Pressure 130/60 03/03/20 11:30 O2 Sat by Pulse Oximetry (%) 98 03/03/20 11:30 Constitutional: Yes: Mild Distress, Other Eyes: Yes: Conjunctiva Clear HENT: Yes: Atraumatic, Normocephalic Neck: Yes: Supple, Trachea Midline Cardiovascular: Yes: Regular Rate and Rhythm Respiratory: Yes: Regular, CTA Bilaterally Gastrointestinal: Yes: Normal Bowel Sounds, Soft Musculoskeletal: Yes: WNL Extremities: Yes: Erythema, Other (left foot swelling ,warmth,tenderness) Integumentary: Yes: Erythema, Other Neurological: Yes: Alert, Oriented Psychiatric: Yes: Alert, Oriented Labs: CBC, BMP 03/03/20 05:38 03/03/20 05:38 Imaging - Results Chest X-ray: Report Reviewed, Image Reviewed X-ray: Report Reviewed, Image Reviewed Assessment/Plan this patient with multiple medical issues coming in with severe cellulitis of the left foot and swelling of the left foot who has had kidney transplant done i would suggest the following get a mri of the foot await for cx elevation of the foot very close watch if spikes again repeat blood cx will d/w the team
[2020-03-03] MEDS ORDERED: PIPERACILLIN/TAZOB 3.375 GM 3.375 GM in DEXTROSE 5%-WATER - 50 ML IVPB SCH (13:00)
[2020-03-03] MEDS: SODIUM CHLORIDE 1,000 ML IV SCH (13:29)
--- NOTE | 2020-03-03 13:53 | PN ---
Physical Exam: SUBJECTIVE: Patient seen and examined this morning in the ED, was noted to be feeling feverish and have chills with mild pain in LLE. Breathing comfortably, in no acute distress however. OBJECTIVE: Vital Signs Period Temp Pulse Resp BP Sys/Ga Pulse Ox Last 24 Hr 98.4 F-101.8 F 75-111 18-20 122-206/56-90 98-100 GENERAL: The patient is awake, alert, and fully oriented, in no acute distress. HEAD: Normal with no signs of trauma. EYES: PERRL, extraocular movements intact, sclera anicteric, conjunctiva clear. No ptosis. ENT: Oropharynx clear without exudates, moist mucous NECK: Trachea midline, full range of motion, supple. LUNGS: Breath sounds equal, clear to auscultation bilaterally, no wheezes, no crackles, no accessory muscle use. HEART: Regular rate and rhythm, S1, S2 without murmur, rub or gallop. ABDOMEN: Soft, nontender, nondistended, normoactive bowel sounds UPPER EXTREMITIES: 2+ pulses, warm, well-perfused, no edema. LOWER EXTREMITIES: Multiple hyperpigmented macular spots on LE B/L. LLE: warm w/o erythema, third digit has large cut w/ no prulent drainage NEUROLOGICAL: Normal speech, gait not observed. PSYCH: Normal mood, normal affect. SKIN: Warm, dry, normal turgor, no rashes or lesions noted. Large scar on RLQ Laboratory Results - last 24 hr CBC, BMP 03/03/20 05:38 03/03/20 05:38 Active Medications Generic Name Dose Route Start Last Admin Trade Name Jean PRN Reason Stop Dose Admin Acetaminophen 650 mg 03/02/20 20:55 03/03/20 06:59 Tylenol - PO 650 mg Q6H PRN Administration PAIN LEVEL 4 - 6 Amlodipine Besylate 5 mg 03/03/20 10:00 03/03/20 10:15 Norvasc - PO 5 mg DAILY DERIC Administration Gabapentin 100 mg 03/03/20 10:00 03/03/20 10:15 Neurontin - PO 100 mg DAILY DERIC Administration Piperacillin Sod/Tazobactam 50 mls @ 100 mls/hr 03/02/20 22:00 03/03/20 13:30 Sod 3.375 gm/ Dextrose IVPB 03/03/20 14:29 100 mls/hr Q8H DERIC Administration Sodium Chloride 1,000 mls @ 75 mls/hr 03/03/20 12:26 03/03/20 13:29 Normal Saline - IV 75 mls/hr ASDIR DERIC Administration Piperacillin Sod/Tazobactam 50 mls @ 100 mls/hr 03/03/20 18:00 Sod 3.375 gm/ Dextrose IVPB Q8H-IV DERIC Protocol Insulin Aspart 1 vial 03/02/20 22:00 03/03/20 11:25 Novolog Vial Sliding Scale - SQ Not Given ACHS DERIC Protocol Insulin Detemir 25 units 03/02/20 22:00 03/02/20 23:07 Levemir Vial SQ 25 unit HS DERIC Administration Metoprolol Tartrate 50 mg 03/02/20 22:00 03/03/20 10:15 Lopressor - PO 50 mg BID DERIC Administration Morphine Sulfate 4 mg 03/02/20 20:56 03/02/20 23:09 Morphine Sulfate IVPUSH 4 mg Q4H PRN Administration PAIN LEVEL 7 - 10 Prednisone 5 mg 03/03/20 10:00 03/03/20 10:15 Deltasone - PO 5 mg DAILY DERIC Administration Tacrolimus 3 mg 03/02/20 22:00 03/03/20 10:15 Prograf PO 3 mg BID DERIC Administration Tamsulosin HCl 0.4 mg 03/03/20 08:30 03/03/20 08:32 Flomax - PO 0.4 mg DAILY@0830 DERIC Administration ASSESSMENT/PLAN: 64yo M with h/o HTN, T2DN, Diabetic Nephropathy CKD stage 5 s/p renal transplant in 2014 who presents today with R foot pain. Patient reports he's been having toe/foot pain for about a month with wounds, however he has not been able to seek care due to the COVID pandemic. Sepsis 2/2 LLE Infection r/o cellulitis -WBC w/ Fever -FU Cultures: -FU ID -c/w Zosyn renally per ID -Podiatry Consulted -FU Official Read LE MRI ESRD s/p Renal Transplant -Baseline Cr difficult to ascertain based on past visits -Monitor Cr -Stop MMF for the moment 2/2 immune suppression during sepsis -NS @75 -Nephrology consulted, recs appreciated -FU w/ [facility] Transplant for full records Insulin Dependent Diabetes Mellitus -Levamir 25 mornings -Humalog as needed -ACHS -Elevated BGM allowed in light of current sepsis -recently hypoglycemic Chronic Anemia -Baseline 9 - 11 -Monitor for acute decrease Hyponatremia -Baseline 130-135 -Monitor for any acute decrease Constipation -Decreased BM -Consider colace 100qdaily, watch lytes FEN NS @ 75 Lytes Diabetic Diet PPx -DVT: None -PPI: None Dispo Ptn will be admitted to med/surg floors Visit type - Emergency Visit Emergency Visit: Yes ED Registration Date: 03/02/20 Care time: The patient presented to the Emergency Department on the above date and was hospitalized for further evaluation of their emergent condition. - New Patient This patient is new to me today: Yes Date on this admission: 03/03/20 - Critical Care Critical Care patient: No - Discharge Referral Referred to [facility] Med P.C.: No ATTENDING PHYSICIAN STATEMENT I saw and evaluated the patient. I reviewed the resident's note and discussed the case with the resident. I agree with the resident's findings and plan as documented. SUBJECTIVE: OBJECTIVE: ASSESSMENT AND PLAN:
--- NOTE | 2020-03-03 13:55 | PN ---
Teaching Attending Note Name of Resident: Jamal Vital ATTENDING PHYSICIAN STATEMENT I saw and evaluated the patient. I reviewed the resident's note and discussed the case with the resident. I agree with the resident's findings and plan as documented. SUBJECTIVE: pain in L foot, no ALBERTS , no SOB or CP . applies pink topical cream for antifungal treatment as out pt no oral Abx. feels tired, and had fever/chills this am. OBJECTIVE: NAD, awake, alert, cooperative. MMM CV: RRR, 3/6 SM all over the precordium. with radiation to the carotid and the L axilla Lungs: CTAB Abd: soft, NT, ND, RLQ mass felt, and RLQ surgical scar was seen Ext: No edema or erytehma on LEs. L foot with a deep wound with no dischareg on plantar aspect of 2,3,4th digits, with white moist interdigital space. Tenderness on plantar front foot. no crepitus . DP 1+ , could not feel PT. bony enlargement in the feet bones. increased warmth of L foot and lower leg. ASSESSMENT AND PLAN: 64 y/o man with h/o ESRD s/p renal transplant, DM, HTN who presented with fever, chills, and pain in L foot 1- Sepsis , due to infected L foot wound and cellulitis . no clinical signs of necrotizing infection . no air on xray and no crepitus on exam. - cont Abx. case was d/w dr. Khalil - MRI of the foot pending. high suspicion for OM - vascular studies - wound cx and blood cx pending - IVF - No previous cultures 2- h/o ESRD, s/p renal transplant . - hold MMF in setting of spesi s. this was d/w Dr. Gaona who agreed - cont tacrulimus and prednisone - taculimus level in am . - SAUNDRA resolved . cont IVF 3- Dm : hypoglycemic in am after 25 units of levemir last night . - will monitor sugar and add lower dose of levemir if apropriate 4- HTN : improved. cont coreg and BB HLOC. DVT px : add heparin
[2020-03-03] MEDS ORDERED: HEPARIN NA (PORCINE) 5,000 UNITS/ML 1ML VIAL ONE (23:35)
[2020-03-04] MEDS: METOPROLOL TARTRATE 50 MG TABLET (FP) PO SCH ×3 (00:09→21:17)
[2020-03-04] MEDS: HEPARIN NA (PORCINE) 5,000 UNITS/ML 1ML VIAL SQ SCH ×4 (00:09→21:17)
[2020-03-04] MEDS: TACROLIMUS ANHYDROUS 1 MG CAPSULE PO SCH ×2 (00:09→21:17)
[2020-03-04] MEDS ORDERED: PIPERACILLIN/TAZOBACTAM 3.375 GM VIAL IVPB ONE ×3 (02:24→16:52)
[2020-03-04] MEDS ORDERED: PT OWN MED DRAWER 7, Y5N ONE ×2 (02:25→20:49)
[2020-03-04] MEDS ORDERED: DEXTROSE 5%-WATER - 50 ML IVPB ONE ×3 (02:25→16:52)
[2020-03-04] MEDS: PIPERACILLIN/TAZOB 3.375 GM 3.375 GM in DEXTROSE 5%-WATER - 50 ML IVPB SCH ×3 (02:37→19:01)
[2020-03-04] MEDS ORDERED: INSULIN (NOVOLOG) ASPART 100 UNITS/ML 10ML VIAL ONE ×2 (06:30→10:41)
[2020-03-04] MEDS: INSULIN SLIDING SCALE (NOVOLOG) 1 VIAL SQ SCH ×3 (06:34→16:58)
[2020-03-04] MEDS: SODIUM CHLORIDE 1,000 ML IV SCH ×2 (06:35→23:15)
[2020-03-04 07:56] LABS: BASO % 0.2 % (0-2.0); EOS % 0.1 % (0-4.5); HEMATOCRIT 32.1 % (35.4-49); HEMOGLOBIN 10.5 GM/dL (11.7-16.9); LYMPH % 5.7 % (8-40); MCHC 32.8 g/dl (32.0-35.9); MEAN CELL VOLUME 97.6 fl (80-96); MEAN PLT VOLUME 9.5 fl (7.5-11.1); MONO % 7.8 % (3.8-10.2); NEUT % 86.2 % (42.8-82.8); PLATELET COUNT 83 K/MM3 (134-434); RBC 3.28 M/mm3 (4.00-5.60); RDW 13.1 % (11.9-15.9); WHITE BLOOD COUNT 13.1 K/mm3 (4.0-10.0)
[2020-03-04] MEDS: TAMSULOSIN HCL 0.4 MG CAP PO SCH (08:07)
[2020-03-04 08:30] LABS: BILIRUBIN,TOTAL 1.1 mg/dL (0.2-1); BLOOD UREA NITROGEN 18.6 mg/dL (7-18); CALCIUM 9.5 mg/dL (8.5-10.1); MAGNESIUM 1.4 mg/dL (1.8-2.4); POTASSIUM 4.1 mmol/L (3.5-5.1); TOT PROT 5.4 g/dl (6.4-8.2)
[2020-03-04 08:31] LABS: ALBUMIN 2.7 g/dl (3.4-5.0); PHOSPHOROUS 2.1 mg/dL (2.5-4.9)
[2020-03-04] MEDS: amLODIPine BESYLATE 5 MG TABLET (FP) PO SCH ×2 (10:24→21:17)
[2020-03-04] MEDS: predniSONE 5 MG TABLET (UD) PO SCH (10:24)
[2020-03-04] MEDS: GABAPENTIN 100 MG CAPSULE PO SCH (10:25)
--- NOTE | 2020-03-04 11:56 | PN ---
Progress Note, Physician History of Present Illness: Seen and examined at the bedside awake and alert offers no acute complaints foot pain is better no fever overnight - Current Medication List Current Medications: Active Medications Acetaminophen (Tylenol -) 650 mg PO Q6H PRN PRN Reason: PAIN LEVEL 4 - 6 Last Admin: 03/03/20 15:07 Dose: 650 mg Documented by: Amlodipine Besylate (Norvasc -) 5 mg PO DAILY [facility] Last Admin: 03/04/20 10:24 Dose: 5 mg Documented by: Gabapentin (Neurontin -) 100 mg PO DAILY [facility] Last Admin: 03/04/20 10:25 Dose: 100 mg Documented by: Heparin Sodium (Porcine) (Heparin -) 5,000 unit SQ TID [facility] Last Admin: 03/04/20 06:34 Dose: 5,000 unit Documented by: Sodium Chloride (Normal Saline -) 1,000 mls @ 75 mls/hr IV ASDIR [facility] Last Admin: 03/04/20 06:35 Dose: 75 mls/hr Documented by: Piperacillin Sod/Tazobactam (Sod 3.375 gm/ Dextrose) 50 mls @ 100 mls/hr IVPB Q8H-IV [facility]; Protocol Last Admin: 03/04/20 10:23 Dose: 100 mls/hr Documented by: Insulin Aspart (Novolog Vial Sliding Scale -) 1 vial SQ TIDAC [facility]; Protocol Last Admin: 03/04/20 06:34 Dose: Not Given Documented by: Metoprolol Tartrate (Lopressor -) 50 mg PO BID [facility] Last Admin: 03/04/20 10:24 Dose: 50 mg Documented by: Morphine Sulfate (Morphine Sulfate) 4 mg IVPUSH Q4H PRN PRN Reason: PAIN LEVEL 7 - 10 Last Admin: 03/02/20 23:09 Dose: 4 mg Documented by: Prednisone (Deltasone -) 5 mg PO DAILY [facility] Last Admin: 03/04/20 10:24 Dose: 5 mg Documented by: Tacrolimus (Prograf) 3 mg PO BID [facility] Last Admin: 03/04/20 00:09 Dose: 3 mg Documented by: Tamsulosin HCl (Flomax -) 0.4 mg PO DAILY@0830 [facility] Last Admin: 03/04/20 08:07 Dose: 0.4 mg Documented by: - Objective Vital Signs: Vital Signs Temperature 99.2 F 03/04/20 05:49 Pulse Rate 79 03/04/20 05:49 Respiratory Rate 18 03/04/20 05:49 Blood Pressure 136/52 L 03/04/20 05:49 O2 Sat by Pulse Oximetry (%) 98 03/04/20 05:49 Constitutional: Yes: No Distress, Calm HENT: Yes: Atraumatic Neck: Yes: Supple Cardiovascular: Yes: Regular Rate and Rhythm Respiratory: Yes: Regular, CTA Bilaterally Gastrointestinal: Yes: Soft Genitourinary: No: Bladder Distention Extremities: No: Cold, Cool, Cyanosis Edema: No Neurological: Yes: Alert Labs: CBC, BMP 03/04/20 06:55 03/04/20 06:00 INR, PTT INR 1.04 (0.83-1.09) 03/02/20 14:59 Assessment/Plan 64 year old male with history of ESRD s/p renal transplant in 2014, insulin dependent DM, secondary hyperparathyrodism who presented with left foot pain and found to have digital ulcerations and cellulitis. 1. ESRD s/p renal transplant with preserved graft function 2. Cellulitis/Ulcerations of lower extremity 3. IDDM 4. Secondary hyperparathyrodism 5. Anemia 6. Hyponatremia Renal function stable. Clarified medications with [facility] transplant center: Tacrolimus dose is 2mg BID and Prednisone dose is 2.5mg Daily, will adjust accordingly Tacrolimus level collected this am. Agree with holding MMF for now Continue Abx as per ID/primary team follow up cultures Podiatry follow up Continue moderate IVF hydration with isotonic fluids Trend serum sodium levels. Check AM Cortisol in AM. Trend renal function daily Thank you Waylon Gaona DO
--- NOTE | 2020-03-04 12:14 | PN ---
Progress Note, Physician History of Present Illness: foot looks slightly better still with swelling and drainage foot still red - Current Medication List Current Medications: Active Medications Acetaminophen (Tylenol -) 650 mg PO Q6H PRN PRN Reason: PAIN LEVEL 4 - 6 Last Admin: 03/03/20 15:07 Dose: 650 mg Documented by: Amlodipine Besylate (Norvasc -) 5 mg PO DAILY [facility] Last Admin: 03/04/20 10:24 Dose: 5 mg Documented by: Gabapentin (Neurontin -) 100 mg PO DAILY [facility] Last Admin: 03/04/20 10:25 Dose: 100 mg Documented by: Heparin Sodium (Porcine) (Heparin -) 5,000 unit SQ TID [facility] Last Admin: 03/04/20 06:34 Dose: 5,000 unit Documented by: Sodium Chloride (Normal Saline -) 1,000 mls @ 75 mls/hr IV ASDIR [facility] Last Admin: 03/04/20 06:35 Dose: 75 mls/hr Documented by: Piperacillin Sod/Tazobactam (Sod 3.375 gm/ Dextrose) 50 mls @ 100 mls/hr IVPB Q8H-IV [facility]; Protocol Last Admin: 03/04/20 10:23 Dose: 100 mls/hr Documented by: Insulin Aspart (Novolog Vial Sliding Scale -) 1 vial SQ TIDAC [facility]; Protocol Last Admin: 03/04/20 06:34 Dose: Not Given Documented by: Metoprolol Tartrate (Lopressor -) 50 mg PO BID [facility] Last Admin: 03/04/20 10:24 Dose: 50 mg Documented by: Morphine Sulfate (Morphine Sulfate) 4 mg IVPUSH Q4H PRN PRN Reason: PAIN LEVEL 7 - 10 Last Admin: 03/02/20 23:09 Dose: 4 mg Documented by: Prednisone (Deltasone -) 2.5 mg PO DAILY [facility] Tacrolimus (Prograf) 2 mg PO BID [facility] Tamsulosin HCl (Flomax -) 0.4 mg PO DAILY@0830 [facility] Last Admin: 03/04/20 08:07 Dose: 0.4 mg Documented by: - Objective Vital Signs: Vital Signs Temperature 99.2 F 03/04/20 05:49 Pulse Rate 79 03/04/20 05:49 Respiratory Rate 18 03/04/20 05:49 Blood Pressure 136/52 L 03/04/20 05:49 O2 Sat by Pulse Oximetry (%) 98 03/04/20 05:49 Constitutional: Yes: No Distress, Calm Cardiovascular: Yes: S1, S2 Respiratory: Yes: Regular, CTA Bilaterally Gastrointestinal: Yes: Normal Bowel Sounds, Soft Musculoskeletal: Yes: WNL Extremities: Yes: Other Integumentary: Yes: Erythema (of the left foot), Other Wound/Incision: Yes: Open to air, Draining Neurological: Yes: Alert, Oriented Labs: CBC, BMP 03/04/20 06:55 03/04/20 06:00 INR, PTT INR 1.04 (0.83-1.09) 03/02/20 14:59 Assessment/Plan 64 y/o man with h/o ESRD s/p renal transplant, DM, HTN who presented with fever, chills, and pain in L foot sepsis dm renal transplant htn plan please get dietetics director wbc has increased cx reports noted will continue zosyn for now monitor wbc
--- NOTE | 2020-03-04 14:01 | PN ---
Physical Exam: SUBJECTIVE: Patient seen and examined this morning, appears better, denies F/C which were present yesterday. Endorses mild ALBERTS over night. Decreased foot pain. Denies CP, SoB, Abdominal Pain, parasthesias. OBJECTIVE: Vital Signs Period Temp Pulse Resp BP Sys/Ga Pulse Ox Last 24 Hr 99.2 F-101.1 F 79-90 18-20 136-170/52-78 98-99 GENERAL: The patient is awake, alert, and fully oriented, in no acute distress. Improved from yesterday HEAD: Normal with no signs of trauma. EYES: PERRL, extraocular movements intact, sclera anicteric, conjunctiva clear. No ptosis. ENT: Oropharynx clear without exudates, moist mucous NECK: Trachea midline, full range of motion, supple. LUNGS: Breath sounds equal, clear to auscultation bilaterally, no wheezes, no crackles, no accessory muscle use. HEART: Regular rate and rhythm, S1, S2 without murmur, rub or gallop. ABDOMEN: Soft, nontender, nondistended, normoactive bowel sounds UPPER EXTREMITIES: 2+ pulses, warm, well-perfused, no edema. LOWER EXTREMITIES: Multiple hyperpigmented macular spots on LE B/L. LLE: warm w/o erythema, third digit has large cut w/ skin sloughing NEUROLOGICAL: Normal speech, gait not observed. PSYCH: Normal mood, normal affect. SKIN: Warm, dry, normal turgor, no rashes or lesions noted. Large scar on RLQ Laboratory Results - last 24 hr CBC, BMP 03/04/20 06:55 03/04/20 06:00 03/04/20 03/04/20 06:00 06:55 WBC 13.1 H RBC 3.28 L Hgb 10.5 L Hct 32.1 L MCV 97.6 H MCHC 32.8 RDW 13.1 Plt Count 83 L Neutrophils % 86.2 H Lymphocytes % 5.7 L Monocytes % 7.8 Eosinophils % 0.1 D Basophils % 0.2 Sodium 133 L Potassium 4.1 Chloride 103 Carbon Dioxide 22 Anion Gap 8 BUN 18.6 H Creatinine 1.0 03/02/20 14:59 Gram Stain - Final Toe - Left Fifth Wound Culture - Preliminary Non Lactose Fermenting Gnb Presumptive Mssa (Pbp2a Neg) Strep Agalactiae Group B 03/02/20 14:50 Blood Culture - Preliminary Blood - Peripheral Venous NO GROWTH OBTAINED AFTER 24 HOURS, INCUBATION TO CONTINUE FOR 4 DAYS. 03/02/20 14:59 Blood Culture - Preliminary Blood - Peripheral Venous NO GROWTH OBTAINED AFTER 24 HOURS, INCUBATION TO CONTINUE FOR 4 DAYS. Active Medications Generic Name Dose Route Start Last Admin Trade Name Freq PRN Reason Stop Dose Admin Acetaminophen 650 mg 03/02/20 20:55 03/03/20 15:07 Tylenol - PO 650 mg Q6H PRN Administration PAIN LEVEL 4 - 6 Amlodipine Besylate 5 mg 03/03/20 10:00 03/04/20 10:24 Norvasc - PO 5 mg DAILY [facility] Administration Gabapentin 100 mg 03/03/20 10:00 03/04/20 10:25 Neurontin - PO 100 mg DAILY [facility] Administration Heparin Sodium (Porcine) 5,000 unit 03/03/20 22:00 03/04/20 06:34 Heparin - SQ 5,000 unit TID [facility] Administration Sodium Chloride 1,000 mls @ 75 mls/hr 03/03/20 12:26 03/04/20 06:35 Normal Saline - IV 75 mls/hr ASDIR [facility] Administration Piperacillin Sod/Tazobactam 50 mls @ 100 mls/hr 03/03/20 18:00 03/04/20 10:23 Sod 3.375 gm/ Dextrose IVPB 100 mls/hr Q8H-IV [facility] Administration Protocol Insulin Aspart 1 vial 03/03/20 16:30 03/04/20 11:00 Novolog Vial Sliding Scale - SQ 2 units TIDAC [facility] Administration Protocol Metoprolol Tartrate 50 mg 03/02/20 22:00 03/04/20 10:24 Lopressor - PO 50 mg BID [facility] Administration Morphine Sulfate 4 mg 03/02/20 20:56 03/02/20 23:09 Morphine Sulfate IVPUSH 4 mg Q4H PRN Administration PAIN LEVEL 7 - 10 Prednisone 2.5 mg 03/05/20 10:00 Deltasone - PO DAILY [facility] Tacrolimus 2 mg 03/04/20 22:00 Prograf PO BID [facility] Tamsulosin HCl 0.4 mg 03/03/20 08:30 03/04/20 08:07 Flomax - PO 0.4 mg DAILY@0830 [facility] Administration ASSESSMENT/PLAN: 64yo M with h/o HTN, T2DN, Diabetic Nephropathy CKD stage 5 s/p renal transplant in 2015 who presents today with R foot pain. Patient reports he's been having toe/foot pain for about a month with wounds, however he has not been able to seek care due to the COVID pandemic. Sepsis 2/2 LLE Infection r/o cellulitis -WBC w/ Fever -FU Cultures: -Per above Table -c/w Zosyn renally per ID -Podiatry Consulted -MRI: No evidence of osteo/free air. Consistent w/ cellulitis ESRD s/p Renal Transplant -Baseline Cr difficult to ascertain based on past visits -Monitor Cr -Stop MMF for the moment 2/2 immune suppression during sepsis -Nephrology consulted, recs appreciated -Per [facility]/Renal: Tacrolimus dose is 2mg BID and Prednisone dose is 2.5mg Daily -Trend Tacrolimus Levels -FU AM Cortisol in AM. Insulin Dependent Diabetes Mellitus w/ Neuropathy -Bold Levamir 25 mornings 2/2 hypoglycemia -Humalog as needed -ACHS -c/w gabapentin Chronic Anemia -Baseline 9 - 11 -Monitor for acute decrease Hyponatremia -Baseline 130-135 -Monitor for any acute decrease Constipation -Decreased BM -Consider colace 100qdaily, watch lytes HTN -Lopressor 50 BID -Amlodipine 5mg BID (changed from 5mg to reflect home meds) Hypomagnesmia -Repleted -Restarted home mag Hypophosphatemia -Trend FEN -NS @ 75 -Lytes -Diabetic Diet PPx -DVT: None -PPI: None Dispo -Ptn will be followed on med/surg floors Visit type - Emergency Visit Emergency Visit: No - New Patient This patient is new to me today: No - Critical Care Critical Care patient: No - Discharge Referral Referred to [facility] Med [facility] No ATTENDING PHYSICIAN STATEMENT I saw and evaluated the patient. I reviewed the resident's note and discussed the case with the resident. I agree with the resident's findings and plan as documented. SUBJECTIVE: OBJECTIVE: ASSESSMENT AND PLAN:
--- NOTE | 2020-03-04 15:56 | PN ---
Progress Note (short form) - Note Progress Note: Podiatry F/U: Seen/evaluated at bedside, NAD. Patient states that he is feeling a bit better, less pain to the left foot. Did have fever last night to 101 F. Currently afebrile, vitals stable. MRI obtained. ELKE: L foot: Pedal pulses weakly palpable, TG warm-warm, CFT brisk to all digits. There are plantar transverse lacerations of digits 2,3,4. There is underlying fibrogranular bases. There is no purulent drainage on compression of the forefoot and the digits. There is mild serous drainage. There is no exposed flexor tendon or exposed bone. There is no soft tissue crepitus to the foot. There is no streaking ascending cellulitis. There is mild tenderness to palpation. Imp: 64 year old diabetic male with lacerations digits 2,3,4 of the left foot and cellulitis 1. Will continue with intravenous abx as prescribed by infectious disease 2. MRI reviewed. No evidence of osteomyelitis or abscess collection 3. Will watch WBCs and fever trend. If he continues to spike fever and WBCs rise, will need to do debridement/lavage with delayed closure of lacerations. Will continue to follow. Johanna Santiago DPM
[2020-03-04] MEDS ORDERED: MAGNESIUM 2GM/50ML STERILE WATER IVPB IVPB ONE (16:00)
--- NOTE | 2020-03-04 18:37 | PN ---
Teaching Attending Note Name of Resident: Samuel [address] ATTENDING PHYSICIAN STATEMENT I saw and evaluated the patient. I reviewed the resident's note and discussed the case with the resident. I agree with the resident's findings and plan as documented. SUBJECTIVE: Patient is c/o having left foot pain OBJECTIVE: Vital Signs Temperature 98.5 F 03/04/20 14:56 Pulse Rate 75 03/04/20 14:56 Respiratory Rate 18 03/04/20 14:56 Blood Pressure 153/72 03/04/20 14:56 O2 Sat by Pulse Oximetry (%) 97 03/04/20 14:56 PE; per resident's note left foot toes are infected CBCD WBC 13.1 K/mm3 (4.0-10.0) H 03/04/20 06:55 RBC 3.28 M/mm3 (4.00-5.60) L 03/04/20 06:55 Hgb 10.5 GM/dL (11.7-16.9) L 03/04/20 06:55 Hct 32.1 % (35.4-49) L 03/04/20 06:55 MCV 97.6 fl (80-96) H 03/04/20 06:55 MCHC 32.8 g/dl (32.0-35.9) 03/04/20 06:55 RDW 13.1 % (11.9-15.9) 03/04/20 06:55 Plt Count 83 K/MM3 (134-434) L 03/04/20 06:55 MPV 9.5 fl (7.5-11.1) 03/04/20 06:55 CMP Sodium 133 mmol/L (136-145) L 03/04/20 06:00 Potassium 4.1 mmol/L (3.5-5.1) 03/04/20 06:00 Chloride 103 mmol/L (98-107) 03/04/20 06:00 Carbon Dioxide 22 mmol/L (21-32) 03/04/20 06:00 Anion Gap 8 MMOL/L (8-16) 03/04/20 06:00 BUN 18.6 mg/dL (7-18) H 03/04/20 06:00 Creatinine 1.0 mg/dL (0.55-1.3) 03/04/20 06:00 Random Glucose 108 mg/dL (74-106) H 03/04/20 06:00 Calcium 9.5 mg/dL (8.5-10.1) 03/04/20 06:00 Total Bilirubin 1.1 mg/dL (0.2-1) H 03/04/20 06:00 AST 9 U/L (15-37) L 03/04/20 06:00 ALT 13 U/L (13-61) 03/04/20 06:00 Alkaline Phosphatase 65 U/L (45-117) 03/04/20 06:00 Total Protein 5.4 g/dl (6.4-8.2) L 03/04/20 06:00 Albumin 2.7 g/dl (3.4-5.0) L 03/04/20 06:00 CARDIAC ENZYMES Creatine Kinase 52 U/L (26-308) 03/02/20 14:59 Troponin I < 0.02 ng/ml (0.00-0.05) 03/02/20 14:59 Current Medications Generic Name Dose Route Start Last Admin Trade Name Freq PRN Reason Stop Dose Admin Acetaminophen 650 mg 03/02/20 20:55 03/03/20 15:07 Tylenol - PO 650 mg Q6H PRN Administration PAIN LEVEL 4 - 6 Amlodipine Besylate 5 mg 03/04/20 22:00 Norvasc - PO BID [facility] Gabapentin 100 mg 03/03/20 10:00 03/04/20 10:25 Neurontin - PO 100 mg DAILY [facility] Administration Heparin Sodium (Porcine) 5,000 unit 03/03/20 22:00 03/04/20 14:01 Heparin - SQ 5,000 unit TID [facility] Administration Sodium Chloride 1,000 mls @ 75 mls/hr 03/03/20 12:26 03/04/20 06:35 Normal Saline - IV 75 mls/hr ASDIR [facility] Administration Piperacillin Sod/Tazobactam 50 mls @ 100 mls/hr 03/03/20 18:00 03/04/20 10:23 Sod 3.375 gm/ Dextrose IVPB 100 mls/hr Q8H-IV [facility] Administration Protocol Insulin Aspart 1 vial 03/03/20 16:30 03/04/20 16:58 Novolog Vial Sliding Scale - SQ 2 units TIDAC [facility] Administration Protocol Magnesium Oxide 400 mg 03/05/20 10:00 Mag-Ox - PO BID [facility] Metoprolol Tartrate 50 mg 03/02/20 22:00 03/04/20 10:24 Lopressor - PO 50 mg BID [facility] Administration Morphine Sulfate 4 mg 03/02/20 20:56 03/02/20 23:09 Morphine Sulfate IVPUSH 4 mg Q4H PRN Administration PAIN LEVEL 7 - 10 Prednisone 2.5 mg 03/05/20 10:00 Deltasone - PO DAILY [facility] Tacrolimus 2 mg 03/04/20 22:00 Prograf PO BID [facility] Tamsulosin HCl 0.4 mg 03/03/20 08:30 03/04/20 08:07 Flomax - PO 0.4 mg DAILY@0830 [facility] Administration Home Medications Medication Instructions Recorded Cinacalcet HCl [Sensipar] 60 mg PO DAILY 02/03/13 Metoprolol Tartrate [Lopressor -] 25 mg PO BID 03/31/16 Mycophenolate Sodium [Myfortic -] 360 mg PO BID 03/31/16 Prednisone 5 mg PO DAILY 03/31/16 Tacrolimus [Prograf] 2 mg PO BID 03/31/16 Tamsulosin HCl [Flomax] 0.4 mg PO DAILY 03/31/16 Amlodipine Besylate 10 mg PO DAILY 03/04/20 Atorvastatin Ca [Lipitor] 40 mg PO HS 03/04/20 Gabapentin 300 mg PO TID 03/04/20 Insulin Glargine,Hum.rec.anlog 16 unit SQ DAILY 03/04/20 [Basaglar Kwikpen U-100] Insulin Lispro [Admelog] 4 - 8 units SQ TID 03/04/20 Magnesium Oxide [Mag-Ox -] 400 mg PO BID 03/04/20 metFORMIN HCL [Metformin HCl] 500 mg PO DAILY 03/04/20 Microbiology 03/02/20 14:50 Blood - Peripheral Venous Blood Culture - Preliminary NO GROWTH OBTAINED AFTER 72 HOURS, INCUBATION TO CONTINUE FOR 2 DAYS. 03/02/20 14:59 Blood - Peripheral Venous Blood Culture - Preliminary NO GROWTH OBTAINED AFTER 72 HOURS, INCUBATION TO CONTINUE FOR 2 DAYS. 03/02/20 14:59 Toe - Left Fifth Gram Stain - Final 03/02/20 14:59 Toe - Left Fifth Wound Culture - Final Pseudomonas Aeruginosa Staphylococcus Aureus Strep Agalactiae Group B ASSESSMENT AND PLAN: This patient is a 64yom with Pmhx of ESRD s/p renal transplant, DM, HTN who presented with fever, chills, and pain of L foot # Sepsis, due to infected L foot wound and cellulitis .MRi negative for OM, ID on the case on IV zosyn continue, continue wound dressing, podiatry is on the case #Hx of ESRD, s/p renal transplant . continue home meds, nephro on the case #T2DM: SS with coverage #HTN : cont CCb and BB DVT px : add heparin
[2020-03-04] MEDS: ACETAMINOPHEN 325 MG TABLET (FP) PO PRN (21:27)
[2020-03-04] MEDS ORDERED: TACROLIMUS ANHYDROUS 1 MG CAPSULE PO SCH (22:00)
[2020-03-05] MEDS ORDERED: DEXTROSE 5%-WATER - 50 ML IVPB ONE ×3 (00:42→16:44)
[2020-03-05] MEDS ORDERED: PIPERACILLIN/TAZOBACTAM 3.375 GM VIAL IVPB ONE ×3 (00:42→16:44)
[2020-03-05] MEDS: PIPERACILLIN/TAZOB 3.375 GM 3.375 GM in DEXTROSE 5%-WATER - 50 ML IVPB SCH ×3 (01:11→17:32)
[2020-03-05] MEDS: HEPARIN NA (PORCINE) 5,000 UNITS/ML 1ML VIAL SQ SCH ×3 (06:25→21:28)
[2020-03-05] MEDS: INSULIN SLIDING SCALE (NOVOLOG) 1 VIAL SQ SCH ×3 (06:29→17:19)
[2020-03-05 08:35] LABS: BASO % 0.4 % (0-2.0); EOS % 0.9 % (0-4.5); HEMATOCRIT 34.8 % (35.4-49); HEMOGLOBIN 11.9 GM/dL (11.7-16.9); LYMPH % 5.6 % (8-40); MCH 33.2 pg (25.7-33.7); MCHC 34.1 g/dl (32.0-35.9); MEAN CELL VOLUME 97.4 fl (80-96); MEAN PLT VOLUME 10.4 fl (7.5-11.1); MONO % 4.2 % (3.8-10.2); NEUT % 88.9 % (42.8-82.8); PLATELET COUNT 110 K/MM3 (134-434); RBC 3.58 M/mm3 (4.00-5.60); RDW 13.1 % (11.9-15.9); WHITE BLOOD COUNT 10.6 K/mm3 (4.0-10.0)
[2020-03-05 08:56] LABS: BLOOD UREA NITROGEN 15.3 mg/dL (7-18); CALCIUM 9.6 mg/dL (8.5-10.1); MAGNESIUM 1.6 mg/dL (1.8-2.4); POTASSIUM 4.4 mmol/L (3.5-5.1)
[2020-03-05 08:58] LABS: PHOSPHOROUS 1.7 mg/dL (2.5-4.9)
[2020-03-05] MEDS ORDERED: PT OWN MED DRAWER 7, Y5N ONE ×4 (09:07→20:51)
[2020-03-05] MEDS: GABAPENTIN 100 MG CAPSULE PO SCH (09:17)
[2020-03-05] MEDS: METOPROLOL TARTRATE 50 MG TABLET (FP) PO SCH ×2 (09:17→21:29)
[2020-03-05] MEDS: predniSONE 5 MG TABLET (UD) PO SCH (09:18)
[2020-03-05] MEDS: TAMSULOSIN HCL 0.4 MG CAP PO SCH (09:18)
[2020-03-05] MEDS: amLODIPine BESYLATE 5 MG TABLET (FP) PO SCH ×2 (09:18→21:29)
[2020-03-05] MEDS: TACROLIMUS ANHYDROUS 1 MG CAPSULE PO SCH ×2 (09:18→21:29)
[2020-03-05] MEDS ORDERED: MAGNESIUM OXIDE 400 MG TABLET (FP) PO SCH (10:00)
[2020-03-05] MEDS ORDERED: MAGNESIUM SULF 50% (8.12 MEQ/2 ML-1 GM VIAL) IVPB ONE (10:15)
[2020-03-05] MEDS: DOCUSATE SODIUM 100 MG CAPSULE (FP) PO SCH ×2 (10:37→21:29)
--- NOTE | 2020-03-05 10:46 | PN ---
Progress Note, Physician History of Present Illness: no new issues wbc trending down podiatry on case - Current Medication List Current Medications: Active Medications Acetaminophen (Tylenol -) 650 mg PO Q6H PRN PRN Reason: PAIN LEVEL 4 - 6 Last Admin: 03/04/20 21:27 Dose: 650 mg Documented by: Amlodipine Besylate (Norvasc -) 5 mg PO BID [facility] Last Admin: 03/05/20 09:18 Dose: 5 mg Documented by: Docusate Sodium (Colace -) 100 mg PO BID [facility] Stop: 03/06/20 22:01 Last Admin: 03/05/20 10:37 Dose: 100 mg Documented by: Gabapentin (Neurontin -) 100 mg PO DAILY [facility] Last Admin: 03/05/20 09:17 Dose: 100 mg Documented by: Heparin Sodium (Porcine) (Heparin -) 5,000 unit SQ TID [facility] Last Admin: 03/05/20 06:25 Dose: 5,000 unit Documented by: Sodium Chloride (Normal Saline -) 1,000 mls @ 75 mls/hr IV ASDIR [facility] Last Admin: 03/04/20 23:15 Dose: 75 mls/hr Documented by: Piperacillin Sod/Tazobactam (Sod 3.375 gm/ Dextrose) 50 mls @ 100 mls/hr IVPB Q8H-IV [facility]; Protocol Last Admin: 03/05/20 09:18 Dose: 100 mls/hr Documented by: Insulin Aspart (Novolog Vial Sliding Scale -) 1 vial SQ TIDAC [facility]; Protocol Last Admin: 03/05/20 06:29 Dose: 2 units Documented by: Metoprolol Tartrate (Lopressor -) 50 mg PO BID [facility] Last Admin: 03/05/20 09:17 Dose: 50 mg Documented by: Morphine Sulfate (Morphine Sulfate) 4 mg IVPUSH Q4H PRN PRN Reason: PAIN LEVEL 7 - 10 Last Admin: 03/02/20 23:09 Dose: 4 mg Documented by: Prednisone (Deltasone -) 2.5 mg PO DAILY [facility] Last Admin: 03/05/20 09:18 Dose: 2.5 mg Documented by: Tacrolimus (Prograf) 2 mg PO BID [facility] Last Admin: 03/05/20 09:18 Dose: 2 mg Documented by: Tamsulosin HCl (Flomax -) 0.4 mg PO DAILY@0830 [facility] Last Admin: 03/05/20 09:18 Dose: 0.4 mg Documented by: - Objective Vital Signs: Vital Signs Temperature 98.9 F 03/05/20 09:00 Pulse Rate 79 03/05/20 09:00 Respiratory Rate 18 03/05/20 09:00 Blood Pressure 133/60 03/05/20 09:00 O2 Sat by Pulse Oximetry (%) 97 03/05/20 09:00 Constitutional: Yes: Calm, Mild Distress Cardiovascular: Yes: S1, S2 Respiratory: Yes: Regular, CTA Bilaterally Gastrointestinal: Yes: Normal Bowel Sounds, Soft Musculoskeletal: Yes: WNL Extremities: Yes: Other Neurological: Yes: Alert, Oriented Psychiatric: Yes: Alert, Oriented Labs: CBC, BMP 03/05/20 07:22 03/05/20 07:22 INR, PTT INR 1.04 (0.83-1.09) 03/02/20 14:59 Assessment/Plan 64 y/o man with h/o ESRD s/p renal transplant, DM, HTN who presented with fever, chills, and pain in L foot sepsis dm renal transplant htn plan continue abx monitor closely
[2020-03-05] MEDS ORDERED: MAGNESIUM 1GM/D5W 100ML - 100 ML IVPB IVPB ONE (12:45)
--- NOTE | 2020-03-05 12:56 | PN ---
Physical Exam: SUBJECTIVE: Patient seen and examined this morning, endorsed feeling feverish overnight w/ difficulty sleeping, as well as constipation. OBJECTIVE: Vital Signs Period Temp Pulse Resp BP Sys/Ga Pulse Ox Last 24 Hr 98.1 F-98.9 F 71-80 18-18 133-160/60-75 96-99 GENERAL: The patient is awake, alert, and fully oriented, in no acute distress. HEAD: Normal with no signs of trauma. EYES: PERRL, extraocular movements intact, sclera anicteric, conjunctiva clear. No ptosis. ENT: Oropharynx clear without exudates, moist mucous NECK: Trachea midline, full range of motion, supple. LUNGS: Breath sounds equal, clear to auscultation bilaterally, no wheezes, no crackles, no accessory muscle use. HEART: Regular rate and rhythm, S1, S2 without murmur, rub or gallop. ABDOMEN: Soft, nontender, nondistended, normoactive bowel sounds, large RLQ scar UPPER EXTREMITIES: 2+ pulses, warm, well-perfused, no edema. LOWER EXTREMITIES: Multiple hyperpigmented macular spots on LE B/L. LLE: decreased swelling, decreased warmth NEUROLOGICAL: Normal speech, gait not observed. PSYCH: Normal mood, normal affect. SKIN: Warm, dry, normal turgor, no rashes or lesions noted. Laboratory Results - last 24 hr CBC, BMP 03/05/20 07:22 03/05/20 07:22 03/02/20 14:59 Gram Stain - Final Toe - Left Fifth Wound Culture - Final Pseudomonas Aeruginosa Staphylococcus Aureus Strep Agalactiae Group B 03/02/20 14:50 Blood Culture - Preliminary Blood - Peripheral Venous NO GROWTH OBTAINED AFTER 48 HOURS, INCUBATION TO CONTINUE FOR 3 DAYS. 03/02/20 14:59 Blood Culture - Preliminary Blood - Peripheral Venous NO GROWTH OBTAINED AFTER 48 HOURS, INCUBATION TO CONTINUE FOR 3 DAYS. Active Medications Generic Name Dose Route Start Last Admin Trade Name Freq PRN Reason Stop Dose Admin Acetaminophen 650 mg 03/02/20 20:55 03/04/20 21:27 Tylenol - PO 650 mg Q6H PRN Administration PAIN LEVEL 4 - 6 Amlodipine Besylate 5 mg 03/04/20 22:00 03/05/20 09:18 Norvasc - PO 5 mg BID DERIC Administration Docusate Sodium 100 mg 03/05/20 10:30 03/05/20 10:37 Colace - PO 03/06/20 22:01 100 mg BID DERIC Administration Gabapentin 100 mg 03/03/20 10:00 03/05/20 09:17 Neurontin - PO 100 mg DAILY DERIC Administration Heparin Sodium (Porcine) 5,000 unit 03/03/20 22:00 03/05/20 06:25 Heparin - SQ 5,000 unit TID DERIC Administration Sodium Chloride 1,000 mls @ 75 mls/hr 03/03/20 12:26 03/04/20 23:15 Normal Saline - IV 75 mls/hr ASDIR DERIC Administration Piperacillin Sod/Tazobactam 50 mls @ 100 mls/hr 03/03/20 18:00 03/05/20 09:18 Sod 3.375 gm/ Dextrose IVPB 100 mls/hr Q8H-IV DERIC Administration Protocol Sodium Phosphate 30 mm/ 510 mls @ 63.75 mls/hr 03/05/20 13:00 Dextrose IVPB 03/05/20 20:59 ONCE ONE 30 MM/8 HR Insulin Aspart 1 vial 03/03/20 16:30 03/05/20 11:56 Novolog Vial Sliding Scale - SQ 8 units TIDAC [facility] Administration Protocol Metoprolol Tartrate 50 mg 03/02/20 22:00 03/05/20 09:17 Lopressor - PO 50 mg BID DERIC Administration Morphine Sulfate 4 mg 03/02/20 20:56 03/02/20 23:09 Morphine Sulfate IVPUSH 4 mg Q4H PRN Administration PAIN LEVEL 7 - 10 Prednisone 2.5 mg 03/05/20 10:00 03/05/20 09:18 Deltasone - PO 2.5 mg DAILY DERIC Administration Tacrolimus 2 mg 03/04/20 22:00 03/05/20 09:18 Prograf PO 2 mg BID DERIC Administration Tamsulosin HCl 0.4 mg 03/03/20 08:30 03/05/20 09:18 Flomax - PO 0.4 mg DAILY@0830 DERIC Administration ASSESSMENT/PLAN: 64yo M with h/o HTN, T2DN, Diabetic Nephropathy CKD stage 5 s/p renal transplant in 2014 who presents today with R foot pain. Patient reports he's been having toe/foot pain for about a month with wounds, initially given medication for fungal infection by [employer], however he has not been able to seek care due to the COVID pandemic. Sepsis 2/2 LLE Infection r/o cellulitis -Afebrile, w/ downtrending WBC -See cultures above -Per ID: Sensitivities on 07/16 organisms returned, c/w Zosyn -Per Podiatry: -No surgical intervention needed at this time. -Keep dry with betadine -Antifungal Gel not available: Use Clotrimazole/bet ESRD s/p Renal Transplant -Cr. Stable -Nephrology consulted, recs appreciated -Trend Tacrolimus Levels -FU AM Cortisol in AM, still pending Insulin Dependent Diabetes Mellitus w/ Neuropathy -Hold Levamir 25 mornings 2/2 hypoglycemia -Humalog as needed -ACHS -c/w gabapentin Chronic Anemia -Baseline 9 - 11 -Monitor for acute decrease Hyponatremia -Baseline 130-135 -Monitor for any acute decrease Constipation -Decreased BM -Colace 100 BID, 4 doses HTN -Lopressor 50 BID -Amlodipine 5mg BID Hypomagnesmia -Repleted -Restarted home mag Hypophosphatemia -Trend FEN -NS @ 75 -Lytes -Diabetic Diet PPx -DVT: None -PPI: None Dispo -Ptn will be followed on med/surg floors Visit type - Emergency Visit Emergency Visit: No - New Patient This patient is new to me today: No - Critical Care Critical Care patient: No - Discharge Referral Referred to [facility] Med P.C[facility] No ATTENDING PHYSICIAN STATEMENT I saw and evaluated the patient. I reviewed the resident's note and discussed the case with the resident. I agree with the resident's findings and plan as documented. SUBJECTIVE: OBJECTIVE: ASSESSMENT AND PLAN:
[2020-03-05] MEDS ORDERED: SODIUM PHOSPHATE - 30 MM in DEXTROSE 5%-WATER - 500 ML IVPB ONE (13:00)
--- NOTE | 2020-03-05 13:01 | PN ---
Progress Note (short form) - Note Progress Note: Podiatry F/U: Seen/evaluated at bedside, NAD. Patient states that he is feeling a bit better, less pain to the left foot. Afebrile overnight. No new complaints ELKE: L foot: Pedal pulses weakly palpable, TG warm-warm, CFT brisk to all digits. There are plantar transverse lacerations of digits 2,3,4. There is underlying fibrogranular bases. There is mild serous drainage. There is no exposed flexor tendon or exposed bone. There is no soft tissue crepitus to the foot. There is no streaking ascending cellulitis. There is mild tenderness to palpation; superimposed tinea infection Imp: 64 year old diabetic male with tinea pedis with overlying cellulitis; resolving Evaluated and reviewed need to keep dry with betadine benefit from an antifungal GEL although no options available in the system; clotrimazole/bet ordered if gel available would rather appliction of gel apply bedtadine twice daily to the feet, let dry and then apply clotrimazole. iv abx as needed and will likely need d/c on oral WBC down/afebrile, no need for surgical intervention Will need f/u as outpatient as well when discharged
--- NOTE | 2020-03-05 13:44 | PN ---
Progress Note, Physician History of Present Illness: Seen and examined at the bedside awake and alert offers no acute complaints still has slight tenderness in foot no fevers or chills making urine - Current Medication List Current Medications: Active Medications Acetaminophen (Tylenol -) 650 mg PO Q6H PRN PRN Reason: PAIN LEVEL 4 - 6 Last Admin: 03/04/20 21:27 Dose: 650 mg Documented by: Amlodipine Besylate (Norvasc -) 5 mg PO BID [facility] Last Admin: 03/05/20 09:18 Dose: 5 mg Documented by: Clotrimazole (Lotrisone Cream (Small Tube)) 1 applic TP BID [facility] Docusate Sodium (Colace -) 100 mg PO BID [facility] Stop: 03/06/20 22:01 Last Admin: 03/05/20 10:37 Dose: 100 mg Documented by: Gabapentin (Neurontin -) 100 mg PO DAILY [facility] Last Admin: 03/05/20 09:17 Dose: 100 mg Documented by: Heparin Sodium (Porcine) (Heparin -) 5,000 unit SQ TID [facility] Last Admin: 03/05/20 06:25 Dose: 5,000 unit Documented by: Sodium Chloride (Normal Saline -) 1,000 mls @ 75 mls/hr IV ASDIR [facility] Last Admin: 03/04/20 23:15 Dose: 75 mls/hr Documented by: Piperacillin Sod/Tazobactam (Sod 3.375 gm/ Dextrose) 50 mls @ 100 mls/hr IVPB Q8H-IV [facility]; Protocol Last Admin: 03/05/20 09:18 Dose: 100 mls/hr Documented by: Sodium Phosphate 30 mm/ (Dextrose) 510 mls @ 63.75 mls/hr IVPB ONCE ONE Stop: 03/05/20 20:59 Insulin Aspart (Novolog Vial Sliding Scale -) 1 vial SQ TIDAC [facility]; Protocol Last Admin: 03/05/20 11:56 Dose: 8 units Documented by: Metoprolol Tartrate (Lopressor -) 50 mg PO BID [facility] Last Admin: 03/05/20 09:17 Dose: 50 mg Documented by: Morphine Sulfate (Morphine Sulfate) 4 mg IVPUSH Q4H PRN PRN Reason: PAIN LEVEL 7 - 10 Last Admin: 03/02/20 23:09 Dose: 4 mg Documented by: Povidone Iodine (Betadine 10% Solution -) 1 applic TP BID [facility] Prednisone (Deltasone -) 2.5 mg PO DAILY [facility] Last Admin: 03/05/20 09:18 Dose: 2.5 mg Documented by: Tacrolimus (Prograf) 2 mg PO BID [facility] Last Admin: 03/05/20 09:18 Dose: 2 mg Documented by: Tamsulosin HCl (Flomax -) 0.4 mg PO DAILY@0830 [facility] Last Admin: 03/05/20 09:18 Dose: 0.4 mg Documented by: - Objective Vital Signs: Vital Signs Temperature 98.5 F 03/05/20 13:29 Pulse Rate 71 03/05/20 13:29 Respiratory Rate 18 03/05/20 13:29 Blood Pressure 137/71 03/05/20 13:29 O2 Sat by Pulse Oximetry (%) 99 03/05/20 13:29 Constitutional: Yes: No Distress, Calm HENT: Yes: Atraumatic Neck: Yes: Supple Cardiovascular: Yes: Regular Rate and Rhythm Respiratory: Yes: Regular Gastrointestinal: Yes: Soft. No: Tenderness Extremities: Yes: Erythema. No: Cold, Cool, Cyanosis Edema: No Neurological: Yes: Alert, Oriented Labs: CBC, BMP 03/05/20 07:22 03/05/20 07:22 INR, PTT INR 1.04 (0.83-1.09) 03/02/20 14:59 Assessment/Plan 64 year old male with history of ESRD s/p renal transplant in 2014, insulin dependent DM, secondary hyperparathyrodism who presented with left foot pain and found to have digital ulcerations and cellulitis. 1. ESRD s/p renal transplant with preserved graft function 2. Cellulitis/Ulcerations of lower extremity 3. IDDM 4. Secondary hyperparathyrodism 5. Anemia 6. Hyponatremia Renal function stable. Continue acrolimus dose is 2mg BID and Prednisone dose is 2.5mg Daily Follow up Tacrolimus level Agree with holding MMF for now Continue Abx as per ID/primary team follow up cultures Podiatry follow up, no surgical intervention needed at this time. Continue moderate IVF hydration with isotonic fluids Trend serum sodium levels. AM Cortisol result pending. Trend renal function daily Thank you Waylon Gaona DO
[2020-03-05] MEDS: SODIUM CHLORIDE 1,000 ML IV SCH (13:59)
[2020-03-05] MEDS: CLOTRIMAZOLE/BETAMET DIPROP 15 GM TUBE TP SCH ×2 (15:41→21:29)
[2020-03-05] MEDS: POVIDONE-IODINE 10% SOLN 118 ML BOTTLE TP SCH ×2 (15:41→21:29)
[2020-03-05] MEDS ORDERED: oxyCODONE HCL 5 MG TABLET PO ONE ×2 (17:11)
[2020-03-05] MEDS: ACETAMINOPHEN 325 MG TABLET (FP) PO PRN (17:12)
--- NOTE | 2020-03-05 18:42 | PN ---
Teaching Attending Note Name of Resident: Samuel St ATTENDING PHYSICIAN STATEMENT I saw and evaluated the patient. I reviewed the resident's note and discussed the case with the resident. I agree with the resident's findings and plan as documented. SUBJECTIVE: Patient is comfortable with nAd. c/o having LE pain when dressing is changed OBJECTIVE: Vital Signs Temperature 98.5 F 03/05/20 13:29 Pulse Rate 71 03/05/20 13:29 Respiratory Rate 18 03/05/20 13:29 Blood Pressure 137/71 03/05/20 13:29 O2 Sat by Pulse Oximetry (%) 99 03/05/20 13:29 PE: per resident's note CBCD WBC 10.6 K/mm3 (4.0-10.0) H 03/05/20 07:22 RBC 3.58 M/mm3 (4.00-5.60) L 03/05/20 07:22 Hgb 11.9 GM/dL (11.7-16.9) 03/05/20 07:22 Hct 34.8 % (35.4-49) L 03/05/20 07:22 MCV 97.4 fl (80-96) H 03/05/20 07:22 MCHC 34.1 g/dl (32.0-35.9) 03/05/20 07:22 RDW 13.1 % (11.9-15.9) 03/05/20 07:22 Plt Count 110 K/MM3 (134-434) L D 03/05/20 07:22 MPV 10.4 fl (7.5-11.1) 03/05/20 07:22 CMP Sodium 133 mmol/L (136-145) L 03/05/20 07:22 Potassium 4.4 mmol/L (3.5-5.1) 03/05/20 07:22 Chloride 103 mmol/L (98-107) 03/05/20 07:22 Carbon Dioxide 23 mmol/L (21-32) 03/05/20 07:22 Anion Gap 7 MMOL/L (8-16) L 03/05/20 07:22 BUN 15.3 mg/dL (7-18) 03/05/20 07:22 Creatinine 1.0 mg/dL (0.55-1.3) 03/05/20 07:22 Random Glucose 182 mg/dL (74-106) H 03/05/20 07:22 Calcium 9.6 mg/dL (8.5-10.1) 03/05/20 07:22 Total Bilirubin 1.1 mg/dL (0.2-1) H 03/04/20 06:00 AST 9 U/L (15-37) L 03/04/20 06:00 ALT 13 U/L (13-61) 03/04/20 06:00 Alkaline Phosphatase 65 U/L (45-117) 03/04/20 06:00 Total Protein 5.4 g/dl (6.4-8.2) L 03/04/20 06:00 Albumin 2.7 g/dl (3.4-5.0) L 03/04/20 06:00 CARDIAC ENZYMES Creatine Kinase 52 U/L (26-308) 03/02/20 14:59 Troponin I < 0.02 ng/ml (0.00-0.05) 03/02/20 14:59 Current Medications Generic Name Dose Route Start Last Admin Trade Name Freq PRN Reason Stop Dose Admin Acetaminophen 650 mg 03/02/20 20:55 03/05/20 17:12 Tylenol - PO 650 mg Q6H PRN Administration PAIN LEVEL 4 - 6 Amlodipine Besylate 5 mg 03/04/20 22:00 03/05/20 09:18 Norvasc - PO 5 mg BID DERIC Administration Clotrimazole 1 applic 03/05/20 13:00 03/05/20 15:41 Lotrisone Cream (Small Tube) TP 1 applic BID DERIC Administration Docusate Sodium 100 mg 03/05/20 10:30 03/05/20 10:37 Colace - PO 03/06/20 22:01 100 mg BID DERIC Administration Gabapentin 100 mg 03/03/20 10:00 03/05/20 09:17 Neurontin - PO 100 mg DAILY DERIC Administration Heparin Sodium (Porcine) 5,000 unit 03/03/20 22:00 03/05/20 15:42 Heparin - SQ 5,000 unit TID DERIC Administration Sodium Chloride 1,000 mls @ 75 mls/hr 03/03/20 12:26 03/05/20 13:59 Normal Saline - IV Not Given ASDIR DERIC Piperacillin Sod/Tazobactam 50 mls @ 100 mls/hr 03/03/20 18:00 03/05/20 17:32 Sod 3.375 gm/ Dextrose IVPB 100 mls/hr Q8H-IV DERIC Administration Protocol Sodium Phosphate 30 mm/ 510 mls @ 63.75 mls/hr 03/05/20 13:00 03/05/20 15:42 Dextrose IVPB 03/05/20 20:59 63.75 mls/hr ONCE ONE Administration 30 MM/8 HR Insulin Aspart 1 vial 03/03/20 16:30 03/05/20 17:19 Novolog Vial Sliding Scale - SQ 10 units TIDAC DERIC Administration Protocol Metoprolol Tartrate 50 mg 03/02/20 22:00 03/05/20 09:17 Lopressor - PO 50 mg BID DERIC Administration Morphine Sulfate 4 mg 03/02/20 20:56 03/02/20 23:09 Morphine Sulfate IVPUSH 4 mg Q4H PRN Administration PAIN LEVEL 7 - 10 Oxycodone HCl 2.5 mg 03/05/20 16:49 Roxicodone - PO Q12H PRN PAIN LEVEL 1-5 Povidone Iodine 1 applic 03/05/20 13:00 03/05/20 15:41 Betadine 10% Solution - TP 1 applic BID DERIC Administration Prednisone 2.5 mg 03/05/20 10:00 03/05/20 09:18 Deltasone - PO 2.5 mg DAILY DERIC Administration Tacrolimus 2 mg 03/04/20 22:00 03/05/20 09:18 Prograf PO 2 mg BID DERIC Administration Tamsulosin HCl 0.4 mg 03/03/20 08:30 03/05/20 09:18 Flomax - PO 0.4 mg DAILY@0830 DERIC Administration Home Medications Medication Instructions Recorded Cinacalcet HCl [Sensipar] 60 mg PO DAILY 02/03/13 Metoprolol Tartrate [Lopressor -] 25 mg PO BID 03/31/16 Mycophenolate Sodium [Myfortic -] 360 mg PO BID 03/31/16 Prednisone 5 mg PO DAILY 03/31/16 Tacrolimus [Prograf] 2 mg PO BID 03/31/16 Tamsulosin HCl [Flomax] 0.4 mg PO DAILY 03/31/16 Amlodipine Besylate 10 mg PO DAILY 03/04/20 Atorvastatin Ca [Lipitor] 40 mg PO HS 03/04/20 Gabapentin 300 mg PO TID 03/04/20 Insulin Glargine,Hum.rec.anlog 16 unit SQ DAILY 03/04/20 [Basaglar Kwikpen U-100] Insulin Lispro [Admelog] 4 - 8 units SQ TID 03/04/20 Magnesium Oxide [Mag-Ox -] 400 mg PO BID 03/04/20 metFORMIN HCL [Metformin HCl] 500 mg PO DAILY 03/04/20 Microbiology 03/02/20 14:50 Blood - Peripheral Venous Blood Culture - Preliminary NO GROWTH OBTAINED AFTER 72 HOURS, INCUBATION TO CONTINUE FOR 2 DAYS. 03/02/20 14:59 Blood - Peripheral Venous Blood Culture - Preliminary NO GROWTH OBTAINED AFTER 72 HOURS, INCUBATION TO CONTINUE FOR 2 DAYS. 03/02/20 14:59 Toe - Left Fifth Gram Stain - Final 03/02/20 14:59 Toe - Left Fifth Wound Culture - Final Pseudomonas Aeruginosa Staphylococcus Aureus Strep Agalactiae Group B ASSESSMENT AND PLAN: This patient is a 64yom with Pmhx of ESRD s/p renal transplant, DM, HTN who presented with fever, chills, and pain of L foot # Sepsis, due to infected L foot wound and cellulitis .MRi negative for OM, ID on the case on IV zosyn continue, continue wound dressing, podiatry is on the case , improving, will continue to monitor #Hx of ESRD, s/p renal transplant . continue home meds, nephro on the case #T2DM: SS with coverage #HTN : cont CCb and BB DVT px : add heparin
[2020-03-06] MEDS ORDERED: PIPERACILLIN/TAZOBACTAM 3.375 GM VIAL IVPB ONE ×3 (02:34→17:01)
[2020-03-06] MEDS ORDERED: DEXTROSE 5%-WATER - 50 ML IVPB ONE ×3 (02:34→17:01)
[2020-03-06] MEDS: PIPERACILLIN/TAZOB 3.375 GM 3.375 GM in DEXTROSE 5%-WATER - 50 ML IVPB SCH ×3 (02:35→17:04)
[2020-03-06] MEDS: HEPARIN NA (PORCINE) 5,000 UNITS/ML 1ML VIAL SQ SCH ×3 (06:16→21:29)
[2020-03-06] MEDS: SODIUM CHLORIDE 1,000 ML IV SCH (06:20)
[2020-03-06] MEDS: INSULIN SLIDING SCALE (NOVOLOG) 1 VIAL SQ SCH ×3 (06:20→17:04)
[2020-03-06 07:55] LABS: BASO % 0.2 % (0-2.0); EOS % 1.9 % (0-4.5); HEMATOCRIT 33.2 % (35.4-49); LYMPH % 7.3 % (8-40); MCH 32.1 pg (25.7-33.7); MCHC 33.2 g/dl (32.0-35.9); MEAN CELL VOLUME 96.6 fl (80-96); MEAN PLT VOLUME 9.2 fl (7.5-11.1); MONO % 5.3 % (3.8-10.2); NEUT % 85.3 % (42.8-82.8); PLATELET COUNT 122 K/MM3 (134-434); RBC 3.44 M/mm3 (4.00-5.60); RDW 13.2 % (11.9-15.9); WHITE BLOOD COUNT 6.7 K/mm3 (4.0-10.0)
[2020-03-06 08:20] LABS: BLOOD UREA NITROGEN 15.1 mg/dL (7-18); CALCIUM 9.2 mg/dL (8.5-10.1); CREATININE 0.9 mg/dL (0.55-1.3); MAGNESIUM 1.6 mg/dL (1.8-2.4); PHOSPHOROUS 1.8 mg/dL (2.5-4.9); POTASSIUM 4.1 mmol/L (3.5-5.1)
--- NOTE | 2020-03-06 08:26 | PN ---
Progress Note, Physician History of Present Illness: stable no new issues leg still red boginess on the foot still present - Current Medication List Current Medications: Active Medications Acetaminophen (Tylenol -) 650 mg PO Q6H PRN PRN Reason: PAIN LEVEL 4 - 6 Last Admin: 03/05/20 17:12 Dose: 650 mg Documented by: Amlodipine Besylate (Norvasc -) 5 mg PO BID [facility] Last Admin: 03/05/20 21:29 Dose: 5 mg Documented by: Clotrimazole (Lotrisone Cream (Small Tube)) 1 applic TP BID [facility] Last Admin: 03/05/20 21:29 Dose: 1 applic Documented by: Docusate Sodium (Colace -) 100 mg PO BID [facility] Stop: 03/06/20 22:01 Last Admin: 03/05/20 21:29 Dose: 100 mg Documented by: Gabapentin (Neurontin -) 100 mg PO DAILY [facility] Last Admin: 03/05/20 09:17 Dose: 100 mg Documented by: Heparin Sodium (Porcine) (Heparin -) 5,000 unit SQ TID [facility] Last Admin: 03/06/20 06:16 Dose: 5,000 unit Documented by: Sodium Chloride (Normal Saline -) 1,000 mls @ 75 mls/hr IV ASDIR [facility] Last Admin: 03/06/20 06:20 Dose: 75 mls/hr Documented by: Piperacillin Sod/Tazobactam (Sod 3.375 gm/ Dextrose) 50 mls @ 100 mls/hr IVPB Q8H-IV [facility]; Protocol Last Admin: 03/06/20 02:35 Dose: 100 mls/hr Documented by: Insulin Aspart (Novolog Vial Sliding Scale -) 1 vial SQ TIDAC [facility]; Protocol Last Admin: 03/06/20 06:20 Dose: 6 units Documented by: Metoprolol Tartrate (Lopressor -) 50 mg PO BID [facility] Last Admin: 03/05/20 21:29 Dose: 50 mg Documented by: Oxycodone HCl (Roxicodone -) 2.5 mg PO Q12H PRN PRN Reason: PAIN LEVEL 1-5 Povidone Iodine (Betadine 10% Solution -) 1 applic TP BID [facility] Last Admin: 03/05/20 21:29 Dose: 1 applic Documented by: Prednisone (Deltasone -) 2.5 mg PO DAILY [facility] Last Admin: 03/05/20 09:18 Dose: 2.5 mg Documented by: Tacrolimus (Prograf) 2 mg PO BID [facility] Last Admin: 03/05/20 21:29 Dose: 2 mg Documented by: Tamsulosin HCl (Flomax -) 0.4 mg PO DAILY@0830 [facility] Last Admin: 03/05/20 09:18 Dose: 0.4 mg Documented by: - Objective Vital Signs: Vital Signs Temperature 98.2 F 03/06/20 05:24 Pulse Rate 72 03/06/20 05:24 Respiratory Rate 18 03/06/20 05:24 Blood Pressure 150/69 03/06/20 05:24 O2 Sat by Pulse Oximetry (%) 97 03/06/20 05:24 Constitutional: Yes: No Distress, Calm Cardiovascular: Yes: S1, S2 Respiratory: Yes: Regular, CTA Bilaterally Gastrointestinal: Yes: Normal Bowel Sounds, Soft Musculoskeletal: Yes: WNL Extremities: Yes: Erythema (of the foot), Other Labs: CBC, BMP 03/06/20 07:17 03/06/20 07:17 INR, PTT INR 1.04 (0.83-1.09) 03/02/20 14:59 Assessment/Plan 64 y/o man with h/o ESRD s/p renal transplant, DM, HTN who presented with fever, chills, and pain in L foot sepsis dm renal transplant htn plan continue abx monitor closely wbc has normalized will d/w podiatry rest as per the team
[2020-03-06] MEDS ORDERED: MAGNESIUM 1GM/D5W 100ML - 100 ML IVPB IVPB ONE (09:03)
[2020-03-06] MEDS ORDERED: NAPH,MB-DB/K PH,MBDB POWDER PACKET PO ONE (09:05)
[2020-03-06] MEDS: GABAPENTIN 100 MG CAPSULE PO SCH (09:27)
[2020-03-06] MEDS: TAMSULOSIN HCL 0.4 MG CAP PO SCH (09:27)
[2020-03-06] MEDS: amLODIPine BESYLATE 5 MG TABLET (FP) PO SCH ×2 (09:27→21:30)
[2020-03-06] MEDS: DOCUSATE SODIUM 100 MG CAPSULE (FP) PO SCH ×2 (09:27→21:30)
[2020-03-06] MEDS: ACETAMINOPHEN 325 MG TABLET (FP) PO PRN (09:28)
[2020-03-06] MEDS: METOPROLOL TARTRATE 50 MG TABLET (FP) PO SCH ×2 (09:28→21:30)
[2020-03-06] MEDS: predniSONE 5 MG TABLET (UD) PO SCH (09:28)
[2020-03-06] MEDS: oxyCODONE HCL 5 MG TABLET PO PRN (09:30)
[2020-03-06] MEDS ORDERED: PT OWN MED DRAWER 7, Y5N ONE ×2 (09:37→20:47)
[2020-03-06] MEDS: POVIDONE-IODINE 10% SOLN 118 ML BOTTLE TP SCH ×2 (09:43→21:29)
[2020-03-06] MEDS: TACROLIMUS ANHYDROUS 1 MG CAPSULE PO SCH ×2 (09:43→21:30)
[2020-03-06] MEDS: CLOTRIMAZOLE/BETAMET DIPROP 15 GM TUBE TP SCH ×2 (09:43→21:30)
[2020-03-06] MEDS ORDERED: MAGNESIUM SULF 50% (8.12 MEQ/2 ML-1 GM VIAL) IVPB ONE (09:59)
[2020-03-06] MEDS ORDERED: MAGNESIUM SULFATE IN WATER 2 GM/50 ML IVPB IVPB ONE (10:15)
--- NOTE | 2020-03-06 11:58 | PN ---
Progress Note, Physician History of Present Illness: Seen and examined at the bedside awake and alert offers no acute complaints foot feels much better no fevers or chills making urine - Current Medication List Current Medications: Active Medications Acetaminophen (Tylenol -) 650 mg PO Q6H PRN PRN Reason: PAIN LEVEL 4 - 6 Last Admin: 03/06/20 09:28 Dose: 650 mg Documented by: Amlodipine Besylate (Norvasc -) 5 mg PO BID [facility] Last Admin: 03/06/20 09:27 Dose: 5 mg Documented by: Clotrimazole (Lotrisone Cream (Small Tube)) 1 applic TP BID [facility] Last Admin: 03/06/20 09:43 Dose: 1 applic Documented by: Docusate Sodium (Colace -) 100 mg PO BID [facility] Stop: 03/06/20 22:01 Last Admin: 03/06/20 09:27 Dose: 100 mg Documented by: Gabapentin (Neurontin -) 100 mg PO DAILY [facility] Last Admin: 03/06/20 09:27 Dose: 100 mg Documented by: Heparin Sodium (Porcine) (Heparin -) 5,000 unit SQ TID [facility] Last Admin: 03/06/20 06:16 Dose: 5,000 unit Documented by: Sodium Chloride (Normal Saline -) 1,000 mls @ 75 mls/hr IV ASDIR [facility] Last Admin: 03/06/20 06:20 Dose: 75 mls/hr Documented by: Piperacillin Sod/Tazobactam (Sod 3.375 gm/ Dextrose) 50 mls @ 100 mls/hr IVPB Q8H-IV [facility]; Protocol Last Admin: 03/06/20 09:31 Dose: 100 mls/hr Documented by: Insulin Aspart (Novolog Vial Sliding Scale -) 1 vial SQ TIDAC [facility]; Protocol Last Admin: 03/06/20 06:20 Dose: 6 units Documented by: Metoprolol Tartrate (Lopressor -) 50 mg PO BID [facility] Last Admin: 03/06/20 09:28 Dose: 50 mg Documented by: Oxycodone HCl (Roxicodone -) 2.5 mg PO Q12H PRN PRN Reason: PAIN LEVEL 1-5 Last Admin: 03/06/20 09:30 Dose: 2.5 mg Documented by: Povidone Iodine (Betadine 10% Solution -) 1 applic TP BID [facility] Last Admin: 03/06/20 09:43 Dose: 1 applic Documented by: Prednisone (Deltasone -) 2.5 mg PO DAILY [facility] Last Admin: 03/06/20 09:28 Dose: 2.5 mg Documented by: Tacrolimus (Prograf) 2 mg PO BID [facility] Last Admin: 03/06/20 09:43 Dose: 2 mg Documented by: Tamsulosin HCl (Flomax -) 0.4 mg PO DAILY@0830 [facility] Last Admin: 03/06/20 09:27 Dose: 0.4 mg Documented by: - Objective Vital Signs: Vital Signs Temperature 98 F 03/06/20 09:55 Pulse Rate 71 03/06/20 09:55 Respiratory Rate 18 03/06/20 09:55 Blood Pressure 155/70 03/06/20 09:55 O2 Sat by Pulse Oximetry (%) 97 03/06/20 09:55 Constitutional: Yes: No Distress, Calm Neck: Yes: Supple Cardiovascular: Yes: Regular Rate and Rhythm Respiratory: Yes: Regular, CTA Bilaterally Gastrointestinal: Yes: Soft Edema: No Labs: CBC, BMP 03/06/20 07:17 03/06/20 07:17 INR, PTT INR 1.04 (0.83-1.09) 03/02/20 14:59 Assessment/Plan 64 year old male with history of ESRD s/p renal transplant in 2014, insulin dependent DM, secondary hyperparathyrodism who presented with left foot pain and found to have digital ulcerations and cellulitis. 1. ESRD s/p renal transplant with preserved graft function 2. Cellulitis/Ulcerations of lower extremity 3. IDDM 4. Secondary hyperparathyrodism 5. Anemia 6. Hyponatremia Renal function stable. Continue Tacrolimus dose 2mg BID and Prednisone dose 2.5mg Daily Follow up Tacrolimus level - pending IF pt remains afebrile and non toxic appearing can consider restarting MMF in next 24 hours. Continue Abx as per ID/primary team Podiatry follow up, no surgical intervention needed at this time. Can discontinue IV fluids as pt is tolerating oral diet well. Trend serum sodium levels. AM Cortisol result pending. Trend renal function daily Thank you Waylon Gaona DO
--- NOTE | 2020-03-06 13:20 | PN ---
Physical Exam: SUBJECTIVE: Patient seen and examined this morning, endorses constipation, states pain no longer present w/ addition of oxy pre wound changes. OBJECTIVE: Vital Signs Period Temp Pulse Resp BP Sys/Ga Pulse Ox Last 24 Hr 98 F-98.7 F 71-74 18-18 129-159/66-77 97-99 GENERAL: The patient is awake, alert, and fully oriented, in no acute distress. HEAD: Normal with no signs of trauma. EYES: PERRL, extraocular movements intact, sclera anicteric, conjunctiva clear. No ptosis. ENT: Oropharynx clear without exudates, moist mucous NECK: Trachea midline, full range of motion, supple. LUNGS: Breath sounds equal, clear to auscultation bilaterally, no wheezes, no crackles, no accessory muscle use. HEART: Regular rate and rhythm, S1, S2 3/6 systolic murmur, rub or gallop. ABDOMEN: Soft, nontender, nondistended, normoactive bowel sounds, large RLQ scar UPPER EXTREMITIES: 2+ pulses, warm, well-perfused, no edema. LOWER EXTREMITIES: Multiple hyperpigmented macular spots on LE B/L. LLE: decreased swelling, decreased warmth NEUROLOGICAL: Normal speech, gait not observed. PSYCH: Normal mood, normal affect. SKIN: Warm, dry, normal turgor, no rashes or lesions noted. Laboratory Results - last 24 hr CBC, BMP 03/06/20 07:17 03/06/20 07:17 03/02/20 14:50 Blood Culture - Preliminary Blood - Peripheral Venous NO GROWTH OBTAINED AFTER 72 HOURS, INCUBATION TO CONTINUE FOR 2 DAYS. 03/02/20 14:59 Blood Culture - Preliminary Blood - Peripheral Venous NO GROWTH OBTAINED AFTER 72 HOURS, INCUBATION TO CONTINUE FOR 2 DAYS. 03/02/20 14:59 Gram Stain - Final Toe - Left Fifth Wound Culture - Final Pseudomonas Aeruginosa Staphylococcus Aureus Strep Agalactiae Group B Active Medications Generic Name Dose Route Start Last Admin Trade Name Freq PRN Reason Stop Dose Admin Amlodipine Besylate 5 mg 03/04/20 22:00 03/06/20 09:27 Norvasc - PO 5 mg BID DERIC Administration Clotrimazole 1 applic 03/05/20 13:00 03/06/20 09:43 Lotrisone Cream (Small Tube) TP 1 applic BID DERIC Administration Docusate Sodium 100 mg 03/05/20 10:30 03/06/20 09:27 Colace - PO 03/06/20 22:01 100 mg BID DERIC Administration Gabapentin 100 mg 03/03/20 10:00 03/06/20 09:27 Neurontin - PO 100 mg DAILY DERIC Administration Heparin Sodium (Porcine) 5,000 unit 03/03/20 22:00 03/06/20 06:16 Heparin - SQ 5,000 unit TID DERIC Administration Piperacillin Sod/Tazobactam 50 mls @ 100 mls/hr 03/03/20 18:00 03/06/20 09:31 Sod 3.375 gm/ Dextrose IVPB 100 mls/hr Q8H-IV DERIC Administration Protocol Insulin Aspart 1 vial 03/03/20 16:30 03/06/20 12:08 Novolog Vial Sliding Scale - SQ 4 units TIDAC [facility] Administration Protocol Metoprolol Tartrate 50 mg 03/02/20 22:00 03/06/20 09:28 Lopressor - PO 50 mg BID DERIC Administration Oxycodone HCl 2.5 mg 03/05/20 16:49 03/06/20 09:30 Roxicodone - PO 2.5 mg Q12H PRN Administration PAIN LEVEL 1-5 Polyethylene Glycol 17 gm 03/06/20 13:00 Miralax (For Daily Use) - PO 03/08/20 10:01 DAILY DERIC Povidone Iodine 1 applic 03/05/20 13:00 03/06/20 09:43 Betadine 10% Solution - TP 1 applic BID DERIC Administration Prednisone 2.5 mg 03/05/20 10:00 03/06/20 09:28 Deltasone - PO 2.5 mg DAILY DERIC Administration Tacrolimus 2 mg 03/04/20 22:00 03/06/20 09:43 Prograf PO 2 mg BID DERIC Administration Tamsulosin HCl 0.4 mg 03/03/20 08:30 03/06/20 09:27 Flomax - PO 0.4 mg DAILY@0830 DERIC Administration ASSESSMENT/PLAN: 64yo M with h/o HTN, T2DN, Diabetic Nephropathy CKD stage 5 s/p renal transplant in 2014 who presents today with R foot pain. Patient reports he's been having toe/foot pain for about a month with wounds, initially given medication for fungal infection by Principal [employer]ologist, however he has not been able to seek care due to the COVID pandemic. Sepsis 2/2 LLE Infection r/o cellulitis -Afebrile, w/ No WBC, swelling/warmth decreasing -See cultures above -Oxy 2.5 before wound changes -Per ID: c/w Zosyn -Per Podiatry: -No surgical intervention needed at this time. -c/w clotrimazole ESRD s/p Renal Transplant -Cr. Stable -Per Neph: Consider restarting MMF -Trend Tacrolimus Levels -FU AM Cortisol in AM, still pending Insulin Dependent Diabetes Mellitus w/ Neuropathy -c/w current management -ACHS, ISS -c/w gabapentin Chronic Anemia -Baseline 9 - 11 -Monitor for acute decrease Hyponatremia -Baseline 130-135 -Monitor for any acute decrease Constipation -Small BM overnight -Colace 100 BID -Start Miralax HTN -Lopressor 50 BID -Amlodipine 5mg BID Hypomagnesmia -Repleted -Trend and replete Hypophosphatemia -Trend and replete FEN -No standing fluids -Lytes -Diabetic Diet PPx -DVT: None -PPI: None Dispo -Ptn will be followed on med/surg floors Visit type - Emergency Visit Emergency Visit: No - New Patient This patient is new to me today: No - Critical Care Critical Care patient: No - Discharge Referral Referred to [facility] Med P.C.: No ATTENDING PHYSICIAN STATEMENT I saw and evaluated the patient. I reviewed the resident's note and discussed the case with the resident. I agree with the resident's findings and plan as documented. SUBJECTIVE: OBJECTIVE: ASSESSMENT AND PLAN:
[2020-03-06] MEDS: POLYETHYLENE GLYCOL 3350 119 GM BTL PO SCH (13:49)
--- NOTE | 2020-03-06 17:55 | PN ---
Teaching Attending Note Name of Resident: Samuel St ATTENDING PHYSICIAN STATEMENT I saw and evaluated the patient. I reviewed the resident's note and discussed the case with the resident. I agree with the resident's findings and plan as documented. SUBJECTIVE: improving with NAD OBJECTIVE: Vital Signs Temperature 98.7 F 03/06/20 14:00 Pulse Rate 68 03/06/20 14:00 Respiratory Rate 18 03/06/20 14:00 Blood Pressure 149/77 03/06/20 14:00 O2 Sat by Pulse Oximetry (%) 99 03/06/20 14:00 PE; per resident's note LLE less swollen CBCD WBC 6.7 K/mm3 (4.0-10.0) 03/06/20 07:17 RBC 3.44 M/mm3 (4.00-5.60) L 03/06/20 07:17 Hgb 11.0 GM/dL (11.7-16.9) L 03/06/20 07:17 Hct 33.2 % (35.4-49) L 03/06/20 07:17 MCV 96.6 fl (80-96) H 03/06/20 07:17 MCHC 33.2 g/dl (32.0-35.9) 03/06/20 07:17 RDW 13.2 % (11.9-15.9) 03/06/20 07:17 Plt Count 122 K/MM3 (134-434) L 03/06/20 07:17 MPV 9.2 fl (7.5-11.1) D 03/06/20 07:17 CMP Sodium 135 mmol/L (136-145) L 03/06/20 07:17 Potassium 4.1 mmol/L (3.5-5.1) 03/06/20 07:17 Chloride 104 mmol/L (98-107) 03/06/20 07:17 Carbon Dioxide 23 mmol/L (21-32) 03/06/20 07:17 Anion Gap 8 MMOL/L (8-16) 03/06/20 07:17 BUN 15.1 mg/dL (7-18) 03/06/20 07:17 Creatinine 0.9 mg/dL (0.55-1.3) 03/06/20 07:17 Random Glucose 231 mg/dL (74-106) H 03/06/20 07:17 Calcium 9.2 mg/dL (8.5-10.1) 03/06/20 07:17 Total Bilirubin 1.1 mg/dL (0.2-1) H 03/04/20 06:00 AST 9 U/L (15-37) L 03/04/20 06:00 ALT 13 U/L (13-61) 03/04/20 06:00 Alkaline Phosphatase 65 U/L (45-117) 03/04/20 06:00 Total Protein 5.4 g/dl (6.4-8.2) L 03/04/20 06:00 Albumin 2.7 g/dl (3.4-5.0) L 03/04/20 06:00 CARDIAC ENZYMES Creatine Kinase 52 U/L (26-308) 03/02/20 14:59 Troponin I < 0.02 ng/ml (0.00-0.05) 03/02/20 14:59 Current Medications Generic Name Dose Route Start Last Admin Trade Name Tacoq PRN Reason Stop Dose Admin Amlodipine Besylate 5 mg 03/04/20 22:00 03/06/20 09:27 Norvasc - PO 5 mg BID DERIC Administration Clotrimazole 1 applic 03/05/20 13:00 03/06/20 09:43 Lotrisone Cream (Small Tube) TP 1 applic BID DERIC Administration Docusate Sodium 100 mg 03/05/20 10:30 03/06/20 09:27 Colace - PO 03/06/20 22:01 100 mg BID DERIC Administration Gabapentin 100 mg 03/03/20 10:00 03/06/20 09:27 Neurontin - PO 100 mg DAILY DERIC Administration Heparin Sodium (Porcine) 5,000 unit 03/03/20 22:00 03/06/20 14:57 Heparin - SQ 5,000 unit TID DERIC Administration Piperacillin Sod/Tazobactam 50 mls @ 100 mls/hr 03/03/20 18:00 03/06/20 17:04 Sod 3.375 gm/ Dextrose IVPB 100 mls/hr Q8H-IV DERIC Administration Protocol Insulin Aspart 1 vial 03/03/20 16:30 03/06/20 17:04 Novolog Vial Sliding Scale - SQ 10 units TIDAC DERIC Administration Protocol Metoprolol Tartrate 50 mg 03/02/20 22:00 03/06/20 09:28 Lopressor - PO 50 mg BID DERIC Administration Oxycodone HCl 2.5 mg 03/05/20 16:49 03/06/20 09:30 Roxicodone - PO 2.5 mg Q12H PRN Administration PAIN LEVEL 1-5 Polyethylene Glycol 17 gm 03/06/20 13:00 03/06/20 13:49 Miralax (For Daily Use) - PO 03/08/20 10:01 17 grams DAILY DERIC Administration Povidone Iodine 1 applic 03/05/20 13:00 03/06/20 09:43 Betadine 10% Solution - TP 1 applic BID DERIC Administration Prednisone 2.5 mg 03/05/20 10:00 03/06/20 09:28 Deltasone - PO 2.5 mg DAILY DERIC Administration Tacrolimus 2 mg 03/04/20 22:00 03/06/20 09:43 Prograf PO 2 mg BID DERIC Administration Tamsulosin HCl 0.4 mg 03/03/20 08:30 03/06/20 09:27 Flomax - PO 0.4 mg DAILY@0830 DERIC Administration Home Medications Medication Instructions Recorded Cinacalcet HCl [Sensipar] 60 mg PO DAILY 02/03/13 Metoprolol Tartrate [Lopressor -] 25 mg PO BID 03/31/16 Mycophenolate Sodium [Myfortic -] 360 mg PO BID 03/31/16 Prednisone 5 mg PO DAILY 03/31/16 Tacrolimus [Prograf] 2 mg PO BID 03/31/16 Tamsulosin HCl [Flomax] 0.4 mg PO DAILY 03/31/16 Amlodipine Besylate 10 mg PO DAILY 03/04/20 Atorvastatin Ca [Lipitor] 40 mg PO HS 03/04/20 Gabapentin 300 mg PO TID 03/04/20 Insulin Glargine,Hum.rec.anlog 16 unit SQ DAILY 03/04/20 [Basaglar Kwikpen U-100] Insulin Lispro [Admelog] 4 - 8 units SQ TID 03/04/20 Magnesium Oxide [Mag-Ox -] 400 mg PO BID 03/04/20 metFORMIN HCL [Metformin HCl] 500 mg PO DAILY 03/04/20 Microbiology 03/02/20 14:50 Blood - Peripheral Venous Blood Culture - Preliminary NO GROWTH OBTAINED AFTER 96 HOURS, INCUBATION TO CONTINUE FOR 1 DAYS. 03/02/20 14:59 Blood - Peripheral Venous Blood Culture - Preliminary NO GROWTH OBTAINED AFTER 96 HOURS, INCUBATION TO CONTINUE FOR 1 DAYS. 03/02/20 14:59 Toe - Left Fifth Gram Stain - Final 03/02/20 14:59 Toe - Left Fifth Wound Culture - Final Pseudomonas Aeruginosa Staphylococcus Aureus Strep Agalactiae Group B ASSESSMENT AND PLAN: This patient is a 64yom with Pmhx of ESRD s/p renal transplant, DM, HTN who presented with fever, chills, and pain of L foot # Sepsis, due to infected L foot wound and cellulitis improving .MRi negative for OM, ID on the case on IV zosyn continue, continue wound dressing, podiatry is on the case , improving, will continue to monitor #Hx of ESRD, s/p renal transplant . continue home meds, nephro on the case #T2DM: SS with coverage #HTN : cont CCb and BB DVT px : heparin
[2020-03-07] MEDS ORDERED: PIPERACILLIN/TAZOBACTAM 3.375 GM VIAL IVPB ONE ×3 (00:42→16:52)
[2020-03-07] MEDS ORDERED: DEXTROSE 5%-WATER - 50 ML IVPB ONE ×3 (00:43→16:52)
[2020-03-07] MEDS: PIPERACILLIN/TAZOB 3.375 GM 3.375 GM in DEXTROSE 5%-WATER - 50 ML IVPB SCH ×3 (01:02→17:19)
[2020-03-07] MEDS: HEPARIN NA (PORCINE) 5,000 UNITS/ML 1ML VIAL SQ SCH ×3 (05:50→21:48)
[2020-03-07] MEDS: INSULIN SLIDING SCALE (NOVOLOG) 1 VIAL SQ SCH ×3 (05:59→17:20)
[2020-03-07 08:10] LABS: BASO % 0.2 % (0-2.0); EOS % 1.5 % (0-4.5); HEMATOCRIT 32.4 % (35.4-49); HEMOGLOBIN 11.1 GM/dL (11.7-16.9); LYMPH % 9.1 % (8-40); MCH 33.1 pg (25.7-33.7); MCHC 34.2 g/dl (32.0-35.9); MEAN PLT VOLUME 9.1 fl (7.5-11.1); MONO % 7.2 % (3.8-10.2); PLATELET COUNT 134 K/MM3 (134-434); RBC 3.34 M/mm3 (4.00-5.60); WHITE BLOOD COUNT 7.1 K/mm3 (4.0-10.0)
[2020-03-07] MEDS: TAMSULOSIN HCL 0.4 MG CAP PO SCH (08:22)
[2020-03-07 08:27] LABS: BLOOD UREA NITROGEN 17.4 mg/dL (7-18); MAGNESIUM 1.7 mg/dL (1.8-2.4); PHOSPHOROUS 1.5 mg/dL (2.5-4.9); POTASSIUM 4.7 mmol/L (3.5-5.1)
[2020-03-07] MEDS ORDERED: SODIUM PHOSPHATE - 30 MM in SODIUM CHLORIDE 500 ML IVPB ONE (08:37)
[2020-03-07] MEDS ORDERED: MAGNESIUM 2GM/50ML STERILE WATER IVPB IVPB ONE (09:00)
--- NOTE | 2020-03-07 09:56 | PN ---
Progress Note, Physician History of Present Illness: stable no new issues leg still red boginess on the foot still present - Current Medication List Current Medications: Active Medications Amlodipine Besylate (Norvasc -) 5 mg PO BID ON LICENSE OF [facility] Last Admin: 03/06/20 21:30 Dose: 5 mg Documented by: Clotrimazole (Lotrisone Cream (Small Tube)) 1 applic TP BID ON LICENSE OF [facility] Last Admin: 03/06/20 21:30 Dose: 1 applic Documented by: Gabapentin (Neurontin -) 100 mg PO DAILY ON [facility] OF [facility] Last Admin: 03/06/20 09:27 Dose: 100 mg Documented by: Heparin Sodium (Porcine) (Heparin -) 5,000 unit SQ TID ON LICENSE OF [facility] Last Admin: 03/07/20 05:50 Dose: 5,000 unit Documented by: Piperacillin Sod/Tazobactam (Sod 3.375 gm/ Dextrose) 50 mls @ 100 mls/hr IVPB Q8H-IV ON LICENSE OF [facility]; Protocol Last Admin: 03/07/20 01:02 Dose: 100 mls/hr Documented by: Sodium Phosphate 30 mm/ Sodium (Chloride) 510 mls @ 63.75 mls/hr IVPB ONCE ONE Stop: 03/07/20 16:36 Insulin Aspart (Novolog Vial Sliding Scale -) 1 vial SQ TIDAC ON LICENSE OF [facility]; Protocol Last Admin: 03/07/20 05:59 Dose: 4 units Documented by: Metoprolol Tartrate (Lopressor -) 50 mg PO BID ON LICENSE OF [facility] Last Admin: 03/06/20 21:30 Dose: 50 mg Documented by: Oxycodone HCl (Roxicodone -) 2.5 mg PO Q12H PRN PRN Reason: PAIN LEVEL 1-5 Last Admin: 03/06/20 09:30 Dose: 2.5 mg Documented by: Polyethylene Glycol (Miralax (For Daily Use) -) 17 gm PO DAILY ON [facility] OF [facility] Stop: 03/08/20 10:01 Last Admin: 03/06/20 13:49 Dose: 17 grams Documented by: Povidone Iodine (Betadine 10% Solution -) 1 applic TP BID ON LICENSE OF [facility] Last Admin: 03/06/20 21:29 Dose: 1 applic Documented by: Prednisone (Deltasone -) 2.5 mg PO DAILY ON [facility] OF [facility] Last Admin: 03/06/20 09:28 Dose: 2.5 mg Documented by: Tacrolimus (Prograf) 2 mg PO BID ON LICENSE OF [facility] Last Admin: 03/06/20 21:30 Dose: 2 mg Documented by: Tamsulosin HCl (Flomax -) 0.4 mg PO DAILY@0830 ON LICENSE OF [facility] Last Admin: 03/07/20 08:22 Dose: 0.4 mg Documented by: - Objective Vital Signs: Vital Signs Temperature 98.5 F 03/07/20 05:00 Pulse Rate 76 03/07/20 05:00 Respiratory Rate 18 03/06/20 21:59 Blood Pressure 133/49 L 03/07/20 05:00 O2 Sat by Pulse Oximetry (%) 99 03/07/20 05:00 Constitutional: Yes: No Distress, Calm Cardiovascular: Yes: S1, S2 Respiratory: Yes: Regular, CTA Bilaterally Gastrointestinal: Yes: Normal Bowel Sounds, Soft Musculoskeletal: Yes: Other Neurological: Yes: Alert, Oriented Psychiatric: Yes: Alert, Oriented Labs: CBC, BMP 03/07/20 07:25 03/07/20 07:25 INR, PTT INR 1.04 (0.83-1.09) 03/02/20 14:59 Assessment/Plan 64 y/o man with h/o ESRD s/p renal transplant, DM, HTN who presented with fever, chills, and pain in L foot sepsis dm renal transplant htn plan continue abx monitor closely wbc has normalized will d/w podiatry rest as per the team
[2020-03-07] MEDS ORDERED: PT OWN MED DRAWER 7, Y5N ONE ×2 (10:05→21:45)
[2020-03-07 10:07] LABS: TACROLIMUS FK506 BLOOD 14.5 ng/mL (2.0-20.0)
[2020-03-07] MEDS: METOPROLOL TARTRATE 50 MG TABLET (FP) PO SCH ×2 (10:08→21:48)
[2020-03-07] MEDS: amLODIPine BESYLATE 5 MG TABLET (FP) PO SCH ×2 (10:08→21:48)
[2020-03-07] MEDS: predniSONE 5 MG TABLET (UD) PO SCH (10:08)
[2020-03-07] MEDS: TACROLIMUS ANHYDROUS 1 MG CAPSULE PO SCH ×2 (10:09→21:49)
[2020-03-07] MEDS: GABAPENTIN 100 MG CAPSULE PO SCH (10:09)
[2020-03-07] MEDS: POLYETHYLENE GLYCOL 3350 119 GM BTL PO SCH (10:13)
[2020-03-07] MEDS ORDERED: INSULIN (NOVOLOG) ASPART 100 UNITS/ML 10ML VIAL ONE ×2 (11:24→16:52)
[2020-03-07] MEDS: CLOTRIMAZOLE/BETAMET DIPROP 15 GM TUBE TP SCH ×2 (11:26→21:49)
--- NOTE | 2020-03-07 12:36 | PN ---
Progress Note (short form) - Note Progress Note: Podiatry F/U: Seen/evaluated at bedside, NAD. Patient states that he is feeling better. No pain to the left foot now. Afebrile overnight. No newcomplaints ELKE: L foot: Pedal pulses weakly palpable, TG warm-warm, CFT brisk to all digits. There are plantar transverse lacerations of digits 2,3,4 which are improved. . There is minimal serous drainage. There is no exposed flexor tendon or exposed bone. There is no soft tissue crepitus to the foot. Minimal erythema noted. No pain on palpation at this time. Imp: 64 year old diabetic male with tinea pedis with overlying cellulitis; resolving Evaluated and reviewed continue with betadine twice daily to the foot. benefit from an antifungal GEL although no options available in the system; clotrimazole/bet ordered continue application of clotrimazole twice daily iv abx as needed and will likely need d/c on oral WBC down/afebrile; no surgical intervention Will need f/u as outpatient as well when discharged
--- NOTE | 2020-03-07 12:38 | PN ---
Physical Exam: SUBJECTIVE: Patient seen and examined this morning, endorsing no complaints, stated he is no longer constipated. States pain in his LLE has gone down. OBJECTIVE: Vital Signs Period Temp Pulse Resp BP Sys/Ga Pulse Ox Last 24 Hr 98.2 F-99.8 F 68-82 18-18 133-149/49-77 97-99 GENERAL: The patient is awake, alert, and fully oriented, in no acute distress. HEAD: Normal with no signs of trauma. EYES: PERRL, extraocular movements intact, sclera anicteric, conjunctiva clear. No ptosis. ENT: Oropharynx clear without exudates, moist mucous NECK: Trachea midline, full range of motion, supple. LUNGS: Breath sounds equal, clear to auscultation bilaterally, no wheezes, no crackles, no accessory muscle use. HEART: Regular rate and rhythm, S1, S2 3/6 systolic murmur, No rub or gallop. ABDOMEN: Soft, nontender, nondistended, normoactive bowel sounds, large RLQ scar UPPER EXTREMITIES: 2+ pulses, warm, well-perfused, no edema. LOWER EXTREMITIES: Multiple hyperpigmented macular spots on LE B/L. LEFT LOWER EXTREMITY: decreased swelling, decreased warmth, no purulent drainage. Pulses lightly palpable. NEUROLOGICAL: Normal speech, gait not observed. PSYCH: Normal mood, normal affect. SKIN: Warm, dry, normal turgor, no rashes or lesions noted otherwise noted Laboratory Results - last 24 hr CBC, BMP 03/07/20 07:25 03/07/20 07:25 Active Medications Generic Name Dose Route Start Last Admin Trade Name Jean PRN Reason Stop Dose Admin Amlodipine Besylate 5 mg 03/04/20 22:00 03/07/20 10:08 Norvasc - PO 5 mg BID DERIC Administration Clotrimazole 1 applic 03/05/20 13:00 03/07/20 11:26 Lotrisone Cream (Small Tube) TP 1 applic BID DERIC Administration Gabapentin 100 mg 03/03/20 10:00 03/07/20 10:09 Neurontin - PO 100 mg DAILY DERIC Administration Heparin Sodium (Porcine) 5,000 unit 03/03/20 22:00 03/07/20 15:10 Heparin - SQ 5,000 unit TID DERIC Administration Piperacillin Sod/Tazobactam 50 mls @ 100 mls/hr 03/03/20 18:00 03/07/20 10:09 Sod 3.375 gm/ Dextrose IVPB 100 mls/hr Q8H-IV DERIC Administration Protocol Sodium Phosphate 30 mm/ Sodium 510 mls @ 63.75 mls/hr 03/07/20 08:37 03/07/20 11:26 Chloride IVPB 03/07/20 16:36 63.75 mls/hr ONCE ONE Administration Insulin Aspart 1 vial 03/03/20 16:30 03/07/20 11:26 Novolog Vial Sliding Scale - SQ 8 units TIDAC DERIC Administration Protocol Metoprolol Tartrate 50 mg 03/02/20 22:00 03/07/20 10:08 Lopressor - PO 50 mg BID DERIC Administration Mycophenolate Sodium 360 mg 03/07/20 22:00 Mycophenolic Acid PO BID DERIC Oxycodone HCl 2.5 mg 03/05/20 16:49 03/06/20 09:30 Roxicodone - PO 2.5 mg Q12H PRN Administration PAIN LEVEL 1-5 Polyethylene Glycol 17 gm 03/06/20 13:00 03/07/20 10:13 Miralax (For Daily Use) - PO 03/08/20 10:01 17 grams DAILY DERIC Administration Povidone Iodine 1 applic 03/05/20 13:00 03/07/20 13:00 Betadine 10% Solution - TP 1 applic BID DERIC Administration Prednisone 2.5 mg 03/05/20 10:00 03/07/20 10:08 Deltasone - PO 2.5 mg DAILY DERIC Administration Tacrolimus 2 mg 03/04/20 22:00 03/07/20 10:09 Prograf PO 2 mg BID DERIC Administration Tamsulosin HCl 0.4 mg 03/03/20 08:30 03/07/20 08:22 Flomax - PO 0.4 mg DAILY@0830 DERIC Administration ASSESSMENT/PLAN: 64yo M with h/o HTN, T2DN, Diabetic Nephropathy CKD stage 5 s/p renal transplant in 2014 who presents today with R foot pain. Patient reports he's been having toe/foot pain for about a month with wounds, initially given medication for fungal infection by [employer], however he has not been able to seek care due to the COVID pandemic. Sepsis 2/2 LLE Infection r/o cellulitis -Afebrile, w/ No WBC, swelling/warmth decreasing -Oxy 2.5 before wound changes -Per ID: c/w Zosyn -Per Podiatry: -No surgical intervention needed at this time, will need outpatient follow up. -c/w clotrimazole/betamethasone ESRD s/p Renal Transplant -Cr. 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 -Ca+ @ 10, increased from 9.2 -Corrected Ca is 11 based on last albumin level -Repeat Ca+ and Albumin level, hydrate as necessary to prevent overt hypercalcemia Insulin Dependent Diabetes Mellitus w/ Neuropathy -ACHS, ISS -Elvated BGL, possibly 2/2 steroids, consider long acting insulin -c/w gabapentin Chronic Anemia 2/2 CKD -Baseline 9 - 11 -Daily CBC Hyponatremia -Baseline 130-135 -Monitor for any acute decrease Constipation -Small BM overnight -Colace 100 BID -c/w miralax HTN -Lopressor 50 BID -Amlodipine 5mg BID Hypomagnesmia -Mag 1.7 -Repleted today: 2gms -Trend and replete if <2.0 Hypophosphatemia -Phos 1.5 -Repleted today: 30mm NaPhos x1 -Trend and replete <2.5 FEN -No standing fluids -BMP, Mg, Phos daily -Diabetic Diet PPx -DVT: Heparin TID Dispo -Ptn will be followed on med/surg floors w/ need to arrange follow up at [facility] transplant clinic on discharge. Visit type - Emergency Visit Emergency Visit: No - New Patient This patient is new to me today: No - Critical Care Critical Care patient: No - Discharge Referral Referred to [facility] Med P.C.: No ATTENDING PHYSICIAN STATEMENT I saw and evaluated the patient. I reviewed the resident's note and discussed the case with the resident. I agree with the resident's findings and plan as documented. SUBJECTIVE: OBJECTIVE: ASSESSMENT AND PLAN:
[2020-03-07] MEDS: POVIDONE-IODINE 10% SOLN 118 ML BOTTLE TP SCH ×2 (13:00→21:49)
--- NOTE | 2020-03-07 15:35 | PN ---
Progress Note, Physician History of Present Illness: Seen and examined at the bedside awake and alert offers no acute complaints no sob, chest pain no fevers or chills making urine tolerating oral diet - Current Medication List Current Medications: Active Medications Amlodipine Besylate (Norvasc -) 5 mg PO BID [facility] Last Admin: 03/07/20 10:08 Dose: 5 mg Documented by: Clotrimazole (Lotrisone Cream (Small Tube)) 1 applic TP BID [facility] Last Admin: 03/07/20 11:26 Dose: 1 applic Documented by: Gabapentin (Neurontin -) 100 mg PO DAILY [facility] Last Admin: 03/07/20 10:09 Dose: 100 mg Documented by: Heparin Sodium (Porcine) (Heparin -) 5,000 unit SQ TID [facility] Last Admin: 03/07/20 15:10 Dose: 5,000 unit Documented by: Piperacillin Sod/Tazobactam (Sod 3.375 gm/ Dextrose) 50 mls @ 100 mls/hr IVPB Q8H-IV [facility]; Protocol Last Admin: 03/07/20 10:09 Dose: 100 mls/hr Documented by: Sodium Phosphate 30 mm/ Sodium (Chloride) 510 mls @ 63.75 mls/hr IVPB ONCE ONE Stop: 03/07/20 16:36 Last Admin: 03/07/20 11:26 Dose: 63.75 mls/hr Documented by: Insulin Aspart (Novolog Vial Sliding Scale -) 1 vial SQ TIDAC [facility]; Protocol Last Admin: 03/07/20 11:26 Dose: 8 units Documented by: Metoprolol Tartrate (Lopressor -) 50 mg PO BID [facility] Last Admin: 03/07/20 10:08 Dose: 50 mg Documented by: Oxycodone HCl (Roxicodone -) 2.5 mg PO Q12H PRN PRN Reason: PAIN LEVEL 1-5 Last Admin: 03/06/20 09:30 Dose: 2.5 mg Documented by: Polyethylene Glycol (Miralax (For Daily Use) -) 17 gm PO DAILY [facility] Stop: 03/08/20 10:01 Last Admin: 03/07/20 10:13 Dose: 17 grams Documented by: Povidone Iodine (Betadine 10% Solution -) 1 applic TP BID [facility] Last Admin: 03/07/20 13:00 Dose: 1 applic Documented by: Prednisone (Deltasone -) 2.5 mg PO DAILY [facility] Last Admin: 03/07/20 10:08 Dose: 2.5 mg Documented by: Tacrolimus (Prograf) 2 mg PO BID [facility] Last Admin: 03/07/20 10:09 Dose: 2 mg Documented by: Tamsulosin HCl (Flomax -) 0.4 mg PO DAILY@0830 [facility] Last Admin: 03/07/20 08:22 Dose: 0.4 mg Documented by: - Objective Vital Signs: Vital Signs Temperature 98.4 F 03/07/20 14:40 Pulse Rate 61 03/07/20 14:40 Respiratory Rate 18 03/07/20 14:40 Blood Pressure 142/71 03/07/20 14:40 O2 Sat by Pulse Oximetry (%) 99 03/07/20 14:40 Constitutional: Yes: No Distress, Calm HENT: Yes: Atraumatic Neck: Yes: Supple Cardiovascular: Yes: Regular Rate and Rhythm Respiratory: Yes: Regular Gastrointestinal: Yes: Soft Extremities: Yes: Other (foot in dressing). No: Cyanosis Edema: No Neurological: Yes: Alert Labs: CBC, BMP 03/07/20 07:25 03/07/20 07:25 INR, PTT INR 1.04 (0.83-1.09) 03/02/20 14:59 Assessment/Plan 64 year old male with history of ESRD s/p renal transplant in 2014, insulin dependent DM, secondary hyperparathyrodism who presented with left foot pain and found to have digital ulcerations and cellulitis. 1. ESRD s/p renal transplant with preserved graft function 2. Cellulitis/Ulcerations of lower extremity 3. IDDM 4. Secondary hyperparathyrodism 5. Anemia 6. Hyponatremia Renal function stable. Continue Tacrolimus dose 2mg BID and Prednisone dose 2.5mg Daily Will restart MMF 360mg BID. Follow up Tacrolimus level - pending Continue Abx as per ID/primary team Podiatry follow up, no surgical intervention needed at this time. Trend serum sodium levels. AM Cortisol result pending. Trend renal function daily Will need to follow up at [facility] transplant clinic on discharge. Thank you Waylon Gaona DO
--- NOTE | 2020-03-07 17:39 | PN ---
Teaching Attending Note Name of Resident: Samuel St ATTENDING PHYSICIAN STATEMENT I saw and evaluated the patient. I reviewed the resident's note and discussed the case with the resident. I agree with the resident's findings and plan as documented. SUBJECTIVE: Patient is feeling better with NAD. OBJECTIVE: Vital Signs Temperature 98.4 F 03/07/20 14:40 Pulse Rate 61 03/07/20 14:40 Respiratory Rate 18 03/07/20 14:40 Blood Pressure 142/71 03/07/20 14:40 O2 Sat by Pulse Oximetry (%) 99 03/07/20 14:40 PE: per resident's note CBCD WBC 7.1 K/mm3 (4.0-10.0) 03/07/20 07:25 RBC 3.34 M/mm3 (4.00-5.60) L 03/07/20 07:25 Hgb 11.1 GM/dL (11.7-16.9) L 03/07/20 07:25 Hct 32.4 % (35.4-49) L 03/07/20 07:25 MCV 97.0 fl (80-96) H 03/07/20 07:25 MCHC 34.2 g/dl (32.0-35.9) 03/07/20 07:25 RDW 13.0 % (11.9-15.9) 03/07/20 07:25 Plt Count 134 K/MM3 (134-434) 03/07/20 07:25 MPV 9.1 fl (7.5-11.1) 03/07/20 07:25 CMP Sodium 131 mmol/L (136-145) L 03/07/20 07:25 Potassium 4.7 mmol/L (3.5-5.1) 03/07/20 07:25 Chloride 100 mmol/L (98-107) 03/07/20 07:25 Carbon Dioxide 24 mmol/L (21-32) 03/07/20 07:25 Anion Gap 7 MMOL/L (8-16) L 03/07/20 07:25 BUN 17.4 mg/dL (7-18) 03/07/20 07:25 Creatinine 1.0 mg/dL (0.55-1.3) 03/07/20 07:25 Random Glucose 259 mg/dL (74-106) H 03/07/20 07:25 Calcium 10.0 mg/dL (8.5-10.1) 03/07/20 07:25 Total Bilirubin 1.1 mg/dL (0.2-1) H 03/04/20 06:00 AST 9 U/L (15-37) L 03/04/20 06:00 ALT 13 U/L (13-61) 03/04/20 06:00 Alkaline Phosphatase 65 U/L (45-117) 03/04/20 06:00 Total Protein 5.4 g/dl (6.4-8.2) L 03/04/20 06:00 Albumin 2.7 g/dl (3.4-5.0) L 03/04/20 06:00 CARDIAC ENZYMES Creatine Kinase 52 U/L (26-308) 03/02/20 14:59 Troponin I < 0.02 ng/ml (0.00-0.05) 03/02/20 14:59 Current Medications Generic Name Dose Route Start Last Admin Trade Name Freq PRN Reason Stop Dose Admin Amlodipine Besylate 5 mg 03/04/20 22:00 03/07/20 10:08 Norvasc - PO 5 mg BID DERIC Administration Clotrimazole 1 applic 03/05/20 13:00 03/07/20 11:26 Lotrisone Cream (Small Tube) TP 1 applic BID DERIC Administration Gabapentin 100 mg 03/03/20 10:00 03/07/20 10:09 Neurontin - PO 100 mg DAILY DERIC Administration Heparin Sodium (Porcine) 5,000 unit 03/03/20 22:00 03/07/20 15:10 Heparin - SQ 5,000 unit TID DERIC Administration Piperacillin Sod/Tazobactam 50 mls @ 100 mls/hr 03/03/20 18:00 03/07/20 17:19 Sod 3.375 gm/ Dextrose IVPB 100 mls/hr Q8H-IV DERIC Administration Protocol Insulin Aspart 1 vial 03/03/20 16:30 03/07/20 17:20 Novolog Vial Sliding Scale - SQ 6 units TIDAC DERIC Administration Protocol Metoprolol Tartrate 50 mg 03/02/20 22:00 03/07/20 10:08 Lopressor - PO 50 mg BID DERIC Administration Mycophenolate Sodium 360 mg 03/07/20 22:00 Mycophenolic Acid PO BID DERIC Oxycodone HCl 2.5 mg 03/05/20 16:49 03/06/20 09:30 Roxicodone - PO 2.5 mg Q12H PRN Administration PAIN LEVEL 1-5 Polyethylene Glycol 17 gm 03/06/20 13:00 03/07/20 10:13 Miralax (For Daily Use) - PO 03/08/20 10:01 17 grams DAILY DERIC Administration Povidone Iodine 1 applic 03/05/20 13:00 03/07/20 13:00 Betadine 10% Solution - TP 1 applic BID DERIC Administration Prednisone 2.5 mg 03/05/20 10:00 03/07/20 10:08 Deltasone - PO 2.5 mg DAILY DERIC Administration Tacrolimus 2 mg 03/04/20 22:00 03/07/20 10:09 Prograf PO 2 mg BID DERIC Administration Tamsulosin HCl 0.4 mg 03/03/20 08:30 03/07/20 08:22 Flomax - PO 0.4 mg DAILY@0830 DERIC Administration Home Medications Medication Instructions Recorded Cinacalcet HCl [Sensipar] 60 mg PO DAILY 02/03/13 Metoprolol Tartrate [Lopressor -] 25 mg PO BID 03/31/16 Mycophenolate Sodium [Myfortic -] 360 mg PO BID 03/31/16 Prednisone 5 mg PO DAILY 03/31/16 Tacrolimus [Prograf] 2 mg PO BID 03/31/16 Tamsulosin HCl [Flomax] 0.4 mg PO DAILY 03/31/16 Amlodipine Besylate 10 mg PO DAILY 03/04/20 Atorvastatin Ca [Lipitor] 40 mg PO HS 03/04/20 Gabapentin 300 mg PO TID 03/04/20 Insulin Glargine,Hum.rec.anlog 16 unit SQ DAILY 03/04/20 [Basaglar Kwikpen U-100] Insulin Lispro [Admelog] 4 - 8 units SQ TID 03/04/20 Magnesium Oxide [Mag-Ox -] 400 mg PO BID 03/04/20 metFORMIN HCL [Metformin HCl] 500 mg PO DAILY 03/04/20 Microbiology 03/02/20 14:50 Blood - Peripheral Venous Blood Culture - Final NO GROWTH AFTER 5 DAYS INCUBATION 03/02/20 14:59 Blood - Peripheral Venous Blood Culture - Final NO GROWTH AFTER 5 DAYS INCUBATION 03/02/20 14:59 Toe - Left Fifth Gram Stain - Final 03/02/20 14:59 Toe - Left Fifth Wound Culture - Final Pseudomonas Aeruginosa Staphylococcus Aureus Strep Agalactiae Group B ASSESSMENT AND PLAN: This patient is a 64yom with Pmhx of ESRD s/p renal transplant, DM, HTN who presented with fever, chills, and pain of L foot # Sepsis, due to infected L foot wound and cellulitis improving .MRI negative for OM, ID on the case on IV zosyn continue, continue wound dressing, podiatry is on the case , improving, will continue to monitor #Hx of ESRD, s/p renal transplant . continue home meds, nephro on the case , stable #T2DM: SS with coverage #HTN : cont CCb and BB DVT px : heparin
[2020-03-07] MEDS: oxyCODONE HCL 5 MG TABLET PO PRN (20:06)
[2020-03-07] MEDS: MYCOPHENOLATE SODIUM 360 MG TABLET.DR PO SCH (21:49)
[2020-03-08] MEDS ORDERED: PIPERACILLIN/TAZOBACTAM 3.375 GM VIAL IVPB ONE ×3 (01:45→17:15)
[2020-03-08] MEDS ORDERED: DEXTROSE 5%-WATER - 50 ML IVPB ONE ×3 (01:45→17:16)
[2020-03-08] MEDS: PIPERACILLIN/TAZOB 3.375 GM 3.375 GM in DEXTROSE 5%-WATER - 50 ML IVPB SCH ×3 (01:50→17:25)
[2020-03-08] MEDS: HEPARIN NA (PORCINE) 5,000 UNITS/ML 1ML VIAL SQ SCH ×3 (06:04→21:00)
[2020-03-08] MEDS: INSULIN SLIDING SCALE (NOVOLOG) 1 VIAL SQ SCH ×3 (06:04→16:36)
[2020-03-08 07:47] LABS: BASO % 0.3 % (0-2.0); EOS % 1.5 % (0-4.5); HEMATOCRIT 32.9 % (35.4-49); HEMOGLOBIN 10.8 GM/dL (11.7-16.9); LYMPH % 8.2 % (8-40); MCH 32.1 pg (25.7-33.7); MCHC 32.8 g/dl (32.0-35.9); MEAN CELL VOLUME 97.9 fl (80-96); MEAN PLT VOLUME 8.7 fl (7.5-11.1); MONO % 7.1 % (3.8-10.2); NEUT % 82.9 % (42.8-82.8); PLATELET COUNT 159 K/MM3 (134-434); RBC 3.36 M/mm3 (4.00-5.60); RDW 13.1 % (11.9-15.9); WHITE BLOOD COUNT 8.4 K/mm3 (4.0-10.0)
[2020-03-08 08:07] LABS: ALBUMIN 2.1 g/dl (3.4-5.0); BLOOD UREA NITROGEN 17.3 mg/dL (7-18); CALCIUM 10.3 mg/dL (8.5-10.1); MAGNESIUM 1.6 mg/dL (1.8-2.4); PHOSPHOROUS 1.8 mg/dL (2.5-4.9); POTASSIUM 4.4 mmol/L (3.5-5.1)
[2020-03-08] MEDS ORDERED: PT OWN MED DRAWER 7, Y5N ONE ×2 (09:23→20:54)
[2020-03-08] MEDS: METOPROLOL TARTRATE 50 MG TABLET (FP) PO SCH ×2 (09:41→21:00)
[2020-03-08] MEDS: predniSONE 5 MG TABLET (UD) PO SCH (09:41)
[2020-03-08] MEDS: amLODIPine BESYLATE 5 MG TABLET (FP) PO SCH ×2 (09:41→21:00)
[2020-03-08] MEDS: TAMSULOSIN HCL 0.4 MG CAP PO SCH (09:41)
[2020-03-08] MEDS: CLOTRIMAZOLE/BETAMET DIPROP 15 GM TUBE TP SCH ×2 (09:41→21:29)
[2020-03-08] MEDS: POLYETHYLENE GLYCOL 3350 119 GM BTL PO SCH (09:42)
[2020-03-08] MEDS: GABAPENTIN 100 MG CAPSULE PO SCH (09:42)
[2020-03-08] MEDS: MYCOPHENOLATE SODIUM 360 MG TABLET.DR PO SCH ×2 (09:42→21:00)
[2020-03-08] MEDS: TACROLIMUS ANHYDROUS 1 MG CAPSULE PO SCH ×2 (09:43→21:01)
[2020-03-08] MEDS ORDERED: INSULIN (NOVOLOG) ASPART 100 UNITS/ML 10ML VIAL ONE ×2 (11:18→16:30)
[2020-03-08] MEDS: POVIDONE-IODINE 10% SOLN 118 ML BOTTLE TP SCH ×2 (14:00→21:21)
--- NOTE | 2020-03-08 16:47 | PN ---
Progress Note (short form) - Note Progress Note: Patient is comfortable with NAd , improving Vital Signs Temperature 98.4 F 03/08/20 09:00 Pulse Rate 76 03/08/20 09:00 Respiratory Rate 18 03/08/20 09:00 Blood Pressure 139/62 03/08/20 09:00 O2 Sat by Pulse Oximetry (%) 98 03/08/20 09:00 GENERAL: The patient is awake, alert, and fully oriented, in no acute distress. HEAD: Normal with no signs of trauma. EYES: PERRL, extraocular movements intact, sclera anicteric, conjunctiva clear. ENT: Ears normal, oropharynx clear without exudates, moist mucous membranes. NECK: Trachea midline, full range of motion, supple. LUNGS: Breath sounds equal, clear to auscultation bilaterally, no wheezes, no crackles, no accessory muscle use. HEART: Regular rate and rhythm, S1, S2 without murmur, rub or gallop. ABDOMEN: Soft, nontender, nondistended, normoactive bowel sounds, no guarding, no rebound, no hepatosplenomegaly, no masses. EXTREMITIES: 2+ pulses, warm, well-perfused, left infected foot with cellultis improving NEUROLOGICAL: Cranial nerves II through XII grossly intact. Normal speech, gait not observed. PSYCH: Normal mood, normal affect. SKIN: Warm, dry, normal turgor, no rashes or lesions noted CBCD WBC 8.4 K/mm3 (4.0-10.0) 03/08/20 07:09 RBC 3.36 M/mm3 (4.00-5.60) L 03/08/20 07:09 Hgb 10.8 GM/dL (11.7-16.9) L 03/08/20 07:09 Hct 32.9 % (35.4-49) L 03/08/20 07:09 MCV 97.9 fl (80-96) H 03/08/20 07:09 MCHC 32.8 g/dl (32.0-35.9) 03/08/20 07:09 RDW 13.1 % (11.9-15.9) 03/08/20 07:09 Plt Count 159 K/MM3 (134-434) 03/08/20 07:09 MPV 8.7 fl (7.5-11.1) 03/08/20 07:09 CMP Sodium 132 mmol/L (136-145) L 03/08/20 07:09 Potassium 4.4 mmol/L (3.5-5.1) 03/08/20 07:09 Chloride 101 mmol/L (98-107) 03/08/20 07:09 Carbon Dioxide 24 mmol/L (21-32) 03/08/20 07:09 Anion Gap 7 MMOL/L (8-16) L 03/08/20 07:09 BUN 17.3 mg/dL (7-18) 03/08/20 07:09 Creatinine 1.0 mg/dL (0.55-1.3) 03/08/20 07:09 Random Glucose 258 mg/dL (74-106) H 03/08/20 07:09 Calcium 10.3 mg/dL (8.5-10.1) H 03/08/20 07:09 Total Bilirubin 1.1 mg/dL (0.2-1) H 03/04/20 06:00 AST 9 U/L (15-37) L 03/04/20 06:00 ALT 13 U/L (13-61) 03/04/20 06:00 Alkaline Phosphatase 65 U/L (45-117) 03/04/20 06:00 Total Protein 5.4 g/dl (6.4-8.2) L 03/04/20 06:00 Albumin 2.1 g/dl (3.4-5.0) L 03/08/20 07:09 CARDIAC ENZYMES Creatine Kinase 52 U/L (26-308) 03/02/20 14:59 Troponin I < 0.02 ng/ml (0.00-0.05) 03/02/20 14:59 Current Medications Generic Name Dose Route Start Last Admin Trade Name Freq PRN Reason Stop Dose Admin Amlodipine Besylate 5 mg 03/04/20 22:00 03/08/20 09:41 Norvasc - PO 5 mg BID DERIC Administration Clotrimazole 1 applic 03/05/20 13:00 03/08/20 09:41 Lotrisone Cream (Small Tube) TP 1 applic BID DERIC Administration Gabapentin 100 mg 03/03/20 10:00 03/08/20 09:42 Neurontin - PO 100 mg DAILY DERIC Administration Heparin Sodium (Porcine) 5,000 unit 03/03/20 22:00 03/08/20 14:00 Heparin - SQ 5,000 unit TID DERIC Administration Piperacillin Sod/Tazobactam 50 mls @ 100 mls/hr 03/03/20 18:00 03/08/20 09:43 Sod 3.375 gm/ Dextrose IVPB 100 mls/hr Q8H-IV DERIC Administration Protocol Insulin Aspart 1 vial 03/03/20 16:30 03/08/20 11:27 Novolog Vial Sliding Scale - SQ 8 units TIDAC [facility] Administration Protocol Insulin Detemir 16 units 03/09/20 07:00 Levemir Vial SQ AM DERIC Metoprolol Tartrate 50 mg 03/02/20 22:00 03/08/20 09:41 Lopressor - PO 50 mg BID DERIC Administration Mycophenolate Sodium 360 mg 03/07/20 22:00 03/08/20 09:42 Mycophenolic Acid PO 360 mg BID DERIC Administration Oxycodone HCl 2.5 mg 03/05/20 16:49 03/07/20 20:06 Roxicodone - PO 2.5 mg Q12H PRN Administration PAIN LEVEL 1-5 Povidone Iodine 1 applic 03/05/20 13:00 03/08/20 14:00 Betadine 10% Solution - TP 1 applic BID DERIC Administration Prednisone 2.5 mg 03/05/20 10:00 03/08/20 09:41 Deltasone - PO 2.5 mg DAILY DERIC Administration Tacrolimus 2 mg 03/04/20 22:00 03/08/20 09:43 Prograf PO 2 mg BID DERIC Administration Tamsulosin HCl 0.4 mg 03/03/20 08:30 03/08/20 09:41 Flomax - PO 0.4 mg DAILY@0830 DERIC Administration Home Medications Medication Instructions Recorded Cinacalcet HCl [Sensipar] 60 mg PO DAILY 02/03/13 Metoprolol Tartrate [Lopressor -] 25 mg PO BID 03/31/16 Mycophenolate Sodium [Myfortic -] 360 mg PO BID 03/31/16 Prednisone 5 mg PO DAILY 03/31/16 Tacrolimus [Prograf] 2 mg PO BID 03/31/16 Tamsulosin HCl [Flomax] 0.4 mg PO DAILY 03/31/16 Amlodipine Besylate 10 mg PO DAILY 03/04/20 Atorvastatin Ca [Lipitor] 40 mg PO HS 03/04/20 Gabapentin 300 mg PO TID 03/04/20 Insulin Glargine,Hum.rec.anlog 16 unit SQ DAILY 03/04/20 [Basaglar Kwikpen U-100] Insulin Lispro [Admelog] 4 - 8 units SQ TID 03/04/20 Magnesium Oxide [Mag-Ox -] 400 mg PO BID 03/04/20 metFORMIN HCL [Metformin HCl] 500 mg PO DAILY 03/04/20 Microbiology 03/02/20 14:50 Blood - Peripheral Venous Blood Culture - Final NO GROWTH AFTER 5 DAYS INCUBATION 03/02/20 14:59 Blood - Peripheral Venous Blood Culture - Final NO GROWTH AFTER 5 DAYS INCUBATION 03/02/20 14:59 Toe - Left Fifth Gram Stain - Final 03/02/20 14:59 Toe - Left Fifth Wound Culture - Final Pseudomonas Aeruginosa Staphylococcus Aureus Strep Agalactiae Group B This patient is a 64yom with Pmhx of ESRD s/p renal transplant, DM, HTN who presented with fever, chills, and pain of L foot # Sepsis, due to infected L foot wound and cellulitis improving on iv zosyn.MRI negative for OM, ID on the case , continue wound dressing, podiatry is on the case. #Hx of ESRD, s/p renal transplant . continue home meds, nephro on the case , stable #T2DM: SS with coverage #HTN : cont CCb and BB DVT px : heparin possible dc on Tuesday Visit type - Emergency Visit Emergency Visit: Yes ED Registration Date: 03/02/20 Care time: The patient presented to the Emergency Department on the above date and was hospitalized for further evaluation of their emergent condition. - New Patient This patient is new to me today: No - Critical Care Critical Care patient: No - Discharge Referral Referred to [facility] Med P.C[facility] No
--- NOTE | 2020-03-08 21:05 | PN ---
Progress Note, Physician History of Present Illness: Pt is alert, without distress. Lt foot edema but with less erythema. No current pain. Afebrile today. - Current Medication List Current Medications: Active Medications Amlodipine Besylate (Norvasc -) 5 mg PO BID [facility] Last Admin: 03/08/20 21:00 Dose: 5 mg Documented by: Clotrimazole (Lotrisone Cream (Small Tube)) 1 applic TP BID [facility] Last Admin: 03/08/20 09:41 Dose: 1 applic Documented by: Gabapentin (Neurontin -) 100 mg PO DAILY [facility] Last Admin: 03/08/20 09:42 Dose: 100 mg Documented by: Heparin Sodium (Porcine) (Heparin -) 5,000 unit SQ TID [facility] Last Admin: 03/08/20 21:00 Dose: 5,000 unit Documented by: Piperacillin Sod/Tazobactam (Sod 3.375 gm/ Dextrose) 50 mls @ 100 mls/hr IVPB Q8H-IV [facility]; Protocol Last Admin: 03/08/20 17:25 Dose: 100 mls/hr Documented by: Insulin Aspart (Novolog Vial Sliding Scale -) 1 vial SQ TIDAC [facility]; Protocol Last Admin: 03/08/20 16:36 Dose: 12 units Documented by: Insulin Detemir (Levemir Vial) 16 units SQ AM [facility] Metoprolol Tartrate (Lopressor -) 50 mg PO BID [facility] Last Admin: 03/08/20 21:00 Dose: 50 mg Documented by: Mycophenolate Sodium (Mycophenolic Acid) 360 mg PO BID [facility] Last Admin: 03/08/20 21:00 Dose: 360 mg Documented by: Oxycodone HCl (Roxicodone -) 2.5 mg PO Q12H PRN PRN Reason: PAIN LEVEL 1-5 Last Admin: 03/07/20 20:06 Dose: 2.5 mg Documented by: Povidone Iodine (Betadine 10% Solution -) 1 applic TP BID [facility] Last Admin: 03/08/20 14:00 Dose: 1 applic Documented by: Prednisone (Deltasone -) 2.5 mg PO DAILY [facility] Last Admin: 03/08/20 09:41 Dose: 2.5 mg Documented by: Tacrolimus (Prograf) 2 mg PO BID [facility] Last Admin: 03/08/20 21:01 Dose: 2 mg Documented by: Tamsulosin HCl (Flomax -) 0.4 mg PO DAILY@0830 [facility] Last Admin: 03/08/20 09:41 Dose: 0.4 mg Documented by: - Objective Vital Signs: Vital Signs Temperature 99.2 F 03/08/20 20:58 Pulse Rate 79 03/08/20 20:58 Respiratory Rate 20 03/08/20 20:58 Blood Pressure 150/67 03/08/20 20:58 O2 Sat by Pulse Oximetry (%) 97 03/08/20 20:58 Constitutional: Yes: No Distress, Calm Cardiovascular: Yes: Regular Rate and Rhythm Respiratory: Yes: Regular Gastrointestinal: Yes: Normal Bowel Sounds, Soft Genitourinary: Yes: WNL Edema: Yes (Lt foot) Wound/Incision: Yes: Other (Lt foot edema, mild erythema (improving), no open draining ulcer noted) Neurological: Yes: Alert, Oriented Labs: CBC, BMP 03/08/20 07:09 03/08/20 07:09 INR, PTT INR 1.04 (0.83-1.09) 03/02/20 14:59 Laboratory Last Values WBC 8.4 K/mm3 (4.0-10.0) 03/08/20 07:09 RBC 3.36 M/mm3 (4.00-5.60) L 03/08/20 07:09 Hgb 10.8 GM/dL (11.7-16.9) L 03/08/20 07:09 Hct 32.9 % (35.4-49) L 03/08/20 07:09 MCV 97.9 fl (80-96) H 03/08/20 07:09 MCH 32.1 pg (25.7-33.7) 03/08/20 07:09 MCHC 32.8 g/dl (32.0-35.9) 03/08/20 07:09 RDW 13.1 % (11.9-15.9) 03/08/20 07:09 Plt Count 159 K/MM3 (134-434) 03/08/20 07:09 MPV 8.7 fl (7.5-11.1) 03/08/20 07:09 Absolute Neuts (auto) 6.9 K/mm3 (1.5-8.0) 03/08/20 07:09 Neutrophils % 82.9 % (42.8-82.8) H 03/08/20 07:09 Lymphocytes % 8.2 % (8-40) 03/08/20 07:09 Monocytes % 7.1 % (3.8-10.2) 03/08/20 07:09 Eosinophils % 1.5 % (0-4.5) 03/08/20 07:09 Basophils % 0.3 % (0-2.0) 03/08/20 07:09 Nucleated RBC % 0 % (0-0) 03/08/20 07:09 ESR 15 mm/hr (0-20) 03/02/20 14:59 PT with INR 12.30 SEC (9.7-13.0) 03/02/20 14:59 INR 1.04 (0.83-1.09) 03/02/20 14:59 PTT (Actin FS) 31.7 SECONDS (25.2-36.5) 03/02/20 14:59 Sodium 132 mmol/L (136-145) L 03/08/20 07:09 Potassium 4.4 mmol/L (3.5-5.1) 03/08/20 07:09 Chloride 101 mmol/L (98-107) 03/08/20 07:09 Carbon Dioxide 24 mmol/L (21-32) 03/08/20 07:09 Anion Gap 7 MMOL/L (8-16) L 03/08/20 07:09 BUN 17.3 mg/dL (7-18) 03/08/20 07:09 Creatinine 1.0 mg/dL (0.55-1.3) 03/08/20 07:09 Est GFR (CKD-EPI)AfAm 92.42 03/08/20 07:09 Est GFR (CKD-EPI)NonAf 79.75 03/08/20 07:09 POC Glucometer 406 UNITS (80-120) 03/08/20 16:33 Random Glucose 258 mg/dL (74-106) H 03/08/20 07:09 Calcium 10.3 mg/dL (8.5-10.1) H 03/08/20 07:09 Phosphorus 1.8 mg/dL (2.5-4.9) L 03/08/20 07:09 Magnesium 1.6 mg/dL (1.8-2.4) L 03/08/20 07:09 Total Bilirubin 1.1 mg/dL (0.2-1) H 03/04/20 06:00 AST 9 U/L (15-37) L 03/04/20 06:00 ALT 13 U/L (13-61) 03/04/20 06:00 Alkaline Phosphatase 65 U/L (45-117) 03/04/20 06:00 Creatine Kinase 52 U/L (26-308) 03/02/20 14:59 Troponin I < 0.02 ng/ml (0.00-0.05) 03/02/20 14:59 C-Reactive Protein 1.4 MG/DL (0.00-0.3) H 03/02/20 14:59 Total Protein 5.4 g/dl (6.4-8.2) L 03/04/20 06:00 Albumin 2.1 g/dl (3.4-5.0) L 03/08/20 07:09 PTH Intact 32 pg/mL (15-65) 03/04/20 06:55 Cortisol AM Sample 20.5 ug/dL (6.2-19.4) H 03/05/20 07:22 Tacrolimus 14.5 ng/mL (2.0-20.0) 03/04/20 06:55 COVID-19 ([place]) Not detected (Not Detected) 03/02/20 14:59 Microbiology 03/02/20 14:50 Blood - Peripheral Venous Blood Culture - Final NO GROWTH AFTER 5 DAYS INCUBATION 03/02/20 14:59 Blood - Peripheral Venous Blood Culture - Final NO GROWTH AFTER 5 DAYS INCUBATION 03/02/20 14:59 Toe - Left Fifth Gram Stain - Final 03/02/20 14:59 Toe - Left Fifth Wound Culture - Final Pseudomonas Aeruginosa Staphylococcus Aureus Strep Agalactiae Group B - ....Imaging MRI: Report Reviewed Problem List - Problems (1) Toe ulcer due to DM Code(s): E11.621 - TYPE 2 DIABETES MELLITUS WITH FOOT ULCER; L97.509 - NON- PRESSURE CHRONIC ULCER OTH PRT UNSP FOOT W UNSP SEVERITY Qualifiers: Diabetes mellitus type: type 2 Laterality: left Non-pressure ulcer stage: unspecified non-pressure ulcer stage Qualified Code(s): E11.621 - Type 2 diabetes mellitus with foot ulcer; L97.529 - Non-pressure chronic ulcer of other part of left foot with unspecified severity (2) HTN (hypertension) Code(s): I10 - ESSENTIAL (PRIMARY) HYPERTENSION (3) Renal transplant recipient Code(s): Z94.0 - KIDNEY TRANSPLANT STATUS (4) T2DM (type 2 diabetes mellitus) Code(s): E11.9 - TYPE 2 DIABETES MELLITUS WITHOUT COMPLICATIONS Assessment/Plan Lt foot cellulitis/ulcer DM s/p renal transplant HTN -- erythema improving, still with edema, wbc trended down, afebrile -- wound culture isolates noted, continue Zosyn and monitor for continued improvement -- MRI without evidence of abscess/OM -- continue monitor vitals
[2020-03-09] MEDS ORDERED: PIPERACILLIN/TAZOBACTAM 3.375 GM VIAL IVPB ONE ×3 (00:35→17:07)
[2020-03-09] MEDS ORDERED: DEXTROSE 5%-WATER - 50 ML IVPB ONE ×3 (00:35→17:07)
[2020-03-09] MEDS: PIPERACILLIN/TAZOB 3.375 GM 3.375 GM in DEXTROSE 5%-WATER - 50 ML IVPB SCH ×3 (01:11→17:10)
[2020-03-09] MEDS: INSULIN SLIDING SCALE (NOVOLOG) 1 VIAL SQ SCH ×3 (06:20→17:09)
[2020-03-09] MEDS: INSULIN (LEVEMIR) 100 UNITS/ML UNITS SQ SCH (06:20)
[2020-03-09] MEDS: HEPARIN NA (PORCINE) 5,000 UNITS/ML 1ML VIAL SQ SCH ×3 (06:21→21:02)
[2020-03-09] MEDS ORDERED: INSULIN (NOVOLOG) ASPART 100 UNITS/ML 10ML VIAL ONE ×3 (06:25→18:57)
[2020-03-09 08:01] LABS: BASO % 0.4 % (0-2.0); EOS % 1.7 % (0-4.5); HEMATOCRIT 33.2 % (35.4-49); LYMPH % 7.9 % (8-40); MCH 32.2 pg (25.7-33.7); MCHC 33.2 g/dl (32.0-35.9); MEAN CELL VOLUME 97.2 fl (80-96); MEAN PLT VOLUME 8.4 fl (7.5-11.1); MONO % 5.8 % (3.8-10.2); NEUT % 84.2 % (42.8-82.8); PLATELET COUNT 185 K/MM3 (134-434); RBC 3.41 M/mm3 (4.00-5.60); WHITE BLOOD COUNT 8.2 K/mm3 (4.0-10.0)
[2020-03-09 08:34] LABS: ALBUMIN 2.7 g/dl (3.4-5.0); BILIRUBIN,TOTAL 0.6 mg/dL (0.2-1); BLOOD UREA NITROGEN 22.3 mg/dL (7-18); CALCIUM 10.8 mg/dL (8.5-10.1); CREATININE 1.2 mg/dL (0.55-1.3); MAGNESIUM 1.5 mg/dL (1.8-2.4); POTASSIUM 4.8 mmol/L (3.5-5.1); TOT PROT 5.9 g/dl (6.4-8.2)
--- NOTE | 2020-03-09 09:57 | PN ---
Teaching Attending Note Name of Resident: Samuel St ATTENDING PHYSICIAN STATEMENT I saw and evaluated the patient. I reviewed the resident's note and discussed the case with the resident. I agree with the resident's findings and plan as documented. SUBJECTIVE: Patient is comfortable, improving. NAD OBJECTIVE: Vital Signs Temperature 98.2 F 03/09/20 05:42 Pulse Rate 80 03/09/20 05:42 Respiratory Rate 20 03/09/20 05:42 Blood Pressure 163/74 03/09/20 05:42 O2 Sat by Pulse Oximetry (%) 96 03/09/20 05:42 PE: per resident's note CBCD WBC 8.2 K/mm3 (4.0-10.0) 03/09/20 07:33 RBC 3.41 M/mm3 (4.00-5.60) L 03/09/20 07:33 Hgb 11.0 GM/dL (11.7-16.9) L 03/09/20 07:33 Hct 33.2 % (35.4-49) L 03/09/20 07:33 MCV 97.2 fl (80-96) H 03/09/20 07:33 MCHC 33.2 g/dl (32.0-35.9) 03/09/20 07:33 RDW 13.0 % (11.9-15.9) 03/09/20 07:33 Plt Count 185 K/MM3 (134-434) 03/09/20 07:33 MPV 8.4 fl (7.5-11.1) 03/09/20 07:33 CMP Sodium 133 mmol/L (136-145) L 03/09/20 07:33 Potassium 4.8 mmol/L (3.5-5.1) 03/09/20 07:33 Chloride 102 mmol/L (98-107) 03/09/20 07:33 Carbon Dioxide 25 mmol/L (21-32) 03/09/20 07:33 Anion Gap 7 MMOL/L (8-16) L 03/09/20 07:33 BUN 22.3 mg/dL (7-18) H 03/09/20 07:33 Creatinine 1.2 mg/dL (0.55-1.3) 03/09/20 07:33 Random Glucose 338 mg/dL (74-106) H 03/09/20 07:33 Calcium 10.8 mg/dL (8.5-10.1) H 03/09/20 07:33 Total Bilirubin 0.6 mg/dL (0.2-1) 03/09/20 07:33 AST 6 U/L (15-37) L 03/09/20 07:33 ALT 15 U/L (13-61) 03/09/20 07:33 Alkaline Phosphatase 108 U/L (45-117) 03/09/20 07:33 Total Protein 5.9 g/dl (6.4-8.2) L 03/09/20 07:33 Albumin 2.7 g/dl (3.4-5.0) L 03/09/20 07:33 CARDIAC ENZYMES Creatine Kinase 52 U/L (26-308) 03/02/20 14:59 Troponin I < 0.02 ng/ml (0.00-0.05) 03/02/20 14:59 Current Medications Generic Name Dose Route Start Last Admin Trade Name Jean PRN Reason Stop Dose Admin Amlodipine Besylate 5 mg 03/04/20 22:00 03/08/20 21:00 Norvasc - PO 5 mg BID [facility] Administration Clotrimazole 1 applic 03/05/20 13:00 03/08/20 21:29 Lotrisone Cream (Small Tube) TP Not Given BID [facility] Gabapentin 100 mg 03/03/20 10:00 03/08/20 09:42 Neurontin - PO 100 mg DAILY [facility] Administration Heparin Sodium (Porcine) 5,000 unit 03/03/20 22:00 03/09/20 06:21 Heparin - SQ 5,000 unit TID [facility] Administration Piperacillin Sod/Tazobactam 50 mls @ 100 mls/hr 03/03/20 18:00 03/09/20 01:11 Sod 3.375 gm/ Dextrose IVPB 100 mls/hr Q8H-IV [facility] Administration Protocol Insulin Aspart 1 vial 03/03/20 16:30 03/09/20 06:20 Novolog Vial Sliding Scale - SQ 8 units TIDAC [facility] Administration Protocol Insulin Detemir 16 units 03/09/20 07:00 03/09/20 06:20 Levemir Vial SQ 16 units AM [facility] Administration Metoprolol Tartrate 50 mg 03/02/20 22:00 03/08/20 21:00 Lopressor - PO 50 mg BID [facility] Administration Mycophenolate Sodium 360 mg 03/07/20 22:00 03/08/20 21:00 Mycophenolic Acid PO 360 mg BID [facility] Administration Oxycodone HCl 2.5 mg 03/05/20 16:49 03/07/20 20:06 Roxicodone - PO 2.5 mg Q12H PRN Administration PAIN LEVEL 1-5 Povidone Iodine 1 applic 03/05/20 13:00 03/08/20 21:21 Betadine 10% Solution - TP Not Given BID [facility] Prednisone 2.5 mg 03/05/20 10:00 03/08/20 09:41 Deltasone - PO 2.5 mg DAILY [facility] Administration Tacrolimus 2 mg 03/04/20 22:00 03/08/20 21:01 Prograf PO 2 mg BID [facility] Administration Tamsulosin HCl 0.4 mg 03/03/20 08:30 03/08/20 09:41 Flomax - PO 0.4 mg DAILY@0830 [facility] Administration Home Medications Medication Instructions Recorded Cinacalcet HCl [Sensipar] 60 mg PO DAILY 02/03/13 Metoprolol Tartrate [Lopressor -] 25 mg PO BID 03/31/16 Mycophenolate Sodium [Myfortic -] 360 mg PO BID 03/31/16 Prednisone 5 mg PO DAILY 03/31/16 Tacrolimus [Prograf] 2 mg PO BID 03/31/16 Tamsulosin HCl [Flomax] 0.4 mg PO DAILY 03/31/16 Amlodipine Besylate 10 mg PO DAILY 03/04/20 Atorvastatin Ca [Lipitor] 40 mg PO HS 03/04/20 Gabapentin 300 mg PO TID 03/04/20 Insulin Glargine,Hum.rec.anlog 16 unit SQ DAILY 03/04/20 [Basaglar Kwikpen U-100] Insulin Lispro [Admelog] 4 - 8 units SQ TID 03/04/20 Magnesium Oxide [Mag-Ox -] 400 mg PO BID 03/04/20 metFORMIN HCL [Metformin HCl] 500 mg PO DAILY 03/04/20 Microbiology 03/02/20 14:50 Blood - Peripheral Venous Blood Culture - Final NO GROWTH AFTER 5 DAYS INCUBATION 03/02/20 14:59 Blood - Peripheral Venous Blood Culture - Final NO GROWTH AFTER 5 DAYS INCUBATION 03/02/20 14:59 Toe - Left Fifth Gram Stain - Final 03/02/20 14:59 Toe - Left Fifth Wound Culture - Final Pseudomonas Aeruginosa Staphylococcus Aureus Strep Agalactiae Group B ASSESSMENT AND PLAN: This patient is a 64yom with Pmhx of ESRD s/p renal transplant, DM, HTN who presented with fever, chills, and pain of L foot # Sepsis, due to infected L foot wound and cellulitis improving on iv zosyn. MRI negative for OM, ID on the case , continue wound dressing, podiatry is on the case. #Hx of ESRD, s/p renal transplant . continue home meds, nephro on the case , stable #mild dehydration on IVF , monitor creatinine 1.2 today follow #T2DM: SS with coverage #HTN : cont CCb and BB DVT px : heparin will check with ID the duration of IV antibiotics
[2020-03-09] MEDS: METOPROLOL TARTRATE 50 MG TABLET (FP) PO SCH ×2 (10:08→21:02)
[2020-03-09] MEDS: CLOTRIMAZOLE/BETAMET DIPROP 15 GM TUBE TP SCH ×3 (10:08→21:07)
[2020-03-09] MEDS: predniSONE 5 MG TABLET (UD) PO SCH (10:08)
[2020-03-09] MEDS: TAMSULOSIN HCL 0.4 MG CAP PO SCH (10:09)
[2020-03-09] MEDS: GABAPENTIN 100 MG CAPSULE PO SCH (10:09)
[2020-03-09] MEDS: amLODIPine BESYLATE 5 MG TABLET (FP) PO SCH ×2 (10:09→21:02)
[2020-03-09] MEDS: oxyCODONE HCL 5 MG TABLET PO PRN (10:10)
[2020-03-09] MEDS ORDERED: PT OWN MED DRAWER 7, Y5N ONE ×2 (10:13→20:57)
[2020-03-09] MEDS: TACROLIMUS ANHYDROUS 1 MG CAPSULE PO SCH ×2 (10:14→21:04)
[2020-03-09] MEDS: MYCOPHENOLATE SODIUM 360 MG TABLET.DR PO SCH ×2 (10:14→21:03)
[2020-03-09] MEDS ORDERED: MAGNESIUM SULF 50% (8.12 MEQ/2 ML-1 GM VIAL) IVPB ONE (10:16)
[2020-03-09] MEDS: POVIDONE-IODINE 10% SOLN 118 ML BOTTLE TP SCH ×3 (10:26→21:07)
[2020-03-09] MEDS: NAPH,MB-DB/K PH,MBDB POWDER PACKET PO SCH ×2 (11:44→21:02)
--- NOTE | 2020-03-09 11:50 | PN ---
Progress Note (short form) - Note Progress Note: RENAL Pt is awake and alert memory is poor feels logan fritz states he is often hypercalcemic Last Vital Signs Temp Pulse Resp BP Pulse Ox 98.2 F 80 20 163/74 96 03/09/20 05:42 03/09/20 05:42 03/09/20 05:42 03/09/20 05:42 03/09/20 05:42 lungs clear cvs s1s2 rr abd soft, allograft palpable in RLQ ext no edema neuro a+ox3 CBC, BMP 03/09/20 07:33 03/09/20 07:33 Current Medications Generic Name Dose Route Start Last Admin Trade Name Jean PRN Reason Stop Dose Admin Amlodipine Besylate 5 mg 03/04/20 22:00 03/09/20 10:09 Norvasc - PO 5 mg BID [facility]ER[facility] Administration Clotrimazole 1 applic 03/05/20 13:00 03/09/20 10:08 Lotrisone Cream (Small Tube) TP 1 applic BID [facility]ERIC Administration Gabapentin 100 mg 03/03/20 10:00 03/09/20 10:09 Neurontin - PO 100 mg DAILY DERIC Administration Heparin Sodium (Porcine) 5,000 unit 03/03/20 22:00 03/09/20 06:21 Heparin - SQ 5,000 unit TID DERIC Administration Piperacillin Sod/Tazobactam 50 mls @ 100 mls/hr 03/03/20 18:00 03/09/20 10:10 Sod 3.375 gm/ Dextrose IVPB 100 mls/hr Q8H-IV [facility] Administration Protocol Insulin Aspart 1 vial 03/03/20 16:30 03/09/20 06:20 Novolog Vial Sliding Scale - SQ 8 units TIDAC DERIC Administration Protocol Insulin Detemir 16 units 03/09/20 07:00 03/09/20 06:20 Levemir Vial SQ 16 units AM [facility]ERIC Administration Metoprolol Tartrate 50 mg 03/02/20 22:00 03/09/20 10:08 Lopressor - PO 50 mg BID DERIC Administration Mycophenolate Sodium 360 mg 03/07/20 22:00 03/09/20 10:14 Mycophenolic Acid PO 360 mg BID [facility]ERIC Administration Oxycodone HCl 2.5 mg 03/05/20 16:49 03/09/20 10:10 Roxicodone - PO 2.5 mg Q12H PRN Administration PAIN LEVEL 1-5 Potassium Phos/Sodium Phos 1 packet 03/09/20 10:30 Phos-Nak Packet - PO 03/09/20 22:01 BID [facility]IRC Povidone Iodine 1 applic 03/05/20 13:00 03/09/20 10:26 Betadine 10% Solution - TP 1 applic BID [facility]ERIC Administration Prednisone 2.5 mg 03/05/20 10:00 03/09/20 10:08 Deltasone - PO 2.5 mg DAILY [facility]ERIC Administration Tacrolimus 2 mg 03/04/20 22:00 03/09/20 10:14 Prograf PO 2 mg BID [facility]ERIC Administration Tamsulosin HCl 0.4 mg 03/03/20 08:30 03/09/20 10:09 Flomax - PO 0.4 mg DAILY@0830 [facility]ER[facility] Administration IMPRESSION s/p esrd kidney transplant hypercalcemia with normal pth- should not be normal PLAN tacrolimuis was already reduced hypomagnesemia is due to prograf check vitamin d keep hydrated MV
[2020-03-09] MEDS ORDERED: oxyCODONE HCL 5 MG TABLET PO PRN (13:35)
--- NOTE | 2020-03-09 15:00 | PN ---
Physical Exam: SUBJECTIVE: Patient seen and examined, endorsing new onset pain originating at the third digit on the L foot, radiating towards the lateral aspect and dorsally. Denies F/C, N/V, ALBERTS, changes in vision, CP, SoB, or bowel/bladder issues OBJECTIVE: Vital Signs Period Temp Pulse Resp BP Sys/Ga Pulse Ox Last 24 Hr 98.2 F-99.2 F 79-80 20-20 150-163/67-74 96-97 GENERAL: The patient is awake, alert, and fully oriented, in no acute distress. HEAD: Normal with no signs of trauma. EYES: PERRL, extraocular movements intact, sclera anicteric, conjunctiva clear. No ptosis. ENT: Oropharynx clear without exudates, moist mucous NECK: Trachea midline, full range of motion, supple. LUNGS: Breath sounds equal, clear to auscultation bilaterally, no wheezes, no crackles, no accessory muscle use. HEART: Regular rate and rhythm, S1, S2 3/6 systolic murmur, No rub or gallop. ABDOMEN: Soft, nontender, nondistended, normoactive bowel sounds, large RLQ scar UPPER EXTREMITIES: 2+ pulses, warm, well-perfused, no edema. LOWER EXTREMITIES: Multiple hyperpigmented macular spots on LE B/L. LEFT LOWER EXTREMITY: decreased swelling, decreased warmth, no purulent drainage. Slight hyperpigmented spot on the plantar aspect where discoloration/erythema radiates from. Pulses lightly palpable. NEUROLOGICAL: Normal speech, gait not observed, increased from previous exam. PSYCH: Normal mood, normal affect. SKIN: Warm, dry, normal turgor, no rashes or lesions noted otherwise noted Laboratory Results - last 24 hr CBC, BMP 03/09/20 07:33 03/09/20 07:33 Active Medications Generic Name Dose Route Start Last Admin Trade Name Freq PRN Reason Stop Dose Admin Amlodipine Besylate 5 mg 03/04/20 22:00 03/09/20 10:09 Norvasc - PO 5 mg BID [facility] Administration Clotrimazole 1 applic 03/05/20 13:00 03/09/20 10:08 Lotrisone Cream (Small Tube) TP 1 applic BID [facility]ERIC Administration Gabapentin 100 mg 03/03/20 10:00 03/09/20 10:09 Neurontin - PO 100 mg DAILY DERIC Administration Heparin Sodium (Porcine) 5,000 unit 03/03/20 22:00 03/09/20 06:21 Heparin - SQ 5,000 unit TID [facility]ER[facility] Administration Piperacillin Sod/Tazobactam 50 mls @ 100 mls/hr 03/03/20 18:00 03/09/20 10:10 Sod 3.375 gm/ Dextrose IVPB 100 mls/hr Q8H-IV [facility] Administration Protocol Sodium Chloride 1,000 mls @ 75 mls/hr 03/09/20 12:00 1/2 Normal Saline IV ASDIR DERIC Insulin Aspart 1 vial 03/03/20 16:30 03/09/20 11:44 Novolog Vial Sliding Scale - SQ 8 units TIDAC DERIC Administration Protocol Insulin Detemir 16 units 03/09/20 07:00 03/09/20 06:20 Levemir Vial SQ 16 units AM DERIC Administration Metoprolol Tartrate 50 mg 03/02/20 22:00 03/09/20 10:08 Lopressor - PO 50 mg BID DERIC Administration Mycophenolate Sodium 360 mg 03/07/20 22:00 03/09/20 10:14 Mycophenolic Acid PO 360 mg BID DERIC Administration Oxycodone HCl 5 mg 03/09/20 13:35 Roxicodone - PO Q12H PRN PAIN LEVEL 1-5 Potassium Phos/Sodium Phos 1 packet 03/09/20 10:30 03/09/20 11:44 Phos-Nak Packet - PO 03/09/20 22:01 1 packet BID DERIC Administration Povidone Iodine 1 applic 03/05/20 13:00 03/09/20 10:26 Betadine 10% Solution - TP 1 applic BID DERIC Administration Prednisone 2.5 mg 03/05/20 10:00 03/09/20 10:08 Deltasone - PO 2.5 mg DAILY DERIC Administration Tacrolimus 2 mg 03/04/20 22:00 03/09/20 10:14 Prograf PO 2 mg BID DERIC Administration Tamsulosin HCl 0.4 mg 03/03/20 08:30 03/09/20 10:09 Flomax - PO 0.4 mg DAILY@0830 DERIC Administration ASSESSMENT/PLAN: 64yo M with h/o HTN, T2DN, Diabetic Nephropathy CKD stage 5 s/p renal transplant in 2014 who presents today with R foot pain. Patient reports he's been having toe/foot pain for about a month with wounds, initially given medication for fungal infection by Digital Manager, however he has not been able to seek care due to the COVID pandemic. Sepsis 2/2 LLE Infection r/o cellulitis -Afebrile, w/ No WBC, swelling/warmth decreasing -Ptn described pain starting on third digit radiating to lateral foot, no visual signs of increased cellulitis, minimal pain on palpation. -Oxy 5mg before wound changes -Per ID: c/w Zosyn -Per Podiatry: -No surgical intervention needed at this time, will need outpatient follow up. -c/w clotrimazole/betamethasone ESRD s/p Renal Transplant -Cr. 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 -ACHS, ISS -c/w Levemir 16 -c/w gabapentin Chronic Anemia 2/2 CKD -Baseline 9 - 11 -Daily CBC -Transfuse < 7.0 Hyponatremia -Baseline 130-135 -Monitor for any acute decrease and add NS if necessary Constipation -Small BM overnight -Colace 100 BID -c/w miralax HTN -Lopressor 50 BID -Amlodipine 5mg BID Hypomagnesmia -Mag 1.6 --> 1.7 -Repleted today: 2gms -Likely 2/2 Prograf -Trend and replete if <2.0 Hypophosphatemia -Phos 1.8 -->2.0 -Repleted today: Phos-Nak x2 -Trend and replete <2.5 FEN -No standing fluids -CMP, Mg, Phos daily -Diabetic Diet PPx -DVT: Heparin TID Dispo -Ptn will be followed on med/surg floors w/ need to arrange follow up at [facility] transplant clinic on discharge. Visit type - Emergency Visit Emergency Visit: No - New Patient This patient is new to me today: No - Critical Care Critical Care patient: No - Discharge Referral Referred to [facility] Med P.C.: No ATTENDING PHYSICIAN STATEMENT I saw and evaluated the patient. I reviewed the resident's note and discussed the case with the resident. I agree with the resident's findings and plan as documented. SUBJECTIVE: OBJECTIVE: ASSESSMENT AND PLAN:
[2020-03-09] MEDS: SODIUM CHLORIDE 0.45% 1,000 ML IV SCH (15:07)
--- NOTE | 2020-03-09 16:49 | PN ---
Progress Note, Physician History of Present Illness: Pt is alert, without distress. C/o of slightly more pain in Lt foot but improving erythema. Afebrile. w/o other complaints. Daughter at bedside. - Current Medication List Current Medications: Active Medications Amlodipine Besylate (Norvasc -) 5 mg PO BID [facility] Last Admin: 03/09/20 10:09 Dose: 5 mg Documented by: Clotrimazole (Lotrisone Cream (Small Tube)) 1 applic TP BID [facility] Last Admin: 03/09/20 10:08 Dose: 1 applic Documented by: Gabapentin (Neurontin -) 100 mg PO DAILY [facility] Last Admin: 03/09/20 10:09 Dose: 100 mg Documented by: Heparin Sodium (Porcine) (Heparin -) 5,000 unit SQ TID [facility] Last Admin: 03/09/20 15:08 Dose: 5,000 unit Documented by: Piperacillin Sod/Tazobactam (Sod 3.375 gm/ Dextrose) 50 mls @ 100 mls/hr IVPB Q 8H-IV [facility]; Protocol Last Admin: 03/09/20 10:10 Dose: 100 mls/hr Documented by: Sodium Chloride (1/2 Normal Saline) 1,000 mls @ 75 mls/hr IV ASDIR [facility] Last Admin: 03/09/20 15:07 Dose: 75 mls/hr Documented by: Insulin Aspart (Novolog Vial Sliding Scale -) 1 vial SQ TIDAC [facility]; Protocol Last Admin: 03/09/20 11:44 Dose: 8 units Documented by: Insulin Detemir (Levemir Vial) 16 units SQ AM [facility] Last Admin: 03/09/20 06:20 Dose: 16 units Documented by: Metoprolol Tartrate (Lopressor -) 50 mg PO BID [facility] Last Admin: 03/09/20 10:08 Dose: 50 mg Documented by: Mycophenolate Sodium (Mycophenolic Acid) 360 mg PO BID [facility] Last Admin: 03/09/20 10:14 Dose: 360 mg Documented by: Oxycodone HCl (Roxicodone -) 5 mg PO Q12H PRN PRN Reason: PAIN LEVEL 1-5 Potassium Phos/Sodium Phos (Phos-Nak Packet -) 1 packet PO BID [facility] Stop: 03/09/20 22:01 Last Admin: 03/09/20 11:44 Dose: 1 packet Documented by: Povidone Iodine (Betadine 10% Solution -) 1 applic TP BID [facility] Last Admin: 03/09/20 10:26 Dose: 1 applic Documented by: Prednisone (Deltasone -) 2.5 mg PO DAILY [facility] Last Admin: 03/09/20 10:08 Dose: 2.5 mg Documented by: Tacrolimus (Prograf) 2 mg PO BID [facility] Last Admin: 03/09/20 10:14 Dose: 2 mg Documented by: Tamsulosin HCl (Flomax -) 0.4 mg PO DAILY@0830 [facility] Last Admin: 03/09/20 10:09 Dose: 0.4 mg Documented by: - Objective Vital Signs: Vital Signs Temperature 98.2 F 03/09/20 05:42 Pulse Rate 80 03/09/20 05:42 Respiratory Rate 20 03/09/20 05:42 Blood Pressure 163/74 03/09/20 05:42 O2 Sat by Pulse Oximetry (%) 96 03/09/20 05:42 Constitutional: Yes: No Distress, Calm Cardiovascular: Yes: Regular Rate and Rhythm Respiratory: Yes: Regular Gastrointestinal: Yes: Normal Bowel Sounds, Soft Edema: LLE: 1+ Wound/Incision: Yes: Other (Lt foot edema +, mild erythema, no tenderness with palpation, no drainage) Neurological: Yes: Alert Labs: CBC, BMP 03/09/20 07:33 03/09/20 07:33 INR, PTT INR 1.04 (0.83-1.09) 03/02/20 14:59 Laboratory Last Values WBC 8.2 K/mm3 (4.0-10.0) 03/09/20 07:33 RBC 3.41 M/mm3 (4.00-5.60) L 03/09/20 07:33 Hgb 11.0 GM/dL (11.7-16.9) L 03/09/20 07:33 Hct 33.2 % (35.4-49) L 03/09/20 07:33 MCV 97.2 fl (80-96) H 03/09/20 07:33 MCH 32.2 pg (25.7-33.7) 03/09/20 07:33 MCHC 33.2 g/dl (32.0-35.9) 03/09/20 07:33 RDW 13.0 % (11.9-15.9) 03/09/20 07:33 Plt Count 185 K/MM3 (134-434) 03/09/20 07:33 MPV 8.4 fl (7.5-11.1) 03/09/20 07:33 Absolute Neuts (auto) 6.9 K/mm3 (1.5-8.0) 03/09/20 07:33 Neutrophils % 84.2 % (42.8-82.8) H 03/09/20 07:33 Lymphocytes % 7.9 % (8-40) L 03/09/20 07:33 Monocytes % 5.8 % (3.8-10.2) 03/09/20 07:33 Eosinophils % 1.7 % (0-4.5) 03/09/20 07:33 Basophils % 0.4 % (0-2.0) 03/09/20 07:33 Nucleated RBC % 0 % (0-0) 03/09/20 07:33 ESR 15 mm/hr (0-20) 03/02/20 14:59 PT with INR 12.30 SEC (9.7-13.0) 03/02/20 14:59 INR 1.04 (0.83-1.09) 03/02/20 14:59 PTT (Actin FS) 31.7 SECONDS (25.2-36.5) 03/02/20 14:59 Sodium 133 mmol/L (136-145) L 03/09/20 07:33 Potassium 4.8 mmol/L (3.5-5.1) 03/09/20 07:33 Chloride 102 mmol/L (98-107) 03/09/20 07:33 Carbon Dioxide 25 mmol/L (21-32) 03/09/20 07:33 Anion Gap 7 MMOL/L (8-16) L 03/09/20 07:33 BUN 22.3 mg/dL (7-18) H 03/09/20 07:33 Creatinine 1.2 mg/dL (0.55-1.3) 03/09/20 07:33 Est GFR (CKD-EPI)AfAm 74.14 03/09/20 07:33 Est GFR (CKD-EPI)NonAf 63.97 03/09/20 07:33 POC Glucometer 305 UNITS (80-120) 03/09/20 11:41 Random Glucose 338 mg/dL (74-106) H 03/09/20 07:33 Calcium 10.8 mg/dL (8.5-10.1) H 03/09/20 07:33 Phosphorus 2.0 mg/dL (2.5-4.9) L 03/09/20 07:33 Magnesium 1.5 mg/dL (1.8-2.4) L 03/09/20 07:33 Total Bilirubin 0.6 mg/dL (0.2-1) 03/09/20 07:33 AST 6 U/L (15-37) L 03/09/20 07:33 ALT 15 U/L (13-61) 03/09/20 07:33 Alkaline Phosphatase 108 U/L (45-117) 03/09/20 07:33 Creatine Kinase 52 U/L (26-308) 03/02/20 14:59 Troponin I < 0.02 ng/ml (0.00-0.05) 03/02/20 14:59 C-Reactive Protein 1.4 MG/DL (0.00-0.3) H 03/02/20 14:59 Total Protein 5.9 g/dl (6.4-8.2) L 03/09/20 07:33 Albumin 2.7 g/dl (3.4-5.0) L 03/09/20 07:33 25-OH Vitamin D Total 14.0 ng/mL (30-100) L 03/09/20 14:05 PTH Intact 32 pg/mL (15-65) 03/04/20 06:55 Cortisol AM Sample 20.5 ug/dL (6.2-19.4) H 03/05/20 07:22 Tacrolimus 14.5 ng/mL (2.0-20.0) 03/04/20 06:55 COVID-19 ([place]) Not detected (Not Detected) 03/02/20 14:59 Microbiology 03/02/20 14:50 Blood - Peripheral Venous Blood Culture - Final NO GROWTH AFTER 5 DAYS INCUBATION 03/02/20 14:59 Blood - Peripheral Venous Blood Culture - Final NO GROWTH AFTER 5 DAYS INCUBATION 03/02/20 14:59 Toe - Left Fifth Gram Stain - Final 03/02/20 14:59 Toe - Left Fifth Wound Culture - Final Pseudomonas Aeruginosa Staphylococcus Aureus Strep Agalactiae Group B Problem List - Problems (1) Toe ulcer due to DM Code(s): E11.621 - TYPE 2 DIABETES MELLITUS WITH FOOT ULCER; L97.509 - NON- PRESSURE CHRONIC ULCER OTH PRT UNSP FOOT W UNSP SEVERITY Qualifiers: Qualified Code(s): E11.621 - Type 2 diabetes mellitus with foot ulcer; L97.529 - Non-pressure chronic ulcer of other part of left foot with unspecified severity (2) HTN (hypertension) Code(s): I10 - ESSENTIAL (PRIMARY) HYPERTENSION (3) Renal transplant recipient Code(s): Z94.0 - KIDNEY TRANSPLANT STATUS (4) T2DM (type 2 diabetes mellitus) Code(s): E11.9 - TYPE 2 DIABETES MELLITUS WITHOUT COMPLICATIONS Assessment/Plan Lt foot cellulitis/ulcer DM s/p renal transplant HTN -- slowly improving, continue antibiotics -- pain control, ? neuropathic -- glucose remains elevated, needs better control -- continue monitor temps
[2020-03-10] MEDS ORDERED: PIPERACILLIN/TAZOBACTAM 3.375 GM VIAL IVPB ONE ×3 (01:23→17:08)
[2020-03-10] MEDS: PIPERACILLIN/TAZOB 3.375 GM 3.375 GM in DEXTROSE 5%-WATER - 50 ML IVPB SCH ×3 (01:39→17:47)
[2020-03-10] MEDS: HEPARIN NA (PORCINE) 5,000 UNITS/ML 1ML VIAL SQ SCH ×2 (05:53→14:31)
[2020-03-10] MEDS: INSULIN (LEVEMIR) 100 UNITS/ML UNITS SQ SCH ×2 (06:07→21:12)
[2020-03-10] MEDS: INSULIN SLIDING SCALE (NOVOLOG) 1 VIAL SQ SCH ×3 (06:07→16:30)
[2020-03-10] MEDS: TAMSULOSIN HCL 0.4 MG CAP PO SCH (08:27)
[2020-03-10] MEDS ORDERED: DEXTROSE 5%-WATER - 50 ML IVPB ONE ×2 (09:11→17:08)
[2020-03-10] MEDS ORDERED: PT OWN MED DRAWER 7, Y5N ONE ×2 (09:11→21:07)
[2020-03-10 09:14] LABS: BASO % 0.3 % (0-2.0); EOS % 3.2 % (0-4.5); HEMATOCRIT 34.6 % (35.4-49); HEMOGLOBIN 11.5 GM/dL (11.7-16.9); MCH 32.7 pg (25.7-33.7); MCHC 33.3 g/dl (32.0-35.9); MEAN CELL VOLUME 98.1 fl (80-96); MEAN PLT VOLUME 8.9 fl (7.5-11.1); NEUT % 77.5 % (42.8-82.8); PLATELET COUNT 215 K/MM3 (134-434); RBC 3.53 M/mm3 (4.00-5.60); RDW 13.1 % (11.9-15.9); WHITE BLOOD COUNT 7.1 K/mm3 (4.0-10.0)
[2020-03-10] MEDS: CINACALCET HCL 30 MG TAB (FP) PO SCH (09:24)
[2020-03-10] MEDS: predniSONE 5 MG TABLET (UD) PO SCH (09:24)
[2020-03-10] MEDS: GABAPENTIN 100 MG CAPSULE PO SCH (09:25)
[2020-03-10] MEDS: METOPROLOL TARTRATE 50 MG TABLET (FP) PO SCH ×2 (09:25→21:12)
[2020-03-10] MEDS: amLODIPine BESYLATE 5 MG TABLET (FP) PO SCH ×2 (09:25→21:12)
[2020-03-10] MEDS: POVIDONE-IODINE 10% SOLN 118 ML BOTTLE TP SCH ×2 (09:27→21:16)
[2020-03-10] MEDS: MYCOPHENOLATE SODIUM 360 MG TABLET.DR PO SCH ×2 (09:27→21:13)
[2020-03-10] MEDS: TACROLIMUS ANHYDROUS 1 MG CAPSULE PO SCH ×2 (09:28→21:14)
[2020-03-10] MEDS: CLOTRIMAZOLE/BETAMET DIPROP 15 GM TUBE TP SCH ×2 (09:29→21:16)
[2020-03-10 09:45] LABS: ALBUMIN 2.9 g/dl (3.4-5.0); BILIRUBIN,TOTAL 1.2 mg/dL (0.2-1); BLOOD UREA NITROGEN 22.3 mg/dL (7-18); POTASSIUM 4.6 mmol/L (3.5-5.1); TOT PROT 6.2 g/dl (6.4-8.2)
[2020-03-10 09:50] LABS: MAGNESIUM 1.5 mg/dL (1.8-2.4)
[2020-03-10] MEDS ORDERED: MAGNESIUM SULF 50% (8.12 MEQ/2 ML-1 GM VIAL) IVPB ONE ×2 (11:53→12:15)
[2020-03-10] MEDS ORDERED: INSULIN (NOVOLOG) ASPART 100 UNITS/ML 10ML VIAL ONE ×2 (12:01→16:28)
--- NOTE | 2020-03-10 12:18 | PN ---
Progress Note, Physician History of Present Illness: Seen and examined at the bedside awake and alert offers no acute complaints no sob, chest pain no fevers or chills making urine tolerating oral diet - Current Medication List Current Medications: Active Medications Amlodipine Besylate (Norvasc -) 5 mg PO BID [facility] Last Admin: 03/10/20 09:25 Dose: 5 mg Documented by: Cinacalcet (Sensipar -) 60 mg PO DAILY [facility] Last Admin: 03/10/20 09:24 Dose: 60 mg Documented by: Clotrimazole (Lotrisone Cream (Small Tube)) 1 applic TP BID [facility] Last Admin: 03/10/20 09:29 Dose: 1 applic Documented by: Gabapentin (Neurontin -) 100 mg PO DAILY [facility] Last Admin: 03/10/20 09:25 Dose: 100 mg Documented by: Heparin Sodium (Porcine) (Heparin -) 5,000 unit SQ TID [facility] Last Admin: 03/10/20 05:53 Dose: 5,000 unit Documented by: Piperacillin Sod/Tazobactam (Sod 3.375 gm/ Dextrose) 50 mls @ 100 mls/hr IVPB Q8H-IV [facility]; Protocol Last Admin: 03/10/20 09:22 Dose: 100 mls/hr Documented by: Insulin Aspart (Novolog Vial Sliding Scale -) 1 vial SQ TIDAC [facility]; Protocol Last Admin: 03/10/20 12:03 Dose: 8 units Documented by: Insulin Detemir (Levemir Vial) 20 units SQ AM [facility] Insulin Detemir (Levemir Vial) 4 units SQ HS [facility] Magnesium Chloride (Slow-Mag -) 64 mg PO DAILY [facility] Magnesium Sulfate (Magnesium Sulfate) 2 gm IVPB ONCE ONE Stop: 03/10/20 11:54 Metoprolol Tartrate (Lopressor -) 50 mg PO BID [facility] Last Admin: 03/10/20 09:25 Dose: 50 mg Documented by: Mycophenolate Sodium (Mycophenolic Acid) 360 mg PO BID [facility] Last Admin: 03/10/20 09:27 Dose: 360 mg Documented by: Oxycodone HCl (Roxicodone -) 5 mg PO Q12H PRN PRN Reason: PAIN LEVEL 1-5 Last Admin: 03/09/20 17:10 Dose: 5 mg Documented by: Potassium Phos/Sodium Phos (Phos-Nak Packet -) 1 packet PO BID [facility] Stop: 03/10/20 22:01 Povidone Iodine (Betadine 10% Solution -) 1 applic TP BID [facility] Last Admin: 03/10/20 09:27 Dose: 1 applic Documented by: Prednisone (Deltasone -) 2.5 mg PO DAILY [facility] Last Admin: 03/10/20 09:24 Dose: 2.5 mg Documented by: Tacrolimus (Prograf) 2 mg PO BID [facility] Last Admin: 03/10/20 09:28 Dose: 2 mg Documented by: Tamsulosin HCl (Flomax -) 0.4 mg PO DAILY@0830 [facility] Last Admin: 03/10/20 08:27 Dose: 0.4 mg Documented by: - Objective Vital Signs: Vital Signs Temperature 98.6 F 03/10/20 10:57 Pulse Rate 73 03/10/20 10:57 Respiratory Rate 18 03/10/20 10:57 Blood Pressure 152/64 03/10/20 10:57 O2 Sat by Pulse Oximetry (%) 100 03/10/20 10:57 Constitutional: Yes: No Distress, Calm HENT: Yes: Atraumatic Neck: Yes: Supple Cardiovascular: Yes: Regular Rate and Rhythm Respiratory: Yes: Regular Gastrointestinal: Yes: Soft Extremities: No: Cyanosis Edema: No Neurological: Yes: Alert, Oriented Labs: CBC, BMP 03/10/20 08:25 03/10/20 08:25 INR, PTT INR 1.04 (0.83-1.09) 03/02/20 14:59 Assessment/Plan 64 year old male with history of ESRD s/p renal transplant in 2014, insulin dependent DM, secondary hyperparathyrodism who presented with left foot pain and found to have digital ulcerations and cellulitis. 1. ESRD s/p renal transplant with preserved graft function 2. Cellulitis/Ulcerations of lower extremity 3. IDDM 4. Secondary hyperparathyrodism 5. Anemia 6. Hyponatremia Renal function stable. Continue Tacrolimus dose 2mg BID, MMF 360mg BID and Prednisone dose 2.5mg Daily Tacroloimus level was 14 on admission but dose decreased from that time. Continue Abx as per ID/primary team Podiatry follow up, no surgical intervention needed at this time. Trend serum sodium levels. Serum Calcium noted, restart Sensipar 60mg daily. D/c IVF. Supplement Mg and Phos Low phos due to decreased renal phos absorption due to high PTH Trend renal function daily Will need to follow up at [facility] transplant clinic on discharge. Thank you Waylon Gaona DO
--- NOTE | 2020-03-10 12:56 | PN ---
Physical Exam: SUBJECTIVE: Patient seen and examined today, no complaints, no CP, SoB. States pain in foot has gone down. OBJECTIVE: Vital Signs Period Temp Pulse Resp BP Sys/Ga Pulse Ox Last 24 Hr 98.1 F-98.7 F 68-73 18-18 138-179/63-80 96-100 GENERAL: The patient is awake, alert, and fully oriented, in no acute distress. HEAD: Normal with no signs of trauma. EYES: PERRL, extraocular movements intact, sclera anicteric, conjunctiva clear. No ptosis. ENT: Oropharynx clear without exudates, moist mucous NECK: Trachea midline, full range of motion, supple. LUNGS: Breath sounds equal, clear to auscultation bilaterally, no wheezes, no crackles, no accessory muscle use. HEART: Regular rate and rhythm, S1, S2 3/6 systolic murmur, No rub or gallop. ABDOMEN: Soft, nontender, nondistended, normoactive bowel sounds, large RLQ scar UPPER EXTREMITIES: 2+ pulses, warm, well-perfused, no edema. LOWER EXTREMITIES: Multiple hyperpigmented macular spots on LE B/L. LEFT LOWER EXTREMITY: decreased swelling, decreased warmth, no purulent drainage. Pulses more palpable today NEUROLOGICAL: Normal speech, gait not observed, increased from previous exam. PSYCH: Normal mood, normal affect. SKIN: Warm, dry, normal turgor, no rashes or lesions noted otherwise noted Laboratory Results - last 24 hr 03/10/20 08:25 03/10/20 08:25 Active Medications Active Medications Generic Name Dose Route Start Last Admin Trade Name Jean PRN Reason Stop Dose Admin Amlodipine Besylate 5 mg 03/04/20 22:00 03/10/20 09:25 Norvasc - PO 5 mg BID [facility] Administration Cinacalcet 60 mg 03/10/20 10:00 03/10/20 09:24 Sensipar - PO 60 mg DAILY [facility] Administration Clotrimazole 1 applic 03/05/20 13:00 03/10/20 09:29 Lotrisone Cream (Small Tube) TP 1 applic BID [facility] Administration Gabapentin 100 mg 03/03/20 10:00 03/10/20 09:25 Neurontin - PO 100 mg DAILY [facility] Administration Heparin Sodium (Porcine) 5,000 unit 03/03/20 22:00 03/10/20 14:31 Heparin - SQ 5,000 unit TID [facility] Administration Piperacillin Sod/Tazobactam 50 mls @ 100 mls/hr 03/03/20 18:00 03/10/20 09:22 Sod 3.375 gm/ Dextrose IVPB 100 mls/hr Q8H-IV [facility] Administration Protocol Insulin Aspart 1 vial 03/03/20 16:30 03/10/20 12:03 Novolog Vial Sliding Scale - SQ 8 units TIDAC [facility] Administration Protocol Insulin Detemir 20 units 03/10/20 10:41 Levemir Vial SQ AM [facility] Insulin Detemir 4 units 03/10/20 22:00 Levemir Vial SQ HS [facility] Magnesium Chloride 64 mg 03/11/20 10:00 Slow-Mag - PO DAILY [facility] Metoprolol Tartrate 50 mg 03/02/20 22:00 03/10/20 09:25 Lopressor - PO 50 mg BID [facility] Administration Mycophenolate Sodium 360 mg 03/07/20 22:00 03/10/20 09:27 Mycophenolic Acid PO 360 mg BID [facility] Administration Oxycodone HCl 5 mg 03/09/20 13:35 03/09/20 17:10 Roxicodone - PO 5 mg Q12H PRN Administration PAIN LEVEL 1-5 Potassium Phos/Sodium Phos 1 packet 03/10/20 12:00 03/10/20 14:31 Phos-Nak Packet - PO 03/10/20 22:01 1 packet BID [facility] Administration Povidone Iodine 1 applic 03/05/20 13:00 03/10/20 09:27 Betadine 10% Solution - TP 1 applic BID [facility] Administration Prednisone 2.5 mg 03/05/20 10:00 03/10/20 09:24 Deltasone - PO 2.5 mg DAILY [facility] Administration Tacrolimus 2 mg 03/04/20 22:00 03/10/20 09:28 Prograf PO 2 mg BID [facility] Administration Tamsulosin HCl 0.4 mg 03/03/20 08:30 03/10/20 08:27 Flomax - PO 0.4 mg DAILY@0830 [facility] Administration ASSESSMENT/PLAN: 64yo M with h/o HTN, T2DN, Diabetic Nephropathy CKD stage 5 s/p renal transplant in 2014 who presents today with R foot pain. Patient reports he's been having toe/foot pain for about a month with wounds, initially given medication for fungal infection by [employer] Assistant, however he has not been able to seek care due to the COVID pandemic. Sepsis 2/2 LLE Infection r/o cellulitis -Afebrile, w/ No WBC, swelling/warmth decreasing -c/w Oxy 5mg -Per conversation w/ ID: c/w current abx: Zosyn -Per Podiatry: -No surgical intervention needed at this time, will need outpatient follow up. -c/w clotrimazole/betamethasone ESRD s/p Renal Transplant -Cr. 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 -Corrected Ca 11.9 -PTH: 32 (WNL), not normal for this level of Ca+ -Vit D: 14 -Urine Calcium Pending Insulin Dependent Diabetes Mellitus w/ Neuropathy -[facility]HS, ISS -c/w Levemir 20 Morning; 4 HS -c/w gabapentin Chronic Anemia 2/2 CKD -Hgb trending upwards -Daily CBC -Transfuse < 7.0 Hyponatremia -Baseline 130-135 -Monitor for any acute decrease and add NS if necessary RESOLVED: Constipation -Colace 100 BID -c/w miralax HTN -Elevated BP this morning, if continues, consider altering BP medication -Lopressor 50 BID -Amlodipine 5mg BID Hypomagnesmia -Mag 1.6 --> 1.7 --> 1.5 -Repleted today: 2gms -Start SloMg tomorrow -Likely 2/2 Prograf -Trend and replete if <2.0 Hypophosphatemia -Phos stable @ 2.0 -Repleted today: Phos-Nak x2 -Likely 2/2 Secondary Hyperparathyroid -Trend and replete <2.5 FEN -No standing fluids -CMP, Mg, Phos daily -Diabetic Diet PPx -DVT: Heparin TID Dispo -Ptn will be followed on med/surg floors w/ need to arrange follow up at [facility] transplant clinic on discharge. Visit type - Emergency Visit Emergency Visit: No - New Patient This patient is new to me today: No - Critical Care Critical Care patient: No - Discharge Referral Referred to [facility] Med P.C.: No ATTENDING PHYSICIAN STATEMENT I saw and evaluated the patient. I reviewed the resident's note and discussed the case with the resident. I agree with the resident's findings and plan as documented. SUBJECTIVE: OBJECTIVE: ASSESSMENT AND PLAN:
--- NOTE | 2020-03-10 13:18 | PN ---
Progress Note, Physician History of Present Illness: stable no new issues - Current Medication List Current Medications: Active Medications Amlodipine Besylate (Norvasc -) 5 mg PO BID [facility] Last Admin: 03/10/20 09:25 Dose: 5 mg Documented by: Cinacalcet (Sensipar -) 60 mg PO DAILY [facility] Last Admin: 03/10/20 09:24 Dose: 60 mg Documented by: Clotrimazole (Lotrisone Cream (Small Tube)) 1 applic TP BID [facility] Last Admin: 03/10/20 09:29 Dose: 1 applic Documented by: Gabapentin (Neurontin -) 100 mg PO DAILY [facility] Last Admin: 03/10/20 09:25 Dose: 100 mg Documented by: Heparin Sodium (Porcine) (Heparin -) 5,000 unit SQ TID [facility] Last Admin: 03/10/20 05:53 Dose: 5,000 unit Documented by: Piperacillin Sod/Tazobactam (Sod 3.375 gm/ Dextrose) 50 mls @ 100 mls/hr IVPB Q8H-IV [facility]; Protocol Last Admin: 03/10/20 09:22 Dose: 100 mls/hr Documented by: Insulin Aspart (Novolog Vial Sliding Scale -) 1 vial SQ TIDAC [facility]; Protocol Last Admin: 03/10/20 12:03 Dose: 8 units Documented by: Insulin Detemir (Levemir Vial) 20 units SQ AM [facility] Insulin Detemir (Levemir Vial) 4 units SQ HS [facility] Magnesium Chloride (Slow-Mag -) 64 mg PO DAILY [facility] Magnesium Sulfate (Magnesium Sulfate) 2 gm IVPB ONCE ONE Stop: 03/10/20 11:54 Magnesium Sulfate (Magnesium Sulfate) 2 gm IVPB ONCE ONE Stop: 03/10/20 12:16 Metoprolol Tartrate (Lopressor -) 50 mg PO BID [facility] Last Admin: 03/10/20 09:25 Dose: 50 mg Documented by: Mycophenolate Sodium (Mycophenolic Acid) 360 mg PO BID [facility] Last Admin: 03/10/20 09:27 Dose: 360 mg Documented by: Oxycodone HCl (Roxicodone -) 5 mg PO Q12H PRN PRN Reason: PAIN LEVEL 1-5 Last Admin: 03/09/20 17:10 Dose: 5 mg Documented by: Potassium Phos/Sodium Phos (Phos-Nak Packet -) 1 packet PO BID [facility] Stop: 03/10/20 22:01 Povidone Iodine (Betadine 10% Solution -) 1 applic TP BID [facility] Last Admin: 03/10/20 09:27 Dose: 1 applic Documented by: Prednisone (Deltasone -) 2.5 mg PO DAILY [facility] Last Admin: 03/10/20 09:24 Dose: 2.5 mg Documented by: Tacrolimus (Prograf) 2 mg PO BID [facility] Last Admin: 03/10/20 09:28 Dose: 2 mg Documented by: Tamsulosin HCl (Flomax -) 0.4 mg PO DAILY@0830 [facility] Last Admin: 03/10/20 08:27 Dose: 0.4 mg Documented by: - Objective Vital Signs: Vital Signs Temperature 98.6 F 03/10/20 10:57 Pulse Rate 73 03/10/20 10:57 Respiratory Rate 18 03/10/20 10:57 Blood Pressure 152/64 03/10/20 10:57 O2 Sat by Pulse Oximetry (%) 100 03/10/20 10:57 Constitutional: Yes: No Distress, Calm Eyes: Yes: Conjunctiva Clear Cardiovascular: Yes: S1, S2 Respiratory: Yes: Regular, CTA Bilaterally Gastrointestinal: Yes: Normal Bowel Sounds, Soft Musculoskeletal: Yes: WNL Extremities: Yes: WNL Neurological: Yes: Alert, Oriented Psychiatric: Yes: Alert, Oriented Labs: CBC, BMP 03/10/20 08:25 03/10/20 08:25 INR, PTT INR 1.04 (0.83-1.09) 03/02/20 14:59 Assessment/Plan 64 y/o man with h/o ESRD s/p renal transplant, DM, HTN who presented with fever, chills, and pain in L foot sepsis dm renal transplant htn plan continue abx monitor closely wbc has normalized will d/w podiatry rest as per the team
[2020-03-10] MEDS: NAPH,MB-DB/K PH,MBDB POWDER PACKET PO SCH ×2 (14:31→21:12)
[2020-03-10] MEDS: SODIUM CHLORIDE 0.45% 1,000 ML IV SCH (16:14)
--- NOTE | 2020-03-10 17:34 | PN ---
Teaching Attending Note Name of Resident: Samuel St ATTENDING PHYSICIAN STATEMENT I saw and evaluated the patient. I reviewed the resident's note and discussed the case with the resident. I agree with the resident's findings and plan as documented. SUBJECTIVE: Patient is feeling better with no acute distress, no shortness of breath. asking when can he go home. OBJECTIVE: Vital Signs Temperature 98.2 F 03/10/20 14:15 Pulse Rate 64 03/10/20 14:15 Respiratory Rate 18 03/10/20 14:15 Blood Pressure 134/61 03/10/20 14:15 O2 Sat by Pulse Oximetry (%) 100 03/10/20 10:57 PE: per resident's note LLE: warm to touch but less than before , improving CBCD WBC 7.1 K/mm3 (4.0-10.0) 03/10/20 08:25 RBC 3.53 M/mm3 (4.00-5.60) L 03/10/20 08:25 Hgb 11.5 GM/dL (11.7-16.9) L 03/10/20 08:25 Hct 34.6 % (35.4-49) L 03/10/20 08:25 MCV 98.1 fl (80-96) H 03/10/20 08:25 MCHC 33.3 g/dl (32.0-35.9) 03/10/20 08:25 RDW 13.1 % (11.9-15.9) 03/10/20 08:25 Plt Count 215 K/MM3 (134-434) 03/10/20 08:25 MPV 8.9 fl (7.5-11.1) 03/10/20 08:25 CMP Sodium 132 mmol/L (136-145) L 03/10/20 08:25 Potassium 4.6 mmol/L (3.5-5.1) 03/10/20 08:25 Chloride 100 mmol/L (98-107) 03/10/20 08:25 Carbon Dioxide 26 mmol/L (21-32) 03/10/20 08:25 Anion Gap 6 MMOL/L (8-16) L 03/10/20 08:25 BUN 22.3 mg/dL (7-18) H 03/10/20 08:25 Creatinine 1.0 mg/dL (0.55-1.3) 03/10/20 08:25 Random Glucose 249 mg/dL (74-106) H 03/10/20 08:25 Calcium 11.0 mg/dL (8.5-10.1) H 03/10/20 08:25 Total Bilirubin 1.2 mg/dL (0.2-1) H 03/10/20 08:25 AST 7 U/L (15-37) L 03/10/20 08:25 ALT 12 U/L (13-61) L 03/10/20 08:25 Alkaline Phosphatase 104 U/L (45-117) 03/10/20 08:25 Total Protein 6.2 g/dl (6.4-8.2) L 03/10/20 08:25 Albumin 2.9 g/dl (3.4-5.0) L 03/10/20 08:25 CARDIAC ENZYMES Creatine Kinase 52 U/L (26-308) 03/02/20 14:59 Troponin I < 0.02 ng/ml (0.00-0.05) 03/02/20 14:59 Current Medications Generic Name Dose Route Start Last Admin Trade Name Tacoq PRN Reason Stop Dose Admin Amlodipine Besylate 5 mg 03/04/20 22:00 03/10/20 09:25 Norvasc - PO 5 mg BID [facility] Administration Cinacalcet 60 mg 03/10/20 10:00 03/10/20 09:24 Sensipar - PO 60 mg DAILY [facility] Administration Clotrimazole 1 applic 03/05/20 13:00 03/10/20 09:29 Lotrisone Cream (Small Tube) TP 1 applic BID [facility] Administration Gabapentin 100 mg 03/03/20 10:00 03/10/20 09:25 Neurontin - PO 100 mg DAILY [facility] Administration Heparin Sodium (Porcine) 5,000 unit 03/03/20 22:00 03/10/20 14:31 Heparin - SQ 5,000 unit TID [facility] Administration Piperacillin Sod/Tazobactam 50 mls @ 100 mls/hr 03/03/20 18:00 03/10/20 09:22 Sod 3.375 gm/ Dextrose IVPB 100 mls/hr Q8H-IV [facility] Administration Protocol Insulin Aspart 1 vial 03/03/20 16:30 03/10/20 16:30 Novolog Vial Sliding Scale - SQ 6 units TIDAC [facility] Administration Protocol Insulin Detemir 20 units 03/10/20 10:41 Levemir Vial SQ AM [facility] Insulin Detemir 4 units 03/10/20 22:00 Levemir Vial SQ HS [facility] Magnesium Chloride 64 mg 03/11/20 10:00 Slow-Mag - PO DAILY [facility] Metoprolol Tartrate 50 mg 03/02/20 22:00 03/10/20 09:25 Lopressor - PO 50 mg BID [facility] Administration Mycophenolate Sodium 360 mg 03/07/20 22:00 03/10/20 09:27 Mycophenolic Acid PO 360 mg BID [facility] Administration Oxycodone HCl 5 mg 03/09/20 13:35 03/09/20 17:10 Roxicodone - PO 5 mg Q12H PRN Administration PAIN LEVEL 1-5 Potassium Phos/Sodium Phos 1 packet 03/10/20 12:00 03/10/20 14:31 Phos-Nak Packet - PO 03/10/20 22:01 1 packet BID [facility] Administration Povidone Iodine 1 applic 03/05/20 13:00 03/10/20 09:27 Betadine 10% Solution - TP 1 applic BID [facility] Administration Prednisone 2.5 mg 03/05/20 10:00 03/10/20 09:24 Deltasone - PO 2.5 mg DAILY [facility] Administration Tacrolimus 2 mg 03/04/20 22:00 03/10/20 09:28 Prograf PO 2 mg BID [facility] Administration Tamsulosin HCl 0.4 mg 03/03/20 08:30 03/10/20 08:27 Flomax - PO 0.4 mg DAILY@0830 [facility] Administration Home Medications Medication Instructions Recorded Cinacalcet HCl [Sensipar] 60 mg PO DAILY 02/03/13 Metoprolol Tartrate [Lopressor -] 25 mg PO BID 03/31/16 Mycophenolate Sodium [Myfortic -] 360 mg PO BID 03/31/16 Prednisone 5 mg PO DAILY 03/31/16 Tacrolimus [Prograf] 2 mg PO BID 03/31/16 Tamsulosin HCl [Flomax] 0.4 mg PO DAILY 03/31/16 Amlodipine Besylate 10 mg PO DAILY 03/04/20 Atorvastatin Ca [Lipitor] 40 mg PO HS 03/04/20 Gabapentin 300 mg PO TID 03/04/20 Insulin Glargine,Hum.rec.anlog 16 unit SQ DAILY 03/04/20 [Basaglar Kwikpen U-100] Insulin Lispro [Admelog] 4 - 8 units SQ TID 03/04/20 Magnesium Oxide [Mag-Ox -] 400 mg PO BID 03/04/20 metFORMIN HCL [Metformin HCl] 500 mg PO DAILY 03/04/20 Microbiology 03/02/20 14:50 Blood - Peripheral Venous Blood Culture - Final NO GROWTH AFTER 5 DAYS INCUBATION 03/02/20 14:59 Blood - Peripheral Venous Blood Culture - Final NO GROWTH AFTER 5 DAYS INCUBATION 03/02/20 14:59 Toe - Left Fifth Gram Stain - Final 03/02/20 14:59 Toe - Left Fifth Wound Culture - Final Pseudomonas Aeruginosa Staphylococcus Aureus Strep Agalactiae Group B ASSESSMENT AND PLAN: This patient is a 64yom with Pmhx of ESRD s/p renal transplant, DM, HTN who presented with fever, chills, and pain of L foot # Sepsis, due to infected L foot wound and cellulitis improving on iv zosyn continue, as per ID 2 more days of IV antibiotics, and césar reassess afterwards. MRI negative for OM, ID on the case , continue wound dressing, podiatry is on the case. #Hx of ESRD, s/p renal transplant . continue home meds, nephro on the case , stable, creatinine is 1.0 today #mild dehydration on IVF , monitor creatinine 1.2-->1.0 today, improved #T2DM: SS with coverage #HTN : cont CCb and BB DVT px : heparin 2 more days of IV antibiotics and reassess for oral antibiotics
[2020-03-11] MEDS: INSULIN SLIDING SCALE (NOVOLOG) 1 VIAL SQ SCH ×3 (06:09→16:30)
[2020-03-11] MEDS: INSULIN (LEVEMIR) 100 UNITS/ML UNITS SQ SCH ×2 (06:44→21:28)
[2020-03-11] MEDS ORDERED: INSULIN (NOVOLOG) ASPART 100 UNITS/ML 10ML VIAL ONE ×3 (06:58→21:14)
[2020-03-11 08:23] LABS: BASO % 0.3 % (0-2.0); EOS % 3.5 % (0-4.5); HEMATOCRIT 33.7 % (35.4-49); HEMOGLOBIN 11.1 GM/dL (11.7-16.9); LYMPH % 13.4 % (8-40); MCHC 32.9 g/dl (32.0-35.9); MEAN CELL VOLUME 97.4 fl (80-96); MEAN PLT VOLUME 8.4 fl (7.5-11.1); MONO % 6.7 % (3.8-10.2); NEUT % 76.1 % (42.8-82.8); PLATELET COUNT 242 K/MM3 (134-434); RBC 3.46 M/mm3 (4.00-5.60); RDW 13.3 % (11.9-15.9); WHITE BLOOD COUNT 6.6 K/mm3 (4.0-10.0)
[2020-03-11 08:30] LABS: ALBUMIN 2.9 g/dl (3.4-5.0); BILIRUBIN,TOTAL 0.4 mg/dL (0.2-1); BLOOD UREA NITROGEN 19.5 mg/dL (7-18); CALCIUM 10.7 mg/dL (8.5-10.1); CREATININE 0.9 mg/dL (0.55-1.3); MAGNESIUM 2.1 mg/dL (1.8-2.4); PHOSPHOROUS 3.2 mg/dL (2.5-4.9); POTASSIUM 4.8 mmol/L (3.5-5.1); TOT PROT 6.4 g/dl (6.4-8.2)
[2020-03-11] MEDS: TAMSULOSIN HCL 0.4 MG CAP PO SCH (08:48)
[2020-03-11] MEDS ORDERED: PT OWN MED DRAWER 7, Y5N ONE ×2 (09:23→21:31)
[2020-03-11] MEDS: amLODIPine BESYLATE 5 MG TABLET (FP) PO SCH ×2 (09:26→21:28)
[2020-03-11] MEDS: METOPROLOL TARTRATE 50 MG TABLET (FP) PO SCH ×2 (09:26→21:28)
[2020-03-11] MEDS: CINACALCET HCL 30 MG TAB (FP) PO SCH (09:27)
[2020-03-11] MEDS: predniSONE 5 MG TABLET (UD) PO SCH (09:27)
[2020-03-11] MEDS: TACROLIMUS ANHYDROUS 1 MG CAPSULE PO SCH ×2 (09:28→21:34)
[2020-03-11] MEDS: POVIDONE-IODINE 10% SOLN 118 ML BOTTLE TP SCH ×2 (09:30→21:30)
[2020-03-11] MEDS: GABAPENTIN 100 MG CAPSULE PO SCH (09:30)
[2020-03-11] MEDS: MYCOPHENOLATE SODIUM 360 MG TABLET.DR PO SCH ×2 (09:30→21:33)
[2020-03-11] MEDS: MAGNESIUM CL 64 MG TABLET.SA PO SCH (09:31)
[2020-03-11] MEDS: CLOTRIMAZOLE/BETAMET DIPROP 15 GM TUBE TP SCH ×2 (09:34→21:35)
--- NOTE | 2020-03-11 12:05 | PN ---
Progress Note, Physician History of Present Illness: Seen and examined at the bedside awake and alert offers no acute complaints making urine - Current Medication List Current Medications: Active Medications Amlodipine Besylate (Norvasc -) 5 mg PO BID [facility] Last Admin: 03/11/20 09:26 Dose: 5 mg Documented by: Cinacalcet (Sensipar -) 60 mg PO DAILY [facility] Last Admin: 03/11/20 09:27 Dose: 60 mg Documented by: Clotrimazole (Lotrisone Cream (Small Tube)) 1 applic TP BID [facility] Last Admin: 03/11/20 09:34 Dose: 1 applic Documented by: Gabapentin (Neurontin -) 100 mg PO DAILY [facility] Last Admin: 03/11/20 09:30 Dose: 100 mg Documented by: Insulin Aspart (Novolog Vial Sliding Scale -) 1 vial SQ TIDAC [facility]; Protocol Last Admin: 03/11/20 06:09 Dose: Not Given Documented by: Insulin Detemir (Levemir Vial) 20 units SQ AM [facility] Last Admin: 03/11/20 06:44 Dose: 20 units Documented by: Insulin Detemir (Levemir Vial) 4 units SQ HS [facility] Last Admin: 03/10/20 21:12 Dose: 4 units Documented by: Magnesium Chloride (Slow-Mag -) 64 mg PO DAILY [facility] Last Admin: 03/11/20 09:31 Dose: 64 mg Documented by: Metoprolol Tartrate (Lopressor -) 50 mg PO BID [facility] Last Admin: 03/11/20 09:26 Dose: 50 mg Documented by: Mycophenolate Sodium (Mycophenolic Acid) 360 mg PO BID [facility] Last Admin: 03/11/20 09:30 Dose: 360 mg Documented by: Oxycodone HCl (Roxicodone -) 5 mg PO Q12H PRN PRN Reason: PAIN LEVEL 1-5 Last Admin: 03/09/20 17:10 Dose: 5 mg Documented by: Povidone Iodine (Betadine 10% Solution -) 1 applic TP BID [facility] Last Admin: 03/11/20 09:30 Dose: 1 applic Documented by: Prednisone (Deltasone -) 2.5 mg PO DAILY [facility] Last Admin: 03/11/20 09:27 Dose: 2.5 mg Documented by: Tacrolimus (Prograf) 2 mg PO BID [facility] Last Admin: 09/29/20 09:28 Dose: 2 mg Documented by: Tamsulosin HCl (Flomax -) 0.4 mg PO DAILY@0830 [facility] Last Admin: 03/11/20 08:48 Dose: 0.4 mg Documented by: - Objective Vital Signs: Vital Signs Temperature 99.0 F 03/11/20 05:45 Pulse Rate 63 03/11/20 05:45 Respiratory Rate 18 03/11/20 05:45 Blood Pressure 146/64 03/11/20 05:45 O2 Sat by Pulse Oximetry (%) 99 03/11/20 05:45 Constitutional: Yes: No Distress Cardiovascular: Yes: Regular Rate and Rhythm Respiratory: Yes: Regular Gastrointestinal: Yes: Soft Extremities: No: Cyanosis Edema: No Labs: CBC, BMP 03/11/20 07:25 03/11/20 07:25 INR, PTT INR 1.04 (0.83-1.09) 03/02/20 14:59 Assessment/Plan 64 year old male with history of ESRD s/p renal transplant in 2014, insulin dependent DM, secondary hyperparathyrodism who presented with left foot pain and found to have digital ulcerations and cellulitis. 1. ESRD s/p renal transplant with preserved graft function 2. Cellulitis/Ulcerations of lower extremity 3. IDDM 4. Secondary hyperparathyrodism 5. Anemia 6. Hyponatremia Renal function stable. Continue Tacrolimus dose 2mg BID, MMF 360mg BID and Prednisone dose 2.5mg Daily Tacroloimus level was 14 on admission but dose decreased from that time. Continue Abx as per ID/primary team Podiatry follow up, no surgical intervention needed at this time. Trend serum sodium levels. Serum Calcium noted, Continue Sensipar 60mg daily. D/c IVF. Supplement Mg and Phos Low phos due to decreased renal phos absorption due to high PTH Trend renal function daily Will need to follow up at [facility] transplant clinic on discharge. Thank you Waylon Gaona DO
--- NOTE | 2020-03-11 13:14 | PN ---
Physical Exam: SUBJECTIVE: Patient seen and examined this morning, in no acute distress, states pain in foot is decreased over yesterday, denies any F/C, CP, SoB, N/V/D. OBJECTIVE: Vital Signs Period Temp Pulse Resp BP Sys/Ga Pulse Ox Last 24 Hr 98.2 F-99.0 F 63-67 18-18 134-146/61-64 98-100 GENERAL: The patient is awake, alert, and fully oriented, in no acute distress. HEAD: Normal with no signs of trauma. EYES: PERRL, extraocular movements intact, sclera anicteric, conjunctiva clear. No ptosis. ENT: Oropharynx clear without exudates, moist mucous NECK: Trachea midline, full range of motion, supple. LUNGS: Breath sounds equal, clear to auscultation bilaterally, no wheezes, no crackles, no accessory muscle use. HEART: Regular rate and rhythm, S1, S2 3/6 systolic murmur, No rub or gallop. ABDOMEN: Soft, nontender, nondistended, normoactive bowel sounds, large RLQ scar UPPER EXTREMITIES: 2+ pulses, warm, well-perfused, no edema. LOWER EXTREMITIES: Multiple hyperpigmented macular spots on LE B/L. LEFT LOWER EXTREMITY: Dressing removed and changed, swelling continues to decrease, no purulence noted NEUROLOGICAL: Normal speech, gait not observed PSYCH: Normal mood, normal affect. SKIN: Warm, dry, normal turgor, no rashes or lesions noted otherwise noted Laboratory Results - last 24 hr CBC, BMP 03/11/20 07:25 03/11/20 07:25 Active Medications Generic Name Dose Route Start Last Admin Trade Name Jean PRN Reason Stop Dose Admin Amlodipine Besylate 5 mg 03/04/20 22:00 03/11/20 09:26 Norvasc - PO 5 mg BID [facility] Administration Cinacalcet 60 mg 03/10/20 10:00 03/11/20 09:27 Sensipar - PO 60 mg DAILY [facility] Administration Clotrimazole 1 applic 03/05/20 13:00 03/11/20 09:34 Lotrisone Cream (Small Tube) TP 1 applic BID [facility] Administration Gabapentin 100 mg 03/03/20 10:00 03/11/20 09:30 Neurontin - PO 100 mg DAILY [facility] Administration Heparin Sodium (Porcine) 5,000 unit 03/11/20 22:00 Heparin - SQ TID [facility] Piperacillin Sod/Tazobactam 50 mls @ 100 mls/hr 03/11/20 16:30 03/11/20 16:39 Sod 3.375 gm/ Dextrose IVPB 03/12/20 10:29 100 mls/hr Q8H-IV [facility] Administration Protocol Insulin Aspart 1 vial 03/03/20 16:30 03/11/20 16:30 Novolog Vial Sliding Scale - SQ Not Given TIDAC [facility] Protocol Insulin Detemir 20 units 03/10/20 10:41 03/11/20 06:44 Levemir Vial SQ 20 units AM [facility] Administration Insulin Detemir 4 units 03/10/20 22:00 03/10/20 21:12 Levemir Vial SQ 4 units HS [facility] Administration Magnesium Chloride 64 mg 03/11/20 10:00 03/11/20 09:31 Slow-Mag - PO 64 mg DAILY [facility] Administration Metoprolol Tartrate 50 mg 03/02/20 22:00 03/11/20 09:26 Lopressor - PO 50 mg BID [facility] Administration Mycophenolate Sodium 360 mg 03/07/20 22:00 03/11/20 09:30 Mycophenolic Acid PO 360 mg BID [facility] Administration Oxycodone HCl 5 mg 03/09/20 13:35 03/09/20 17:10 Roxicodone - PO 5 mg Q12H PRN Administration PAIN LEVEL 1-5 Povidone Iodine 1 applic 03/05/20 13:00 03/11/20 09:30 Betadine 10% Solution - TP 1 applic BID [facility] Administration Prednisone 2.5 mg 03/05/20 10:00 03/11/20 09:27 Deltasone - PO 2.5 mg DAILY [facility] Administration Tacrolimus 2 mg 03/04/20 22:00 03/11/20 09:28 Prograf PO 2 mg BID [facility] Administration Tamsulosin HCl 0.4 mg 03/03/20 08:30 03/11/20 08:48 Flomax - PO 0.4 mg DAILY@0830 [facility] Administration ASSESSMENT/PLAN: 64yo M with h/o HTN, T2DN, Diabetic Nephropathy CKD stage 5 s/p renal transplant in 2014 who presents today with R foot pain. Patient reports he's been having toe/foot pain for about a month with wounds, initially given medication for fungal infection by [employer] Program Officer, however he has not been able to seek care due to the COVID pandemic. Sepsis 2/2 LLE Infection r/o cellulitis -Afebrile, w/ No WBC -c/w Oxy 5mg -Per ID: c/w Zosyn - Day 10 for x24 hours more - called pharmacy telephone order Per Dr. Khalil to renew -Per Podiatry: -f/u Tuesday03/18/2020 [facility] -c/w clotrimazole/betamethasone ESRD s/p Renal Transplant -Cr. Stable ~ 0.9 -c/wTacrolimus 2mg BID -c/w Mycophenolate 360mg BID -Per Renal: -c/w Cinacalcet 60mg -c/w Slo-Mg 64mg Secondary Hyperparathyroidism 2/2 CKD -Corrected Ca: Stable ~11.6 Insulin Dependent Diabetes Mellitus w/ Neuropathy -[facility], ISS -c/w Levemir 20 Morning; 4 HS -c/w gabapentin Chronic Anemia 2/2 CKD -Hgb stable ~11.1 -Daily CBC -Transfuse < 7.0 Hyponatremia -Baseline 130-135 -Monitor for any acute decrease and add NS if necessary RESOLVED: Constipation -Colace 100 BID -c/w miralax HTN -BP WNL today -c/w Lopressor 50 BID -c/w Amlodipine 5mg BID Hypomagnesmia -Mag 2.1 -Likely 2/2 Prograf -c/w Slo-mag 64mg -Trend and replete if <2.0 Hypophosphatemia -Phos stable @ 3.2 -Trend and replete <2.5 FEN -No standing fluids -CMP, Mg, Phos daily -Diabetic Diet PPx -DVT: Heparin TID Dispo -Ptn will be followed on med/surg floors w/ need to arrange follow up at [facility] transplant clinic on discharge. Visit type - Emergency Visit Emergency Visit: No - New Patient This patient is new to me today: No - Critical Care Critical Care patient: No - Discharge Referral Referred to [facility] Med P.C.: No ATTENDING PHYSICIAN STATEMENT I saw and evaluated the patient. I reviewed the resident's note and discussed the case with the resident. I agree with the resident's findings and plan as documented. SUBJECTIVE: OBJECTIVE: ASSESSMENT AND PLAN:
[2020-03-11 13:44] VITALS: BMI 25.5
--- NOTE | 2020-03-11 13:52 | PN ---
Progress Note, Physician - Current Medication List Current Medications: Active Medications Amlodipine Besylate (Norvasc -) 5 mg PO BID [facility] Last Admin: 03/11/20 09:26 Dose: 5 mg Documented by: Cinacalcet (Sensipar -) 60 mg PO DAILY [facility] Last Admin: 03/11/20 09:27 Dose: 60 mg Documented by: Clotrimazole (Lotrisone Cream (Small Tube)) 1 applic TP BID [facility] Last Admin: 03/11/20 09:34 Dose: 1 applic Documented by: Gabapentin (Neurontin -) 100 mg PO DAILY [facility] Last Admin: 03/11/20 09:30 Dose: 100 mg Documented by: Insulin Aspart (Novolog Vial Sliding Scale -) 1 vial SQ TIDAC [facility]; Protocol Last Admin: 03/11/20 12:06 Dose: 2 units Documented by: Insulin Detemir (Levemir Vial) 20 units SQ AM [facility] Last Admin: 03/11/20 06:44 Dose: 20 units Documented by: Insulin Detemir (Levemir Vial) 4 units SQ HS [facility] Last Admin: 03/10/20 21:12 Dose: 4 units Documented by: Magnesium Chloride (Slow-Mag -) 64 mg PO DAILY [facility] Last Admin: 03/11/20 09:31 Dose: 64 mg Documented by: Metoprolol Tartrate (Lopressor -) 50 mg PO BID [facility] Last Admin: 03/11/20 09:26 Dose: 50 mg Documented by: Mycophenolate Sodium (Mycophenolic Acid) 360 mg PO BID [facility] Last Admin: 03/11/20 09:30 Dose: 360 mg Documented by: Oxycodone HCl (Roxicodone -) 5 mg PO Q12H PRN PRN Reason: PAIN LEVEL 1-5 Last Admin: 03/09/20 17:10 Dose: 5 mg Documented by: Povidone Iodine (Betadine 10% Solution -) 1 applic TP BID [facility] Last Admin: 03/11/20 09:30 Dose: 1 applic Documented by: Prednisone (Deltasone -) 2.5 mg PO DAILY [facility] Last Admin: 03/11/20 09:27 Dose: 2.5 mg Documented by: Tacrolimus (Prograf) 2 mg PO BID [facility] Last Admin: 03/11/20 09:28 Dose: 2 mg Documented by: Tamsulosin HCl (Flomax -) 0.4 mg PO DAILY@30 [facility] Last Admin: 03/11/20 08:48 Dose: 0.4 mg Documented by: - Objective Vital Signs: Vital Signs Temperature 97.9 F 03/11/20 13:13 Pulse Rate 65 03/11/20 13:13 Respiratory Rate 03/11/20 13:13 Blood Pressure 111/59 L 03/11/20 13:13 O2 Sat by Pulse Oximetry (%) 99 03/11/20 09:00 Labs: CBC, BMP 03/11/20 07:25 03/11/20 07:25 INR, PTT INR 1.04 (0.83-1.09) 03/02/20 14:59
--- NOTE | 2020-03-11 14:39 | PN ---
Progress Note (short form) - Note Progress Note: Podiatry F/U: Seen/evaluated at bedside NAD. Pain is much improved to the left foot. He denies F/V/N/C/SOB/CP. Currently afebrile. ELKE: L foot: pedal pulses palpable, TG wnl, CFT brisk to all digits. There are no ischemic changes to the foot. The foot is warm and well perfused. There are transverse lacerations to the digits 2-4. There is underlying granular base, decreased depth. There is no tendon nor bone exposed. There is no purulent drainage, no fluctuance, no streaking ascending cellulitis, no soft tissue crepitus, no signs of infection. Minimal tenderness to palpation. Resolved forefoot erythema. Imp: 64 year old diabetic male with tinea pedis left foot with superimposed bacterial cellulitis left foot 1. IV abx x [address] Khalil. 2. Continue local care. Patient's will be instructed on dressing care at home. 3. Discussed the importance of tight glycemic control. 4. Will f/u with me next Tuesday in wound healing center upon discharge. [phone]. Johanna Santiago DPM
--- NOTE | 2020-03-11 16:10 | PN ---
Teaching Attending Note Name of Resident: Samuel St ATTENDING PHYSICIAN STATEMENT I saw and evaluated the patient. I reviewed the resident's note and discussed the case with the resident. I agree with the resident's findings and plan as documented. SUBJECTIVE: Patient reports pain in left foot is improving. OBJECTIVE: Vital Signs Period Temp Pulse Resp BP Sys/Ga Pulse Ox Last 24 Hr 97.9 F-99.0 F 63-67 18-20 111-146/59-64 98-100 HEART: S1S2, RRR LUNGS: Clear ABDOMEN: Soft, non-tender, non-distended, normal BS EXTREMITIES: Left foot wrapped, no edema Laboratory Results - last 24 hr 03/10/20 03/10/20 03/11/20 16:26 21:05 05:48 WBC RBC Hgb Hct MCV MCH MCHC RDW Plt Count MPV Absolute Neuts (auto) Neutrophils % Lymphocytes % Monocytes % Eosinophils % Basophils % Nucleated RBC % Sodium Potassium Chloride Carbon Dioxide Anion Gap BUN Creatinine Est GFR (CKD-EPI)AfAm Est GFR (CKD-EPI)NonAf POC Glucometer 274 130 104 Random Glucose Calcium Phosphorus Magnesium Total Bilirubin AST ALT Alkaline Phosphatase Total Protein Albumin 03/11/20 03/11/20 03/11/20 07:25 07:25 11:36 WBC 6.6 RBC 3.46 L Hgb 11.1 L Hct 33.7 L MCV 97.4 H MCH 32.0 MCHC 32.9 RDW 13.3 Plt Count 242 MPV 8.4 Absolute Neuts (auto) 5.1 Neutrophils % 76.1 Lymphocytes % 13.4 Monocytes % 6.7 Eosinophils % 3.5 Basophils % 0.3 Nucleated RBC % 0 Sodium 135 L Potassium 4.8 Chloride 103 Carbon Dioxide 27 Anion Gap 6 L BUN 19.5 H Creatinine 0.9 Est GFR (CKD-EPI)AfAm 104.98 Est GFR (CKD-EPI)NonAf 90.58 POC Glucometer 187 Random Glucose 122 H Calcium 10.7 H Phosphorus 3.2 Magnesium 2.1 Total Bilirubin 0.4 AST 8 L ALT 10 L Alkaline Phosphatase 99 Total Protein 6.4 Albumin 2.9 L Current Medications Generic Name Dose Route Start Last Admin Trade Name Freq PRN Reason Stop Dose Admin Amlodipine Besylate 5 mg 03/04/20 22:00 03/11/20 09:26 Norvasc - PO 5 mg BID [facility] Administration Cinacalcet 60 mg 03/10/20 10:00 03/11/20 09:27 Sensipar - PO 60 mg DAILY [facility] Administration Clotrimazole 1 applic 03/05/20 13:00 03/11/20 09:34 Lotrisone Cream (Small Tube) TP 1 applic BID [facility] Administration Gabapentin 100 mg 03/03/20 10:00 03/11/20 09:30 Neurontin - PO 100 mg DAILY [facility] Administration Insulin Aspart 1 vial 03/03/20 16:30 03/11/20 12:06 Novolog Vial Sliding Scale - SQ 2 units TIDAC [facility] Administration Protocol Insulin Detemir 20 units 03/10/20 10:41 03/11/20 06:44 Levemir Vial SQ 20 units AM [facility] Administration Insulin Detemir 4 units 03/10/20 22:00 03/10/20 21:12 Levemir Vial SQ 4 units HS [facility] Administration Magnesium Chloride 64 mg 03/11/20 10:00 03/11/20 09:31 Slow-Mag - PO 64 mg DAILY [facility] Administration Metoprolol Tartrate 50 mg 03/02/20 22:00 03/11/20 09:26 Lopressor - PO 50 mg BID [facility] Administration Mycophenolate Sodium 360 mg 03/07/20 22:00 03/11/20 09:30 Mycophenolic Acid PO 360 mg BID [facility] Administration Oxycodone HCl 5 mg 03/09/20 13:35 03/09/20 17:10 Roxicodone - PO 5 mg Q12H PRN Administration PAIN LEVEL 1-5 Povidone Iodine 1 applic 03/05/20 13:00 03/11/20 09:30 Betadine 10% Solution - TP 1 applic BID [facility] Administration Prednisone 2.5 mg 03/05/20 10:00 03/11/20 09:27 Deltasone - PO 2.5 mg DAILY [facility] Administration Tacrolimus 2 mg 03/04/20 22:00 03/11/20 09:28 Prograf PO 2 mg BID [facility] Administration Tamsulosin HCl 0.4 mg 03/03/20 08:30 03/11/20 08:48 Flomax - PO 0.4 mg DAILY@0830 [facility] Administration ASSESSMENT AND PLAN: This is a 64 year old man with a history of HTN, type 2 DM, ESRD, renal transplant who presented to the ED with fever, chills, and left foot pain. 1. Sepsis secondary to left foot cellulitis and tinea pedis - Continue Zosyn 2. ESRD, history of renal transplant - Continue Prograf, CellCept - Continue Sensipar for secondary hyperparathyroidism with hypercalcemia 3. 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 HTN - Continue Norvasc, Lopressor 5. Hyponatremia, hyperkalemia, hypomagnesemia, hypophosphatemia - Improved
[2020-03-11] MEDS ORDERED: DEXTROSE 5%-WATER - 50 ML IVPB ONE (16:32)
[2020-03-11] MEDS ORDERED: PIPERACILLIN/TAZOBACTAM 3.375 GM VIAL IVPB ONE (16:32)
[2020-03-11] MEDS: PIPERACILLIN/TAZOB 3.375 GM 3.375 GM in DEXTROSE 5%-WATER - 50 ML IVPB SCH (16:39)
[2020-03-11] MEDS: HEPARIN NA (PORCINE) 5,000 UNITS/ML 1ML VIAL SQ SCH (21:30)
[2020-03-12] MEDS ORDERED: DEXTROSE 5%-WATER - 50 ML IVPB ONE ×2 (00:17→11:01)
[2020-03-12] MEDS ORDERED: PIPERACILLIN/TAZOBACTAM 3.375 GM VIAL IVPB ONE ×2 (00:17→11:01)
[2020-03-12] MEDS: PIPERACILLIN/TAZOB 3.375 GM 3.375 GM in DEXTROSE 5%-WATER - 50 ML IVPB SCH ×2 (01:30→11:11)
[2020-03-12] MEDS: INSULIN SLIDING SCALE (NOVOLOG) 1 VIAL SQ SCH ×3 (06:10→17:44)
[2020-03-12] MEDS: INSULIN (LEVEMIR) 100 UNITS/ML UNITS SQ SCH (06:10)
[2020-03-12] MEDS: HEPARIN NA (PORCINE) 5,000 UNITS/ML 1ML VIAL SQ SCH ×2 (06:10→17:44)
[2020-03-12] MEDS ORDERED: INSULIN (NOVOLOG) ASPART 100 UNITS/ML 10ML VIAL ONE (06:38)
[2020-03-12 08:45] LABS: BASO % 0.3 % (0-2.0); EOS % 2.7 % (0-4.5); HEMATOCRIT 37.4 % (35.4-49); HEMOGLOBIN 12.2 GM/dL (11.7-16.9); LYMPH % 13.2 % (8-40); MCH 31.8 pg (25.7-33.7); MCHC 32.6 g/dl (32.0-35.9); MEAN CELL VOLUME 97.6 fl (80-96); MEAN PLT VOLUME 8.4 fl (7.5-11.1); MONO % 5.1 % (3.8-10.2); NEUT % 78.7 % (42.8-82.8); PLATELET COUNT 285 K/MM3 (134-434); RBC 3.84 M/mm3 (4.00-5.60); RDW 13.5 % (11.9-15.9); WHITE BLOOD COUNT 6.1 K/mm3 (4.0-10.0)
[2020-03-12 09:00] LABS: BILIRUBIN,TOTAL 0.5 mg/dL (0.2-1); BLOOD UREA NITROGEN 22.9 mg/dL (7-18); CALCIUM 10.4 mg/dL (8.5-10.1); CREATININE 1.1 mg/dL (0.55-1.3); MAGNESIUM 1.7 mg/dL (1.8-2.4); PHOSPHOROUS 3.1 mg/dL (2.5-4.9); POTASSIUM 4.4 mmol/L (3.5-5.1)
[2020-03-12] MEDS ORDERED: MAGNESIUM 2GM/50ML STERILE WATER IVPB IVPB ONE (09:15)
--- NOTE | 2020-03-12 09:22 | PN ---
Progress Note, Physician History of Present Illness: stable no new issues - Current Medication List Current Medications: Active Medications Amlodipine Besylate (Norvasc -) 5 mg PO BID [facility] Last Admin: 03/11/20 21:28 Dose: 5 mg Documented by: Cinacalcet (Sensipar -) 60 mg PO DAILY [facility] Last Admin: 03/11/20 09:27 Dose: 60 mg Documented by: Clotrimazole (Lotrisone Cream (Small Tube)) 1 applic TP BID [facility] Last Admin: 03/11/20 21:35 Dose: 1 applic Documented by: Gabapentin (Neurontin -) 100 mg PO DAILY [facility] Last Admin: 03/11/20 09:30 Dose: 100 mg Documented by: Heparin Sodium (Porcine) (Heparin -) 5,000 unit SQ TID [facility] Last Admin: 03/12/20 06:10 Dose: 5,000 unit Documented by: Piperacillin Sod/Tazobactam (Sod 3.375 gm/ Dextrose) 50 mls @ 100 mls/hr IVPB Q8H-IV [facility]; Protocol Stop: 03/12/20 10:29 Last Admin: 03/12/20 01:30 Dose: 100 mls/hr Documented by: Insulin Aspart (Novolog Vial Sliding Scale -) 1 vial SQ TIDAC [facility]; Protocol Last Admin: 03/12/20 06:10 Dose: 2 units Documented by: Insulin Detemir (Levemir Vial) 20 units SQ AM [facility] Last Admin: 03/12/20 06:10 Dose: 20 units Documented by: Insulin Detemir (Levemir Vial) 4 units SQ HS [facility] Last Admin: 03/11/20 21:28 Dose: 4 units Documented by: Magnesium Chloride (Slow-Mag -) 64 mg PO DAILY [facility] Last Admin: 03/11/20 09:31 Dose: 64 mg Documented by: Metoprolol Tartrate (Lopressor -) 50 mg PO BID [facility] Last Admin: 03/11/20 21:28 Dose: 50 mg Documented by: Mycophenolate Sodium (Mycophenolic Acid) 360 mg PO BID [facility] Last Admin: 03/11/20 21:33 Dose: 360 mg Documented by: Oxycodone HCl (Roxicodone -) 5 mg PO Q12H PRN PRN Reason: PAIN LEVEL 1-5 Last Admin: 03/09/20 17:10 Dose: 5 mg Documented by: Povidone Iodine (Betadine 10% Solution -) 1 applic TP BID [facility] Last Admin: 03/11/20 21:30 Dose: 1 applic Documented by: Prednisone (Deltasone -) 2.5 mg PO DAILY [facility] Last Admin: 03/11/20 09:27 Dose: 2.5 mg Documented by: Tacrolimus (Prograf) 2 mg PO BID [facility] Last Admin: 03/11/20 21:34 Dose: 2 mg Documented by: Tamsulosin HCl (Flomax -) 0.4 mg PO DAILY@0830 [facility] Last Admin: 03/11/20 08:48 Dose: 0.4 mg Documented by: - Objective Vital Signs: Vital Signs Temperature 98.5 F 03/12/20 05:50 Pulse Rate 66 03/12/20 05:50 Respiratory Rate 20 03/12/20 05:50 Blood Pressure 153/72 03/12/20 05:50 O2 Sat by Pulse Oximetry (%) 100 03/12/20 05:50 Constitutional: Yes: No Distress, Calm Cardiovascular: Yes: S1, S2 Respiratory: Yes: Regular, CTA Bilaterally Musculoskeletal: Yes: WNL Extremities: Yes: Other Integumentary: Yes: Other Neurological: Yes: Alert, Oriented Psychiatric: Yes: Alert, Oriented Labs: CBC, BMP 03/12/20 07:55 03/12/20 07:55 INR, PTT INR 1.04 (0.83-1.09) 03/02/20 14:59 Assessment/Plan 64 y/o man with h/o ESRD s/p renal transplant, DM, HTN who presented with fever, chills, and pain in L foot sepsis dm renal transplant htn plan continue abx can change to oral augmentin for another 5 days
[2020-03-12] MEDS ORDERED: PT OWN MED DRAWER 7, Y5N ONE (11:00)
[2020-03-12] MEDS: MAGNESIUM CL 64 MG TABLET.SA PO SCH (11:13)
[2020-03-12] MEDS: CINACALCET HCL 30 MG TAB (FP) PO SCH (11:13)
[2020-03-12] MEDS: TACROLIMUS ANHYDROUS 1 MG CAPSULE PO SCH (11:14)
[2020-03-12] MEDS: TAMSULOSIN HCL 0.4 MG CAP PO SCH (11:14)
[2020-03-12] MEDS: predniSONE 5 MG TABLET (UD) PO SCH (11:15)
[2020-03-12] MEDS: amLODIPine BESYLATE 5 MG TABLET (FP) PO SCH (11:16)
[2020-03-12] MEDS: METOPROLOL TARTRATE 50 MG TABLET (FP) PO SCH (11:16)
[2020-03-12] MEDS: POVIDONE-IODINE 10% SOLN 118 ML BOTTLE TP SCH (11:16)
[2020-03-12] MEDS: GABAPENTIN 100 MG CAPSULE PO SCH (11:16)
[2020-03-12] MEDS: CLOTRIMAZOLE/BETAMET DIPROP 15 GM TUBE TP SCH (11:17)
[2020-03-12] MEDS: MYCOPHENOLATE SODIUM 360 MG TABLET.DR PO SCH (11:17)
--- NOTE | 2020-03-12 13:14 | PN ---
Teaching Attending Note Name of Resident: Samuel St ATTENDING PHYSICIAN STATEMENT I saw and evaluated the patient. I reviewed the resident's note and discussed the case with the resident. I agree with the resident's findings and plan as documented. SUBJECTIVE: No complaints. OBJECTIVE: Vital Signs Period Temp Pulse Resp BP Sys/Ga Pulse Ox Last 24 Hr 98.1 F-98.5 F 66-70 20-20 153-158/72-74 95-100 HEART: S1S2, RRR LUNGS: Clear ABDOMEN: Soft, non-tender, non-distended, normal BS EXTREMITIES: Decreased erythema and edema of LLE/left foot Laboratory Results - last 24 hr 03/11/20 03/11/20 03/12/20 16:28 21:25 05:31 WBC RBC Hgb Hct MCV MCH MCHC RDW Plt Count MPV Absolute Neuts (auto) Neutrophils % Lymphocytes % Monocytes % Eosinophils % Basophils % Nucleated RBC % Sodium Potassium Chloride Carbon Dioxide Anion Gap BUN Creatinine Est GFR (CKD-EPI)AfAm Est GFR (CKD-EPI)NonAf POC Glucometer 107 290 197 Random Glucose Calcium Phosphorus Magnesium Total Bilirubin AST ALT Alkaline Phosphatase Total Protein Albumin 03/12/20 03/12/20 03/12/20 07:55 07:55 11:43 WBC 6.1 RBC 3.84 L Hgb 12.2 Hct 37.4 MCV 97.6 H MCH 31.8 MCHC 32.6 RDW 13.5 Plt Count 285 MPV 8.4 Absolute Neuts (auto) 4.8 Neutrophils % 78.7 Lymphocytes % 13.2 Monocytes % 5.1 Eosinophils % 2.7 Basophils % 0.3 Nucleated RBC % 0 Sodium 133 L Potassium 4.4 Chloride 99 Carbon Dioxide 29 Anion Gap 4 L BUN 22.9 H Creatinine 1.1 Est GFR (CKD-EPI)AfAm 82.37 Est GFR (CKD-EPI)NonAf 71.07 POC Glucometer 282 Random Glucose 195 H Calcium 10.4 H Phosphorus 3.1 Magnesium 1.7 L Total Bilirubin 0.5 AST 5 L ALT 12 L Alkaline Phosphatase 111 Total Protein 7.0 Albumin 3.0 L Current Medications Generic Name Dose Route Start Last Admin Trade Name Freq PRN Reason Stop Dose Admin Amlodipine Besylate 5 mg 03/04/20 22:00 03/12/20 11:16 Norvasc - PO 5 mg BID [facility] Administration Cinacalcet 60 mg 03/10/20 10:00 03/12/20 11:13 Sensipar - PO 60 mg DAILY [facility] Administration Clotrimazole 1 applic 03/05/20 13:00 03/12/20 11:17 Lotrisone Cream (Small Tube) TP 1 applic BID [facility] Administration Gabapentin 100 mg 03/03/20 10:00 03/12/20 11:16 Neurontin - PO 100 mg DAILY [facility] Administration Heparin Sodium (Porcine) 5,000 unit 03/11/20 22:00 03/12/20 06:10 Heparin - SQ 5,000 unit TID [facility] Administration Insulin Aspart 1 vial 03/03/20 16:30 03/12/20 11:58 Novolog Vial Sliding Scale - SQ 6 units TIDAC [facility] Administration Protocol Insulin Detemir 20 units 03/10/20 10:41 03/12/20 06:10 Levemir Vial SQ 20 units AM [facility] Administration Insulin Detemir 4 units 03/10/20 22:00 03/11/20 21:28 Levemir Vial SQ 4 units HS [facility] Administration Magnesium Chloride 64 mg 03/11/20 10:00 03/12/20 11:13 Slow-Mag - PO 64 mg DAILY [facility] Administration Metoprolol Tartrate 50 mg 03/02/20 22:00 03/12/20 11:16 Lopressor - PO 50 mg BID [facility] Administration Mycophenolate Sodium 360 mg 03/07/20 22:00 03/12/20 11:17 Mycophenolic Acid PO 360 mg BID [facility] Administration Oxycodone HCl 5 mg 03/09/20 13:35 03/09/20 17:10 Roxicodone - PO 5 mg Q12H PRN Administration PAIN LEVEL 1-5 Povidone Iodine 1 applic 03/05/20 13:00 03/12/20 11:16 Betadine 10% Solution - TP 1 applic BID [facility] Administration Prednisone 2.5 mg 03/05/20 10:00 03/12/20 11:15 Deltasone - PO 2.5 mg DAILY [facility] Administration Tacrolimus 2 mg 03/04/20 22:00 03/12/20 11:14 Prograf PO 2 mg BID [facility] Administration Tamsulosin HCl 0.4 mg 03/03/20 08:30 03/12/20 11:14 Flomax - PO 0.4 mg DAILY@0830 [facility] Administration ASSESSMENT AND PLAN: This is a 64 year old man with a history of HTN, type 2 DM, ESRD, renal transplant who presented to the ED with fever, chills, and left foot pain. 1. Sepsis secondary to left foot cellulitis and tinea pedis - Improved - Change Zosyn to Augmentin at discharge 2. ESRD, history of renal transplant - Continue Prograf, CellCept - Continue Sensipar for secondary hyperparathyroidism with hypercalcemia 3. 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 HTN - Continue Norvasc, Lopressor 5. Hyponatremia, mild 6. Hyperkalemia - Improved 7. Hypomagnesemia - Supplement magnesium 8. Hypophosphatemia - Improved 9. Disposition - Ok for discharge home
--- NOTE | 2020-03-12 15:37 | DS ---
Physical Exam: SUBJECTIVE: Patient seen and examined today in no acute distress, endorsing no pain in his LLE. Denies F/C, ALBERTS, changes in vision, CP, SoB, N/V/D OBJECTIVE: Vital Signs Period Temp Pulse Resp BP Sys/Ga Pulse Ox Last 24 Hr 98.1 F-98.5 F 66-70 20-20 153-158/72-74 95-100 PHYSICAL EXAM GENERAL: The patient is awake, alert, and fully oriented, in no acute distress. HEAD: Normal with no signs of trauma. EYES: PERRL, extraocular movements intact, sclera anicteric, conjunctiva clear. No ptosis. ENT: Oropharynx clear without exudates, moist mucous NECK: Trachea midline, full range of motion, supple. LUNGS: Breath sounds equal, clear to auscultation bilaterally, no wheezes, no crackles, no accessory muscle use. HEART: Regular rate and rhythm, S1, S2 3/6 systolic murmur, No rub or gallop. ABDOMEN: Soft, nontender, nondistended, normoactive bowel sounds, large RLQ scar UPPER EXTREMITIES: 2+ pulses, warm, well-perfused, no edema. LOWER EXTREMITIES: Multiple hyperpigmented macular spots on LE B/L. LEFT LOWER EXTREMITY: Dressing removed and changed, minimal swelling and erythema remaind NEUROLOGICAL: Normal speech, gait not observed PSYCH: Normal mood, normal affect. SKIN: Warm, dry, normal turgor, no rashes or lesions noted otherwise noted LABS Laboratory Results - last 24 hr 03/11/20 03/11/20 03/12/20 16:28 21:25 05:31 WBC RBC Hgb Hct MCV MCH MCHC RDW Plt Count MPV Absolute Neuts (auto) Neutrophils % Lymphocytes % Monocytes % Eosinophils % Basophils % Nucleated RBC % Sodium Potassium Chloride Carbon Dioxide Anion Gap BUN Creatinine Est GFR (CKD-EPI)AfAm Est GFR (CKD-EPI)NonAf POC Glucometer 107 290 197 Random Glucose Calcium Phosphorus Magnesium Total Bilirubin AST ALT Alkaline Phosphatase Total Protein Albumin 03/12/20 03/12/20 03/12/20 07:55 07:55 11:43 WBC 6.1 RBC 3.84 L Hgb 12.2 Hct 37.4 MCV 97.6 H MCH 31.8 MCHC 32.6 RDW 13.5 Plt Count 285 MPV 8.4 Absolute Neuts (auto) 4.8 Neutrophils % 78.7 Lymphocytes % 13.2 Monocytes % 5.1 Eosinophils % 2.7 Basophils % 0.3 Nucleated RBC % 0 Sodium 133 L Potassium 4.4 Chloride 99 Carbon Dioxide 29 Anion Gap 4 L BUN 22.9 H Creatinine 1.1 Est GFR (CKD-EPI)AfAm 82.37 Est GFR (CKD-EPI)NonAf 71.07 POC Glucometer 282 Random Glucose 195 H Calcium 10.4 H Phosphorus 3.1 Magnesium 1.7 L Total Bilirubin 0.5 AST 5 L ALT 12 L Alkaline Phosphatase 111 Total Protein 7.0 Albumin 3.0 L HOSPITAL COURSE: Date of Admission:03/02/20 LLE MRI: Soft tissue swelling dorsal to the foot and the thickening of the skin on the plantar aspect of the foot below the second and third metatarsophalangeal joints compatible with cellulitis. No evidence of abscess collection. Finding are compatible with cellulitis EKG: SINUS RHYTHM, BASELINE ARTIFACT; RIGHT BUNDLE BRANCH BLOCK; T WAVE ABNORMALITY Date of Discharge: 03/12/20 64yo M w/ PMHx of HTN, T2DN, Diabetic Nephropathy CKD stage 5 s/p renal transplant in 2014 presented to the ED with L foot pain. Patient reports he's been having toe/foot pain for 1.5 months, however he has not been able to seek care due to the COVID pandemic. Patient noticed worsening pain over the past week which is constant, throbbing and impacting how he is walking. He has been using his same shoes with support. Patient's noted that his L foot has been progressively hotter comparatively as well. In the ED patient stated he was feeling feverish and had chills. Patient denied SOB, CP, N/V/D, abdominal pain, dysuria, polyuria. The patient was admitted to the medical floor where ID, Nephrology, and Podiatry were consulted. MMF was initially held per nephrology during the early stages of infection and later restarted when the patient became more stable. Zosyn was started for resolution of the LLE cellulitis and Podiatry deemed that no surgical intervention was needed. The patient's subjective fevers and chills dissipated. Clotrimazole betabethasone was added as a second agent to address the patient's underlying tinea pedis with success. Records obtained from [facility] were followed regarding the patient's renal transplant medication. During the course of the stay, the patient repeatedly required repletion of magnesium and phosphorus likely secondary to his Mycophenalate use and secondary hyperparathyroid respectively. The patient became clinically stabilized and was transitioned to oral abx for DC (Augmenting x5 days BID) with followup w/ podiatry as well as [facility]. Minutes to complete discharge: 36 Discharge Summary Problems reviewed: Yes Reason For Visit: KIDNEY TRANSPLANT RECIPIENT, ULCER OF TOE DUE TO Condition: Stable - Instructions Diet, Activity, Other Instructions: YOUR VISIT You came to the hospital because you were experiencing pain in your left foot as well as fever and chills. You were admitted to the hospital for a condition called "sepsis" and it was due to your foot infection, also known as "cellulitis." You were given medications, including antibiotics, to treat this condition. You are now stable and may return home. MEDICATIONS Please START taking "Augmentin" 1 pill, two times per day (morning and night) for FIVE DAYS starting on 03/13/2020. Please continue to take all other home medications as prescribed. You now require a long-acting insulin for better coverage of your blood sugar levels. Please inject: - Levemir 20 units in the morning - Levemir 4 units in the evening ADDITIONAL CARE Please follow-up with Dr. Ortega (Primary Care) in 2 weeks to discuss your hospital admission Please follow-up with Dr. Santiago (Podiatry) [facility] your left foot: Please follow-up with Dr. Richards (Nephrology) at [facility] in 1 week to follow up on kidney health after-transplant Please follow-up with Dr. Robledo (Endocrinology) for management of your diabetes ADDITIONAL INFORMATION Please call 911 or come directly to the emergency department if you experience recurrence of the symptoms that brought you to the hospital, unusual headache, vision change, shortness of breath, chest pain, numbness, tingling, loss of alertness/awareness, loss of function, unusual bleeding or any alarming symptoms. Referrals: John Santiago MD [Staff Physician] - 03/18/20 10:00 am Jaden Richards [Non Staff, Medical] - 1 Week Sal Ortega MD [Primary Care Provider] - 2 Weeks Tiffanie Robledo MD [Staff Physician] - 1 Week Disposition: HOME - Home Medications Comprehensive Discharge Medication List: Ambulatory Orders Cinacalcet HCl [Sensipar] 60 mg PO DAILY 02/03/13 Metoprolol Tartrate [Lopressor -] 25 mg PO BID 03/31/16 Mycophenolate Sodium [Myfortic -] 360 mg PO BID 03/31/16 Prednisone 5 mg PO DAILY 03/31/16 Tacrolimus [Prograf] 2 mg PO BID 03/31/16 Tamsulosin HCl [Flomax] 0.4 mg PO DAILY 03/31/16 Amlodipine Besylate 10 mg PO DAILY 03/04/20 Atorvastatin Ca [Lipitor] 40 mg PO HS 03/04/20 Gabapentin 300 mg PO TID 03/04/20 Insulin Glargine,Hum.rec.anlog [Basaglar Kwikpen U-100] 16 unit SQ DAILY 03/04/20 Insulin Lispro [Admelog] 4 - 8 units SQ TID 03/04/20 Magnesium Oxide [Mag-Ox -] 400 mg PO BID 03/04/20 metFORMIN HCL [Metformin HCl] 500 mg PO DAILY 03/04/20 Amoxicillin/Potassium Clav [Augmentin 875-125 Tablet] 1 each PO BID 5 Days #10 tablet MDD 2 Pills 03/12/20 Insulin (Levemir) [Levemir Vial] 4 units SQ HS #1 units 03/12/20 Insulin (Levemir) [Levemir Vial] 20 units SQ AM #1 units 03/12/20 This patient is new to me today: No Emergency Visit: No Critical Care patient: No - Discharge Referral Referred to [facility] Med [facility].C.: No ATTENDING PHYSICIAN STATEMENT I saw and evaluated the patient. I reviewed the resident's note and discussed the case with the resident. I agree with the resident's findings and plan as documented. SUBJECTIVE: OBJECTIVE: ASSESSMENT AND PLAN:
[2020-03-12 15:45] VITALS: BP 144/64; PULSE 63; TEMP 98.6
--- NOTE | 2020-03-12 17:35 | PN ---
Progress Note, Physician History of Present Illness: Seen and examined at the bedside awake and alert offers no acute complaints for discharge today - Current Medication List Current Medications: Active Medications Amlodipine Besylate (Norvasc -) 5 mg PO BID [facility] Last Admin: 03/12/20 11:16 Dose: 5 mg Documented by: Cinacalcet (Sensipar -) 60 mg PO DAILY [facility] Last Admin: 03/12/20 11:13 Dose: 60 mg Documented by: Clotrimazole (Lotrisone Cream (Small Tube)) 1 applic TP BID [facility] Last Admin: 03/12/20 11:17 Dose: 1 applic Documented by: Gabapentin (Neurontin -) 100 mg PO DAILY [facility] Last Admin: 03/12/20 11:16 Dose: 100 mg Documented by: Heparin Sodium (Porcine) (Heparin -) 5,000 unit SQ TID [facility] Last Admin: 03/12/20 06:10 Dose: 5,000 unit Documented by: Insulin Aspart (Novolog Vial Sliding Scale -) 1 vial SQ TIDAC [facility]; Protocol Last Admin: 03/12/20 11:58 Dose: 6 units Documented by: Insulin Detemir (Levemir Vial) 20 units SQ AM [facility] Last Admin: 03/12/20 06:10 Dose: 20 units Documented by: Insulin Detemir (Levemir Vial) 4 units SQ HS [facility] Last Admin: 03/11/20 21:28 Dose: 4 units Documented by: Magnesium Chloride (Slow-Mag -) 64 mg PO DAILY [facility] Last Admin: 03/12/20 11:13 Dose: 64 mg Documented by: Metoprolol Tartrate (Lopressor -) 50 mg PO BID [facility] Last Admin: 03/12/20 11:16 Dose: 50 mg Documented by: Mycophenolate Sodium (Mycophenolic Acid) 360 mg PO BID [facility] Last Admin: 03/12/20 11:17 Dose: 360 mg Documented by: Povidone Iodine (Betadine 10% Solution -) 1 applic TP BID [facility] Last Admin: 03/12/20 11:16 Dose: 1 applic Documented by: Prednisone (Deltasone -) 2.5 mg PO DAILY [facility] Last Admin: 03/12/20 11:15 Dose: 2.5 mg Documented by: Tacrolimus (Prograf) 2 mg PO BID [facility] Last Admin: 03/12/20 11:14 Dose: 2 mg Documented by: Tamsulosin HCl (Flomax -) 0.4 mg PO DAILY@0830 DERIC Last Admin: 03/12/20 11:14 Dose: 0.4 mg Documented by: - Objective Vital Signs: Vital Signs Temperature 98.6 F 03/12/20 14:00 Pulse Rate 63 03/12/20 14:00 Respiratory Rate 03/12/20 14:00 Blood Pressure 144/64 03/12/20 14:00 O2 Sat by Pulse Oximetry (%) 100 03/12/20 05:50 Constitutional: Yes: No Distress, Calm Neck: Yes: Supple Cardiovascular: Yes: Regular Rate and Rhythm Respiratory: Yes: Regular Gastrointestinal: Yes: Soft Extremities: No: Cold, Cool, Cyanosis Neurological: Yes: Alert Labs: CBC, BMP 03/12/20 07:55 03/12/20 07:55 INR, PTT INR 1.04 (0.83-1.09) 03/02/20 14:59 Assessment/Plan 64 year old male with history of ESRD s/p renal transplant in 2014, insulin dependent DM, secondary hyperparathyrodism who presented with left foot pain and found to have digital ulcerations and cellulitis. 1. ESRD s/p renal transplant with preserved graft function 2. Cellulitis/Ulcerations of lower extremity 3. IDDM 4. Secondary hyperparathyrodism 5. Anemia 6. Hyponatremia Renal function stable. Continue Tacrolimus dose 2mg BID, MMF 360mg BID and Prednisone dose 2.5mg Daily For discharge on oral antibiotics Podiatry follow up, no surgical intervention needed at this time. Continue Sensipar 60mg daily. Will need to follow up at [facility] transplant clinic on discharge. Thank you Waylon Gaona DO
== END 2020-03-12 19:47 | disposition home or self-care (01) | DRG 720 ==
LOC: JER 13:08 → JERBED 14:48 → J6S 03-04 01:27
PROVIDERS: ADMIT Internal Medicine; ATTEND Internal Medicine
DX: A41.52 Sepsis due to Pseudomonas (principal); I12.9 Hypertensive chronic kidney disease with stage 1 through stage 4 chronic kidney disease, or unspecified chronic kidney disease; N18.9 Chronic kidney disease, unspecified; Z94.0 Kidney transplant status; E11.649 Type 2 diabetes mellitus with hypoglycemia without coma; E87.5 Hyperkalemia; L97.528 Non-pressure chronic ulcer of other part of left foot with other specified severity; N25.81 Secondary hyperparathyroidism of renal origin; K59.00 Constipation, unspecified; E83.42 Hypomagnesemia; E83.39 Other disorders of phosphorus metabolism; L03.116 Cellulitis of left lower limb; E11.621 Type 2 diabetes mellitus with foot ulcer; E83.52 Hypercalcemia; T45.1X5A Adverse effect of antineoplastic and immunosuppressive drugs, initial encounter; A41.01 Sepsis due to Methicillin susceptible Staphylococcus aureus; A40.1 Sepsis due to streptococcus, group B; E11.40 Type 2 diabetes mellitus with diabetic neuropathy, unspecified; E87.1 Hypo-osmolality and hyponatremia; B35.3 Tinea pedis; N17.9 Acute kidney failure, unspecified; E11.21 Type 2 diabetes mellitus with diabetic nephropathy; D64.9 Anemia, unspecified; E86.0 Dehydration
CPT/HCPCS: 36415; 71046-TC-FY; 73630-TC-LT; 73630-TC-RT-FY; 73718-TC-LT; 80048; 80053; 80197; 82040; 82306; 82533; 82550; 82962; 83735; 83970; 84100; 84484; 85025; 85027; 85610; 85651; 85730; 86140; 87040; 87070; 87077; 87186; 87205; 93005; 93010; 99285-25; J0131; J1644; U0003

== ENCOUNTER 2020-11-06 10:59 | Inpatient (IN) | payer OTHER ==
[2020-11-06 11:32] VITALS: BMI 29.2
[2020-11-06 12:05] LABS: BASO % 0.9 % (0-2.0); EOS % 3.8 % (0-4.5); HEMATOCRIT 41.9 % (35.4-49); LYMPH % 15.1 % (8-40); MCH 32.4 pg (25.7-33.7); MCHC 33.3 g/dl (32.0-35.9); MEAN CELL VOLUME 97.1 fl (80-96); MEAN PLT VOLUME 9.6 fl (7.5-11.1); MONO % 7.2 % (3.8-10.2); PLATELET COUNT 119 K/MM3 (134-434); RBC 4.32 M/mm3 (4.00-5.60); RDW 13.9 % (11.9-15.9); WHITE BLOOD COUNT 4.8 K/mm3 (4.0-10.0)
[2020-11-06 12:13] LABS: INR 0.99 (0.83-1.09)
[2020-11-06 12:16] LABS: ACTIVATED PTT 32.7 SECONDS (25.2-36.5)
[2020-11-06 12:21] LABS: CHLORIDE 108 mmol/L (98-107); SODIUM 139 mmol/L (136-145)
[2020-11-06 12:23] LABS: CALCIUM 10.5 mg/dL (8.5-10.1)
[2020-11-06 12:24] LABS: ALBUMIN 4.1 g/dl (3.4-5.0); ANION GAP 5 MMOL/L (8-16); CO2 26 mmol/L (21-32); GLUCOSE,RANDOM 159 mg/dL (74-106)
[2020-11-06 12:26] LABS: SGPT/ALT 37 U/L (13-61)
[2020-11-06 12:27] LABS: CREATININE 1.3 mg/dL (0.55-1.3); SGOT/AST 24 U/L (15-37)
[2020-11-06 12:28] LABS: TOT PROT 7.1 g/dl (6.4-8.2)
[2020-11-06 12:29] LABS: ALK PHOS 210 U/L (45-117)
[2020-11-06] MEDS ORDERED: SODIUM CHLORIDE 0.9% 1000 ML INFUS.BAG IV ONE (12:57)
[2020-11-06 13:52] LABS: EPI CELLS 2 /uL (0-25.1); HYALINE CASTS 1 /uL (0-3.1); URINE APPEARANCE CLEAR; URINE BACTERIA 12 /uL (0-1359); URINE BILIRUBIN NEGATIVE (NEGATIVE); URINE COLOR YELLOW; URINE GLUCOSE (UA) 2+ (NEGATIVE); URINE KETONE NEGATIVE (NEGATIVE); URINE LEUK ESTERASE NEGATIVE (NEGATIVE); URINE NITRITE NEGATIVE (NEGATIVE); URINE PROTEIN 1+ (NEGATIVE); URINE RBC 3 /uL (0-23.9); URINE UROBILINOGEN 0.2 mg/dL (0.2-1.0); URINE WBC 4 /uL (0-25.8)
[2020-11-06] MEDS ORDERED: SODIUM CHLORIDE 1,000 ML IV SCH (19:00)
[2020-11-06] MEDS ORDERED: METOPROLOL TARTRATE 25 MG TABLET (FP) PO ONE (20:34)
[2020-11-06] MEDS ORDERED: METOPROLOL TARTRATE 25 MG TABLET (FP) ONE ×2 (21:05→23:21)
[2020-11-06] MEDS: INSULIN SLIDING SCALE (NOVOLOG) 1 VIAL SQ SCH ×2 (21:11→23:31)
[2020-11-06] MEDS ORDERED: MAGNESIUM OXIDE 400 MG TABLET (FP) ONE (23:21)
[2020-11-06] MEDS ORDERED: GABAPENTIN 100 MG CAPSULE ONE (23:21)
[2020-11-06] MEDS ORDERED: ATORVASTATIN CA 40 MG TABLET (FP) ONE (23:21)
[2020-11-06] MEDS ORDERED: HEPARIN NA (PORCINE) 5,000 UNITS/ML 1ML VIAL ONE (23:22)
[2020-11-06] MEDS: GABAPENTIN 300 MG CAPSULE PO SCH (23:31)
[2020-11-06] MEDS: MAGNESIUM OXIDE 400 MG TABLET (FP) PO SCH (23:31)
[2020-11-06] MEDS: HEPARIN NA (PORCINE) 5,000 UNITS/ML 1ML VIAL SQ SCH (23:32)
[2020-11-06] MEDS: ATORVASTATIN CA 40 MG TABLET (FP) PO SCH (23:32)
[2020-11-06] MEDS: METOPROLOL TARTRATE 50 MG TABLET (FP) PO SCH (23:32)
[2020-11-06] MEDS ORDERED: MIDAZOLAM HCL 2 MG/2 ML SINGLE DOSE VIAL ONE (23:38)
[2020-11-07] MEDS: TACROLIMUS ANHYDROUS 1 MG CAPSULE PO SCH ×3 (01:42→22:11)
[2020-11-07] MEDS ORDERED: GABAPENTIN 100 MG CAPSULE ONE ×2 (06:24→14:39)
[2020-11-07] MEDS: GABAPENTIN 300 MG CAPSULE PO SCH ×3 (06:33→21:01)
[2020-11-07] MEDS: INSULIN (LEVEMIR) 100 UNITS/ML UNITS SQ SCH (07:25)
[2020-11-07 07:29] LABS: BASO % 0.4 % (0-2.0); EOS % 5.7 % (0-4.5); HEMATOCRIT 38.9 % (35.4-49); HEMOGLOBIN 13.1 GM/dL (11.7-16.9); MCH 32.4 pg (25.7-33.7); MCHC 33.7 g/dl (32.0-35.9); MEAN CELL VOLUME 96.3 fl (80-96); MEAN PLT VOLUME 9.2 fl (7.5-11.1); NEUT % 64.9 % (42.8-82.8); PLATELET COUNT 98 K/MM3 (134-434); RBC 4.03 M/mm3 (4.00-5.60); RDW 13.9 % (11.9-15.9); WHITE BLOOD COUNT 5.4 K/mm3 (4.0-10.0)
[2020-11-07 07:51] LABS: CHLORIDE 110 mmol/L (98-107); SODIUM 139 mmol/L (136-145)
[2020-11-07 07:56] LABS: ALBUMIN 3.6 g/dl (3.4-5.0); ANION GAP 6 MMOL/L (8-16); BLOOD UREA NITROGEN 27.2 mg/dL (7-18); CALCIUM 9.2 mg/dL (8.5-10.1); CO2 24 mmol/L (21-32); GLUCOSE,RANDOM 127 mg/dL (74-106)
[2020-11-07 07:57] LABS: MAGNESIUM 1.4 mg/dL (1.8-2.4)
[2020-11-07 07:59] LABS: CHOLESTEROL 130 mg/dL (50-200); CREATININE 0.9 mg/dL (0.55-1.3); SGOT/AST 13 U/L (15-37); SGPT/ALT 28 U/L (13-61)
[2020-11-07 08:00] LABS: BILIRUBIN,TOTAL 0.7 mg/dL (0.2-1); PHOSPHOROUS 2.2 mg/dL (2.5-4.9); TOT PROT 6.2 g/dl (6.4-8.2); TRIGLYCERIDES 96 mg/dL (0-150)
[2020-11-07 08:01] LABS: LDL CHOLESTEROL (ONLY SJRH) 69 mg/dL (5-100)
[2020-11-07 08:02] LABS: HDL CHOLESTEROL 41 mg/dL (40-60)
[2020-11-07 08:23] LABS: ALK PHOS 133 U/L (45-117)
[2020-11-07] MEDS ORDERED: MAGNESIUM SULF 50% (8.12 MEQ/2 ML-1 GM VIAL) IVPB ONE (09:30)
[2020-11-07] MEDS: INSULIN SLIDING SCALE (NOVOLOG) 1 VIAL SQ SCH ×4 (11:14→21:02)
[2020-11-07] MEDS: TAMSULOSIN HCL 0.4 MG CAP PO SCH (11:14)
[2020-11-07] MEDS: MAGNESIUM OXIDE 400 MG TABLET (FP) PO SCH ×2 (11:15→21:01)
[2020-11-07] MEDS: predniSONE 5 MG TABLET (UD) PO SCH (11:15)
[2020-11-07] MEDS: amLODIPine BESYLATE 10 MG TABLET (FP) PO SCH (11:15)
[2020-11-07] MEDS: METOPROLOL TARTRATE 50 MG TABLET (FP) PO SCH ×2 (11:15→21:02)
[2020-11-07] MEDS: HEPARIN NA (PORCINE) 5,000 UNITS/ML 1ML VIAL SQ SCH ×2 (11:15→21:02)
[2020-11-07] MEDS ORDERED: MAGNESIUM OXIDE 400 MG TABLET (FP) ONE (11:28)
[2020-11-07] MEDS ORDERED: amLODIPine BESYLATE 5 MG TABLET (FP) ONE (11:28)
[2020-11-07] MEDS ORDERED: METOPROLOL TARTRATE 25 MG TABLET (FP) ONE (11:28)
[2020-11-07] MEDS ORDERED: TAMSULOSIN HCL 0.4 MG CAP ONE (11:29)
[2020-11-07] MEDS ORDERED: MAGNESIUM SULFATE IN WATER 2 GM/50 ML IVPB IVPB ONE (11:29)
[2020-11-07] MEDS ORDERED: HEPARIN NA (PORCINE) 5,000 UNITS/ML 1ML VIAL ONE (11:30)
[2020-11-07] MEDS: CINACALCET HCL 30 MG TAB (FP) PO SCH (11:33)
[2020-11-07] MEDS ORDERED: hydrALAZINE HCL 25 MG TABLET (FP) PO SCH (14:00)
[2020-11-07] MEDS ORDERED: hydrALAZINE HCL 25 MG TABLET (FP) ONE (14:39)
[2020-11-07] MEDS ORDERED: PT OWN MED DRAWER 7, Y5N ONE (20:51)
[2020-11-07] MEDS: hydrALAZINE HCL 50 MG TABLET (FP) PO SCH (21:01)
[2020-11-07] MEDS: ATORVASTATIN CA 40 MG TABLET (FP) PO SCH (21:01)
[2020-11-08] MEDS: GABAPENTIN 300 MG CAPSULE PO SCH (05:57)
[2020-11-08] MEDS: hydrALAZINE HCL 50 MG TABLET (FP) PO SCH (05:57)
[2020-11-08] MEDS: INSULIN (LEVEMIR) 100 UNITS/ML UNITS SQ SCH (06:01)
[2020-11-08 06:38] VITALS: PULSE 65; TEMP 98.2
[2020-11-08] MEDS: INSULIN SLIDING SCALE (NOVOLOG) 1 VIAL SQ SCH ×2 (07:35→11:20)
[2020-11-08 08:15] VITALS: BP 115/53
[2020-11-08] MEDS: HEPARIN NA (PORCINE) 5,000 UNITS/ML 1ML VIAL SQ SCH (09:25)
[2020-11-08] MEDS: METOPROLOL TARTRATE 50 MG TABLET (FP) PO SCH (09:26)
[2020-11-08] MEDS: MAGNESIUM OXIDE 400 MG TABLET (FP) PO SCH (09:26)
[2020-11-08] MEDS: TAMSULOSIN HCL 0.4 MG CAP PO SCH (09:26)
[2020-11-08] MEDS: predniSONE 5 MG TABLET (UD) PO SCH (09:26)
[2020-11-08] MEDS: amLODIPine BESYLATE 10 MG TABLET (FP) PO SCH (09:26)
[2020-11-08] MEDS ORDERED: PT OWN MED DRAWER 7, Y5N ONE (11:39)
[2020-11-08] MEDS: TACROLIMUS ANHYDROUS 1 MG CAPSULE PO SCH (11:41)
[2020-11-08] MEDS: CINACALCET HCL 30 MG TAB (FP) PO SCH (11:41)
== END 2020-11-08 12:33 | disposition home or self-care (01) | DRG 420 ==
LOC: JER 10:59 → JERBED 11:38 → J4W 11-07 15:16
PROVIDERS: ADMIT Family Medicine; ATTEND Family Medicine
DX: E11.649 Type 2 diabetes mellitus with hypoglycemia without coma (principal); E11.40 Type 2 diabetes mellitus with diabetic neuropathy, unspecified; R55 Syncope and collapse; Z79.4 Long term (current) use of insulin; I45.10 Unspecified right bundle-branch block; I10 Essential (primary) hypertension; Z94.0 Kidney transplant status
CPT/HCPCS: 36415; 71045-TC-FY; 80053; 80061; 81003; 82550; 82962; 83036; 83721; 83735; 84100; 84443; 84484; 85025; 85610; 85730; 87086; 87804; 93005; 93010; 93306-TC; 99285-25; C9803; J1644; U0003; U0005